=== PATIENT | male | born 1935 | race Caucasian/White ===

== ENCOUNTER 2017-10-13 14:59 | Inpatient (IN) | payer OTHER ==
[~2017-10-13] VITALS: Ht 180.3 cm; Wt 85.0 kg
[2017-10-13] MEDS ORDERED: LISI-461 PO (15:36)
[2017-10-13] MEDS ORDERED: ALLO300T2 PO (15:36)
[2017-10-13] MEDS ORDERED: ATEN50TA8 PO (15:36)
[2017-10-13] MEDS ORDERED: BUME1TAB PO ×2 (15:36)
[2017-10-13] MEDS ORDERED: ATOR-26 PO (15:36)
[2017-10-13] MEDS ORDERED: LISI10TA PO (15:36)
[2017-10-13] MEDS ORDERED: POTA-639 PO (15:36)
[2017-10-13] MEDS ORDERED: ALBUT/IPRATROP 3MG/0.5MG NEB 3 ML VIAL INH STA ×2 (15:43→16:58)
[2017-10-13] MEDS ORDERED: METHYLPREDNISOLONE 125 MG VIAL IV STA (15:46)
--- NOTE | 2017-10-13 16:01 | EMERGENCY ROOM VISIT NOTE ---
ED Visit Note First contact with patient: 15:27 CHIEF COMPLAINT: Shortness of breath HISTORY OF PRESENTING ILLNESS: This is an 82-year-old male with a past medical history of coronary artery disease, hypertension, CHF, who presents to the emergency department with complaint of shortness of breath and cough for the past 10 days. Patient states that he has been coughing up yellow sputum, he denies any hemoptysis. He states the cough has been getting worse, and especially keeping him awake at night. Patient was seen at his PCP today at [facility], was noted to have wheezing and decreased oxygenation of 89% on room air and was sent to the emergency department for further evaluation. He denies any chest pain, dizziness or syncope. He states that he is usually fairly active, but has noticed increased shortness of breath with exertion, as well as with lying flat. He denies any history of COPD, but states that he used to be a heavy smoker, and often gets wheezing with respiratory illness. He has bilateral lower extremity edema at baseline, states this might be a little worse than usual. He takes Bumex for this. He denies any symptoms of headache , vision changes, neck pain, back pain, abdominal pain, nausea or vomiting, diarrhea, bloody or black stools, urinary incontinence, or unusual rash. Patient's brother is at bedside with him, he denies any recent confusion or unusual behavior. REVIEW OF SYSTEMS: A complete 10 point review of systems was reviewed with the patient with pertinent positives and negatives as per history of present illness. All else were negative. PAST MEDICAL HISTORY: Coronary artery disease with a CABG in 2001, CHF, hypertension, hyperlipidemia SOCIAL HISTORY: Lives at home with his brother. He is a former heavy smoker, denies alcohol and recreational drugs. ALLERGIES: Reviewed in chart. PHYSICAL EXAM: CONSTITUTIONAL: Pleasant and cooperative. No acute distress. Pale and mildly dehydrated. HEENT: Normocephalic, atraumatic. Pupils equal, round and reactive to light, EOMI. TMs normal. Pharynx normal. Tacky mucous membranes. NECK: Supple, full active range of motion without discomfort. No cervical adenopathy. RESPIRATORY: Diminished in bases, especially at the right base. Diffuse expiratory wheezes throughout, bibasilar fine crackles, no rhonchi or stridor. Mildly labored breathing noted, but patient is not tachypneic and is able to speak in full sentences. Equal expansion bilaterally. CARDIOVASCULAR: Regular rate and rhythm with no murmurs, rubs or gallops. Normal peripheral perfusion. 2+ pitting edema of the bilateral lower extremities. GASTROINTESTINAL: Soft, nontender, nondistended. No palpable masses or HSM. Bowel sounds present in all quadrants. MUSCULOSKELETAL: Full range of motion of all joints without discomfort. INTEGUMENTARY: No rash or other significant dermatologic conditions noted. NEUROLOGIC: Alert and oriented X 4 with normal affect. Cranial nerves II-XII grossly intact, no facial droop. No pronator drift. No focal neurologic deficits noted. 5/5 strength in all 4 extremities, sensation intact to light touch in all 4 extremities. Normal speech. ED COURSE AND MEDICAL DECISION MAKING: CC: Patient presenting with complaint of shortness of breath and cough DIFFERENTIAL DIAGNOSIS: Includes, but not limited to COPD exacerbation, CHF exacerbation, pneumonia, bronchitis, viral URI, influenza, acute NV, PE, pulmonary edema, pleural effusion, aspiration, among others. INTERPRETATION OF LABS: No leukocytosis, mild anemia, no significant electrolyte abnormalities, mildly reduced renal function, elevated T bili and alk phos, liver enzymes otherwise normal. Coagulation factors within normal limits. Troponin is mildly elevated, pro-BNP is elevated. Negative influenza A /B. IMAGING: TWO VIEW CHEST CLINICAL HISTORY: Dyspnea. FINDINGS: PA and lateral chest radiographs are obtained. No prior studies are available for comparison at the time of dictation. The patient is status post midline sternotomy. The heart is enlarged and there is atherosclerotic calcification of the thoracic aorta. The pulmonary vasculature is noncongested. Emphysematous change is suggested. Nonspecific interstitial thickening is likely chronic. Postoperative change and volume loss is questioned in the right lung. Pleural fluid is seen at the right lung base. The left lung is grossly clear. There is no pneumothorax. The skeletal structures are osteopenic. The bony thorax appears intact. IMPRESSION: 1. Cardiomegaly and suspect emphysema. 2. Question postoperative change and volume loss in the right lung. Correlation with the patient's operative history will be required. 3. There is pleural fluid at the right lung base. The lungs otherwise appear clear. EKG: Shows sinus rhythm with first-degree AV block and a rate of 62 bpm, occasional PVCs, no acute ischemic changes noted, though poor quality study by my interpretation. No previous EKGs available for comparison. MEDICATION RECONCILIATION: I attest that I have personally reviewed the patient 's current medication list. INITIAL VITAL SIGNS REVIEW: I reviewed the patient's initial vital signs and interpret them as follows: T: Afebrile; BP: Hypertensive; HR: Within normal limits; RR: Within normal limits; Pulse Ox: Hypoxic on room air, placed on 2 L nasal cannula and improved to 97%. Blood pressure screening: The patient was found to have an elevated blood pressure and was referred to the inpatient team for further management. SUMMARY: Patient was evaluated at bedside, history and physical exam performed. Patient is alert and oriented, in no acute distress, resting calmly in stretcher. Patient does appear to have mildly labored breathing, but is not tachypneic and is able to speak in full sentences. there are diffuse expiratory wheezes heard on lung exam, as well as audible wheezing. Right bases especially diminished. Patient was noted to have pitting edema of the lower extremities, which he states he has at baseline, though he states this has been slightly worse over the past few weeks. Patient has a congested sounding cough, which he reports has been productive of yellow sputum. He is a former smoker. EKG reviewed at bedside, showing sinus rhythm with first-degree AV block, no acute ischemic changes. Orders were placed at bedside for labs, DuoNeb treatment, IV Solu-Medrol, chest x-ray to evaluate for cardiopulmonary disease. Patient discussed with Dr. Hatrley, who agrees with my assessment and plan. Labs and imaging reviewed as above, notable for mildly elevated troponin and an elevated pro-BNP, which is suggestive for CHF exacerbation. Chest x-ray reviewed, noting some pleural fluid in the right lung base, but no evidence for focal pneumonia or significant pulmonary edema. Patient was given a dose of IV Bumex to treat for possible CHF exacerbation, although I do feel his symptoms seem more consistent with a COPD exacerbation. Patient reassessed multiple times throughout ED stay, he is somewhat improved with nebulizer treatments, but continues to have a lot of wheezing and is continuing to require oxygen. He otherwise appears comfortable and denies any complaints of chest pain. I spoke on the phone with [facility], who agrees to evaluate the patient for admission. Patient was updated on all results and plan for admission, he verbalized understanding and was agreeable to this plan. Patient was stable at time of admission. Current/Historical Medications Scheduled Allopurinol (Zyloprim), 150 MG PO QAM Atenolol (Tenormin), 50 MG PO QAM Atorvastatin (Lipitor), 40 MG PO HS Bumetanide (Bumex), 1 MG PO 4XWK Bumetanide (Bumex), 2 MG PO 3XWK Lisinopril (Zestril), 20 MG PO QPM Lisinopril (Prinivil), 10 MG PO QAM Potassium Ext Rel (Klor-Con), 10 MEQ PO DAILY Allergies Coded Allergies: Ibuprofen (Unverified Adverse Reaction, Severe, RAPID HEART RATE, 10/13/17) Vital Signs Date Time Temp Pulse Resp B/P (MAP) Pulse Ox O2 Delivery O2 Flow Rate FiO2 10/13/17 19:13 62 18 133/66 97 Nasal Cannula 2.0 10/13/17 17:24 69 18 151/75 98 Nasal Cannula 2.0 10/13/17 15:51 97 Room Air 10/13/17 15:51 97 Nasal Cannula 2.0 10/13/17 15:06 87 Room Air 10/13/17 15:06 36.7 63 20 173/71 87 Room Air Laboratory Results 10/13/17 16:11 Red Blood Count 4.52, Mean Corpuscular Volume 79.9, Mean Corpuscular Hemoglobin 24.6, Mean Corpuscular Hemoglobin Concent 30.7, Mean Platelet Volume 10.2, Neutrophils (%) (Auto) 78.7, Lymphocytes (%) (Auto) 5.9, Monocytes (%) (Auto) 14.4, Eosinophils (%) (Auto) 0.3, Basophils (%) (Auto) 0.3, Neutrophils # (Auto ) 6.31, Lymphocytes # (Auto) 0.47, Monocytes # (Auto) 1.15, Eosinophils # (Auto ) 0.02, Basophils # (Auto) 0.02 10/13/17 16:11 Test 10/13/17 16:11 White Blood Count 8.00 K/uL (4.8-10.8) Red Blood Count 4.52 M/uL (4.7-6.1) Hemoglobin 11.1 g/dL (14.0-18.0) Hematocrit 36.1 % (42-52) Mean Corpuscular Volume 79.9 fL (80-100) Mean Corpuscular Hemoglobin 24.6 pg (25-34) Mean Corpuscular Hemoglobin Concent 30.7 g/dl (32-36) Platelet Count 212 K/uL (130-400) Mean Platelet Volume 10.2 fL (7.4-10.4) Neutrophils (%) (Auto) 78.7 % Lymphocytes (%) (Auto) 5.9 % Monocytes (%) (Auto) 14.4 % Eosinophils (%) (Auto) 0.3 % Basophils (%) (Auto) 0.3 % Neutrophils # (Auto) 6.31 K/uL (1.4-6.5) Lymphocytes # (Auto) 0.47 K/uL (1.2-3.4) Monocytes # (Auto) 1.15 K/uL (0.11-0.59) Eosinophils # (Auto) 0.02 K/uL (0-0.5) Basophils # (Auto) 0.02 K/uL (0-0.2) RDW Standard Deviation 47.7 fL (36.4-46.3) RDW Coefficient of Variation 16.5 % (11.5-14.5) Immature Granulocyte % (Auto) 0.4 % Immature Granulocyte # (Auto) 0.03 K/uL (0.00-0.02) Prothrombin Time 11.3 SECONDS (9.0-12.0) Prothromb Time International Ratio 1.1 (0.9-1.1) Activated Partial Thromboplast Time 26.2 SECONDS (21.0-31.0) Partial Thromboplastin Ratio 1.0 Anion Gap 4.0 mmol/L (3-11) Est Creatinine Clear Calc Drug Dose 40.0 ml/min Estimated GFR () 49.6 Estimated GFR (Non- 42.8 BUN/Creatinine Ratio 17.3 (10-20) Calcium Level 8.3 mg/dl (8.5-10.1) Total Bilirubin 1.1 mg/dl (0.2-1) Aspartate Amino Transf (AST/SGOT) 16 U/L (15-37) Alanine Aminotransferase (ALT/SGPT) 16 U/L (12-78) Alkaline Phosphatase 152 U/L (45-117) Pro-B-Type Natriuretic Peptide 9362 pg/ml (0-1800) Total Protein 7.1 gm/dl (6.4-8.2) Albumin 3.1 gm/dl (3.4-5.0) Globulin 4.0 gm/dl (2.5-4.0) Albumin/Globulin Ratio 0.8 (0.9-2) Influenza Type A Antigen Neg for Influ A (NEG) Influenza Type B Antigen Neg for Influ B (NEG) Medications Administered Medications (Trade) Dose Ordered Sig/Didi Route Start Time Stop Time Status Last Admin Dose Admin Albuterol/ Ipratropium (Duoneb) 3 ml NOW STAT INH 10/13/17 15:43 10/13/17 15:47 DC 10/13/17 16:14 3 ML Methylprednisolone Sodium Succinate (Solu-Medrol IV) 125 mg NOW STAT IV 10/13/17 15:46 10/13/17 15:47 DC 10/13/17 16:14 125 MG Albuterol/ Ipratropium (Duoneb) 3 ml NOW STAT INH 10/13/17 16:58 10/13/17 16:59 DC 10/13/17 17:30 3 ML Bumetanide 1 mg/ Syringe 4 ml @ 4 mls/min TODAY@1730 ONCE IV 10/13/17 17:30 10/13/17 17:31 DC 10/13/17 18:01 4 MLS/MIN Aspirin (Aspirin Chew) 324 mg NOW STAT PO 10/13/17 17:23 10/13/17 17:25 DC 10/13/17 17:30 324 MG Departure Information Patient Instructions [facility]
[2017-10-13 16:28] LABS: BASO % 0.3 %; BASO ABS # 0.02 K/uL (0-0.2); EOS % 0.3 %; EOS ABS # 0.02 K/uL (0-0.5); HEMATOCRIT 36.1 % (42-52); HEMOGLOBIN 11.1 g/dL (14.0-18.0); IG# 0.03 K/uL (0.00-0.02); LYMPH % 5.9 %; LYMPH ABS # 0.47 K/uL (1.2-3.4); MEAN CELL VOLUME 79.9 fL (80-100); MEAN CORPUSCULAR HEMOGLOBIN 24.6 pg (25-34); MEAN CORPUSCULAR HGB CONC 30.7 g/dl (32-36); MEAN PLATELET VOLUME 10.2 fL (7.4-10.4); MONO % 14.4 %; MONO ABS # 1.15 K/uL (0.11-0.59); NEUT % 78.7 %; NEUT ABS # 6.31 K/uL (1.4-6.5); PLATELET COUNT 212 K/uL (130-400); RED CELL DISTRIBUTION WIDTH CV 16.5 % (11.5-14.5); RED CELL DISTRIBUTION WIDTH SD 47.7 fL (36.4-46.3)
[2017-10-13 16:39] LABS: INR 1.1 (0.9-1.1); PTT PATIENT 26.2 SECONDS (21.0-31.0)
[2017-10-13 16:52] LABS: ALBUMIN 3.1 gm/dl (3.4-5.0); CALCIUM 8.3 mg/dl (8.5-10.1); CREATININE 1.49 mg/dl (0.60-1.40); POTASSIUM 3.9 mmol/L (3.5-5.1)
--- NOTE | 2017-10-13 16:52 | DIAGNOSTIC IMAGING REPORT ---
TWO VIEW CHEST CLINICAL HISTORY: Dyspnea. FINDINGS: PA and lateral chest radiographs are obtained. No prior studies are available for comparison at the time of dictation. The patient is status post midline sternotomy. The heart is enlarged and there is atherosclerotic calcification of the thoracic aorta. The pulmonary vasculature is noncongested. Emphysematous change is suggested. Nonspecific interstitial thickening is likely chronic. Postoperative change and volume loss is questioned in the right lung. Pleural fluid is seen at the right lung base. The left lung is grossly clear. There is no pneumothorax. The skeletal structures are osteopenic. The bony thorax appears intact. IMPRESSION: 1. Cardiomegaly and suspect emphysema. 2. Question postoperative change and volume loss in the right lung. Correlation with the patient's operative history will be required. 3. There is pleural fluid at the right lung base. The lungs otherwise appear clear. Electronically signed by: Jeffery Freeman M.D. 10/13/2017 4:51 PM Dictated Date/Time: 10/13/2017 4:49 PM
[2017-10-13 17:01] LABS: INFLUENZA B ANTIGEN Neg for Influ B (NEG)
[2017-10-13 17:06] LABS: TOTAL PROTEIN 7.1 gm/dl (6.4-8.2)
[2017-10-13] MEDS ORDERED: BUMETANIDE SOLN 1 MG/4 ML VIAL IV ONE (17:15)
[2017-10-13] MEDS ORDERED: ASPIRIN 81 MG CHEW PO STA (17:23)
[2017-10-13] MEDS ORDERED: BUMETANIDE IV 1 MG in SYRINGE 0 ML IV ONE (17:30)
--- NOTE | 2017-10-13 18:20 | EMERGENCY ROOM VISIT NOTE ---
ED Visit Note First contact with patient: 15:27 Patient seen and examined at bedside after discussion with the nurse practitioner. Patient presented here with shortness of breath after being found to be hypoxic by an outside physician. Patient her hypoxic on room air but improved to 2 L nasal cannula. Patient does not typically wear home oxygen. While patient does have a history of COPD, he has not had any wheezing , change in his sputum, no fevers or chills. Presentation today not strongly suggestive of COPD exacerbation. Patient does take a diuretic daily and has had some increased lower extremity edema, given age and additional comorbidities , possibly patient with evolving congestive heart failure. Lower extremity Dopplers negative. I do not suspect PE. I do not suspect other acute vascular etiology. No dysrhythmias noted on telemetry. EKG not suggestive of ACS. Troponin elevated, however this is likely secondary to congestive heart failure , or component of renal dysfunction. Patient otherwise hemodynamically stable here. Labs and imaging are reassuring. Please refer to nurse practitioner's note for additional details. Patient was referred to the hospitalist team for additional evaluation and treatment.
[2017-10-13] MEDS ORDERED: DOXYCYCLINE HYCLATE 100 MG CAP PO ONE (19:56)
[2017-10-13] MEDS ORDERED: ONDANSETRON INJ 2 MG/ML 2 ML VIAL IV PRN (20:00)
[2017-10-13] MEDS ORDERED: ALBUTEROL HFA 8 GM INHALER INH PRN (20:00)
[2017-10-13] MEDS ORDERED: ACETAMINOPHEN 325 MG TAB PO PRN (20:00)
[2017-10-13 21:00] VITALS: BP 142/70; PULSE 63; TEMP 36.6; O2SAT 95; BMI 25.8
[2017-10-13] MEDS: ENOXAPARIN 40 MG/0.4 ML SYR SC SCH (21:29)
[2017-10-13] MEDS: ATORVASTATIN 40 MG TAB PO SCH (21:30)
[2017-10-13] MEDS: METHYLPREDNISOLONE IV 20 MG in SYRINGE 0 ML IV SCH (21:30)
--- NOTE | 2017-10-13 21:33 | HISTORY & PHYSICAL EXAMINATION ---
DATE OF ADMISSION: 10/13/2017 PRIMARY CARE PHYSICIAN: From [facility]. CHIEF COMPLAINT: Shortness of breath with cough for the last 2 or 3 days. HISTORY OF PRESENT COMPLAINT: He is an 82-year-old male with significant past medical history of status post CABG in 2001, hypertension, hyperlipidemia, gout, and also history of umbilical hernia. Apparently he has been complaining of cough with shortness of breath for the last 2 days. His cough has been distressing. He has not been sleeping well for the last 2 days. He was seen in the clinic by his primary care provider and was advised to come to the Emergency Room because saturation was noted to be low at 89 on room air. He complains to have some shortness of breath and some wheezing associated with it but no chest pain. He does have upper abdominal pain mostly due to cough. He denies to have any fever, any chills, any rigors. No abdominal pain, no nausea, no vomiting, and no problem with urine and/or bowel habit. He admits to have swelling of the legs, but that has not been getting any worse and he admits to take bumetanide for CHF, but he has not gained any weight. In the Emergency Room, he was reasonably stable. He received treatment for nebulized bronchodilator, IV steroid, and also Lasix. His apparent investigation came back negative for any pneumonia, but positive for emphysema and BNP elevated to 8000 and troponin 0.06. From that point, he was admitted to my telemetry unit for continuation of care. PAST MEDICAL HISTORY: Significant for CABG x2 in 2001, hypertension, hyperlipidemia, umbilical hernia, gout. PAST SURGICAL HISTORY: CABG as mentioned earlier, adenoidectomy, and stripping of a thrombosed blood vessel from the occipital area years ago. FAMILY HISTORY: No significant family history of diabetes and heart disease. SOCIAL HISTORY: He is single. He lives with his brother. He quit smoking in 1986 with [id number] history of smoking. He drinks very occasionally. He has been reasonably ambulant. ALLERGIES: ALLERGIC TO IBUPROFEN. MEDICATIONS: As an outpatient, he has been taking aspirin 81 mg daily, bumetanide 1 mg 4 times a week and 2 mg 3 times a week, lisinopril 10 mg in the morning and 20 mg in the afternoon, allopurinol 300 mg tablet 150 daily, atenolol 50 mg in the morning, Lipitor 80 mg daily, and potassium 10 mEq daily. REVIEW OF SYSTEMS: RESPIRATORY: Has cough productive of yellowish phlegm with some wheezing and shortness of breath. CARDIOVASCULAR: No chest pain, palpitation. GASTROINTESTINAL: No abdominal pain except discomfort in the hernia area. No nausea nor vomiting. GENITOURINARY: No problem with urine and/or bowel habit. MUSCULOSKELETAL: No acute arthritis. CENTRAL NERVOUS SYSTEM: No headache, blurred vision, numbness or tingling in the extremities. SKIN AND LYMPHATICS: Generally he does not have any rash and/or enlargement of lymph nodes. PHYSICAL EXAMINATION: GENERAL: On examination in the Emergency Room, he was not having any acute distress. VITAL SIGNS: Temperature 36.7, pulse of 62 regular, blood pressure 133/66, saturation 97% on 2 liters nasal cannula. HEENT: Unremarkable. NECK: Supple, no JVD, no bruit. CHEST: Decreased breath sounds with rare wheezing but no definite crackles. HEART: S1, S2 regular with a 2/6 systolic murmur over precordium. ABDOMEN: Soft, benign, mildly tender in the umbilical area with a small umbilical hernia. Bowel sounds present. EXTREMITIES: 1+ edema bilaterally. CENTRAL NERVOUS SYSTEM: He is alert, awake, oriented x3. No focal sensory and/or motor deficit appreciated. LABORATORY DATA: Noted today, white count was 8.0, H and H 11.1/36.1, platelet was 212. Chemistry: Sodium 139, potassium 3.9, chloride 100, carbon dioxide 35, BUN 26, creatinine 1.49. No prior record in the system. Random glucose 100; calcium 8.3; total bilirubin 1.1; alkaline phosphatase 152, slightly high. Troponin was 0.061. BNP was 9362. PT/INR unremarkable. Influenza A and B negative. Chest x-ray, cardiomegaly and suspect emphysema. Postoperative changes with volume loss in the right lung. Minimal pleural fluid on the right side. EKG was in sinus rhythm with first-degree AV block, rate of [address]-T wave changes. No prior EKG to compare. IMPRESSION AND PLAN: 1. Ongoing cough productive of whitish phlegm and wheezing. May have bronchitis. No definite pneumonia on the x-ray. He was admitted to telemetry unit and started with oral doxycycline. He received a dose of Solu-Medrol, continue with the smaller doses. Will get nebulized bronchodilator and albuterol inhaler prescribed as well. 2. Could be presentation for CHF with leg edema and cough can be due to CHF. He has a history of CHF from the chart, but he denies it. He has been taking bumetanide. We will change it to IV twice a day while in the hospital and monitor PRP. He will have an echocardiogram, also serial cardiac enzymes to rule out possibility of ACS. 3. Hypertension. Blood pressure seems to be controlled at this time. We will hold his lisinopril in the light of elevated BUN and creatinine. We do not have any prior test to compare. His lisinopril may need to be started down the line. 4. TONIA. As mentioned earlier, he will be still getting bumetanide 1 mg daily and we will monitor kidney function while in the hospital. He was advised to drink 1500 mL fluid daily. 5. Gout, seems to be stable at this time. Continue current medication. 6. Hyperlipidemia. Continue the statin. 7. DVT prophylaxis with Lovenox. 8. GI prophylaxis with Maalox and Mylanta. 9. Code status. He will be full code. In my clinical assessment, the beneficiary meets criteria as per CMS for 2 midnights in the hospital. MTDD
[2017-10-13 23:48] VITALS: BP 118/65; PULSE 66; TEMP 37.2; O2SAT 96
[2017-10-14] VITALS (10 sets, daily range): BP systolic 111–149; BP diastolic 56–76; PULSE 57–86; TEMP 36.6–37; O2SAT 92–97
[2017-10-14 05:58] LABS: HEMATOCRIT 34.7 % (42-52); HEMOGLOBIN 10.5 g/dL (14.0-18.0); MEAN CELL VOLUME 80.3 fL (80-100); MEAN CORPUSCULAR HEMOGLOBIN 24.3 pg (25-34); MEAN CORPUSCULAR HGB CONC 30.3 g/dl (32-36); MEAN PLATELET VOLUME 11.3 fL (7.4-10.4); PLATELET COUNT 214 K/uL (130-400); RED CELL DISTRIBUTION WIDTH CV 16.3 % (11.5-14.5); RED CELL DISTRIBUTION WIDTH SD 47.9 fL (36.4-46.3); WHITE BLOOD COUNT 4.21 K/uL (4.8-10.8)
[2017-10-14 06:34] LABS: CALCIUM 8.1 mg/dl (8.5-10.1); CREATININE 1.49 mg/dl (0.60-1.40)
[2017-10-14 06:37] LABS: PHOSPHORUS 4.3 mg/dl (2.5-4.9)
[2017-10-14] MEDS: ALLOPURINOL 300 MG TAB PO SCH (07:53)
[2017-10-14] MEDS: POTASSIUM CHLORIDE 10 MEQ TABCR PO SCH (07:54)
[2017-10-14] MEDS: DOXYCYCLINE HYCLATE 100 MG CAP PO SCH ×2 (07:54→20:19)
[2017-10-14] MEDS: ASPIRIN 81 MG ECTAB PO SCH (07:55)
[2017-10-14] MEDS: METHYLPREDNISOLONE IV 20 MG in SYRINGE 0 ML IV SCH ×2 (08:02→20:19)
[2017-10-14] MEDS: BUMETANIDE IV 1 MG in SYRINGE 0 ML IV SCH ×2 (08:02→16:37)
[2017-10-14 09:13] LABS: INFLUENZA A PCR Neg for Influ A (NEG); INFLUENZA B PCR Neg for Influ B (NEG)
--- NOTE | 2017-10-14 15:32 | Progress Note ---
Medicine Progress Note Date & Time of Visit: Oct 14, 2017 at 15:22 . Subjective Admitted last evening with cough and worsening dyspnea. Feels a little bit better today. Still has congested, nonproductive cough. No fever, chills, sweats. No chest pain. Persistent dependent edema. Voiding without difficulty. No nausea, vomiting, diarrhea. . Objective Last 8 Hrs Date Time Temp Pulse Resp B/P (MAP) Pulse Ox O2 Delivery O2 Flow Rate FiO2 10/14/17 12:10 37.0 72 18 122/64 (83) 97 10/14/17 12:00 95 Nasal Cannula 2.0 10/14/17 08:00 37.0 86 18 149/68 (95) 95 10/14/17 08:00 95 Nasal Cannula 2.0 Physical Exam: General- lying in bed, no distress Lungs- scattered rhonchi, diffuse wheezing; no respiratory distress Cardiovascular- RRR; no murmur or gallop appreciated; + JVD; 1+ pretibial edema Abdomen- + bowel sounds, soft, nontender Extremities- no cyanosis; no calf tenderness Neuro- alert, oriented Skin- warm & dry . Laboratory Results: Last 24 Hours Test 10/13/17 16:11 10/13/17 20:31 10/14/17 01:35 10/14/17 05:19 White Blood Count 8.00 K/uL 4.21 K/uL Red Blood Count 4.52 M/uL 4.32 M/uL Hemoglobin 11.1 g/dL 10.5 g/dL Hematocrit 36.1 % 34.7 % Mean Corpuscular Volume 79.9 fL 80.3 fL Mean Corpuscular Hemoglobin 24.6 pg 24.3 pg Mean Corpuscular Hemoglobin Concent 30.7 g/dl 30.3 g/dl Platelet Count 212 K/uL 214 K/uL Mean Platelet Volume 10.2 fL 11.3 fL Neutrophils (%) (Auto) 78.7 % Lymphocytes (%) (Auto) 5.9 % Monocytes (%) (Auto) 14.4 % Eosinophils (%) (Auto) 0.3 % Basophils (%) (Auto) 0.3 % Neutrophils # (Auto) 6.31 K/uL Lymphocytes # (Auto) 0.47 K/uL Monocytes # (Auto) 1.15 K/uL Eosinophils # (Auto) 0.02 K/uL Basophils # (Auto) 0.02 K/uL RDW Standard Deviation 47.7 fL 47.9 fL RDW Coefficient of Variation 16.5 % 16.3 % Immature Granulocyte % (Auto) 0.4 % Immature Granulocyte # (Auto) 0.03 K/uL Prothrombin Time 11.3 SECONDS Prothromb Time International Ratio 1.1 Activated Partial Thromboplast Time 26.2 SECONDS Partial Thromboplastin Ratio 1.0 Sodium Level 139 mmol/L 138 mmol/L Potassium Level 3.9 mmol/L 4.0 mmol/L Chloride Level 100 mmol/L 101 mmol/L Carbon Dioxide Level 35 mmol/L 31 mmol/L Anion Gap 4.0 mmol/L 6.0 mmol/L Blood Urea Nitrogen 26 mg/dl 32 mg/dl Creatinine 1.49 mg/dl 1.49 mg/dl Est Creatinine Clear Calc Drug Dose 40.0 ml/min 40.0 ml/min Estimated GFR () 49.6 49.6 Estimated GFR (Non- 42.8 42.8 BUN/Creatinine Ratio 17.3 21.2 Random Glucose 100 mg/dl 132 mg/dl Calcium Level 8.3 mg/dl 8.1 mg/dl Total Bilirubin 1.1 mg/dl Aspartate Amino Transf (AST/SGOT) 16 U/L Alanine Aminotransferase (ALT/SGPT) 16 U/L Alkaline Phosphatase 152 U/L Troponin I 0.061 ng/ml 0.061 ng/ml 0.059 ng/ml Pro-B-Type Natriuretic Peptide 9362 pg/ml Total Protein 7.1 gm/dl Albumin 3.1 gm/dl Globulin 4.0 gm/dl Albumin/Globulin Ratio 0.8 Influenza Type A Antigen Neg for Influ A Influenza Type B Antigen Neg for Influ B Phosphorus Level 4.3 mg/dl Magnesium Level 2.1 mg/dl Triglycerides Level 58 mg/dl Cholesterol Level 92 mg/dl HDL Cholesterol 43 mg/dl LDL Cholesterol, Calculated 37 mg/dl VLDL Cholesterol, Calculated 12 mg/dl Cholesterol/HDL Ratio 2.1 Test 10/14/17 07:40 10/14/17 08:20 Influenza Type A (RT-PCR) Neg for Influ A Influenza Type B (RT-PCR) Neg for Influ B Troponin I 0.040 ng/ml Assessment & Plan CHF Underlying ischemic heart disease. Worsening dyspnea on exertion and dependent edema despite diuretic therapy. Chest x-ray showed cardiomegaly. BNP elevated. Echocardiogram pending. Titrate diuretics. Adjustment of other cardiovascular medications will depend on results of echocardiogram. CAD History of ischemic heart disease, status post CABG in 2001. Patient reports abnormal stress test 2-3 years ago, but he opted not to pursue repeat catheterization or consideration of further revascularization. Experiencing worsening dyspnea on exertion, sometimes associated with chest pressure. Presented to ED with worsening cough and dyspnea. Initial EKGs in the ED had baseline artifact. EKG this morning demonstrated sinus rhythm with PVCs, lateral downsloping ST depression. Serum troponins 0.061, 0.061, and 0.059, 0.040. Continue aspirin, atenolol. Add nitrates. Check lipid profile. Consult Cardiology. HYPERTENSION Lisinopril held due to renal insufficiency. Continue atenolol. DEPENDENT EDEMA Worsening dependent edema over past few months despite diuretic therapy. Check echocardiogram. Check venous duplex lower extremities to rule out DVT. COUGH / DYSPNEA Chest x-ray demonstrated elevated right hemidiaphragm and right pleural effusion which may be chronic. (Chest x-ray performed here in 2001 showed elevation of right hemidiaphragm and small right pleural effusion). Cough may be secondary to bronchitis or CHF. Continue doxycycline and methylprednisolone. Management of cardiac concerns as outlined above. RENAL INSUFFICIENCY Serum creatinine 1.49. Baseline unknown. Check old records. Follow. DYSLIPIDEMIA Check lipid profile. Continue atorvastatin. VTE PROPHYLAXIS SQ enoxaparin. Ambulate as able. DISPOSITION Expected discharge to home. Follow-up with [facility]. . Current Inpatient Medications: Current Inpatient Medications Medications (Trade) Dose Ordered Sig/Didi Route Start Time Stop Time Status Last Admin Dose Admin Enoxaparin Sodium (Lovenox Inj) 40 mg QPM SC 10/13/17 21:00 11/12/17 20:59 10/13/17 21:29 40 MG Acetaminophen (Tylenol Tab) 650 mg Q4H PRN PO 10/13/17 20:00 11/12/17 19:59 Ondansetron HCl (Zofran Inj) 4 mg Q6H PRN IV 10/13/17 20:00 11/12/17 19:59 Allopurinol (Zyloprim Tab) 150 mg QAM PO 10/14/17 09:00 11/13/17 08:59 10/14/17 07:53 150 MG Atenolol (Tenormin Tab) 50 mg QAM PO 10/14/17 09:00 11/13/17 08:59 10/14/17 07:53 50 MG Atorvastatin Calcium (Lipitor Tab) 40 mg HS PO 10/13/17 21:00 11/12/17 20:59 10/13/17 21:30 40 MG Potassium Chloride (Klor-Con M10) 10 meq DAILY PO 10/14/17 09:00 11/13/17 08:59 10/14/17 07:54 10 MEQ Bumetanide 1 mg/ Syringe 4 ml @ 4 mls/min BID@0900,1700 IV 10/14/17 09:00 11/13/17 08:59 10/14/17 08:02 4 MLS/MIN Doxycycline Hyclate (Vibramycin Cap) 100 mg BID PO 10/14/17 09:00 10/21/17 08:59 10/14/17 07:54 100 MG Albuterol (Ventolin Hfa Inhaler) 2 puffs Q6H PRN INH 10/13/17 20:00 11/12/17 19:59 Albuterol Sulfate (Ventolin 0.083% 2.5MG/3ML Neb) 2.5 mg Q6H PRN INH 10/13/17 20:00 11/12/17 19:59 Methylprednisolone Sodium Succinate 20 mg/Syringe 0.32 ml @ 1.5 mls/min BID IV 10/13/17 21:15 11/12/17 21:14 10/14/17 08:02 1.5 MLS/MIN Aspirin (Ecotrin Tab) 81 mg QAM PO 10/14/17 09:00 11/13/17 08:59 10/14/17 07:55 81 MG
--- NOTE | 2017-10-14 16:25 | DIAGNOSTIC IMAGING REPORT ---
ULTRASOUND BILATERAL LOWER EXTREMITY VENOUS CLINICAL HISTORY: Lower extremity edema. Dyspnea. COMPARISON STUDY: No priors. TECHNIQUE: Real-time, grayscale, and color Doppler sonography of the deep veins of the right and left lower extremity was performed from the inguinal crease to the calf. Compression and augmentation were utilized. FINDINGS: There is no sonographic evidence of deep venous thrombosis identified in the right or left lower extremity. The common femoral, superficial femoral, and popliteal veins are patent and normally compressible bilaterally. The greater saphenous vein and the profunda femoris vein at the junction with the common femoral vein are clear in both legs. The visualized calf veins are patent bilaterally. IMPRESSION: There is no sonographic evidence of deep venous thrombosis identified in the right or left lower extremity. Electronically signed by: Jeffery Freeman M.D. 10/14/2017 4:23 PM Dictated Date/Time: 10/14/2017 4:23 PM
--- NOTE | 2017-10-14 16:30 | ECHOCARDIOGRAM REPORT ---
*NOTICE TO RECEIVING [employer] This information is strictly Confidential and protected under [place] law. [place] law prohibits you from making any further disclosure of this information unless further disclosure is expressly permitted by the written consent of the person to whom it pertains or is authorized by law. A general authorization for the release of medical or other information is not sufficient for this purpose. Hospital accepts no responsibility if the information is made available to any other person, INCLUDING THE PATIENT. Interpretation Summary * Name: WILLIAN FOSTER Study Date: 10/14/2017 07:13 AM BP: 119/61 mmHg * Patient Location: S242 HR: 68 * : 1935 (M/d/yyyy) Gender: Male Height: 71 in * Age: 82 yrs Ethnicity: [place] Weight: 190 lb * Ordering Physician: Miky Lugo * Referring Physician: No Doctor, Assigned * Performed By: Evelin oHng RCS * * Reason For Study: CHF * BSA: 2.1 m2 * -- Conclusions -- * The left ventricle is normal in size. * There is moderate concentric left ventricular hypertrophy. * Left ventricular systolic function is normal. * Ejection Fraction = 50-55%. * Diastolic dysfunction, Grade II (pseudonormalization pattern). * The right ventricular systolic function is normal. * The left atrium is moderately dilated. * The right atrium is moderately dilated. * There is mild to moderate mitral regurgitation. Procedure Details * A complete two-dimensional transthoracic echocardiogram was performed (2D, M-mode, Doppler and color flow Doppler). Left Ventricle * The left ventricle is normal in size. * There is moderate concentric left ventricular hypertrophy. * Left ventricular systolic function is normal. * Ejection Fraction = 50-55%. Right Ventricle * The right ventricle is grossly normal size. * The right ventricular systolic function is normal. Atria * The left atrium is moderately dilated. * The right atrium is moderately dilated. * The interatrial septum is intact with no evidence for an atrial septal defect. Mitral Valve * The mitral valve anatomy is normal. * There is mild to moderate mitral regurgitation. Tricuspid Valve * The tricuspid valve is not well visualized, but is grossly normal. * Significant tricuspid regurgitation is absent. Aortic Valve * The aortic valve is tricuspid. The leaflet thickness if normal. There is no aortic stenosis, and no significant insufficiency. * Aortic stenosis is absent. * There is no significant aortic regurgitation. Pulmonic Valve * The pulmonic valve is not well visualized. Great Vessels * The aortic root and proximal ascending aorta are normal sized. Pericardium/Pleural * There is no pericardial effusion. Left Ventricular Diastolic Function * Diastolic dysfunction, Grade II (pseudonormalization pattern). MMode 2D Measurements and Calculations IVSd 1.2 cm IVSs 1.6 cm LVIDd 4.9 cm LVIDs 3.6 cm LVPWd 1.7 cm LVPWs 1.9 cm IVS/LVPW 0.71 FS 26.0 % EDV(Teich) 113.9 ml ESV(Teich) 56.0 ml EF(Teich) 50.9 % EDV(cubed) 119.1 ml ESV(cubed) 48.3 ml EF(cubed) 59.5 % % IVS thick 33.6 % % LVPW thick 15.9 % LV mass(C)d 292.6 grams LV mass(C)dI 141.8 grams/m\S\2 LV mass(C)s 265.8 grams LV mass(C)sI 128.8 grams/m\S\2 SV(Teich) 58.0 ml SI(Teich) 28.1 ml/m\S\2 SV(cubed) 70.8 ml SI(cubed) 34.3 ml/m\S\2 Ao root diam 2.8 cm Ao root area 6.2 cm\S\2 ACS 1.8 cm LA dimension 5.4 cm LA/Ao 1.9 LVOT diam 2.0 cm LVOT area 3.1 cm\S\2 LVAd ap4 37.6 cm\S\2 LVLd ap4 8.0 cm EDV(MOD-sp4) 148.7 ml EDV(sp4-el) 149.1 ml LVAs ap4 24.6 cm\S\2 LVLs ap4 6.9 cm ESV(MOD-sp4) 73.0 ml ESV(sp4-el) 74.6 ml EF(MOD-sp4) 50.9 % EF(sp4-el) 49.9 % LVAd ap2 30.7 cm\S\2 LVLd ap2 6.4 cm EDV(MOD-sp2) 123.5 ml EDV(sp2-el) 125.9 ml LVAs ap2 20.3 cm\S\2 LVLs ap2 6.3 cm ESV(MOD-sp2) 55.0 ml ESV(sp2-el) 55.6 ml EF(MOD-sp2) 55.5 % EF(sp2-el) 55.8 % LVLd %diff -26.52 % EDV(MOD-bp) 150.2 ml LVLs %diff -8.93 % ESV(MOD-bp) 62.5 ml EF(MOD-bp) 58.4 % SV(MOD-sp4) 75.8 ml SI(MOD-sp4) 36.7 ml/m\S\2 SV(MOD-sp2) 68.5 ml SI(MOD-sp2) 33.2 ml/m\S\2 SV(MOD-bp) 87.7 ml SI(MOD-bp) 42.5 ml/m\S\2 SV(sp4-el) 74.5 ml SI(sp4-el) 36.1 ml/m\S\2 SV(sp2-el) 70.3 ml SI(sp2-el) 34.1 ml/m\S\2 Doppler Measurements and Calculations MV E max abrahan 99.2 cm/sec MV A max abrahan 83.0 cm/sec MV E/A 1.2 MV P1/2t max abrahan 94.9 cm/sec MV P1/2t 60.2 msec MVA(P1/2t) 3.7 cm\S\2 MV dec slope 461.7 cm/sec\S\2 MV dec time 0.28 sec Ao V2 max 110.0 cm/sec Ao max PG 4.8 mmHg Ao max PG (full) 2.1 mmHg MARGRET(V,A) 2.3 cm\S\2 MARGRET(V,D) 2.3 cm\S\2 LV V1 max PG 2.7 mmHg LV V1 max 82.3 cm/sec MR max abrahan 539.6 cm/sec MR max PG 116.5 mmHg PA V2 max 88.9 cm/sec PA max PG 3.2 mmHg
[2017-10-14] MEDS: NITROGLYCERIN 2% OINTMENT 30GM TUBE EXT SCH (17:56)
[2017-10-14] MEDS: ATORVASTATIN 40 MG TAB PO SCH (20:19)
[2017-10-14] MEDS: ENOXAPARIN 40 MG/0.4 ML SYR SC SCH (20:19)
[2017-10-14] MEDS: ALBUTEROL 0.083% NEBU SOLN 3 ML VIAL INH PRN (23:15)
[2017-10-15] VITALS (11 sets, daily range): BP systolic 97–119; BP diastolic 47–71; PULSE 51–72; TEMP 36.3–36.7; O2SAT 91–98
[2017-10-15] MEDS: NITROGLYCERIN 2% OINTMENT 30GM TUBE EXT SCH ×2 (00:05→05:39)
[2017-10-15] MEDS: METHYLPREDNISOLONE IV 20 MG in SYRINGE 0 ML IV SCH ×2 (07:42→19:41)
[2017-10-15] MEDS: POTASSIUM CHLORIDE 10 MEQ TABCR PO SCH (07:43)
[2017-10-15] MEDS: ASPIRIN 81 MG ECTAB PO SCH (07:43)
[2017-10-15] MEDS: ALLOPURINOL 300 MG TAB PO SCH (07:43)
[2017-10-15] MEDS: DOXYCYCLINE HYCLATE 100 MG CAP PO SCH (07:43)
[2017-10-15 08:27] LABS: CREATININE 1.89 mg/dl (0.60-1.40); POTASSIUM 4.1 mmol/L (3.5-5.1)
--- NOTE | 2017-10-15 14:26 | Cardiology Consultation ---
Cardiology Consultation Date of Consultation: Oct 15, 2017 Requesting Physician: Dr. Conn Attending Gel[employer] Packing Operator: Dr. Dockery (Shaenlle Fuller PA-C) History of Present Illness Patient is a 82 year old male who follows with [place] for all medical care, limited records currently available. History obtained from patient and admission records. He has history of CABG x3 in [place] in 2001. Approx 5 years ago, he underwent stress testing for worsening angina and he was told this was "abnormal ". He admits to declining further work up/intervention at that time. Continued medical management preferred. Other history includes hypertension, dyslipidemia, gout, prior tobacco abuse, and CKD He reports doing well until the last few months where he noted progressive SOB, worsening LE edema. He was started on Bumex for diuretic therapy, without significant improvement per patient. No specific chest pain recently. No need for SL nitro. Over the last few days he has noted progressive SOB associated with cough and wheezing. He reports being up all night coughing for 3 days. He was evaluated by PCP through [place] and directed to ER for further work up. In ER he was started on nebulizers, IV steroids for possible respiratory tract infection/acute COPD exacerbation. He was also started on IV Bumex due to elevated BNP, lower extremity edema. He was found to have a mildly elevated troponin at 0.06 without significant changes on serial enzymes. He denied chest pain. Chest x-ray demonstrated possible right small pleural effusion with chronic emphysematous changes. Serial EKGs have demonstrated inferior and lateral ST-T wave abnormality since admission. However prior EKGs are not available to review. Echocardiogram was obtained which demonstrated normal LV function without wall motion abnormalities. (Shanelle Fuller PA-C) Past Medical/Surgical History Problem List: Medical Problems: (1) Bronchitis (2) CAD (coronary artery disease) of artery bypass graft (3) CHF (congestive heart failure) -diastolic 4. Hypertension 5. Dyslipidemia 6. 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 (Shanelle Fuller PA-C) Social History Smoking Status: Former Smoker Occupation: retired (Shanelle Fuller PA-C) Review Of Systems General: The patient denies weight change, night sweats, fever, chills. Head: The patient denies headache and prior head trauma. Cardiovascular: Positive for edema and shortness of breath. The patient denies chest pain or chest discomfort, palpitations, PND, orthopnea, spontaneous shortness of breath, syncope and near syncope. Pulmonary: Positive for cough, wheeze, shortness of breath Gastrointestinal: The patient denies nausea, vomiting, diarrhea, constipation, bloating, hematemesis, hematochezia, and abdominal pain. Skin: The patient denies diaphoresis and rash. Musculoskeletal: The patient denies joint pain, joint swelling, myalgia, back pain, neck pain and prior injuries. Neurological: The patient denies prior stroke and seizures (Shanelle Fuller PA-C) Allergies Coded Allergies: Ibuprofen (Unverified Adverse Reaction, Severe, RAPID HEART RATE, 10/13/17) Medications Reported Home Medications Medications Dose Route/Sig Max Daily Dose Days Date Category Klor-Con (Potassium Chloride) 20 Meq Tabcr 10 Meq PO DAILY 10/13/17 Reported Prinivil (Lisinopril) 10 Mg Tab 10 Mg PO QAM 10/13/17 Reported Zestril (Lisinopril) 10 Mg Tab 20 Mg PO QPM 10/13/17 Reported Bumex (Bumetanide) 1 Mg Tab 2 Mg PO 3XWK 10/13/17 Reported Bumex (Bumetanide) 1 Mg Tab 1 Mg PO 4XWK 10/13/17 Reported Lipitor (Atorvastatin Calcium) 80 Mg Tab 40 Mg PO HS 10/13/17 Reported Tenormin (Atenolol) 50 Mg Tab 50 Mg PO QAM 10/13/17 Reported Zyloprim (Allopurinol) 300 Mg Tab 150 Mg PO QAM 10/13/17 Reported (Shanelle Fuller PA-C) Physical Exam Vital Signs (Last 8hrs): Last 8 Hrs Date Time Temp Pulse Resp B/P (MAP) Pulse Ox O2 Delivery O2 Flow Rate FiO2 10/15/17 12:00 Nasal Cannula 2.0 10/15/17 11:36 36.6 72 18 115/70 (85) 97 Nasal Cannula 2.0 10/15/17 09:23 113/61 (78) 10/15/17 08:05 100/51 (67) 4/11/18 08:00 Nasal Cannula 2.0 10/15/17 07:59 36.3 51 17 97/47 (23) 96 Nasal Cannula 2.0 General Appearance: Alert and Oriented x3. Thin. Head: Normocephalic Atraumatic. Eyes: PERRLA, EOMI, conjunctiva and sclera clear Neck: Supple. No carotid bruits noted. No JVD. No HJD. Respiratory: +coarse rhonchi. No audible rales. Cardiovascular: Reg rate and rhythm. S1 and S2 noted. No audible murmurs, rubs, gallops. PMI non displace. Abdomen: Normal bowel sounds, soft nontender. no abdominal bruits. Extremities: No edema, no clubbing or cyanosis. distal pulses 2/4 bilaterally. Neuro: No focal deficits. Psychiatric: Normal affect. (Shanelle Fuller, SEN) Data Last 24 Hours Test 10/15/17 07:29 Sodium Level 138 mmol/L Potassium Level 4.1 mmol/L Chloride Level 100 mmol/L Carbon Dioxide Level 31 mmol/L Anion Gap 7.0 mmol/L Blood Urea Nitrogen 53 mg/dl Creatinine 1.89 mg/dl Est Creatinine Clear Calc Drug Dose 31.5 ml/min Estimated GFR () 37.2 Estimated GFR (Non- 32.1 BUN/Creatinine Ratio 28.1 Random Glucose 117 mg/dl Calcium Level 8.0 mg/dl ImaginD echocardiogram report reviewed completed during this admission: -- Conclusions -- The left ventricle is normal in size. There is moderate concentric left ventricular hypertrophy. Left ventricular systolic function is normal. Ejection Fraction = 50-55%. Diastolic dysfunction, Grade II (pseudonormalization pattern). The right ventricular systolic function is normal. The left atrium is moderately dilated. The right atrium is moderately dilated. There is mild to moderate mitral regurgitation Chest x-ray on admission: IMPRESSION: 1. Cardiomegaly and suspect emphysema. 2. Question postoperative change and volume loss in the right lung. Correlation with the patient's operative history will be required. 3. There is pleural fluid at the right lung base. The lungs otherwise appear clear. Venous duplex on admission: IMPRESSION: There is no sonographic evidence of deep venous thrombosis identified in the right or left lower extremity. EKG: On admission dated 10/13/2017: Normal sinus rhythm with first-degree AV block, poor tracing with artifact. Possible ST T-wave inversions in lateral leads. No prior EKG for comparison Repeat EKG on 10/14/2017: Normal sinus rhythm with first-degree AV block, ST-T wave abnormality in inferior and lateral leads. PVCs. Compared with prior EKG inverted T waves has replaced nonspecific T-wave abnormality in inferior leads Repeat EKG 10/15/2017: Normal sinus rhythm with first-degree AV block and PVCs. Inferolateral ST-T wave abnormality noted, not significantly changed from previous. Telemetry reviewed: Normal sinus rhythm with occasional PVC. No significant tachycardia or bradyarrhythmias. (Shanelle Fuller PA-C) Assessment & Plan 1. Admission for cough/SOB, likely multifactorial 2. Acute respiratory tract infection/bronchitis with likely underlying COPD/ emphysema. 3. Acute on chronic diastolic HF 4. Mildly elevated troponin, likely demand ischemia related to acute respiratory tract infection, diastolic HF exacerbation. 5. CAD s/p remote CABG, med management preferred by patient for chronic angina. 6. Hypertension 7. Dyslipidemia PLAN: Long discussion with patient regarding history and treatment plan. He presented with multifactorial SOB likely acute bronchitis with superimposed diastolic HF exacerbation. Symptoms have improved with IV diuretics, antibiotics, nebs and steroids. He has ongoing cough/wheeze. His echo is unremarkable wiht preserved LV function. he has no chest pain. Elevated troponin likely demand ischemia. He does have abnormal EKG, but unsure of what tracings were prior to admission. Awaiting records. He reports having an appt to see Cardiology in [facility] in 2 weeks. I recommend continued treatment for respiratory tract infection and underlying CHF. Diuretics held today due to borderline hypotension and volume status has improved. Continue ASA, beta manuel, statin. Resume diuretic therapy and consider nitrates if BP allows. Case discussed wiht Dr. Dockery. Will follow (Shanelle Fuller PA-C) CARDIOLOGY ATTENDING ADDENDUM: The patient was seen and personally examined. Agree with Shanelle Fuller PA-C's findings and plans as documented above. The patient is not the best historian. After hospital discharge she may want to return to the [place] system for further care. (Catarino Dockery, )
[2017-10-15] MEDS ORDERED: LEVOFLOXACIN CONSULT ACTIVE PRN (19:00)
[2017-10-15] MEDS: ATORVASTATIN 40 MG TAB PO SCH (19:41)
[2017-10-15] MEDS: GUAIFENESIN 600 MG TABCR PO SCH (19:41)
[2017-10-15] MEDS: ENOXAPARIN 40 MG/0.4 ML SYR SC SCH (19:41)
--- NOTE | 2017-10-15 22:12 | Progress Note ---
Medicine Progress Note Date & Time of Visit: Oct 15, 2017 at ~ 18:00 . Subjective No fever. Persistent cough and chest congestion. No chest pain. Lower extremity edema improved. No nausea, vomiting, diarrhea. . Objective Last 8 Hrs Date Time Temp Pulse Resp B/P (MAP) Pulse Ox O2 Delivery O2 Flow Rate FiO2 10/15/17 20:35 36.5 61 16 117/63 (81) 98 Nasal Cannula 2.0 10/15/17 20:15 98 Nasal Cannula 2.0 10/15/17 16:05 91 Nasal Cannula 2.0 10/15/17 15:55 36.6 69 18 119/71 (87) 91 Nasal Cannula 2.0 Physical Exam: General- lying in bed, no distress Lungs- scattered rhonchi, diffuse wheezing; no respiratory distress Cardiovascular- RRR; no murmur or gallop appreciated; + JVD; 1+ pretibial edema Abdomen- + bowel sounds, soft, nontender Extremities- no cyanosis; no calf tenderness; SCDs applied Neuro- alert, oriented Skin- warm & dry . Laboratory Results: Last 24 Hours Test 10/15/17 07:29 Sodium Level 138 mmol/L Potassium Level 4.1 mmol/L Chloride Level 100 mmol/L Carbon Dioxide Level 31 mmol/L Anion Gap 7.0 mmol/L Blood Urea Nitrogen 53 mg/dl Creatinine 1.89 mg/dl Est Creatinine Clear Calc Drug Dose 31.5 ml/min Estimated GFR () 37.2 Estimated GFR (Non- 32.1 BUN/Creatinine Ratio 28.1 Random Glucose 117 mg/dl Calcium Level 8.0 mg/dl Assessment & Plan CHF Acute on chronic left ventricular diastolic heart failure. Worsening dyspnea on exertion and dependent edema despite diuretic therapy. Chest x-ray showed cardiomegaly. BNP elevated. Echocardiogram demonstrated moderate concentric LVH, normal left ventricular systolic function with ejection fraction of 55%, grade 2 diastolic dysfunction, moderate enlargement of left atrium, moderate enlargement of right atrium, normal right ventricular systolic function, mild to moderate mitral regurgitation. Hold diuretics today because of rising creatinine. CAD History of ischemic heart disease, status post CABG in 2001. Patient reports abnormal stress test 2-3 years ago, but he opted not to pursue repeat catheterization or consideration of further revascularization. Experiencing worsening dyspnea on exertion, sometimes associated with chest pressure over past few months. Initial EKGs in the ED had baseline artifact. EKG 10/14 demonstrated sinus rhythm with PVCs, lateral downsloping ST depression. Serum troponins 0.061, 0.061, and 0.059, 0.040. Continue aspirin, atenolol. Added nitroglycerin ointment, but blood pressures relatively low. Cardiology consulted. Patient wishes to continue medical management. HYPERTENSION Lisinopril held due to renal insufficiency. Continue atenolol. DEPENDENT EDEMA Worsening dependent edema over past few months despite diuretic therapy. Echocardiogram demonstrated grade 2 diastolic dysfunction, normal left ventricular systolic function. Venous duplex lower extremities negative for DVT. COUGH / DYSPNEA Chest x-ray demonstrated elevated right hemidiaphragm and right pleural effusion which may be chronic. (Chest x-ray performed here in 2001 showed elevation of right hemidiaphragm and small right pleural effusion; CXR at [facility] 08/10/15 demonstrated a chronic elevation of right hemidiaphragm). Cough may be secondary to bronchitis or CHF. Initially received doxycycline and methylprednisolone. Cough has not improved significantly. Change antibiotic therapy to levofloxacin. CKD III Baseline creatinine 1.4-1.8. Creatinine at time of admission was 1.49. Creatinine today = 1.89. Hold diuretics today. Follow. DYSLIPIDEMIA LDL-c = 37. Continue atorvastatin. VTE PROPHYLAXIS SQ enoxaparin. Ambulate as able. DISPOSITION Expected discharge to home. Follow-up with [facility]. . Current Inpatient Medications: Current Inpatient Medications Medications (Trade) Dose Ordered Sig/Didi Route Start Time Stop Time Status Last Admin Dose Admin Enoxaparin Sodium (Lovenox Inj) 40 mg QPM SC 10/13/17 21:00 11/12/17 20:59 10/15/17 19:41 40 MG Acetaminophen (Tylenol Tab) 650 mg Q4H PRN PO 10/13/17 20:00 11/12/17 19:59 Ondansetron HCl (Zofran Inj) 4 mg Q6H PRN IV 10/13/17 20:00 11/12/17 19:59 Allopurinol (Zyloprim Tab) 150 mg QAM PO 10/14/17 09:00 11/13/17 08:59 10/15/17 07:43 150 MG Atenolol (Tenormin Tab) 50 mg QAM PO 10/14/17 09:00 11/13/17 08:59 10/15/17 10:11 50 MG Atorvastatin Calcium (Lipitor Tab) 40 mg HS PO 10/13/17 21:00 11/12/17 20:59 10/15/17 19:41 40 MG Potassium Chloride (Klor-Con M10) 10 meq DAILY PO 10/14/17 09:00 11/13/17 08:59 10/15/17 07:43 10 MEQ Bumetanide 1 mg/ Syringe 4 ml @ 4 mls/min BID@0900,1700 IV 10/14/17 09:00 11/13/17 08:59 Future Hold 10/14/17 16:37 4 MLS/MIN Albuterol (Ventolin Hfa Inhaler) 2 puffs Q6H PRN INH 10/13/17 20:00 11/12/17 19:59 Albuterol Sulfate (Ventolin 0.083% 2.5MG/3ML Neb) 2.5 mg Q6H PRN INH 10/13/17 20:00 11/12/17 19:59 10/14/17 23:15 2.5 MG Methylprednisolone Sodium Succinate 20 mg/Syringe 0.32 ml @ 1.5 mls/min BID IV 10/13/17 21:15 11/12/17 21:14 10/15/17 19:41 1.5 MLS/MIN Aspirin (Ecotrin Tab) 81 mg QAM PO 10/14/17 09:00 11/13/17 08:59 10/15/17 07:43 81 MG Levofloxacin 750 mg/Prmx 150 ml @ 100 mls/hr Q2D@2200 IV 10/15/17 22:00 10/22/17 21:59 Guaifenesin (Mucinex Contr Rel Tab) 600 mg Q12 PO 10/15/17 21:00 11/14/17 20:59 10/15/17 19:41 600 MG Levofloxacin (Consult) 1 ea UD PRN N/A 10/15/17 19:00 10/22/17 18:59
[2017-10-15] MEDS: LEVOFLOXACIN / D5W 750 MG in PREMIXED IN D5W 150 ML IV SCH (23:22)
[2017-10-16] VITALS (8 sets, daily range): BP systolic 108–159; BP diastolic 56–71; PULSE 59–89; TEMP 36.4–37.2; O2SAT 92–99
[2017-10-16 07:53] LABS: CALCIUM 8.2 mg/dl (8.5-10.1); CREATININE 1.68 mg/dl (0.60-1.40); POTASSIUM 4.3 mmol/L (3.5-5.1)
[2017-10-16] MEDS: ALLOPURINOL 300 MG TAB PO SCH (08:09)
[2017-10-16] MEDS: METHYLPREDNISOLONE IV 20 MG in SYRINGE 0 ML IV SCH ×2 (08:09→20:39)
[2017-10-16] MEDS: GUAIFENESIN 600 MG TABCR PO SCH ×2 (08:09→20:42)
[2017-10-16] MEDS: POTASSIUM CHLORIDE 10 MEQ TABCR PO SCH (08:09)
[2017-10-16] MEDS: ASPIRIN 81 MG ECTAB PO SCH (08:10)
[2017-10-16] MEDS: ALBUTEROL 0.083% NEBU SOLN 3 ML VIAL INH PRN ×2 (09:42→20:10)
--- NOTE | 2017-10-16 09:51 | Cardiology Follow-Up ---
Subjective General Date of Service: Oct 16, 2017. Chief Complaint: SOB/cough Pt evaluation today including: conversation w/ patient, physical exam, chart review, lab review, review of studies, review of inpatient medication list History of Present Illness Patient feeling more SOB this AM with worsening cough. notes he was awake all night coughing. Had trouble speaking on telephone this AM due to cough and SOB. No chest pain. No specific orthopnea, PND or increased edema. No sputum production. No palpitations or tachypalpitations. Allergies Coded Allergies: Ibuprofen (Unverified Adverse Reaction, Severe, RAPID HEART RATE, 10/13/17) Social History Smoking Status: Former Smoker Hx Tobacco Use In Past Year?: No Hx Alcohol Use - Type And Amou: No (quit 1 year ago, drank heavily prior to that) Hx Substance Use - Type And Am: No Review of Systems Respiratory: + cough, + wheezing, + shortness of breath, + dyspnea on exertion , No sputum, No hemoptysis Cardiac: No chest pain, No orthopnea, No PND, No edema, No palpitations Physical Exam Vital Signs Last Vital Signs Documentation Date Time Temp Pulse Resp B/P (MAP) Pulse Ox O2 Delivery O2 Flow Rate FiO2 10/16/17 07:25 36.6 59 16 108/56 (73) 92 Nasal Cannula 2.0 Physical Exam Constitutional: Level of Distress: mild distress, acutely ill, chronically ill Psychiatric: Mental Status: active & alert Orientation: to time, to place, to person Head: normocephalic Eyes: Pupils: PERRLA Neck: supple Lungs: Respiratory effort: use of accessory muscles Auscultation: inspiratory wheezing, expiratory wheezing, rhonchi Cardiovascular: Heart Auscultation: RRR, normal S1, normal S2, no murmurs Extremities: no edema Assessment and Plan Assessment and Plan Assessment 1. Admission for cough/SOB, likely multifactorial 2. Acute respiratory tract infection/bronchitis with likely underlying COPD/ emphysema. 3. Acute on chronic diastolic HF, clinically improving 4. Mildly elevated troponin, likely demand ischemia related to acute respiratory tract infection, diastolic HF exacerbation, preserved LV function on echo. 5. CAD s/p remote CABG, med management preferred by patient for chronic angina. 6. Hypertension 7. Dyslipidemia PLAN: Patient reports worsening cough/SOB this AM and last night. Ordered neb treatment this AM. Repeat xray. No overt signs of CHF on exam. Diuretics on hold due to rising creatinine. May need to resume today. Continue antibiotics, nebs and steroids. His echo is unremarkable wiht preserved LV function. he has no chest pain. Elevated troponin likely demand ischemia. He does have abnormal EKG, but unsure of what tracings were prior to admission. Awaiting records. Continue home meds including ASA, statin, beta manuel. [facility] and wishes to resume care upon discharge. He reports he has cardiology appt in 2 weeks. Case to be discussed with Dr. Dockery. CARDIOLOGY ATTENDING ADDENDUM: The patient was seen and personally examined. Agree with Shanelle Fuller PA-C's findings and plans as documented above. The patient may benefit from physical therapy and I will order a consult. Laboratory Results Last 24 Hours Test 10/16/17 06:51 Sodium Level 137 mmol/L Potassium Level 4.3 mmol/L Chloride Level 100 mmol/L Carbon Dioxide Level 32 mmol/L Anion Gap 5.0 mmol/L Blood Urea Nitrogen 56 mg/dl Creatinine 1.68 mg/dl Est Creatinine Clear Calc Drug Dose 35.5 ml/min Estimated GFR () 42.9 Estimated GFR (Non- 37.0 BUN/Creatinine Ratio 33.3 Random Glucose 119 mg/dl Calcium Level 8.2 mg/dl
--- NOTE | 2017-10-16 10:39 | DIAGNOSTIC IMAGING REPORT ---
TWO VIEW CHEST CLINICAL HISTORY: Cough. FINDINGS: AP and lateral chest radiographs are compared to study dated 10/13/2017. The AP view is degraded by patient rotation. The patient is status post midline sternotomy. The heart is enlarged and there is atherosclerotic calcification of the thoracic aorta. The pulmonary vasculature is noncongested. Emphysematous change is suggested. Nonspecific interstitial thickening is likely chronic. Postoperative change and volume loss is questioned in the right lung. Pleural fluid is seen at the right lung base. No pleural effusion is clearly identified on the left. There is no pneumothorax. The skeletal structures are osteopenic. The bony thorax appears intact. IMPRESSION: 1. Cardiomegaly and suspect emphysema. 2. Question postoperative change and volume loss in the right lung. Correlation with the patient's operative history will be required. 3. There is pleural fluid at the right lung base. The lungs otherwise appear clear and there has been no significant change from 10/13/2017. Electronically signed by: Jeffery Freeman M.D. 10/16/2017 10:38 AM Dictated Date/Time: 10/16/2017 10:36 AM
[2017-10-16] MEDS ORDERED: NURSING VERBAL MED ORDER ONE ×2 (13:15)
--- NOTE | 2017-10-16 20:12 | Progress Note ---
Medicine Progress Note Date & Time of Visit: Oct 16, 2017 . Subjective No fever. Persistent congested cough, but somewhat better. Tires easily. Dyspneic with minimal exertion. No chest pain. Dependent edema improved. No nausea or vomiting. No diarrhea. . Objective Last 8 Hrs Date Time Temp Pulse Resp B/P (MAP) Pulse Ox O2 Delivery O2 Flow Rate FiO2 10/16/17 20:11 71 20 98 Nasal Cannula 2.0 10/16/17 19:33 37.2 66 24 134/68 (90) 99 Nasal Cannula 2.0 10/16/17 16:00 Nasal Cannula 2.0 10/16/17 15:41 36.6 89 24 128/67 (87) 97 Nasal Cannula 2.0 Physical Exam: General- lying in bed, no distress Lungs- scattered rhonchi, diffuse wheezing; no respiratory distress Cardiovascular- RRR; no murmur or gallop appreciated; + JVD; 1+ pretibial edema Abdomen- + bowel sounds, soft, nontender Extremities- no cyanosis; no calf tenderness Neuro- alert, oriented Skin- warm & dry . Laboratory Results: Last 24 Hours Test 10/16/17 06:51 Sodium Level 137 mmol/L Potassium Level 4.3 mmol/L Chloride Level 100 mmol/L Carbon Dioxide Level 32 mmol/L Anion Gap 5.0 mmol/L Blood Urea Nitrogen 56 mg/dl Creatinine 1.68 mg/dl Est Creatinine Clear Calc Drug Dose 35.5 ml/min Estimated GFR () 42.9 Estimated GFR (Non- 37.0 BUN/Creatinine Ratio 33.3 Random Glucose 119 mg/dl Calcium Level 8.2 mg/dl Assessment & Plan CHF Acute on chronic left ventricular diastolic heart failure. Worsening dyspnea on exertion and dependent edema despite diuretic therapy. Chest x-ray showed cardiomegaly. BNP elevated. Echocardiogram demonstrated moderate concentric LVH, normal left ventricular systolic function with ejection fraction of 55%, grade 2 diastolic dysfunction, moderate enlargement of left atrium, moderate enlargement of right atrium, normal right ventricular systolic function, mild to moderate mitral regurgitation. Holding diuretics because of rising creatinine. CAD History of ischemic heart disease, status post CABG in 2001. Patient reports abnormal stress test 2-3 years ago, but he opted not to pursue repeat catheterization or consideration of further revascularization. Experiencing worsening dyspnea on exertion, sometimes associated with chest pressure over past few months. Initial EKGs in the ED had baseline artifact. EKG 4/10 demonstrated sinus rhythm with PVCs, lateral downsloping ST depression. Serum troponins 0.061, 0.061, and 0.059, 0.040. Continue aspirin, atenolol. Added nitroglycerin ointment, but blood pressures relatively low. Cardiology consulted. Patient wishes to continue medical management. HYPERTENSION Lisinopril held due to renal insufficiency. Continue atenolol. DEPENDENT EDEMA Worsening dependent edema over past few months despite diuretic therapy. Echocardiogram demonstrated grade 2 diastolic dysfunction, normal left ventricular systolic function. Venous duplex lower extremities negative for DVT. COUGH / DYSPNEA Chest x-ray demonstrated elevated right hemidiaphragm and right pleural effusion which may be chronic. (Chest x-ray performed here in 2001 showed elevation of right hemidiaphragm and small right pleural effusion; CXR at [facility] 08/10/15 demonstrated a chronic elevation of right hemidiaphragm). Cough may be secondary to bronchitis or CHF. Initially received doxycycline and methylprednisolone. Cough has not improved significantly. Changed antibiotic therapy to levofloxacin. Repeat chest x-ray today unchanged, no apparent infiltrates. COPD EXACERBATION Secondary to tracheobronchitis. Continue intravenous methylprednisolone and nebulizer treatments. CKD III Baseline creatinine 1.4-1.8. Creatinine at time of admission was 1.49. Creatinine minerva to 1.89 with diuretic therapy. BUN creatinine today 56 and 1.68, respectively. Continue to hold diuretics. Follow. DYSLIPIDEMIA LDL-c = 37. Continue atorvastatin. POOR FUNCTIONAL STATUS PT / OT evals. VTE PROPHYLAXIS SQ enoxaparin. Ambulate as able. DISPOSITION To be determined. Follow-up with [facility]. . Current Inpatient Medications: Current Inpatient Medications Medications (Trade) Dose Ordered Sig/Didi Route Start Time Stop Time Status Last Admin Dose Admin Enoxaparin Sodium (Lovenox Inj) 40 mg QPM SC 10/13/17 21:00 11/12/17 20:59 10/15/17 19:41 40 MG Acetaminophen (Tylenol Tab) 650 mg Q4H PRN PO 10/13/17 20:00 11/12/17 19:59 Ondansetron HCl (Zofran Inj) 4 mg Q6H PRN IV 10/13/17 20:00 11/12/17 19:59 Allopurinol (Zyloprim Tab) 150 mg QAM PO 10/14/17 09:00 11/13/17 08:59 10/16/17 08:09 150 MG Atenolol (Tenormin Tab) 50 mg QAM PO 10/14/17 09:00 11/13/17 08:59 10/16/17 08:10 50 MG Atorvastatin Calcium (Lipitor Tab) 40 mg HS PO 10/13/17 21:00 11/12/17 20:59 10/15/17 19:41 40 MG Potassium Chloride (Klor-Con M10) 10 meq DAILY PO 10/14/17 09:00 11/13/17 08:59 10/16/17 08:09 10 MEQ Bumetanide 1 mg/ Syringe 4 ml @ 4 mls/min BID@0900,1700 IV 10/14/17 09:00 11/13/17 08:59 Future Hold 10/14/17 16:37 4 MLS/MIN Albuterol (Ventolin Hfa Inhaler) 2 puffs Q6H PRN INH 10/13/17 20:00 11/12/17 19:59 Albuterol Sulfate (Ventolin 0.083% 2.5MG/3ML Neb) 2.5 mg Q6H PRN INH 10/13/17 20:00 11/12/17 19:59 10/16/17 20:10 2.5 MG Methylprednisolone Sodium Succinate 20 mg/Syringe 0.32 ml @ 1.5 mls/min BID IV 10/13/17 21:15 11/12/17 21:14 10/16/17 08:09 1.5 MLS/MIN Aspirin (Ecotrin Tab) 81 mg QAM PO 10/14/17 09:00 11/13/17 08:59 10/16/17 08:10 81 MG Levofloxacin 750 mg/Prmx 150 ml @ 100 mls/hr Q2D@2200 IV 10/15/17 22:00 10/22/17 21:59 10/15/17 23:22 100 MLS/HR Guaifenesin (Mucinex Contr Rel Tab) 600 mg Q12 PO 10/15/17 21:00 11/14/17 20:59 10/16/17 08:09 600 MG Levofloxacin (Consult) 1 ea UD PRN N/A 10/15/17 19:00 10/22/17 18:59
[2017-10-16] MEDS: ENOXAPARIN 40 MG/0.4 ML SYR SC SCH (20:41)
[2017-10-16] MEDS: ATORVASTATIN 40 MG TAB PO SCH (20:41)
[2017-10-16] MEDS ORDERED: LEVALBUTEROL 0.63MG/3 ML NEB INH PRN (21:00)
[2017-10-17] VITALS (7 sets, daily range): BP systolic 123–135; BP diastolic 63–73; PULSE 57–77; TEMP 36.6–37; O2SAT 91–100
[2017-10-17] MEDS: IPRATROPIUM BROMIDE NEB SOLN 0.02% 2.5 ML VIAL INH SCH ×4 (07:05→18:48)
[2017-10-17] MEDS: LEVALBUTEROL 0.63MG/3 ML NEB INH SCH ×4 (07:05→18:49)
[2017-10-17 07:39] LABS: CALCIUM 8.6 mg/dl (8.5-10.1); CREATININE 1.84 mg/dl (0.60-1.40); POTASSIUM 5.1 mmol/L (3.5-5.1)
[2017-10-17 07:43] LABS: HEMATOCRIT 39.4 % (42-52); HEMOGLOBIN 11.3 g/dL (14.0-18.0); MEAN CELL VOLUME 83.7 fL (80-100); MEAN CORPUSCULAR HGB CONC 28.7 g/dl (32-36); MEAN PLATELET VOLUME 10.8 fL (7.4-10.4); PLATELET COUNT 236 K/uL (130-400); RED CELL DISTRIBUTION WIDTH CV 16.2 % (11.5-14.5); RED CELL DISTRIBUTION WIDTH SD 49.2 fL (36.4-46.3); WHITE BLOOD COUNT 13.92 K/uL (4.8-10.8)
[2017-10-17] MEDS: ASPIRIN 81 MG ECTAB PO SCH (07:58)
[2017-10-17] MEDS: ALLOPURINOL 300 MG TAB PO SCH (07:58)
[2017-10-17] MEDS: METHYLPREDNISOLONE IV 20 MG in SYRINGE 0 ML IV SCH ×2 (07:58→21:00)
[2017-10-17] MEDS: GUAIFENESIN 600 MG TABCR PO SCH ×2 (07:58→21:00)
--- NOTE | 2017-10-17 09:24 | Cardiology Follow-Up ---
Subjective General Date of Service: Oct 17, 2017. Chief Complaint: SOB/cough Pt evaluation today including: conversation w/ patient, physical exam, chart review, lab review, review of studies, review of inpatient medication list History of Present Illness Patient feeling slightly better this AM. He reports cough improving. SOB improving. No chest pain. No dizziness, syncope or near syncope. No edema. Allergies Coded Allergies: Ibuprofen (Unverified Adverse Reaction, Severe, RAPID HEART RATE, 10/13/17) Social History Smoking Status: Former Smoker Hx Tobacco Use In Past Year?: No Hx Alcohol Use - Type And Amou: No (quit 1 year ago, drank heavily prior to that) Hx Substance Use - Type And Am: No Review of Systems Respiratory: + cough, + sputum, + wheezing, + dyspnea on exertion, No dyspnea at rest, No hemoptysis Cardiac: No chest pain, No orthopnea, No PND, No edema, No palpitations Physical Exam Vital Signs Last Vital Signs Documentation Date Time Temp Pulse Resp B/P (MAP) Pulse Ox O2 Delivery O2 Flow Rate FiO2 10/17/17 08:00 Nasal Cannula 2.0 10/17/17 07:27 37.0 77 18 134/72 (92) 100 Physical Exam Constitutional: Level of Distress: NAD, acutely ill, chronically ill Psychiatric: Mental Status: active & alert Orientation: to time, to place, to person Head: normocephalic Eyes: Pupils: PERRLA Neck: supple Lungs: Auscultation: inspiratory wheezing, expiratory wheezing, rhonchi Cardiovascular: Heart Auscultation: RRR, normal S1, normal S2, no murmurs Extremities: no edema Assessment and Plan Assessment and Plan Assessment 1. Admission for cough/SOB, likely multifactorial 2. Acute respiratory tract infection/bronchitis with likely underlying COPD/ emphysema. 3. Acute on chronic diastolic HF, clinically improving 4. Mildly elevated troponin, likely demand ischemia related to acute respiratory tract infection, diastolic HF exacerbation, preserved LV function on echo. 5. CAD s/p remote CABG, med management preferred by patient for chronic angina. 6. Hypertension 7. Dyslipidemia PLAN: Clinically improving. Appears euvolemic. Diuretics on hold due to rising creatinine. Resume on discharge. Continue antibiotics, nebs and steroids per hospitalist. His echo is unremarkable wiht preserved LV function. He has no chest pain. Borderline elevated troponin likely demand ischemia in setting of respiratory illness, CHF exacerbation. He does have abnormal EKG, but unsure of what tracings were prior to admission. Continue home meds including ASA, statin, beta manuel. [facility] and wishes to resume care upon discharge. He reports he has cardiology appt in 2 weeks. I have recommended he keep this appointment and further workup/ischemic evaluation may be warranted vs continued med management. He reports prior abnormal stress for which he preferred med management several years ago. Case discussed with Dr. Dockery. Will sign off. Please notify metal bonding assembler provider with questions or additional concerns. CARDIOLOGY ATTENDING ADDENDUM: The patient was seen and personally examined. Agree with Shanelle Fuller PA-C's findings and plans as documented above. Laboratory Results Last 24 Hours Test 10/17/17 06:49 White Blood Count 13.92 K/uL Red Blood Count 4.71 M/uL Hemoglobin 11.3 g/dL Hematocrit 39.4 % Mean Corpuscular Volume 83.7 fL Mean Corpuscular Hemoglobin 24.0 pg Mean Corpuscular Hemoglobin Concent 28.7 g/dl RDW Standard Deviation 49.2 fL RDW Coefficient of Variation 16.2 % Platelet Count 236 K/uL Mean Platelet Volume 10.8 fL Sodium Level 139 mmol/L Potassium Level 5.1 mmol/L Chloride Level 103 mmol/L Carbon Dioxide Level 35 mmol/L Anion Gap 1.0 mmol/L Blood Urea Nitrogen 57 mg/dl Creatinine 1.84 mg/dl Est Creatinine Clear Calc Drug Dose 32.4 ml/min Estimated GFR () 38.4 Estimated GFR (Non- 33.2 BUN/Creatinine Ratio 31.0 Random Glucose 144 mg/dl Calcium Level 8.6 mg/dl
--- NOTE | 2017-10-17 20:54 | Progress Note ---
Medicine Progress Note Date & Time of Visit: Oct 17, 2017 at 10:30 . Subjective Nursing staff notes confusion. No fever. No chest pain. Dependent edema improved. Persistent chest congestion with nonproductive cough. No nausea, vomiting, diarrhea. Voiding without difficulty. . Objective Last 8 Hrs Date Time Temp Pulse Resp B/P (MAP) Pulse Ox O2 Delivery O2 Flow Rate FiO2 10/17/17 20:00 Nasal Cannula 1.0 10/17/17 16:00 36.6 69 20 123/65 (84) 95 Nasal Cannula 1.0 10/17/17 15:46 57 91 10/17/17 15:40 Nasal Cannula 1.0 Physical Exam: General- lying in bed, no distress Lungs- scattered rhonchi, diffuse wheezing; no respiratory distress Cardiovascular- RRR; no murmur or gallop appreciated; + JVD; 1+ pretibial edema Abdomen- + bowel sounds, soft, nontender Extremities- no cyanosis; no calf tenderness Neuro-somewhat somnolent, oriented to person, place, tax season, but not exact year Skin- warm & dry . Laboratory Results: Last 24 Hours Test 10/17/17 06:49 10/17/17 11:07 White Blood Count 13.92 K/uL Red Blood Count 4.71 M/uL Hemoglobin 11.3 g/dL Hematocrit 39.4 % Mean Corpuscular Volume 83.7 fL Mean Corpuscular Hemoglobin 24.0 pg Mean Corpuscular Hemoglobin Concent 28.7 g/dl RDW Standard Deviation 49.2 fL RDW Coefficient of Variation 16.2 % Platelet Count 236 K/uL Mean Platelet Volume 10.8 fL Sodium Level 139 mmol/L Potassium Level 5.1 mmol/L Chloride Level 103 mmol/L Carbon Dioxide Level 35 mmol/L Anion Gap 1.0 mmol/L Blood Urea Nitrogen 57 mg/dl Creatinine 1.84 mg/dl Est Creatinine Clear Calc Drug Dose 32.4 ml/min Estimated GFR () 38.4 Estimated GFR (Non- 33.2 BUN/Creatinine Ratio 31.0 Random Glucose 144 mg/dl Calcium Level 8.6 mg/dl Arterial Blood pH 7.25 Arterial Blood Partial Pressure CO2 82 mmHg Arterial Blood Partial Pressure O2 95 mm/Hg Arterial Blood HCO3 35 mmol/L Arterial Blood Oxygen Saturation 95.8 % Arterial Blood Base Excess 5.8 mEq/L Arterial Blood Gas Delivery 2 L Howie Test POS Assessment & Plan COUGH / DYSPNEA Chest x-ray demonstrated elevated right hemidiaphragm and right pleural effusion which may be chronic. (Chest x-ray performed here in 2001 showed elevation of right hemidiaphragm and small right pleural effusion; CXR at [facility] 08/10/15 demonstrated a chronic elevation of right hemidiaphragm). Cough may be secondary to bronchitis or CHF. Initially received doxycycline and methylprednisolone. Changed antibiotic therapy to levofloxacin. Repeat chest x-ray 10/16 unchanged, no apparent infiltrates. COPD EXACERBATION Secondary to tracheobronchitis. Continue intravenous methylprednisolone and nebulizer treatments. ABG on 2 L nasal cannula demonstrated PCO2 of 82. Titrate supplemental oxygen to maintain sats around 90%. CHF Acute on chronic left ventricular diastolic heart failure. Worsening dyspnea on exertion and dependent edema despite diuretic therapy. Chest x-ray showed cardiomegaly. BNP elevated. Echocardiogram demonstrated moderate concentric LVH, normal left ventricular systolic function with ejection fraction of 55%, grade 2 diastolic dysfunction, moderate enlargement of left atrium, moderate enlargement of right atrium, normal right ventricular systolic function, mild to moderate mitral regurgitation. Holding diuretics because of rising creatinine. CAD History of ischemic heart disease, status post CABG in 2001. Patient reports abnormal stress test 2-3 years ago, but he opted not to pursue repeat catheterization or consideration of further revascularization. Experiencing worsening dyspnea on exertion, sometimes associated with chest pressure over past few months. Initial EKGs in the ED had baseline artifact. EKG 10/14 demonstrated sinus rhythm with PVCs, lateral downsloping ST depression. Serum troponins 0.061, 0.061, and 0.059, 0.040. Continue aspirin, atenolol. Added nitroglycerin ointment, but blood pressures relatively low. Cardiology consulted. Patient wishes to continue medical management. HYPERTENSION Lisinopril held due to renal insufficiency. Continue atenolol. DEPENDENT EDEMA Worsening dependent edema over past few months despite diuretic therapy. Echocardiogram demonstrated grade 2 diastolic dysfunction, normal left ventricular systolic function. Venous duplex lower extremities negative for DVT. CKD III Baseline creatinine 1.4-1.8. Creatinine at time of admission was 1.49. Creatinine minerva to 1.89 with diuretic therapy. BUN creatinine today 57 and 1.84 , respectively. Continue to hold diuretics. Follow. DYSLIPIDEMIA LDL-c = 37. Continue atorvastatin. POOR FUNCTIONAL STATUS PT / OT evals. DELIRIUM Increasing confusion noted over last 48 hours. ABG demonstrates CO2 retention. BUN/creatinine elevated. No recent alcohol intake. Optimize medical conditions. Avoid anticholinergic medications. Follow. VTE PROPHYLAXIS SQ enoxaparin. Ambulate as able. DISPOSITION To be determined. Follow-up with [facility]. . Current Inpatient Medications: Current Inpatient Medications Medications (Trade) Dose Ordered Sig/Didi Route Start Time Stop Time Status Last Admin Dose Admin Enoxaparin Sodium (Lovenox Inj) 40 mg QPM SC 10/13/17 21:00 11/12/17 20:59 10/16/17 20:41 40 MG Acetaminophen (Tylenol Tab) 650 mg Q4H PRN PO 10/13/17 20:00 11/12/17 19:59 Ondansetron HCl (Zofran Inj) 4 mg Q6H PRN IV 10/13/17 20:00 11/12/17 19:59 Allopurinol (Zyloprim Tab) 150 mg QAM PO 10/14/17 09:00 11/13/17 08:59 10/17/17 07:58 150 MG Atenolol (Tenormin Tab) 50 mg QAM PO 10/14/17 09:00 11/13/17 08:59 10/17/17 07:58 50 MG Atorvastatin Calcium (Lipitor Tab) 40 mg HS PO 10/13/17 21:00 11/12/17 20:59 10/16/17 20:41 40 MG Bumetanide 1 mg/ Syringe 4 ml @ 4 mls/min BID@0900,1700 IV 10/14/17 09:00 11/13/17 08:59 Future Hold 10/14/17 16:37 4 MLS/MIN Methylprednisolone Sodium Succinate 20 mg/Syringe 0.32 ml @ 1.5 mls/min BID IV 10/13/17 21:15 11/12/17 21:14 10/17/17 07:58 1.5 MLS/MIN Aspirin (Ecotrin Tab) 81 mg QAM PO 10/14/17 09:00 11/13/17 08:59 10/17/17 07:58 81 MG Levofloxacin 750 mg/Prmx 150 ml @ 100 mls/hr Q2D@2200 IV 10/15/17 22:00 10/22/17 21:59 10/15/17 23:22 100 MLS/HR Guaifenesin (Mucinex Contr Rel Tab) 600 mg Q12 PO 10/15/17 21:00 11/14/17 20:59 10/17/17 07:58 600 MG Levofloxacin (Consult) 1 ea UD PRN N/A 10/15/17 19:00 10/22/17 18:59 Ipratropium [place] (Atrovent 0.02% 0.5MG/2.5ML Neb) 0.5 mg QIDR INH 10/17/17 08:00 11/16/17 07:59 10/17/17 11:10 0.5 MG Levalbuterol (Xopenex 0.63 Mg/ 3 Ml Neb) 0.63 mg Q2H PRN INH 10/16/17 21:00 11/15/17 20:59 Levalbuterol (Xopenex 0.63 Mg/ 3 Ml Neb) 0.63 mg QIDR INH 10/17/17 08:00 11/16/17 07:59 10/17/17 11:10 0.63 MG
[2017-10-17] MEDS: ENOXAPARIN 40 MG/0.4 ML SYR SC SCH (21:00)
[2017-10-17] MEDS: ATORVASTATIN 40 MG TAB PO SCH (21:00)
[2017-10-17] MEDS: LEVOFLOXACIN / D5W 750 MG in PREMIXED IN D5W 150 ML IV SCH (22:00)
[2017-10-17] MEDS ORDERED: HALOPERIDOL LACTATE 5 MG/ML 1 ML VIAL ONE (23:40)
[2017-10-17] MEDS ORDERED: FUROSEMIDE 40 MG/4 ML VIAL ONE (23:56)
[2017-10-18] VITALS (9 sets, daily range): BP systolic 135–168; BP diastolic 66–75; PULSE 56–86; TEMP 36.5–36.8; O2SAT 88–95
[2017-10-18] MEDS ORDERED: NURSING VERBAL MED ORDER ONE
[2017-10-18] MEDS ORDERED: PIPERACILL/TAZOBAC CONSULT ACTIVE PRN (04:30)
[2017-10-18] MEDS: HALOPERIDOL LACTATE 5 MG/ML 1 ML VIAL IV PRN (04:45)
[2017-10-18] MEDS ORDERED: PIPERACILL/TAZOBAC IV 3.375 GM in NSS 100 ML IV ONE (04:45)
[2017-10-18] MEDS ORDERED: PIPERACILL/TAZOBAC IV 3.375 GM in DEXTROSE 5% 100ML 100 ML IV SCH (06:00)
[2017-10-18] MEDS: LEVALBUTEROL 0.63MG/3 ML NEB INH SCH ×4 (06:49→19:48)
--- NOTE | 2017-10-18 07:12 | DIAGNOSTIC IMAGING REPORT ---
CHEST ONE VIEW PORTABLE CLINICAL HISTORY: CHF, cough COMPARISON STUDY: 10/16/2017 FINDINGS: There are postsurgical changes of a midline sternotomy. The heart is mildly enlarged. There is a right pleural effusion with associated right lower lobe atelectasis/consolidation. There is slight elevation of the interstitium.[ IMPRESSION: No significant change from the prior study. Persistent cardiomegaly, right pleural effusion, and right basilar atelectasis/consolidation. Electronically signed by: Tejas Reid M.D. 10/18/2017 7:10 AM Dictated Date/Time: 10/18/2017 7:09 AM
--- NOTE | 2017-10-18 07:59 | Progress Note ---
Medicine Progress Note Date & Time of Visit: Oct 18, 2017 at 07:40 . Subjective Worsening delirium last night. Agitated. Refused medications and nebulizer treatments. Required administration of haloperidol. Currently resting comfortably, minimally responsive. Unable to obtain review of systems. . Objective Last 8 Hrs Date Time Temp Pulse Resp B/P (MAP) Pulse Ox O2 Delivery O2 Flow Rate FiO2 10/18/17 04:00 Nasal Cannula 2.0 10/18/17 00:00 Nasal Cannula 3.0 10/18/17 00:00 74 28 160/75 (103) 89 Nasal Cannula 3.0 Physical Exam: General- lying in bed, no distress Lungs- scattered rhonchi, diffuse wheezing; no respiratory distress Cardiovascular- RRR; no murmur or gallop appreciated; + JVD; trace pretibial edema Abdomen- + bowel sounds, soft, nontender Extremities- no cyanosis; no calf tenderness Neuro- sedated Skin- warm & dry . Laboratory Results: Last 24 Hours Test 10/17/17 11:07 10/18/17 04:44 Arterial Blood pH 7.25 Arterial Blood Partial Pressure CO2 82 mmHg Arterial Blood Partial Pressure O2 95 mm/Hg Arterial Blood HCO3 35 mmol/L Arterial Blood Oxygen Saturation 95.8 % Arterial Blood Base Excess 5.8 mEq/L Arterial Blood Gas Delivery 2 L Howie Test POS Assessment & Plan COUGH / DYSPNEA Chest x-ray demonstrated elevated right hemidiaphragm and right pleural effusion which may be chronic. (Chest x-ray performed here in 2001 showed elevation of right hemidiaphragm and small right pleural effusion; CXR at [facility] 08/10/15 demonstrated a chronic elevation of right hemidiaphragm). Cough may be secondary to bronchitis or CHF. Initially received doxycycline and methylprednisolone. Changed antibiotic therapy to levofloxacin. Repeat chest x-ray 10/16 unchanged, no apparent infiltrates. Chest x-ray today-chronically elevated right hemidiaphragm, probable atelectasis right base, no definite infiltrates, no overt pulmonary edema. Will discontinue levofloxacin because of anticholinergic effects. Change antibiotic therapy to piperacillin/tazobactam. Obtain sputum culture if able. COPD EXACERBATION Secondary to tracheobronchitis. Continue intravenous methylprednisolone and nebulizer treatments. ABG on 2 L nasal cannula 10/17 demonstrated PCO2 of 82, pH 7.25. Titrate supplemental oxygen to maintain sats around 90%. CHF Acute on chronic left ventricular diastolic heart failure. Worsening dyspnea on exertion and dependent edema despite diuretic therapy. Chest x-ray showed cardiomegaly. BNP elevated. Echocardiogram demonstrated moderate concentric LVH, normal left ventricular systolic function with ejection fraction of 55%, grade 2 diastolic dysfunction, moderate enlargement of left atrium, moderate enlargement of right atrium, normal right ventricular systolic function, mild to moderate mitral regurgitation. Held diuretics because of rising creatinine. Received IV furosemide last night. Follow and titrate therapy. CAD History of ischemic heart disease, status post CABG in 2001. Patient reports abnormal stress test 2-3 years ago, but he opted not to pursue repeat catheterization or consideration of further revascularization. Experiencing worsening dyspnea on exertion, sometimes associated with chest pressure over past few months. Initial EKGs in the ED had baseline artifact. EKG 10/14 demonstrated sinus rhythm with PVCs, lateral downsloping ST depression. Serum troponins 0.061, 0.061, and 0.059, 0.040. Continue aspirin, atenolol. Added nitroglycerin ointment, but blood pressures relatively low. Cardiology consulted. Patient wishes to continue medical management and not pursue further diagnostic testing. HYPERTENSION Lisinopril held due to renal insufficiency. Continue atenolol. DEPENDENT EDEMA Worsening dependent edema over past few months despite diuretic therapy. Echocardiogram demonstrated grade 2 diastolic dysfunction, normal left ventricular systolic function. Venous duplex lower extremities negative for DVT. CKD III Baseline creatinine 1.4-1.8. Creatinine at time of admission was 1.49. Creatinine minerva to 1.89 with diuretic therapy. Today's chemistries pending. Follow. DYSLIPIDEMIA LDL-c = 37. Continue atorvastatin. POOR FUNCTIONAL STATUS PT / OT evals. DELIRIUM Increasing confusion noted over last 48 hours. ABG demonstrates CO2 retention. BUN/creatinine elevated. No recent alcohol intake. Optimize medical conditions. Avoid anticholinergic medications- ipratropium and levofloxacin discontinued. Follow. VTE PROPHYLAXIS SQ enoxaparin. Ambulate as able. DISPOSITION To be determined. Follow-up with [facility]. . Current Inpatient Medications: Current Inpatient Medications Medications (Trade) Dose Ordered Sig/Didi Route Start Time Stop Time Status Last Admin Dose Admin Enoxaparin Sodium (Lovenox Inj) 40 mg QPM SC 10/13/17 21:00 11/12/17 20:59 10/16/17 20:41 40 MG Acetaminophen (Tylenol Tab) 650 mg Q4H PRN PO 10/13/17 20:00 11/12/17 19:59 Ondansetron HCl (Zofran Inj) 4 mg Q6H PRN IV 10/13/17 20:00 11/12/17 19:59 Allopurinol (Zyloprim Tab) 150 mg QAM PO 10/14/17 09:00 11/13/17 08:59 10/17/17 07:58 150 MG Atenolol (Tenormin Tab) 50 mg QAM PO 10/14/17 09:00 11/13/17 08:59 10/17/17 07:58 50 MG Atorvastatin Calcium (Lipitor Tab) 40 mg HS PO 10/13/17 21:00 11/12/17 20:59 10/16/17 20:41 40 MG Bumetanide 1 mg/ Syringe 4 ml @ 4 mls/min BID@0900,1700 IV 10/14/17 09:00 11/13/17 08:59 Future Hold 10/14/17 16:37 4 MLS/MIN Methylprednisolone Sodium Succinate 20 mg/Syringe 0.32 ml @ 1.5 mls/min BID IV 10/13/17 21:15 11/12/17 21:14 10/17/17 07:58 1.5 MLS/MIN Aspirin (Ecotrin Tab) 81 mg QAM PO 10/14/17 09:00 11/13/17 08:59 10/17/17 07:58 81 MG Guaifenesin (Mucinex Contr Rel Tab) 600 mg Q12 PO 10/15/17 21:00 11/14/17 20:59 10/17/17 07:58 600 MG Levalbuterol (Xopenex 0.63 Mg/ 3 Ml Neb) 0.63 mg Q2H PRN INH 10/16/17 21:00 11/15/17 20:59 Levalbuterol (Xopenex 0.63 Mg/ 3 Ml Neb) 0.63 mg QIDR INH 10/17/17 08:00 11/16/17 07:59 10/18/17 06:49 0.63 MG Haloperidol Lactate (Haldol Inj) 0.5 mg Q30M PRN IV 10/18/17 04:30 11/17/17 04:29 10/18/17 04:45 0.5 MG Thiamine HCl 100 mg/Syringe 10 ml @ 2 mls/min QAM IV 10/18/17 09:00 11/17/17 08:59 Miscellaneous Information (Consult) 1 ea UD PRN N/A 10/18/17 04:30 11/17/17 04:29 Piperacillin Sod/ Tazobactam Sod 3.375 gm/Sodium Chloride 115 ml @ 28.75 mls/ hr Q8H IV 10/18/17 10:00 10/25/17 09:59
[2017-10-18] MEDS: THIAMINE HCL INJ 100 MG in SYRINGE 9 ML IV SCH (08:39)
[2017-10-18] MEDS: GUAIFENESIN 600 MG TABCR PO SCH ×2 (08:41→20:37)
[2017-10-18] MEDS: ASPIRIN 81 MG ECTAB PO SCH (08:41)
[2017-10-18] MEDS: METHYLPREDNISOLONE IV 20 MG in SYRINGE 0 ML IV SCH ×2 (08:41→20:10)
[2017-10-18 09:11] LABS: CALCIUM 8.8 mg/dl (8.5-10.1); CREATININE 1.62 mg/dl (0.60-1.40)
[2017-10-18 09:19] LABS: POTASSIUM 4.4 mmol/L (3.5-5.1)
[2017-10-18] MEDS: ALLOPURINOL 300 MG TAB PO SCH (09:42)
[2017-10-18] MEDS: PIPERACILL/TAZOBAC IV 3.375 GM in NSS 100ML IV SCH ×2 (09:43→17:26)
[2017-10-18] MEDS ORDERED: FUROSEMIDE INJ 20 MG in SYRINGE 0 ML IV SCH (17:00)
[2017-10-18] MEDS: ATORVASTATIN 40 MG TAB PO SCH (20:37)
[2017-10-18] MEDS: ENOXAPARIN 40 MG/0.4 ML SYR SC SCH (20:40)
[2017-10-19] VITALS (8 sets, daily range): BP systolic 145–181; BP diastolic 70–92; PULSE 62–71; TEMP 36.1–36.9; O2SAT 89–99
[2017-10-19] MEDS: PIPERACILL/TAZOBAC IV 3.375 GM in NSS 100ML IV SCH ×3 (02:01→17:54)
[2017-10-19] MEDS: HALOPERIDOL LACTATE 5 MG/ML 1 ML VIAL IV PRN ×9 (02:01→13:59)
[2017-10-19] MEDS: LEVALBUTEROL 0.63MG/3 ML NEB INH SCH ×4 (07:16→20:00)
[2017-10-19] MEDS: GUAIFENESIN 600 MG TABCR PO SCH ×3 (07:33→21:42)
[2017-10-19] MEDS: ASPIRIN 81 MG ECTAB PO SCH (07:33)
[2017-10-19] MEDS: ALLOPURINOL 300 MG TAB PO SCH (07:34)
[2017-10-19] MEDS: THIAMINE HCL INJ 100 MG in SYRINGE 9 ML IV SCH (07:36)
[2017-10-19 08:08] LABS: CALCIUM 8.7 mg/dl (8.5-10.1); CREATININE 1.76 mg/dl (0.60-1.40)
--- NOTE | 2017-10-19 19:14 | Progress Note ---
Medicine Progress Note Date & Time of Visit: Oct 19, 2017 . Subjective Ongoing delirium. Afebrile. Seems to be coughing less. Unable to respond to review of systems. . Objective Last 8 Hrs Date Time Temp Pulse Resp B/P (MAP) Pulse Ox O2 Delivery O2 Flow Rate FiO2 10/19/17 16:37 153/77 (102) 10/19/17 16:05 36.1 65 20 181/77 (111) 98 2.0 10/19/17 16:00 Room Air 10/19/17 12:00 Room Air 10/19/17 11:20 71 16 89 Room Air Physical Exam: General- lying in bed, no distress Lungs- scattered rhonchi, diffuse wheezing; no respiratory distress Cardiovascular- RRR; no murmur or gallop appreciated; + JVD; trace pretibial edema Abdomen- + bowel sounds, soft, nontender Extremities- no cyanosis; no calf tenderness Neuro- confused Skin- warm & dry . Laboratory Results: Last 24 Hours Test 10/19/17 06:37 Sodium Level 143 mmol/L Potassium Level 4.0 mmol/L Chloride Level 103 mmol/L Carbon Dioxide Level 39 mmol/L Anion Gap 2.0 mmol/L Blood Urea Nitrogen 57 mg/dl Creatinine 1.76 mg/dl Est Creatinine Clear Calc Drug Dose 33.9 ml/min Estimated GFR () 40.5 Estimated GFR (Non- 35.0 BUN/Creatinine Ratio 32.2 Random Glucose 150 mg/dl Calcium Level 8.7 mg/dl Vitamin B12 Level 955 pg/mL 25-Hydroxy Vitamin D Total 28.9 ng/ml Folate 4.92 ng/mL Thyroid Stimulating Hormone (TSH) 0.974 uIu/ml Assessment & Plan COUGH / DYSPNEA Chest x-ray demonstrated elevated right hemidiaphragm and right pleural effusion which may be chronic. (Chest x-ray performed here in 2001 showed elevation of right hemidiaphragm and small right pleural effusion; CXR at [facility] 08/10/15 demonstrated a chronic elevation of right hemidiaphragm). Cough may be secondary to bronchitis or CHF. Initially received doxycycline and methylprednisolone. Changed antibiotic therapy to levofloxacin. Repeat chest x-ray 10/16 unchanged, no apparent infiltrates. Chest x-rays 10/16 and 10/18- chronically elevated right hemidiaphragm, probable atelectasis right base, no definite infiltrates, no overt pulmonary edema. Discontinued levofloxacin because of anticholinergic effects. Changed antibiotic therapy to piperacillin/tazobactam. Obtain sputum culture if able. COPD EXACERBATION Secondary to tracheobronchitis. Continue intravenous methylprednisolone and nebulizer treatments. ABG on 2 L nasal cannula 10/17 demonstrated PCO2 of 82, pH 7.25. Titrate supplemental oxygen to maintain sats around 90%. CHF Acute on chronic left ventricular diastolic heart failure. Worsening dyspnea on exertion and dependent edema despite diuretic therapy. Chest x-ray showed cardiomegaly. BNP elevated. Echocardiogram demonstrated moderate concentric LVH, normal left ventricular systolic function with ejection fraction of 55%, grade 2 diastolic dysfunction, moderate enlargement of left atrium, moderate enlargement of right atrium, normal right ventricular systolic function, mild to moderate mitral regurgitation. Held diuretics because of rising creatinine. Follow and titrate therapy. CAD History of ischemic heart disease, status post CABG in 2001. Patient reports abnormal stress test 2-3 years ago, but he opted not to pursue repeat catheterization or consideration of further revascularization. Experiencing worsening dyspnea on exertion, sometimes associated with chest pressure over past few months. Initial EKGs in the ED had baseline artifact. EKG 10/14 demonstrated sinus rhythm with PVCs, lateral downsloping ST depression. Serum troponins 0.061, 0.061, and 0.059, 0.040. Continue aspirin, atenolol. Added nitroglycerin ointment, but blood pressures relatively low. Cardiology consulted. Patient wishes to continue medical management and not pursue further diagnostic testing. HYPERTENSION Lisinopril held due to renal insufficiency. Continue atenolol. DEPENDENT EDEMA Worsening dependent edema over past few months despite diuretic therapy. Echocardiogram demonstrated grade 2 diastolic dysfunction, normal left ventricular systolic function. Venous duplex lower extremities negative for DVT. CKD III Baseline creatinine 1.4-1.8. Creatinine at time of admission was 1.49. Creatinine minerva to 1.89 with diuretic therapy. Serum creatinine today = 1.76. Follow. DYSLIPIDEMIA LDL-c = 37. Continue atorvastatin. POOR FUNCTIONAL STATUS PT / OT evals. DELIRIUM Developed worsening confusion. ABG demonstrated CO2 retention. BUN/creatinine elevated. No recent alcohol intake. Optimize medical conditions. Avoid anticholinergic medications- ipratropium and levofloxacin discontinued. Follow. VTE PROPHYLAXIS SQ enoxaparin. Ambulate as able. DISPOSITION To be determined. Follow-up with [facility]. Brother visiting earlier today and given update. ADDENDUM: Nursing staff noticed episode of rectal bleeding this evening around 1900. Had moderate amount of maroon blood with clots. Hemodynamically stable. May have upper or lower GI source of bleeding. Best to avoid endoscopic evaluation because of poor cardiopulmonary status and delirium. Hold aspirin. Stop enoxaparin. IV pantoprazole. Monitor H&H. Type and hold packed RBCs. Brother given update by phone. Verbal consent obtained for blood transfusions if necessary. . Current Inpatient Medications: Current Inpatient Medications Medications (Trade) Dose Ordered Sig/Didi Route Start Time Stop Time Status Last Admin Dose Admin Enoxaparin Sodium (Lovenox Inj) 40 mg QPM SC 10/13/17 21:00 11/12/17 20:59 10/18/17 20:40 40 MG Acetaminophen (Tylenol Tab) 650 mg Q4H PRN PO 10/13/17 20:00 11/12/17 19:59 Ondansetron HCl (Zofran Inj) 4 mg Q6H PRN IV 10/13/17 20:00 11/12/17 19:59 Allopurinol (Zyloprim Tab) 150 mg QAM PO 10/14/17 09:00 11/13/17 08:59 10/19/17 07:34 150 MG Atenolol (Tenormin Tab) 50 mg QAM PO 10/14/17 09:00 11/13/17 08:59 10/19/17 07:33 50 MG Atorvastatin Calcium (Lipitor Tab) 40 mg HS PO 10/13/17 21:00 11/12/17 20:59 10/18/17 20:37 40 MG Aspirin (Ecotrin Tab) 81 mg QAM PO 10/14/17 09:00 11/13/17 08:59 10/19/17 07:33 81 MG Guaifenesin (Mucinex Contr Rel Tab) 600 mg Q12 PO 10/15/17 21:00 11/14/17 20:59 10/19/17 07:33 600 MG Levalbuterol (Xopenex 0.63 Mg/ 3 Ml Neb) 0.63 mg Q2H PRN INH 10/16/17 21:00 11/15/17 20:59 Levalbuterol (Xopenex 0.63 Mg/ 3 Ml Neb) 0.63 mg QIDR INH 10/17/17 08:00 11/16/17 07:59 10/19/17 11:20 0.63 MG Haloperidol Lactate (Haldol Inj) 0.5 mg Q30M PRN IV 10/18/17 04:30 11/17/17 04:29 10/19/17 13:59 0.5 MG Thiamine HCl 100 mg/Syringe 10 ml @ 2 mls/min QAM IV 10/18/17 09:00 11/17/17 08:59 10/19/17 07:36 2 MLS/MIN Miscellaneous Information (Consult) 1 ea UD PRN N/A 10/18/17 04:30 11/17/17 04:29 Piperacillin Sod/ Tazobactam Sod 3.375 gm/Sodium Chloride 115 ml @ 28.75 mls/ hr Q8H IV 10/18/17 10:00 10/25/17 09:59 10/19/17 17:54 28.75 MLS/HR Prednisone (PredniSONE TAB) 40 mg DAILY PO 10/19/17 09:00 11/18/17 08:59 10/19/17 07:35 40 MG
[2017-10-19] MEDS ORDERED: PANTOprazole INJ 80 MG in DEXTROSE 5% 100ML IV ONE (20:15)
[2017-10-19 20:46] LABS: HEMATOCRIT 32.3 % (42-52); HEMOGLOBIN 9.6 g/dL (14.0-18.0); MEAN CELL VOLUME 79.6 fL (80-100); MEAN CORPUSCULAR HEMOGLOBIN 23.6 pg (25-34); MEAN CORPUSCULAR HGB CONC 29.7 g/dl (32-36); MEAN PLATELET VOLUME 10.1 fL (7.4-10.4); PLATELET COUNT 153 K/uL (130-400); RED CELL DISTRIBUTION WIDTH CV 16.5 % (11.5-14.5); RED CELL DISTRIBUTION WIDTH SD 47.8 fL (36.4-46.3); WHITE BLOOD COUNT 7.18 K/uL (4.8-10.8)
[2017-10-19 20:54] LABS: INR 1.2 (0.9-1.1); PTT PATIENT 23.4 SECONDS (21.0-31.0)
[2017-10-19] MEDS: ATORVASTATIN 40 MG TAB PO SCH ×2 (21:00→21:42)
[2017-10-19] MEDS: METHYLPREDNISOLONE IV 20 MG in SYRINGE 0 ML IV SCH (21:42)
[2017-10-19] MEDS: PANTOprazole INJ 40 MG in DEXTROSE 5% 100ML IV SCH (21:42)
[2017-10-20] VITALS (9 sets, daily range): BP systolic 101–157; BP diastolic 59–70; PULSE 53–113; TEMP 36.5–37.6; O2SAT 16–99; Ht 180.3 cm; Wt 85.0 kg
[2017-10-20] MEDS: PIPERACILL/TAZOBAC IV 3.375 GM in NSS 100ML IV SCH ×3 (02:37→18:09)
[2017-10-20] MEDS: PANTOprazole INJ 40 MG in DEXTROSE 5% 100ML IV SCH ×4 (04:16→18:08)
[2017-10-20 06:18] LABS: HEMATOCRIT 31.3 % (42-52); HEMOGLOBIN 9.5 g/dL (14.0-18.0)
[2017-10-20 06:51] LABS: CALCIUM 8.7 mg/dl (8.5-10.1); CREATININE 1.52 mg/dl (0.60-1.40); POTASSIUM 4.4 mmol/L (3.5-5.1)
[2017-10-20] MEDS: LEVALBUTEROL 0.63MG/3 ML NEB INH SCH ×4 (06:59→18:56)
[2017-10-20] MEDS: THIAMINE HCL INJ 100 MG in SYRINGE 9 ML IV SCH (08:54)
[2017-10-20] MEDS: METHYLPREDNISOLONE IV 20 MG in SYRINGE 0 ML IV SCH ×2 (08:55→19:47)
[2017-10-20] MEDS: GUAIFENESIN 600 MG TABCR PO SCH ×2 (08:57→19:48)
[2017-10-20] MEDS: ALLOPURINOL 300 MG TAB PO SCH (08:57)
[2017-10-20] MEDS: BOOST VANILLA PUDDING CUP PO SCH ×2 (14:00→19:48)
[2017-10-20] MEDS: BOOST VANILLA PO SCH ×2 (14:21→19:58)
[2017-10-20] MEDS: ATORVASTATIN 40 MG TAB PO SCH (19:48)
--- NOTE | 2017-10-20 19:52 | Progress Note ---
Medicine Progress Note Date & Time of Visit: Oct 20, 2017 at 09:50 . Subjective CC: Follow-up visit for bronchitis, COPD exacerbation, CHF, and other problems. HPI: 2 episodes of maroon stools since last night. Hemodynamically stable. Ongoing delirium. Ongoing chest congestion, but seems to be less congested. ROS: Patient unable to respond to queries. . Objective Last 8 Hrs Date Time Temp Pulse Resp B/P (MAP) Pulse Ox O2 Delivery O2 Flow Rate FiO2 10/20/17 18:57 62 18 91 Nasal Cannula 2.0 10/20/17 16:00 Nasal Cannula 2.0 10/20/17 12:54 37.6 113 20 101/59 (73) 16 Room Air 10/20/17 12:00 Nasal Cannula 2.0 Physical Exam: General- lying in bed, no distress Lungs- scattered rhonchi, diffuse mild-moderate wheezing; no respiratory distress Cardiovascular- RRR; no murmur or gallop appreciated; + JVD; trace pretibial edema Abdomen- + bowel sounds, soft, nontender Extremities- no cyanosis; no calf tenderness Neuro- confused Skin- warm & dry . Laboratory Results: Last 24 Hours Test 10/19/17 20:26 10/20/17 05:54 White Blood Count 7.18 K/uL Red Blood Count 4.06 M/uL Hemoglobin 9.6 g/dL 9.5 g/dL Hematocrit 32.3 % 31.3 % Mean Corpuscular Volume 79.6 fL Mean Corpuscular Hemoglobin 23.6 pg Mean Corpuscular Hemoglobin Concent 29.7 g/dl RDW Standard Deviation 47.8 fL RDW Coefficient of Variation 16.5 % Platelet Count 153 K/uL Mean Platelet Volume 10.1 fL Prothrombin Time 12.3 SECONDS Prothromb Time International Ratio 1.2 Activated Partial Thromboplast Time 23.4 SECONDS Partial Thromboplastin Ratio 0.9 Sodium Level 145 mmol/L Potassium Level 4.4 mmol/L Chloride Level 105 mmol/L Carbon Dioxide Level 40 mmol/L Anion Gap 0.0 mmol/L Blood Urea Nitrogen 53 mg/dl Creatinine 1.52 mg/dl Est Creatinine Clear Calc Drug Dose 39.2 ml/min Estimated GFR () 48.4 Estimated GFR (Non- 41.8 BUN/Creatinine Ratio 34.8 Random Glucose 151 mg/dl Calcium Level 8.7 mg/dl Assessment & Plan COUGH / DYSPNEA Chest x-ray demonstrated elevated right hemidiaphragm and right pleural effusion which may be chronic. (Chest x-ray performed here in 2001 showed elevation of right hemidiaphragm and small right pleural effusion; CXR at [facility] 08/10/15 demonstrated a chronic elevation of right hemidiaphragm). Cough may be secondary to bronchitis or CHF. Initially received doxycycline and methylprednisolone. Changed antibiotic therapy to levofloxacin. Repeat chest x-ray 10/16 unchanged, no apparent infiltrates. Chest x-rays 10/16 and 10/18- chronically elevated right hemidiaphragm, probable atelectasis right base, no definite infiltrates, no overt pulmonary edema. Discontinued levofloxacin because of anticholinergic effects. Changed antibiotic therapy to piperacillin/tazobactam. Obtain sputum culture if able. COPD EXACERBATION Secondary to tracheobronchitis. Continue intravenous methylprednisolone and nebulizer treatments. ABG on 2 L nasal cannula 10/17 demonstrated PCO2 of 82, pH 7.25. Titrate supplemental oxygen to maintain sats around 90%. Wean steroids as able. CHF Acute on chronic left ventricular diastolic heart failure. Worsening dyspnea on exertion and dependent edema despite diuretic therapy. Chest x-ray showed cardiomegaly. BNP elevated. Echocardiogram demonstrated moderate concentric LVH, normal left ventricular systolic function with ejection fraction of 55%, grade 2 diastolic dysfunction, moderate enlargement of left atrium, moderate enlargement of right atrium, normal right ventricular systolic function, mild to moderate mitral regurgitation. Held diuretics because of rising creatinine. Follow and titrate therapy. CAD History of ischemic heart disease, status post CABG in 2001. Patient reports abnormal stress test 2-3 years ago, but he opted not to pursue repeat catheterization or consideration of further revascularization. Experiencing worsening dyspnea on exertion, sometimes associated with chest pressure over past few months. Initial EKGs in the ED had baseline artifact. EKG 10/14 demonstrated sinus rhythm with PVCs, lateral downsloping ST depression. Serum troponins 0.061, 0.061, and 0.059, 0.040. Continue aspirin, atenolol. Added nitroglycerin ointment, but blood pressures relatively low. Cardiology consulted. Patient wishes to continue medical management and not pursue further diagnostic testing. HYPERTENSION Lisinopril held due to renal insufficiency. Continue atenolol. DEPENDENT EDEMA Worsening dependent edema over past few months despite diuretic therapy. Echocardiogram demonstrated grade 2 diastolic dysfunction, normal left ventricular systolic function. Venous duplex lower extremities negative for DVT. CKD III Baseline creatinine 1.4-1.8. Creatinine at time of admission was 1.49. Creatinine minerva to 1.89 with diuretic therapy. Serum creatinine today = 1.52. Follow. DYSLIPIDEMIA LDL-c = 37. Continue atorvastatin. POOR FUNCTIONAL STATUS PT / OT as tolerated. DELIRIUM Developed worsening confusion. ABG demonstrated CO2 retention. BUN/creatinine elevated. No recent alcohol intake. Optimize medical conditions. Avoid anticholinergic medications- ipratropium and levofloxacin discontinued. Follow. GI BLEEDING Developed GI bleeding with maroon stools evening of 10/19. Was receiving aspirin and enoxaparin which were discontinued. Hemodynamically stable. INR, PTT, platelets normal. Hemoglobin has fallen from baseline of 10.5 - 11 ----> 9.5. Not candidate for endoscopic evaluation due to poor cardiopulmonary status. Continue IV pantoprazole. Follow H/H. Transfuse if Hgb < 8-9 (verbal consent for transfusion obtained from brother and placed on chart). VTE PROPHYLAXIS Initially received SQ enoxaparin- held due to GI bleeding. SCD's. Ambulate as able. DISPOSITION To be determined. Has been staying with his brother, but functional status declining over past several months. Anticipate need for skilled care, perhaps transition to long-term care. Follow-up with [facility]. Brother visiting and given update. . Current Inpatient Medications: Current Inpatient Medications Medications (Trade) Dose Ordered Sig/Didi Route Start Time Stop Time Status Last Admin Dose Admin Acetaminophen (Tylenol Tab) 650 mg Q4H PRN PO 10/13/17 20:00 11/12/17 19:59 Ondansetron HCl (Zofran Inj) 4 mg Q6H PRN IV 10/13/17 20:00 11/12/17 19:59 Allopurinol (Zyloprim Tab) 150 mg QAM PO 10/14/17 09:00 11/13/17 08:59 10/19/17 07:34 150 MG Atenolol (Tenormin Tab) 50 mg QAM PO 10/14/17 09:00 11/13/17 08:59 10/19/17 07:33 50 MG Atorvastatin Calcium (Lipitor Tab) 40 mg HS PO 10/13/17 21:00 11/12/17 20:59 10/18/17 20:37 40 MG Guaifenesin (Mucinex Contr Rel Tab) 600 mg Q12 PO 10/15/17 21:00 11/14/17 20:59 10/19/17 07:33 600 MG Levalbuterol (Xopenex 0.63 Mg/ 3 Ml Neb) 0.63 mg Q2H PRN INH 10/16/17 21:00 11/15/17 20:59 Levalbuterol (Xopenex 0.63 Mg/ 3 Ml Neb) 0.63 mg QIDR INH 10/17/17 08:00 11/16/17 07:59 10/20/17 18:56 0.63 MG Haloperidol Lactate (Haldol Inj) 0.5 mg Q30M PRN IV 10/18/17 04:30 11/17/17 04:29 10/19/17 13:59 0.5 MG Thiamine HCl 100 mg/Syringe 10 ml @ 2 mls/min QAM IV 10/18/17 09:00 11/17/17 08:59 10/20/17 08:54 2 MLS/MIN Miscellaneous Information (Consult) 1 ea UD PRN N/A 10/18/17 04:30 11/17/17 04:29 Piperacillin Sod/ Tazobactam Sod 3.375 gm/Sodium Chloride 115 ml @ 28.75 mls/ hr Q8H IV 10/18/17 10:00 10/25/17 09:59 10/20/17 18:09 28.75 MLS/HR Methylprednisolone Sodium Succinate 20 mg/Syringe 0.32 ml @ 1.5 mls/min Q12 IV 10/19/17 21:00 11/18/17 20:59 10/20/17 08:55 1.5 MLS/MIN Pantoprazole Sodium 40 mg/ Dextrose 100 ml @ 20 mls/hr Q5H IV 10/19/17 20:30 11/18/17 20:29 10/20/17 18:08 20 MLS/HR Enteral Nutritional Formula (Boost Pudding) 1 cup TID PO 10/20/17 14:00 11/19/17 13:59 Enteral Nutritional Formula (Boost) 1 can TID PO 10/20/17 14:00 11/19/17 13:59 10/20/17 14:21 1 CAN
[2017-10-20] MEDS: OLANZAPINE ZYDIS 5 MG ORALLY DIS. TAB PO SCH (21:18)
[2017-10-21] VITALS (12 sets, daily range): BP systolic 113–165; BP diastolic 63–79; PULSE 64–77; TEMP 35.6–36.8; O2SAT 84–97
[2017-10-21] MEDS: PIPERACILL/TAZOBAC IV 3.375 GM in NSS 100ML IV SCH ×3 (02:47→17:40)
[2017-10-21] MEDS: LEVALBUTEROL 0.63MG/3 ML NEB INH SCH ×4 (07:01→19:10)
--- NOTE | 2017-10-21 07:08 | DIAGNOSTIC IMAGING REPORT ---
CHEST ONE VIEW PORTABLE CLINICAL HISTORY: f/u CHF, bronchitis dyspnea COMPARISON STUDY: 10/18/2017 FINDINGS: No major change in the prior study. Pulmonary vasculature is slightly improved. Chronic elevation right hemidiaphragm. Small unchanged right pleural effusion. Atelectasis left base similar. IMPRESSION: No major change in the prior study. Persistent components of mild congestive failure with a small right effusion. The above report was generated using voice recognition software. It may contain grammatical, syntax or spelling errors. Electronically signed by: Christian Dalal M.D. 10/21/2017 7:07 AM Dictated Date/Time: 10/21/2017 7:05 AM
[2017-10-21 07:20] LABS: HEMATOCRIT 31.1 % (42-52); HEMOGLOBIN 9.3 g/dL (14.0-18.0)
[2017-10-21 07:28] LABS: CALCIUM 8.1 mg/dl (8.5-10.1); CREATININE 1.41 mg/dl (0.60-1.40)
[2017-10-21] MEDS: BOOST VANILLA PUDDING CUP PO SCH ×3 (08:50→19:56)
[2017-10-21] MEDS: METHYLPREDNISOLONE IV 20 MG in SYRINGE 0 ML IV SCH ×2 (08:51→19:56)
[2017-10-21] MEDS: GUAIFENESIN 600 MG TABCR PO SCH ×2 (08:51→19:57)
[2017-10-21] MEDS: PANTOprazole INJ 40 MG in SYRINGE 0 ML IV SCH ×2 (08:51→19:56)
[2017-10-21] MEDS: ALLOPURINOL 300 MG TAB PO SCH (08:51)
[2017-10-21] MEDS: THIAMINE HCL INJ 100 MG in SYRINGE 9 ML IV SCH (08:51)
[2017-10-21] MEDS: BOOST VANILLA PO SCH ×3 (08:52→19:42)
--- NOTE | 2017-10-21 10:52 | Progress Note ---
Internal Med Progress Note Date of Service: Oct 21, 2017. Provider Documentation: SUBJECTIVE: The patient was seen and examined in telemetry unit. He was admitted with an shortness of breath and cough suggestive of complicated bronchitis and/or CHF He has been evaluated by cardiology while in the hospital Generally feeling better but complains to have weakness and cough. Noted to have GI bleed but does not have any erlinda bleeding and/or hematemesis OBJECTIVE: Vital Signs-as noted below Exam: General-minimal distress at rest Eyes-normal ENT-normal Neck-supple Lungs-decreased breath sounds with barium wheezing and transmitted sound due to secretions. Heart-S1-S2 regular Abdomen-benign Extremities-trace edema bilaterally Neuro-alert, awake, oriented 3 Generally weak but no focal neuro deficit appreciated Lab data as noted below. ASSESSMENT & PLAN: Complicated Bronchitis Chest x-ray demonstrated elevated right hemidiaphragm and right pleural effusion which may be chronic. (Chest x-ray performed here in 2001 showed elevation of right hemidiaphragm and small right pleural effusion; CXR at [facility] 08/10/15 demonstrated a chronic elevation of right hemidiaphragm). Initially received doxycycline and methylprednisolone. Changed antibiotic therapy to levofloxacin. Repeat chest x-ray 10/16 unchanged, no apparent infiltrates. Chest x-rays 10/16 and 10/18- chronically elevated right hemidiaphragm, probable atelectasis right base, no definite infiltrates, no overt pulmonary edema. Discontinued levofloxacin and changed to piperacillin/tazobactam. Obtain sputum culture if able-pending. COPD EXACERBATION Secondary to tracheobronchitis. Continue intravenous methylprednisolone and nebulizer treatments. ABG on 2 L nasal cannula 10/17 demonstrated PCO2 of 82, pH 7.25. Taper steroid on discharge CHF Acute on chronic left ventricular diastolic heart failure. Worsening dyspnea on exertion and dependent edema despite diuretic therapy. Chest x-ray showed cardiomegaly. with BNP elevated. Echocardiogram demonstrated moderate concentric LVH, normal left ventricular systolic function with ejection fraction of 55%, grade 2 diastolic dysfunction, moderate enlargement of left atrium, moderate enlargement of right atrium, normal right ventricular systolic function, mild to moderate mitral regurgitation. Appreciate cardiology input CAD History of ischemic heart disease, status post CABG in 2001. Patient reports abnormal stress test 2-3 years ago, but he opted not to pursue repeat catheterization or consideration of further revascularization. Experiencing worsening dyspnea on exertion, sometimes associated with chest pressure over past few months. Initial EKGs in the ED had baseline artifact. EKG 10/14 demonstrated sinus rhythm with PVCs, lateral downsloping ST depression. Serum troponins 0.061, 0.061, and 0.059, 0.040. Continue aspirin, atenolol. Cardiology consulted. Patient wishes to continue medical management and not pursue further diagnostic testing. HYPERTENSION Lisinopril held due to renal insufficiency. Continue atenolol. CKD Baseline creatinine 1.4-1.8. Creatinine at time of admission was 1.49. Creatinine minerva to 1.89 with diuretic therapy. Serum creatinine today = 1.52. Follow. DYSLIPIDEMIA LDL-c = 37. Continue atorvastatin. POOR FUNCTIONAL STATUS PT / OT as tolerated. DELIRIUM Developed worsening confusion. ABG demonstrated CO2 retention. Optimize medical conditions. Started don small dose of Zyprexa and tolerating well GI BLEEDING Developed GI bleeding with maroon stools evening of 10/19. Was receiving aspirin and enoxaparin which were discontinued. INR, PTT, platelets normal. Hemoglobin has fallen from baseline of 10.5 - 11 ----> 9.5. Not candidate for endoscopic evaluation due to poor cardiopulmonary status. Continue IV pantoprazole. Transfuse if Hgb < 8-9 (verbal consent for transfusion obtained from brother and placed on chart). Hb remains stable for the last 2 days VTE PROPHYLAXIS Initially received SQ enoxaparin- held due to GI bleeding. SCD's. Ambulate as able. DISPOSITION To be determined. Has been staying with his brother, but functional status declining over past several months. Anticipate need for skilled care, perhaps transition to long-term care. Follow-up with [facility]. Vital Signs: Date Time Temp Pulse Resp B/P (MAP) Pulse Ox O2 Delivery O2 Flow Rate FiO2 10/21/17 08:00 Nasal Cannula 2.0 10/21/17 07:02 67 18 93 Nasal Cannula 2.0 10/21/17 06:57 36.5 73 20 165/79 (107) 95 Nasal Cannula 2.0 10/21/17 04:00 36.4 69 22 150/76 (100) 90 Nasal Cannula 2.0 10/21/17 04:00 90 Nasal Cannula 2.0 10/21/17 00:15 91 Nasal Cannula 2.0 10/21/17 00:05 35.6 67 24 147/67 (93) 91 Nasal Cannula 2.0 10/20/17 20:00 97 Nasal Cannula 2.0 10/20/17 19:35 36.6 64 22 126/63 (84) 97 Nasal Cannula 2.0 10/20/17 18:57 62 18 91 Nasal Cannula 2.0 10/20/17 16:00 Nasal Cannula 2.0 10/20/17 12:54 37.6 113 20 101/59 (73) 16 Room Air 10/20/17 12:00 Nasal Cannula 2.0 10/20/17 11:14 67 20 90 Nasal Cannula 2.0 Lab Results: Results Past 24 Hours Test 10/21/17 06:31 Range/Units Hemoglobin 9.3 14.0-18.0 g/dL Hematocrit 31.1 42-52 % Sodium Level 143 136-145 mmol/L Potassium Level 4.0 3.5-5.1 mmol/L Chloride Level 104 98-107 mmol/L Carbon Dioxide Level 36 21-32 mmol/L Anion Gap 4.0 3-11 mmol/L Blood Urea Nitrogen 39 7-18 mg/dl Creatinine 1.41 0.60-1.40 mg/dl Est Creatinine Clear Calc Drug Dose 42.3 ml/min Estimated GFR () 53.0 Estimated GFR (Non- 45.7 BUN/Creatinine Ratio 27.9 10-20 Random Glucose 154 70-99 mg/dl Calcium Level 8.1 8.5-10.1 mg/dl
[2017-10-21] MEDS: ATORVASTATIN 40 MG TAB PO SCH (19:56)
[2017-10-21] MEDS: OLANZAPINE ZYDIS 5 MG ORALLY DIS. TAB PO SCH (19:57)
[2017-10-22] VITALS (10 sets, daily range): BP systolic 106–153; BP diastolic 57–77; PULSE 49–66; TEMP 36.3–36.6; O2SAT 90–100
[2017-10-22] MEDS: PIPERACILL/TAZOBAC IV 3.375 GM in NSS 100ML IV SCH ×3 (02:06→18:25)
[2017-10-22 05:44] LABS: HEMATOCRIT 30.8 % (42-52); HEMOGLOBIN 9.2 g/dL (14.0-18.0); MEAN CELL VOLUME 80.6 fL (80-100); MEAN CORPUSCULAR HEMOGLOBIN 24.1 pg (25-34); MEAN CORPUSCULAR HGB CONC 29.9 g/dl (32-36); MEAN PLATELET VOLUME 11.2 fL (7.4-10.4); PLATELET COUNT 150 K/uL (130-400); RED CELL DISTRIBUTION WIDTH CV 17.1 % (11.5-14.5); RED CELL DISTRIBUTION WIDTH SD 49.1 fL (36.4-46.3); WHITE BLOOD COUNT 10.93 K/uL (4.8-10.8)
[2017-10-22 06:05] LABS: CREATININE 1.55 mg/dl (0.60-1.40); POTASSIUM 4.4 mmol/L (3.5-5.1)
[2017-10-22] MEDS: LEVALBUTEROL 0.63MG/3 ML NEB INH SCH ×4 (07:00→19:26)
[2017-10-22] MEDS: PANTOprazole INJ 40 MG in SYRINGE 0 ML IV SCH ×2 (08:44→20:43)
[2017-10-22] MEDS: THIAMINE HCL INJ 100 MG in SYRINGE 9 ML IV SCH (08:44)
[2017-10-22] MEDS: METHYLPREDNISOLONE IV 20 MG in SYRINGE 0 ML IV SCH ×2 (08:44→20:43)
[2017-10-22] MEDS: BOOST VANILLA PUDDING CUP PO SCH ×3 (08:44→20:43)
[2017-10-22] MEDS: ALLOPURINOL 300 MG TAB PO SCH (08:44)
[2017-10-22] MEDS: GUAIFENESIN 600 MG TABCR PO SCH ×2 (08:44→20:44)
[2017-10-22] MEDS: BOOST VANILLA PO SCH ×3 (08:44→20:43)
--- NOTE | 2017-10-22 15:25 | Progress Note ---
Internal Med Progress Note Date of Service: Oct 22, 2017. Provider Documentation: SUBJECTIVE: The patient was seen and examined in telemetry unit. He was admitted with an shortness of breath and cough suggestive of complicated bronchitis and/or CHF He has been evaluated by cardiology while in the hospital Generally feeling better but complains to have weakness and cough. Noted to have GI bleed but does not have any erlinda bleeding and/or hematemesis Worse today -hardly could participate in PT OBJECTIVE: Vital Signs-as noted below Exam: General-minimal distress at rest Eyes-normal ENT-normal Neck-supple Lungs-decreased breath sounds with barium wheezing and transmitted sound due to secretions. Heart-S1-S2 regular Abdomen-benign Extremities-trace edema bilaterally Neuro-alert, awake, oriented 3 Generally weak but no focal neuro deficit appreciated Lab data as noted below. ASSESSMENT & PLAN: Complicated Bronchitis Chest x-ray demonstrated elevated right hemidiaphragm and right pleural effusion which may be chronic. (Chest x-ray performed here in 2001 showed elevation of right hemidiaphragm and small right pleural effusion; CXR at [facility] 08/10/15 demonstrated a chronic elevation of right hemidiaphragm). Initially received doxycycline and methylprednisolone. Changed antibiotic therapy to levofloxacin. Repeat chest x-ray 10/16 unchanged, no apparent infiltrates. Chest x-rays 10/16 and 10/18- chronically elevated right hemidiaphragm, probable atelectasis right base, no definite infiltrates, no overt pulmonary edema. Discontinued levofloxacin and changed to piperacillin/tazobactam. Obtain sputum culture if able-pending. COPD EXACERBATION Secondary to tracheobronchitis. Continue intravenous methylprednisolone and nebulizer treatments. ABG on 2 L nasal cannula 10/17 demonstrated PCO2 of 82, pH 7.25. Taper steroid on discharge Remains stable CHF Acute on chronic left ventricular diastolic heart failure. Worsening dyspnea on exertion and dependent edema despite diuretic therapy. Chest x-ray showed cardiomegaly. with BNP elevated. Echocardiogram demonstrated moderate concentric LVH, normal left ventricular systolic function with ejection fraction of 55%, grade 2 diastolic dysfunction, moderate enlargement of left atrium, moderate enlargement of right atrium, normal right ventricular systolic function, mild to moderate mitral regurgitation. Appreciate cardiology input -continue current medications CAD History of ischemic heart disease, status post CABG in 2001. Patient reports abnormal stress test 2-3 years ago, but he opted not to pursue repeat catheterization or consideration of further revascularization. Experiencing worsening dyspnea on exertion, sometimes associated with chest pressure over past few months. Initial EKGs in the ED had baseline artifact. EKG 10/14 demonstrated sinus rhythm with PVCs, lateral downsloping ST depression. Serum troponins 0.061, 0.061, and 0.059, 0.040. Continue aspirin, atenolol. Cardiology consulted. Patient wishes to continue medical management and not pursue further diagnostic testing. HYPERTENSION Lisinopril held due to renal insufficiency. Continue atenolol. CKD Baseline creatinine 1.4-1.8. Creatinine at time of admission was 1.49. Creatinine minerva to 1.89 with diuretic therapy. Serum creatinine today = 1.52. Follow. DYSLIPIDEMIA LDL-c = 37. Continue atorvastatin. POOR FUNCTIONAL STATUS PT / OT as tolerated. DELIRIUM Developed worsening confusion. ABG demonstrated CO2 retention. Optimize medical conditions. Started don small dose of Zyprexa and tolerating well No more Delirium GI BLEEDING Developed GI bleeding with maroon stools evening of 10/19. Was receiving aspirin and enoxaparin which were discontinued. INR, PTT, platelets normal. Hemoglobin has fallen from baseline of 10.5 - 11 ----> 9.5. Not candidate for endoscopic evaluation due to poor cardiopulmonary status. Continue IV pantoprazole. Transfuse if Hgb < 8-9 (verbal consent for transfusion obtained from brother and placed on chart). Hb remains stable for the last 2 days VTE PROPHYLAXIS Initially received SQ enoxaparin- held due to GI bleeding. SCD's. Ambulate as able. DISPOSITION To be determined. Has been staying with his brother, but functional status declining over past several months. Anticipate need for skilled care, perhaps transition to long-term care. Follow-up with [facility]. Likely to need Rehab Vital Signs: Date Time Temp Pulse Resp B/P (MAP) Pulse Ox O2 Delivery O2 Flow Rate FiO2 10/22/17 15:18 36.6 60 20 124/76 (92) 96 Nasal Cannula 2.0 10/22/17 15:08 57 18 98 Nasal Cannula 2.0 10/22/17 12:00 Nasal Cannula 2.0 10/22/17 11:37 60 98 10/22/17 10:25 36.5 64 20 120/67 (84) 98 Nasal Cannula 2.0 4/18/18 08:00 Nasal Cannula 2.0 10/22/17 07:02 61 18 98 Nasal Cannula 2.0 10/22/17 06:56 36.6 49 20 106/65 (79) 98 Nasal Cannula 2.0 10/22/17 04:00 Nasal Cannula 2.0 10/22/17 03:43 36.3 66 19 117/67 (84) 90 Nasal Cannula 2.0 10/22/17 00:01 Nasal Cannula 2.0 10/21/17 23:37 36.7 66 18 155/70 (98) 97 Nasal Cannula 2.0 10/21/17 20:00 Nasal Cannula 2.0 10/21/17 19:19 36.8 64 20 120/70 (87) 97 Nasal Cannula 2.0 10/21/17 19:10 72 18 84 Room Air 10/21/17 16:00 Nasal Cannula 2.0 10/21/17 15:47 70 18 93 Nasal Cannula 2.0 Lab Results: Results Past 24 Hours Test 10/22/17 05:19 Range/Units White Blood Count 10.93 4.8-10.8 K/uL Red Blood Count 3.82 4.7-6.1 M/uL Hemoglobin 9.2 14.0-18.0 g/dL Hematocrit 30.8 42-52 % Mean Corpuscular Volume 80.6 80-100 fL Mean Corpuscular Hemoglobin 24.1 25-34 pg Mean Corpuscular Hemoglobin Concent 29.9 32-36 g/dl RDW Standard Deviation 49.1 36.4-46.3 fL RDW Coefficient of Variation 17.1 11.5-14.5 % Platelet Count 150 130-400 K/uL Mean Platelet Volume 11.2 7.4-10.4 fL Sodium Level 144 136-145 mmol/L Potassium Level 4.4 3.5-5.1 mmol/L Chloride Level 107 98-107 mmol/L Carbon Dioxide Level 35 21-32 mmol/L Anion Gap 2.0 3-11 mmol/L Blood Urea Nitrogen 42 7-18 mg/dl Creatinine 1.55 0.60-1.40 mg/dl Est Creatinine Clear Calc Drug Dose 38.4 ml/min Estimated GFR () 47.3 Estimated GFR (Non- 40.8 BUN/Creatinine Ratio 27.2 10-20 Random Glucose 140 70-99 mg/dl Calcium Level 8.0 8.5-10.1 mg/dl Magnesium Level 2.6 1.8-2.4 mg/dl Microbiology Results 10/22/17 Gram Stain - Final, Resulted 10/22/17 Sputum Culture, Resulted Pending
[2017-10-22] MEDS: OLANZAPINE ZYDIS 5 MG ORALLY DIS. TAB PO SCH (20:43)
[2017-10-22] MEDS: ATORVASTATIN 40 MG TAB PO SCH (20:44)
[2017-10-23] VITALS (10 sets, daily range): BP systolic 110–130; BP diastolic 57–74; PULSE 53–72; TEMP 36.4–36.6; O2SAT 92–100
[2017-10-23] MEDS: PIPERACILL/TAZOBAC IV 3.375 GM in NSS 100ML IV SCH ×3 (01:31→18:09)
[2017-10-23] MEDS: LEVALBUTEROL 0.63MG/3 ML NEB INH SCH ×4 (06:55→19:02)
[2017-10-23] MEDS: PANTOprazole INJ 40 MG in SYRINGE 0 ML IV SCH ×2 (08:20→21:00)
[2017-10-23] MEDS: GUAIFENESIN 600 MG TABCR PO SCH ×2 (08:20→21:00)
[2017-10-23] MEDS: METHYLPREDNISOLONE IV 20 MG in SYRINGE 0 ML IV SCH ×2 (08:20→21:00)
[2017-10-23] MEDS: ALLOPURINOL 300 MG TAB PO SCH (08:21)
[2017-10-23] MEDS: THIAMINE HCL INJ 100 MG in SYRINGE 9 ML IV SCH (08:21)
[2017-10-23] MEDS: BOOST VANILLA PO SCH ×3 (08:59→22:31)
[2017-10-23] MEDS: BOOST VANILLA PUDDING CUP PO SCH ×3 (08:59→21:00)
--- NOTE | 2017-10-23 11:10 | Progress Note ---
Internal Med Progress Note Date of Service: Oct 23, 2017. Provider Documentation: SUBJECTIVE: The patient was seen and examined in telemetry unit. He was admitted with an shortness of breath and cough suggestive of complicated bronchitis and/or CHF He has been evaluated by cardiology while in the hospital Noted to have GI bleed but does not have any erlinda bleeding and/or hematemesis Worse today -hardly could participate in PT 10/22/17 Better this AM but will need Rehab OBJECTIVE: Vital Signs-as noted below Exam: General-minimal distress at rest OOB in a chair Eyes-normal ENT-normal Neck-supple Lungs-decreased breath sounds with barium wheezing and transmitted sound due to secretions. Heart-S1-S2 regular Abdomen-benign Extremities-trace edema bilaterally Neuro-alert, awake, oriented 3 Generally weak but no focal neuro deficit appreciated Lab data as noted below. ASSESSMENT & PLAN: Complicated Bronchitis Chest x-ray demonstrated elevated right hemidiaphragm and right pleural effusion which may be chronic. (Chest x-ray performed here in 2001 showed elevation of right hemidiaphragm and small right pleural effusion; CXR at [facility] 08/10/15 demonstrated a chronic elevation of right hemidiaphragm). Initially received doxycycline and methylprednisolone. Changed antibiotic therapy to levofloxacin. Repeat chest x-ray 10/16 unchanged, no apparent infiltrates. Chest x-rays 10/16 and 10/18- chronically elevated right hemidiaphragm, probable atelectasis right base, no definite infiltrates, no overt pulmonary edema. Discontinued levofloxacin and changed to piperacillin/tazobactam. Obtain sputum culture if able-moderate normal chiquita Will finish the course of antibiotic Clinically much better today COPD EXACERBATION Secondary to tracheobronchitis. Continue intravenous methylprednisolone and nebulizer treatments. ABG on 2 L nasal cannula 10/17 demonstrated PCO2 of 82, pH 7.25. Taper steroid on discharge Remains stable CHF Acute on chronic left ventricular diastolic heart failure. Worsening dyspnea on exertion and dependent edema despite diuretic therapy. Chest x-ray showed cardiomegaly. with BNP elevated. Echocardiogram demonstrated moderate concentric LVH, normal left ventricular systolic function with ejection fraction of 55%, grade 2 diastolic dysfunction, moderate enlargement of left atrium, moderate enlargement of right atrium, normal right ventricular systolic function, mild to moderate mitral regurgitation. Appreciate cardiology input -continue current medications CAD History of ischemic heart disease, status post CABG in 2001. Patient reports abnormal stress test 2-3 years ago, but he opted not to pursue repeat catheterization or consideration of further revascularization. Experiencing worsening dyspnea on exertion, sometimes associated with chest pressure over past few months. Initial EKGs in the ED had baseline artifact. EKG 10/14 demonstrated sinus rhythm with PVCs, lateral downsloping ST depression. Serum troponins 0.061, 0.061, and 0.059, 0.040. Continue aspirin, atenolol. Cardiology consulted. Patient wishes to continue medical management and not pursue further diagnostic testing. HYPERTENSION Lisinopril held due to renal insufficiency. Continue atenolol. CKD Baseline creatinine 1.4-1.8. Creatinine at time of admission was 1.49. Creatinine minerva to 1.89 with diuretic therapy. Serum creatinine today = 1.52. Follow. DYSLIPIDEMIA LDL-c = 37. Continue atorvastatin. POOR FUNCTIONAL STATUS PT / OT as tolerated. DELIRIUM Developed worsening confusion. ABG demonstrated CO2 retention. Optimize medical conditions. Started don small dose of Zyprexa and tolerating well No more Delirium GI BLEEDING Developed GI bleeding with maroon stools evening of 10/19. Was receiving aspirin and enoxaparin which were discontinued. INR, PTT, platelets normal. Hemoglobin has fallen from baseline of 10.5 - 11 ----> 9.5. Not candidate for endoscopic evaluation due to poor cardiopulmonary status. Continue IV pantoprazole. Transfuse if Hgb < 8-9 (verbal consent for transfusion obtained from brother and placed on chart). Hb remains stable for the last 2 days VTE PROPHYLAXIS Initially received SQ enoxaparin- held due to GI bleeding. SCD's. Ambulate as able. DISPOSITION To be determined. Has been staying with his brother, but functional status declining over past several months. Anticipate need for skilled care, perhaps transition to long-term care. Follow-up with [facility]. Likely to need Rehab Vital Signs: Date Time Temp Pulse Resp B/P (MAP) Pulse Ox O2 Delivery O2 Flow Rate FiO2 10/23/17 08:00 Nasal Cannula 2.0 10/23/17 07:29 36.6 65 20 118/66 (83) 95 Nasal Cannula 2.0 10/23/17 06:56 58 18 99 Nasal Cannula 2.0 10/23/17 04:00 Nasal Cannula 2.0 10/23/17 03:07 36.5 59 16 121/65 (83) 97 Nasal Cannula 2.0 10/23/17 00:01 Nasal Cannula 2.0 10/22/17 23:00 36.5 62 20 153/70 (97) 97 Nasal Cannula 2.0 10/22/17 20:00 Nasal Cannula 2.0 10/22/17 19:36 36.3 59 18 132/77 (95) 100 Nasal Cannula 2.0 10/22/17 19:26 66 18 95 Nasal Cannula 2.0 10/22/17 16:00 Nasal Cannula 2.0 10/22/17 15:18 36.6 60 20 124/76 (92) 96 Nasal Cannula 2.0 10/22/17 15:08 57 18 98 Nasal Cannula 2.0 10/22/17 12:00 Nasal Cannula 2.0 10/22/17 11:37 60 98
[2017-10-23] MEDS: ATORVASTATIN 40 MG TAB PO SCH (21:00)
[2017-10-23] MEDS: OLANZAPINE ZYDIS 5 MG ORALLY DIS. TAB PO SCH (21:00)
[2017-10-24] MEDS: PIPERACILL/TAZOBAC IV 3.375 GM in NSS 100ML IV SCH ×3 (02:05→18:58)
[2017-10-24 04:20] VITALS: BP 117/57; PULSE 58; TEMP 36.6; O2SAT 99
[2017-10-24] MEDS: LEVALBUTEROL 0.63MG/3 ML NEB INH SCH (07:22)
[2017-10-24 07:27] VITALS: BP 137/76; PULSE 79; TEMP 36.5; O2SAT 93
[2017-10-24 07:50] VITALS: PULSE 74; O2SAT 96
[2017-10-24] MEDS: METHYLPREDNISOLONE IV 20 MG in SYRINGE 0 ML IV SCH (07:58)
[2017-10-24] MEDS: THIAMINE HCL INJ 100 MG in SYRINGE 9 ML IV SCH (07:58)
[2017-10-24] MEDS: PANTOprazole INJ 40 MG in SYRINGE 0 ML IV SCH (07:58)
[2017-10-24] MEDS: GUAIFENESIN 600 MG TABCR PO SCH ×2 (07:58→20:30)
[2017-10-24] MEDS: ALLOPURINOL 300 MG TAB PO SCH (07:59)
[2017-10-24 08:00] VITALS: O2SAT 96
[2017-10-24] MEDS: BOOST VANILLA PUDDING CUP PO SCH (08:09)
[2017-10-24] MEDS: BOOST VANILLA PO SCH (08:09)
[2017-10-24] MEDS ORDERED: LEVALBUTEROL 0.63MG/3 ML NEB INH PRN (10:00)
[2017-10-24 11:07] VITALS: BP 119/67; PULSE 61; TEMP 36.6; O2SAT 99
--- NOTE | 2017-10-24 11:42 | Progress Note ---
Internal Med Progress Note Date of Service: Oct 24, 2017. Provider Documentation: SUBJECTIVE: The patient was seen and examined in telemetry unit. He was admitted with an shortness of breath and cough suggestive of complicated bronchitis and/or CHF He has been evaluated by cardiology while in the hospital Noted to have GI bleed but does not have any erlinda bleeding and/or hematemesis Remains stable and denies any symptoms Awaiting to go to [facility] OBJECTIVE: Vital Signs-as noted below Exam: General-minimal distress at rest OOB in a chair Eyes-normal ENT-normal Neck-supple Lungs-decreased breath sounds with barium wheezing and transmitted sound due to secretions. Heart-S1-S2 regular Abdomen-benign Extremities-trace edema bilaterally Neuro-alert, awake, oriented 3 Generally weak but no focal neuro deficit appreciated Lab data as noted below. ASSESSMENT & PLAN: Complicated Bronchitis Chest x-ray demonstrated elevated right hemidiaphragm and right pleural effusion which may be chronic. (Chest x-ray performed here in 2001 showed elevation of right hemidiaphragm and small right pleural effusion; CXR at [facility] 08/10/15 demonstrated a chronic elevation of right hemidiaphragm). Initially received doxycycline and methylprednisolone. Changed antibiotic therapy to levofloxacin. Repeat chest x-ray 10/16 unchanged, no apparent infiltrates. Chest x-rays 10/16 and 10/18- chronically elevated right hemidiaphragm, probable atelectasis right base, no definite infiltrates, no overt pulmonary edema. Discontinued levofloxacin and changed to piperacillin/tazobactam. Obtain sputum culture if able-moderate normal chiquita Will finish the course of antibiotic Clinically much better today and remains stable Ready to be discharged COPD EXACERBATION Secondary to tracheobronchitis. Continue intravenous methylprednisolone and nebulizer treatments. ABG on 2 L nasal cannula 10/17 demonstrated PCO2 of 82, pH 7.25. Taper steroid on discharge Denies any complaints CHF Acute on chronic left ventricular diastolic heart failure. Worsening dyspnea on exertion and dependent edema despite diuretic therapy. Chest x-ray showed cardiomegaly. with BNP elevated. Echocardiogram demonstrated moderate concentric LVH, normal left ventricular systolic function with ejection fraction of 55%, grade 2 diastolic dysfunction, moderate enlargement of left atrium, moderate enlargement of right atrium, normal right ventricular systolic function, mild to moderate mitral regurgitation. Appreciate cardiology input -continue current medications and diuretics CAD History of ischemic heart disease, status post CABG in 2001. Patient reports abnormal stress test 2-3 years ago, but he opted not to pursue repeat catheterization or consideration of further revascularization. Experiencing worsening dyspnea on exertion, sometimes associated with chest pressure over past few months. Initial EKGs in the ED had baseline artifact. EKG 10/14 demonstrated sinus rhythm with PVCs, lateral downsloping ST depression. Serum troponins 0.061, 0.061, and 0.059, 0.040. Continue aspirin, atenolol. Cardiology consulted. Patient wishes to continue medical management and not pursue further diagnostic testing. HYPERTENSION Lisinopril held due to renal insufficiency. Continue atenolol. CKD Baseline creatinine 1.4-1.8. Creatinine at time of admission was 1.49. Creatinine minerva to 1.89 with diuretic therapy. Serum creatinine today = 1.52. Follow. DYSLIPIDEMIA LDL-c = 37. Continue atorvastatin. POOR FUNCTIONAL STATUS PT / OT as tolerated. DELIRIUM Developed worsening confusion. ABG demonstrated CO2 retention. Optimize medical conditions. Started don small dose of Zyprexa and tolerating well No more Delirium GI BLEEDING Developed GI bleeding with maroon stools evening of 10/19. Was receiving aspirin and enoxaparin which were discontinued. INR, PTT, platelets normal. Hemoglobin has fallen from baseline of 10.5 - 11 ----> 9.5. Not candidate for endoscopic evaluation due to poor cardiopulmonary status. Continue IV pantoprazole. Transfuse if Hgb < 8-9 (verbal consent for transfusion obtained from brother and placed on chart). Hb remains stable for the last 2 days No more GI bleed VTE PROPHYLAXIS Initially received SQ enoxaparin- held due to GI bleeding. SCD's. Ambulate as able. DISPOSITION To be determined. Has been staying with his brother, but functional status declining over past several months. Anticipate need for skilled care, perhaps transition to long-term care. Follow-up with [facility]. Likely to need Rehab -likely to go to [facility] today Vital Signs: Date Time Temp Pulse Resp B/P (MAP) Pulse Ox O2 Delivery O2 Flow Rate FiO2 10/24/17 11:07 36.6 61 18 119/67 (84) 99 10/24/17 08:00 96 Nasal Cannula 2.0 10/24/17 07:50 74 18 96 Nasal Cannula 2.0 10/24/17 07:27 36.5 79 18 137/76 (96) 93 10/24/17 04:20 36.6 58 17 117/57 (77) 99 Nasal Cannula 2.0 10/24/17 04:00 Nasal Cannula 2.0 10/24/17 00:00 Nasal Cannula 2.0 10/23/17 23:10 36.6 62 17 110/57 (74) 97 Nasal Cannula 2.0 10/23/17 20:00 Nasal Cannula 2.0 10/23/17 19:41 36.6 58 18 117/59 (78) 98 Nasal Cannula 10/23/17 19:02 72 18 92 Nasal Cannula 2.0 10/23/17 16:00 Nasal Cannula 2.0 10/23/17 15:49 36.5 56 17 128/74 (92) 98 Nasal Cannula 2.0 10/23/17 14:47 64 18 98 Nasal Cannula 2.0 10/23/17 12:23 36.4 64 20 130/65 (86) 100 Nasal Cannula 2.0 10/23/17 12:00 Nasal Cannula 2.0
[2017-10-24] MEDS ORDERED: BOOST VANILLA PUDDING CUP PO SCH (13:15)
[2017-10-24] MEDS ORDERED: BOOST VANILLA PO SCH (13:15)
[2017-10-24 16:00] VITALS: BP 122/60; PULSE 55; TEMP 36.8; O2SAT 99
[2017-10-24] MEDS: PANTOprazole SOD 40 MG TAB PO SCH (20:29)
[2017-10-24] MEDS: OLANZAPINE ZYDIS 5 MG ORALLY DIS. TAB PO SCH (20:30)
[2017-10-24] MEDS: ATORVASTATIN 40 MG TAB PO SCH (20:31)
[2017-10-25 00:10] VITALS: BP 119/64; PULSE 65; TEMP 36.5; O2SAT 96
[2017-10-25 00:39] LABS: BASO % 0.1 %; BASO ABS # 0.01 K/uL (0-0.2); EOS % 0.7 %; EOS ABS # 0.08 K/uL (0-0.5); HEMATOCRIT 23.7 % (42-52); HEMOGLOBIN 7.1 g/dL (14.0-18.0); IG# 0.23 K/uL (0.00-0.02); LYMPH % 10.3 %; MEAN CELL VOLUME 80.9 fL (80-100); MEAN CORPUSCULAR HEMOGLOBIN 24.2 pg (25-34); MONO % 10.6 %; MONO ABS # 1.23 K/uL (0.11-0.59); NEUT % 76.3 %; NEUT ABS # 8.87 K/uL (1.4-6.5); PLATELET COUNT 151 K/uL (130-400); RED CELL DISTRIBUTION WIDTH CV 17.4 % (11.5-14.5); RED CELL DISTRIBUTION WIDTH SD 50.1 fL (36.4-46.3); WHITE BLOOD COUNT 11.62 K/uL (4.8-10.8)
[2017-10-25 00:57] LABS: CREATININE 1.41 mg/dl (0.60-1.40); PHOSPHORUS 2.7 mg/dl (2.5-4.9); POTASSIUM 4.7 mmol/L (3.5-5.1)
[2017-10-25] MEDS: PIPERACILL/TAZOBAC IV 3.375 GM in NSS 100ML IV SCH ×3 (01:57→18:24)
[2017-10-25 07:19] VITALS: BP 124/62; PULSE 61; TEMP 36.4; O2SAT 98
[2017-10-25] MEDS: ALLOPURINOL 300 MG TAB PO SCH (07:57)
[2017-10-25] MEDS: THIAMINE HCL 50 MG TAB PO SCH (07:58)
[2017-10-25] MEDS: PANTOprazole SOD 40 MG TAB PO SCH ×2 (07:59→21:15)
[2017-10-25] MEDS: GUAIFENESIN 600 MG TABCR PO SCH ×2 (07:59→21:15)
--- NOTE | 2017-10-25 13:54 | Progress Note ---
Internal Med Progress Note Date of Service: Oct 25, 2017. Provider Documentation: SUBJECTIVE: The patient was seen and examined in telemetry unit. He was admitted with an shortness of breath and cough suggestive of complicated bronchitis and/or CHF He has been evaluated by cardiology while in the hospital Noted to have GI bleed but does not have any erlinda bleeding and/or hematemesis Remains stable and denies any symptoms [facility] Has had bloody stool last night with the dropping of hemoglobin to 7.1 Does not have any symptoms this morning and does not want any blood transfusion or any workup for bleeding Remains stable otherwise OBJECTIVE: Vital Signs-as noted below Exam: General-minimal distress at rest OOB in a chair Eyes-normal ENT-normal Neck-supple Lungs-decreased breath sounds with barium wheezing and transmitted sound due to secretions. Heart-S1-S2 regular Abdomen-benign Extremities-trace edema bilaterally Neuro-alert, awake, oriented 3 Generally weak but no focal neuro deficit appreciated Lab data as noted below. ASSESSMENT & PLAN: Bright red blood per rectum History of GI bleed in the past and does not want to go for any workup for that 1 educating with his current condition, these was his opinion- He has a history of GI bleed for the last 2-4 years. He had 2 brothers of rectal cancer and he may have rectal cancer as well. He enjoyed his life so far and now is 82 years old. He is enjoying his life right now the way and he does not want to go for any procedure to improve it. He did not want to have any blood transfusion right now but wanted to have repeat check in the morning and it goes below 7 he will get 1 or 2 transfusion for comfort. Check CBC in the morning and transfuse if needed Complicated Bronchitis Chest x-ray demonstrated elevated right hemidiaphragm and right pleural effusion which may be chronic. (Chest x-ray performed here in 2001 showed elevation of right hemidiaphragm and small right pleural effusion; CXR at [facility] 08/10/15 demonstrated a chronic elevation of right hemidiaphragm). Initially received doxycycline and methylprednisolone. Changed antibiotic therapy to levofloxacin. Repeat chest x-ray 10/16 unchanged, no apparent infiltrates. Chest x-rays 10/16 and 10/18- chronically elevated right hemidiaphragm, probable atelectasis right base, no definite infiltrates, no overt pulmonary edema. Discontinued levofloxacin and changed to piperacillin/tazobactam. Obtain sputum culture if able-moderate normal chiquita Will finish the course of antibiotic Clinically much better today and remains stable Ready to be discharged COPD EXACERBATION Secondary to tracheobronchitis. Continue intravenous methylprednisolone and nebulizer treatments. ABG on 2 L nasal cannula 10/17 demonstrated PCO2 of 82, pH 7.25. Taper steroid on discharge Denies any complaints CHF Acute on chronic left ventricular diastolic heart failure. Worsening dyspnea on exertion and dependent edema despite diuretic therapy. Chest x-ray showed cardiomegaly. with BNP elevated. Echocardiogram demonstrated moderate concentric LVH, normal left ventricular systolic function with ejection fraction of 55%, grade 2 diastolic dysfunction, moderate enlargement of left atrium, moderate enlargement of right atrium, normal right ventricular systolic function, mild to moderate mitral regurgitation. Appreciate cardiology input -continue current medications and diuretics CAD History of ischemic heart disease, status post CABG in 2001. Patient reports abnormal stress test 2-3 years ago, but he opted not to pursue repeat catheterization or consideration of further revascularization. Experiencing worsening dyspnea on exertion, sometimes associated with chest pressure over past few months. Initial EKGs in the ED had baseline artifact. EKG 10/14 demonstrated sinus rhythm with PVCs, lateral downsloping ST depression. Serum troponins 0.061, 0.061, and 0.059, 0.040. Continue aspirin, atenolol. Cardiology consulted. Patient wishes to continue medical management and not pursue further diagnostic testing. HYPERTENSION Lisinopril held due to renal insufficiency. Continue atenolol. CKD Baseline creatinine 1.4-1.8. Creatinine at time of admission was 1.49. Creatinine minerva to 1.89 with diuretic therapy. Serum creatinine today = 1.52. Follow. DYSLIPIDEMIA LDL-c = 37. Continue atorvastatin. POOR FUNCTIONAL STATUS PT / OT as tolerated. DELIRIUM Developed worsening confusion. ABG demonstrated CO2 retention. Optimize medical conditions. Started don small dose of Zyprexa and tolerating well No more Delirium GI BLEEDING Developed GI bleeding with maroon stools evening of 10/19. Was receiving aspirin and enoxaparin which were discontinued. INR, PTT, platelets normal. Hemoglobin has fallen from baseline of 10.5 - 11 ----> 9.5. Not candidate for endoscopic evaluation due to poor cardiopulmonary status. Continue IV pantoprazole. Transfuse if Hgb < 8-9 (verbal consent for transfusion obtained from brother and placed on chart). Hb remains stable for the last 2 days No more GI bleed VTE PROPHYLAXIS Initially received SQ enoxaparin- held due to GI bleeding. SCD's. Ambulate as able. DISPOSITION To be determined. Has been staying with his brother, but functional status declining over past several months. Anticipate need for skilled care, perhaps transition to long-term care. Follow-up with [facility]. Likely to need Rehab -likely to go to [facility] today Vital Signs: Date Time Temp Pulse Resp B/P (MAP) Pulse Ox O2 Delivery O2 Flow Rate FiO2 10/25/17 08:00 Nasal Cannula 10/25/17 07:19 36.4 61 18 124/62 (82) 98 Nasal Cannula 2.0 10/25/17 00:10 36.5 65 20 119/64 (82) 96 Nasal Cannula 2.0 10/25/17 00:00 Nasal Cannula 2.0 10/24/17 16:00 Nasal Cannula 2.0 10/24/17 16:00 36.8 55 18 122/60 (80) 99 Lab Results: Results Past 24 Hours Test 10/25/17 00:30 Range/Units White Blood Count 11.62 4.8-10.8 K/uL Red Blood Count 2.93 4.7-6.1 M/uL Hemoglobin 7.1 14.0-18.0 g/dL Hematocrit 23.7 42-52 % Mean Corpuscular Volume 80.9 80-100 fL Mean Corpuscular Hemoglobin 24.2 25-34 pg Mean Corpuscular Hemoglobin Concent 30.0 32-36 g/dl Platelet Count 151 130-400 K/uL Mean Platelet Volume 11.0 7.4-10.4 fL Neutrophils (%) (Auto) 76.3 % Lymphocytes (%) (Auto) 10.3 % Monocytes (%) (Auto) 10.6 % Eosinophils (%) (Auto) 0.7 % Basophils (%) (Auto) 0.1 % Neutrophils # (Auto) 8.87 1.4-6.5 K/uL Lymphocytes # (Auto) 1.20 1.2-3.4 K/uL Monocytes # (Auto) 1.23 0.11-0.59 K/uL Eosinophils # (Auto) 0.08 0-0.5 K/uL Basophils # (Auto) 0.01 0-0.2 K/uL RDW Standard Deviation 50.1 36.4-46.3 fL RDW Coefficient of Variation 17.4 11.5-14.5 % Immature Granulocyte % (Auto) 2.0 % Immature Granulocyte # (Auto) 0.23 0.00-0.02 K/uL Basophilic Stippling 1+ Ovalocytes 1+ Acanthocytes 1+ Sodium Level 142 136-145 mmol/L Potassium Level 4.7 3.5-5.1 mmol/L Chloride Level 107 98-107 mmol/L Carbon Dioxide Level 35 21-32 mmol/L Anion Gap 0.0 3-11 mmol/L Blood Urea Nitrogen 38 7-18 mg/dl Creatinine 1.41 0.60-1.40 mg/dl Est Creatinine Clear Calc Drug Dose 42.3 ml/min Estimated GFR () 53.0 Estimated GFR (Non- 45.7 BUN/Creatinine Ratio 26.9 10-20 Random Glucose 118 70-99 mg/dl Calcium Level 8.0 8.5-10.1 mg/dl Phosphorus Level 2.7 2.5-4.9 mg/dl Magnesium Level 2.3 1.8-2.4 mg/dl
[2017-10-25 14:28] VITALS: BP 101/59; PULSE 59; TEMP 36.5; O2SAT 99
[2017-10-25] MEDS: ATORVASTATIN 40 MG TAB PO SCH (21:15)
[2017-10-25] MEDS: OLANZAPINE ZYDIS 5 MG ORALLY DIS. TAB PO SCH (21:16)
[2017-10-25] MEDS ORDERED: NITROGLYCERIN 0.4 MG SL PER TAB CHARGE SL STA (21:32)
[2017-10-25] MEDS ORDERED: TRAMADOL HCL 50 MG TAB PO PRN (21:45)
[2017-10-25] MEDS ORDERED: HYDROmorphone INJ 0.5 MG/0.5 ML SYR IV PRN (21:45)
[2017-10-25 22:18] LABS: ALBUMIN 2.2 gm/dl (3.4-5.0); CALCIUM 7.4 mg/dl (8.5-10.1); CREATININE 1.66 mg/dl (0.60-1.40); POTASSIUM 4.9 mmol/L (3.5-5.1)
[2017-10-25 22:23] LABS: HEMATOCRIT 23.4 % (42-52); HEMOGLOBIN 6.8 g/dL (14.0-18.0)
[2017-10-25 22:42] VITALS: BP 115/57; PULSE 74; TEMP 36.7; O2SAT 99
[2017-10-25] MEDS ORDERED: INSULIN ASPART 100 UNITS/ML 3 ML PEN SC ONE (23:47)
[2017-10-25] MEDS ORDERED: INSULIN GLARGINE SOLOSTAR 100 UNITS/ML 3 ML PEN SC ONE (23:47)
[2017-10-26] VITALS (15 sets, daily range): BP systolic 105–129; BP diastolic 56–66; PULSE 53–69; TEMP 36.2–36.7; O2SAT 96–100
[2017-10-26] MEDS ORDERED: GLUCAGON FOR INJ 1 MG VIAL SQ PRN
[2017-10-26] MEDS ORDERED: GLUCOSE 10 TABS/TUBE PO PRN
[2017-10-26] MEDS ORDERED: GLUCOSE 40% GEL 15 GM TUBE PO PRN
[2017-10-26] MEDS ORDERED: DEXTROSE 50% 50 ML SYR IV PRN
[2017-10-26] MEDS: PANTOprazole SOD 40 MG TAB PO SCH ×2 (08:16→21:18)
[2017-10-26] MEDS: THIAMINE HCL 50 MG TAB PO SCH (08:16)
[2017-10-26] MEDS: GUAIFENESIN 600 MG TABCR PO SCH ×2 (08:17→21:18)
[2017-10-26] MEDS: ALLOPURINOL 300 MG TAB PO SCH (08:17)
[2017-10-26] MEDS: INSULIN ASPART 100 UNITS/ML 3 ML PEN SC SCH ×4 (08:19→21:17)
[2017-10-26 09:32] LABS: EOS % 0.5 %; EOS ABS # 0.07 K/uL (0-0.5); HEMATOCRIT 28.8 % (42-52); IG# 0.19 K/uL (0.00-0.02); LYMPH % 7.1 %; LYMPH ABS # 1.08 K/uL (1.2-3.4); MEAN CELL VOLUME 82.8 fL (80-100); MEAN CORPUSCULAR HEMOGLOBIN 25.9 pg (25-34); MEAN CORPUSCULAR HGB CONC 31.3 g/dl (32-36); MEAN PLATELET VOLUME 11.6 fL (7.4-10.4); MONO % 10.7 %; MONO ABS # 1.64 K/uL (0.11-0.59); NEUT % 80.5 %; NEUT ABS # 12.32 K/uL (1.4-6.5); PLATELET COUNT 140 K/uL (130-400); RED CELL DISTRIBUTION WIDTH CV 16.7 % (11.5-14.5); RED CELL DISTRIBUTION WIDTH SD 49.8 fL (36.4-46.3)
[2017-10-26 10:05] LABS: CALCIUM 7.8 mg/dl (8.5-10.1); CREATININE 1.36 mg/dl (0.60-1.40); POTASSIUM 4.1 mmol/L (3.5-5.1)
[2017-10-26] MEDS ORDERED: NITROGLYCERIN 0.1 MG/HR PATCH TD ONE (11:53)
--- NOTE | 2017-10-26 13:49 | Progress Note ---
Internal Med Progress Note Date of Service: Oct 26, 2017. Provider Documentation: SUBJECTIVE: The patient was seen and examined in telemetry unit. He was admitted with an shortness of breath and cough suggestive of complicated bronchitis and/or CHF He has been evaluated by cardiology while in the hospital Noted to have GI bleed but does not have any erlinda bleeding and/or hematemesis Remains stable and denies any symptoms [facility] Has had bloody stool last night with the dropping of hemoglobin to 7.1 Does not have any symptoms this morning and does not want any blood transfusion or any workup for bleeding 10/26-agreed to have blood if hb goes down and symptomatic Hb dropped and received 2 units of PRBC Has ahd CP with ekg changes Reasonably better this morning OBJECTIVE: Vital Signs-as noted below Exam: General-minimal distress at rest OOB in a chair Eyes-normal ENT-normal Neck-supple Lungs-decreased breath sounds with barium wheezing and transmitted sound due to secretions. Heart-S1-S2 regular Abdomen-benign Extremities-trace edema bilaterally Neuro-alert, awake, oriented 3 Generally weak but no focal neuro deficit appreciated Lab data as noted below. ASSESSMENT & PLAN: Bright red blood per rectum History of GI bleed in the past and does not want to go for any workup for that 1 educating with his current condition, these was his opinion- He has a history of GI bleed for the last 2-4 years. He had 2 brothers of rectal cancer and he may have rectal cancer as well. He enjoyed his life so far and now is 82 years old. He is enjoying his life right now the way and he does not want to go for any procedure to improve it. He did not want to have any blood transfusion right now but wanted to have repeat check in the morning and it goes below 7 he will get 1 or 2 transfusion for comfort. Check CBC in the morning and transfuse if needed Received 2 units of PRBC, Hb >9.0 now Chest pain last night EKG changes with increased Troponin .13>>.19 Nitrodure for chest pain Discussed with the patient No aggressive management Complicated Bronchitis Chest x-ray demonstrated elevated right hemidiaphragm and right pleural effusion which may be chronic. (Chest x-ray performed here in 2001 showed elevation of right hemidiaphragm and small right pleural effusion; CXR at [facility] 08/10/15 demonstrated a chronic elevation of right hemidiaphragm). Initially received doxycycline and methylprednisolone. Changed antibiotic therapy to levofloxacin. Repeat chest x-ray 10/16 unchanged, no apparent infiltrates. Chest x-rays 10/16 and 10/18- chronically elevated right hemidiaphragm, probable atelectasis right base, no definite infiltrates, no overt pulmonary edema. Discontinued levofloxacin and changed to piperacillin/tazobactam. Obtain sputum culture if able-moderate normal chiquita Will finish the course of antibiotic Clinically much better today and remains stable Ready to be discharged COPD EXACERBATION Secondary to tracheobronchitis. Continue intravenous methylprednisolone and nebulizer treatments. ABG on 2 L nasal cannula 10/17 demonstrated PCO2 of 82, pH 7.25. Taper steroid on discharge Denies any complaints CHF Acute on chronic left ventricular diastolic heart failure. Worsening dyspnea on exertion and dependent edema despite diuretic therapy. Chest x-ray showed cardiomegaly. with BNP elevated. Echocardiogram demonstrated moderate concentric LVH, normal left ventricular systolic function with ejection fraction of 55%, grade 2 diastolic dysfunction, moderate enlargement of left atrium, moderate enlargement of right atrium, normal right ventricular systolic function, mild to moderate mitral regurgitation. Appreciate cardiology input -continue current medications and diuretics CAD History of ischemic heart disease, status post CABG in 2001. Patient reports abnormal stress test 2-3 years ago, but he opted not to pursue repeat catheterization or consideration of further revascularization. Experiencing worsening dyspnea on exertion, sometimes associated with chest pressure over past few months. Initial EKGs in the ED had baseline artifact. EKG 10/14 demonstrated sinus rhythm with PVCs, lateral downsloping ST depression. Serum troponins 0.061, 0.061, and 0.059, 0.040. Continue aspirin, atenolol. Cardiology consulted. Patient wishes to continue medical management and not pursue further diagnostic testing. HYPERTENSION Lisinopril held due to renal insufficiency. Continue atenolol. CKD Baseline creatinine 1.4-1.8. Creatinine at time of admission was 1.49. Creatinine minerva to 1.89 with diuretic therapy. Serum creatinine today = 1.52. Follow. DYSLIPIDEMIA LDL-c = 37. Continue atorvastatin. POOR FUNCTIONAL STATUS PT / OT as tolerated. DELIRIUM Developed worsening confusion. ABG demonstrated CO2 retention. Optimize medical conditions. Started don small dose of Zyprexa and tolerating well No more Delirium GI BLEEDING Developed GI bleeding with maroon stools evening of 10/19. Was receiving aspirin and enoxaparin which were discontinued. INR, PTT, platelets normal. Hemoglobin has fallen from baseline of 10.5 - 11 ----> 9.5. Not candidate for endoscopic evaluation due to poor cardiopulmonary status. Continue IV pantoprazole. Transfuse if Hgb < 8-9 (verbal consent for transfusion obtained from brother and placed on chart). Hb remains stable for the last 2 days No more GI bleed VTE PROPHYLAXIS Initially received SQ enoxaparin- held due to GI bleeding. SCD's. Ambulate as able. DISPOSITION To be determined. Has been staying with his brother, but functional status declining over past several months. Anticipate need for skilled care, perhaps transition to long-term care. Follow-up with [facility]. Likely to need Rehab -likely to go to [facility] on Friday Vital Signs: Date Time Temp Pulse Resp B/P (MAP) Pulse Ox O2 Delivery O2 Flow Rate FiO2 10/26/17 08:00 Nasal Cannula 2.0 10/26/17 07:00 36.4 57 19 113/57 100 10/26/17 06:00 36.7 61 18 114/61 100 2.0 10/26/17 05:31 36.4 59 20 108/61 100 2.0 10/26/17 05:00 36.3 69 20 120/56 97 2.0 10/26/17 04:45 36.5 62 18 115/59 96 1.0 10/26/17 04:30 36.4 61 16 108/58 96 10/26/17 04:21 1.0 10/26/17 04:21 36.4 58 18 108/58 97 10/26/17 03:45 36.4 57 18 105/59 100 2.0 10/26/17 02:45 36.4 61 18 105/57 100 2.0 10/26/17 02:15 36.7 58 18 106/56 100 2.0 10/26/17 01:43 36.7 61 20 111/57 100 2.0 10/26/17 01:30 36.7 59 18 109/57 100 2.0 10/26/17 01:10 36.7 60 18 110/56 100 10/26/17 00:00 Nasal Cannula 2.0 4/21/18 22:42 36.7 74 18 115/57 (76) 99 Nasal Cannula 2.0 10/25/17 20:00 Nasal Cannula 2.0 10/25/17 16:00 Nasal Cannula 10/25/17 14:28 36.5 59 18 101/59 (73) 99 Room Air Lab Results: Results Past 24 Hours Test 10/25/17 21:45 10/26/17 00:22 10/26/17 07:38 10/26/17 09:16 Range/Units Hemoglobin 6.8 9.0 14.0-18.0 g/dL Hematocrit 23.4 28.8 42-52 % Activated Partial Thromboplast Time 22.0 21.0-31.0 SECONDS Partial Thromboplastin Ratio 0.8 Sodium Level 137 142 136-145 mmol/L Potassium Level 4.9 4.1 3.5-5.1 mmol/L Chloride Level 103 105 98-107 mmol/L Carbon Dioxide Level 31 34 21-32 mmol/L Anion Gap 3.0 3.0 3-11 mmol/L Blood Urea Nitrogen 35 32 7-18 mg/dl Creatinine 1.66 1.36 0.60-1.40 mg/dl Est Creatinine Clear Calc Drug Dose 35.9 43.8 ml/min Estimated GFR () 43.5 55.4 Estimated GFR (Non- 37.5 47.8 BUN/Creatinine Ratio 21.3 23.4 10-20 Random Glucose 320 123 70-99 mg/dl Calcium Level 7.4 7.8 8.5-10.1 mg/dl Total Bilirubin 0.4 0.2-1 mg/dl Aspartate Amino Transf (AST/SGOT) 17 15-37 U/L Alanine Aminotransferase (ALT/SGPT) 22 12-78 U/L Alkaline Phosphatase 93 45-117 U/L Troponin I 0.134 0.196 0-0.045 ng/ml Total Protein 5.0 6.4-8.2 gm/dl Albumin 2.2 3.4-5.0 gm/dl Globulin 2.8 2.5-4.0 gm/dl Albumin/Globulin Ratio 0.8 0.9-2 Lipase 280 73-393 U/L Beta-Hydroxybutyric Acid 1.06 0.2-2.81 mg/dL Bedside Glucose 211 114 70-99 mg/dl White Blood Count 15.30 4.8-10.8 K/uL Red Blood Count 3.48 4.7-6.1 M/uL Mean Corpuscular Volume 82.8 80-100 fL Mean Corpuscular Hemoglobin 25.9 25-34 pg Mean Corpuscular Hemoglobin Concent 31.3 32-36 g/dl Platelet Count 140 130-400 K/uL Mean Platelet Volume 11.6 7.4-10.4 fL Neutrophils (%) (Auto) 80.5 % Lymphocytes (%) (Auto) 7.1 % Monocytes (%) (Auto) 10.7 % Eosinophils (%) (Auto) 0.5 % Basophils (%) (Auto) 0.0 % Neutrophils # (Auto) 12.32 1.4-6.5 K/uL Lymphocytes # (Auto) 1.08 1.2-3.4 K/uL Monocytes # (Auto) 1.64 0.11-0.59 K/uL Eosinophils # (Auto) 0.07 0-0.5 K/uL Basophils # (Auto) 0.00 0-0.2 K/uL RDW Standard Deviation 49.8 36.4-46.3 fL RDW Coefficient of Variation 16.7 11.5-14.5 % Immature Granulocyte % (Auto) 1.2 % Immature Granulocyte # (Auto) 0.19 0.00-0.02 K/uL Test 10/26/17 11:38 Range/Units Bedside Glucose 134 70-99 mg/dl
[2017-10-26] MEDS: INSULIN GLARGINE SOLOSTAR 100 UNITS/ML 3 ML PEN SC SCH (21:17)
[2017-10-26] MEDS: ATORVASTATIN 40 MG TAB PO SCH (21:18)
[2017-10-26] MEDS: OLANZAPINE ZYDIS 5 MG ORALLY DIS. TAB PO SCH (21:19)
[2017-10-27] MEDS: INSULIN ASPART 100 UNITS/ML 3 ML PEN SC SCH ×5 (06:30→21:59)
[2017-10-27 07:08] VITALS: BP 132/60; PULSE 67; TEMP 36.3; O2SAT 98
[2017-10-27] MEDS: GUAIFENESIN 600 MG TABCR PO SCH ×2 (08:13→20:41)
[2017-10-27] MEDS: THIAMINE HCL 50 MG TAB PO SCH (08:13)
[2017-10-27] MEDS: PANTOprazole SOD 40 MG TAB PO SCH ×2 (08:13→20:41)
[2017-10-27] MEDS: ALLOPURINOL 300 MG TAB PO SCH (08:14)
[2017-10-27] MEDS: NITROGLYCERIN 0.1 MG/HR PATCH TD SCH (08:14)
[2017-10-27 08:21] LABS: HEMATOCRIT 29.5 % (42-52); MEAN CELL VOLUME 82.6 fL (80-100); MEAN CORPUSCULAR HEMOGLOBIN 25.2 pg (25-34); MEAN CORPUSCULAR HGB CONC 30.5 g/dl (32-36); MEAN PLATELET VOLUME 10.6 fL (7.4-10.4); PLATELET COUNT 148 K/uL (130-400); RED CELL DISTRIBUTION WIDTH SD 50.8 fL (36.4-46.3); WHITE BLOOD COUNT 13.91 K/uL (4.8-10.8)
[2017-10-27 08:42] LABS: HEMOGLOBIN A1C 6.3 % (4.5-5.6)
[2017-10-27 08:46] LABS: CALCIUM 8.2 mg/dl (8.5-10.1); CREATININE 1.16 mg/dl (0.60-1.40); POTASSIUM 4.2 mmol/L (3.5-5.1)
[2017-10-27 08:47] LABS: PHOSPHORUS 2.6 mg/dl (2.5-4.9)
--- NOTE | 2017-10-27 11:09 | Progress Note ---
Internal Med Progress Note Date of Service: Oct 27, 2017. Provider Documentation: SUBJECTIVE: The patient was seen and examined in telemetry unit. He was admitted with an shortness of breath and cough suggestive of complicated bronchitis and/or CHF He has been evaluated by cardiology while in the hospital Noted to have GI bleed but does not have any erlinda bleeding and/or hematemesis Remains stable and denies any symptoms [facility] Has had bloody stool last night with the dropping of hemoglobin to 7.1 Does not have any symptoms this morning and does not want any blood transfusion or any workup for bleeding 10/26-agreed to have blood if hb goes down and symptomatic Hb dropped and received 2 units of PRBC Has ahd CP with ekg changes Reasonably better this morning 10/27 Pleasantly confused this AM-Hospital delirium,he has had a dream of [facility] during my exam Ambulating well -denies any symptoms OBJECTIVE: Vital Signs-as noted below Exam: General-minimal distress at rest OOB in a chair Eyes-normal ENT-normal Neck-supple Lungs-decreased breath sounds with barium wheezing and transmitted sound due to secretions. Heart-S1-S2 regular Abdomen-benign Extremities-trace edema bilaterally Neuro-alert, awake, oriented 3 Generally weak but no focal neuro deficit appreciated Lab data as noted below. ASSESSMENT & PLAN: Bright red blood per rectum History of GI bleed in the past and does not want to go for any workup for that 1 educating with his current condition, these was his opinion- He has a history of GI bleed for the last 2-4 years. He had 2 brothers of rectal cancer and he may have rectal cancer as well. He enjoyed his life so far and now is 82 years old. He is enjoying his life right now the way and he does not want to go for any procedure to improve it. He did not want to have any blood transfusion right now but wanted to have repeat check in the morning and it goes below 7 he will get 1 or 2 transfusion for comfort. Check CBC in the morning and transfuse if needed Received 2 units of PRBC, Hb >9.0 now and remains like that for the last 2 dzys Chest pain last night EKG changes with increased Troponin .13>>.19 Nitrodure for chest pain Discussed with the patient No aggressive management No nore CP Ambulating well Complicated Bronchitis -resolved Chest x-ray demonstrated elevated right hemidiaphragm and right pleural effusion which may be chronic. (Chest x-ray performed here in 2001 showed elevation of right hemidiaphragm and small right pleural effusion; CXR at [facility] 08/10/15 demonstrated a chronic elevation of right hemidiaphragm). Initially received doxycycline and methylprednisolone. Changed antibiotic therapy to levofloxacin. Repeat chest x-ray 10/16 unchanged, no apparent infiltrates. Chest x-rays 10/16 and 10/18- chronically elevated right hemidiaphragm, probable atelectasis right base, no definite infiltrates, no overt pulmonary edema. Discontinued levofloxacin and changed to piperacillin/tazobactam. Obtain sputum culture if able-moderate normal chiquita Will finish the course of antibiotic Clinically much better today and remains stable Ready to be discharged COPD EXACERBATION Secondary to tracheobronchitis. Continue intravenous methylprednisolone and nebulizer treatments. ABG on 2 L nasal cannula 10/17 demonstrated PCO2 of 82, pH 7.25. Taper steroid on discharge Denies any complaints CHF Acute on chronic left ventricular diastolic heart failure. Worsening dyspnea on exertion and dependent edema despite diuretic therapy. Chest x-ray showed cardiomegaly. with BNP elevated. Echocardiogram demonstrated moderate concentric LVH, normal left ventricular systolic function with ejection fraction of 55%, grade 2 diastolic dysfunction, moderate enlargement of left atrium, moderate enlargement of right atrium, normal right ventricular systolic function, mild to moderate mitral regurgitation. Appreciate cardiology input -continue current medications and diuretics CAD History of ischemic heart disease, status post CABG in 2001. Patient reports abnormal stress test 2-3 years ago, but he opted not to pursue repeat catheterization or consideration of further revascularization. Experiencing worsening dyspnea on exertion, sometimes associated with chest pressure over past few months. Initial EKGs in the ED had baseline artifact. EKG 10/14 demonstrated sinus rhythm with PVCs, lateral downsloping ST depression. Serum troponins 0.061, 0.061, and 0.059, 0.040. Continue aspirin, atenolol. Cardiology consulted. Patient wishes to continue medical management and not pursue further diagnostic testing. Started on NitroSDur patch -no more pain HYPERTENSION Lisinopril held due to renal insufficiency. Continue atenolol. CKD Baseline creatinine 1.4-1.8. Creatinine at time of admission was 1.49. Creatinine minerva to 1.89 with diuretic therapy. Serum creatinine today = 1.52. Follow. DYSLIPIDEMIA LDL-c = 37. Continue atorvastatin. POOR FUNCTIONAL STATUS PT / OT as tolerated. DELIRIUM Developed worsening confusion. ABG demonstrated CO2 retention. Optimize medical conditions. Started don small dose of Zyprexa and tolerating well No more Delirium GI BLEEDING Developed GI bleeding with maroon stools evening of 10/19. Was receiving aspirin and enoxaparin which were discontinued. INR, PTT, platelets normal. Hemoglobin has fallen from baseline of 10.5 - 11 ----> 9.5. Not candidate for endoscopic evaluation due to poor cardiopulmonary status. Continue IV pantoprazole. Transfuse if Hgb < 8-9 (verbal consent for transfusion obtained from brother and placed on chart). Hb remains stable for the last 2 days No more GI bleed and Hb remains >9.0 VTE PROPHYLAXIS Initially received SQ enoxaparin- held due to GI bleeding. SCD's. Ambulate as able. DISPOSITION To be determined. Has been staying with his brother, but functional status declining over past several months. Anticipate need for skilled care, perhaps transition to long-term care. Follow-up with [facility]. Likely to need Rehab -likely to go to [facility] today/tomorrow Vital Signs: Date Time Temp Pulse Resp B/P (MAP) Pulse Ox O2 Delivery O2 Flow Rate FiO2 10/27/17 07:08 36.3 67 19 132/60 (84) 98 Nasal Cannula 2.0 10/27/17 07:00 Nasal Cannula 2.0 10/27/17 00:00 Nasal Cannula 2.0 10/26/17 23:15 36.7 53 18 129/66 (87) 100 Nasal Cannula 2.0 10/26/17 16:00 Nasal Cannula 2.0 10/26/17 15:40 36.2 60 18 113/61 (78) 98 Nasal Cannula 2.0 Lab Results: Results Past 24 Hours Test 10/26/17 11:38 10/26/17 16:41 10/26/17 20:38 10/27/17 07:36 Range/Units Bedside Glucose 134 217 192 89 70-99 mg/dl Test 10/27/17 08:11 Range/Units White Blood Count 13.91 4.8-10.8 K/uL Red Blood Count 3.57 4.7-6.1 M/uL Hemoglobin 9.0 14.0-18.0 g/dL Hematocrit 29.5 42-52 % Mean Corpuscular Volume 82.6 80-100 fL Mean Corpuscular Hemoglobin 25.2 25-34 pg Mean Corpuscular Hemoglobin Concent 30.5 32-36 g/dl RDW Standard Deviation 50.8 36.4-46.3 fL RDW Coefficient of Variation 17.0 11.5-14.5 % Platelet Count 148 130-400 K/uL Mean Platelet Volume 10.6 7.4-10.4 fL Sodium Level 142 136-145 mmol/L Potassium Level 4.2 3.5-5.1 mmol/L Chloride Level 105 98-107 mmol/L Carbon Dioxide Level 33 21-32 mmol/L Anion Gap 3.0 3-11 mmol/L Blood Urea Nitrogen 26 7-18 mg/dl Creatinine 1.16 0.60-1.40 mg/dl Est Creatinine Clear Calc Drug Dose 51.4 ml/min Estimated GFR () 67.1 Estimated GFR (Non- 57.9 BUN/Creatinine Ratio 22.7 10-20 Random Glucose 85 70-99 mg/dl Calcium Level 8.2 8.5-10.1 mg/dl Phosphorus Level 2.6 2.5-4.9 mg/dl Magnesium Level 2.1 1.8-2.4 mg/dl
[2017-10-27 15:11] VITALS: BP 165/74
[2017-10-27 16:00] VITALS: O2SAT 98
[2017-10-27 16:05] VITALS: BP 109/61; PULSE 55; TEMP 36.6; O2SAT 98
[2017-10-27] MEDS: INSULIN GLARGINE SOLOSTAR 100 UNITS/ML 3 ML PEN SC SCH ×2 (20:35→21:59)
[2017-10-27] MEDS: ATORVASTATIN 40 MG TAB PO SCH ×2 (20:41→21:58)
[2017-10-27] MEDS: OLANZAPINE ZYDIS 5 MG ORALLY DIS. TAB PO SCH ×2 (20:41→21:59)
[2017-10-27 23:51] VITALS: BP 142/84; PULSE 70; TEMP 36.2; O2SAT 97
[2017-10-28 06:52] VITALS: O2SAT 93
[2017-10-28 07:24] VITALS: BP 147/68; PULSE 66; TEMP 36.4; O2SAT 92
[2017-10-28] MEDS: GUAIFENESIN 600 MG TABCR PO SCH ×2 (07:53→20:58)
[2017-10-28] MEDS: ALLOPURINOL 300 MG TAB PO SCH (07:54)
[2017-10-28] MEDS: THIAMINE HCL 50 MG TAB PO SCH (07:54)
[2017-10-28] MEDS: NITROGLYCERIN 0.1 MG/HR PATCH TD SCH (07:54)
[2017-10-28] MEDS: PANTOprazole SOD 40 MG TAB PO SCH ×2 (07:54→20:59)
[2017-10-28] MEDS: INSULIN ASPART 100 UNITS/ML 3 ML PEN SC SCH ×4 (08:18→20:59)
[2017-10-28 15:07] VITALS: BP 123/70; PULSE 50; TEMP 36.5; O2SAT 96
--- NOTE | 2017-10-28 18:34 | Progress Note ---
Subjective Date of Service: Oct 28, 2017. Subjective Pt evaluation today including: conversation w/ patient, physical exam, lab review, review of studies, review of inpatient medication list Saw/examined the patient in room 456 He's doing well, cough persistent no shortness of breath, no chest pain Eager to be discharged Review of Systems Constitutional: + weakness, No fever, No chills Respiratory: + cough, + sputum, No wheezing, No shortness of breath, No dyspnea on exertion, No dyspnea at rest, No hemoptysis Cardiac: No chest pain, No edema, No palpitations Medications Current Inpatient Medications Medications (Trade) Dose Ordered Sig/Didi Route Start Time Stop Time Status Last Admin Dose Admin Acetaminophen (Tylenol Tab) 650 mg Q4H PRN PO 10/13/17 20:00 11/12/17 19:59 Ondansetron HCl (Zofran Inj) 4 mg Q6H PRN IV 10/13/17 20:00 11/12/17 19:59 Allopurinol (Zyloprim Tab) 150 mg QAM PO 10/14/17 09:00 11/13/17 08:59 10/28/17 07:54 150 MG Atenolol (Tenormin Tab) 50 mg QAM PO 10/14/17 09:00 11/13/17 08:59 10/28/17 07:54 50 MG Atorvastatin Calcium (Lipitor Tab) 40 mg HS PO 10/13/17 21:00 11/12/17 20:59 10/27/17 20:41 40 MG Guaifenesin (Mucinex Contr Rel Tab) 600 mg Q12 PO 10/15/17 21:00 11/14/17 20:59 10/28/17 07:53 600 MG Haloperidol Lactate (Haldol Inj) 0.5 mg Q30M PRN IV 10/18/17 04:30 11/17/17 04:29 10/19/17 13:59 0.5 MG Olanzapine (Zyprexa Zydis Od Tab) 5 mg HS PO 10/20/17 21:00 11/19/17 20:59 10/27/17 20:41 5 MG Levalbuterol (Xopenex 0.63 Mg/ 3 Ml Neb) 0.63 mg QID PRN INH 10/24/17 10:00 5/20/18 09:59 Pantoprazole Sodium (Protonix Tab) 40 mg BID PO 10/24/17 21:00 11/23/17 20:59 10/28/17 07:54 40 MG Prednisone (PredniSONE TAB) 40 mg DAILY PO 10/25/17 09:00 11/24/17 08:59 10/28/17 07:54 40 MG Thiamine HCl (Vitamin B-1 Tab) 50 mg QAM PO 10/25/17 09:00 11/24/17 08:59 10/28/17 07:54 50 MG Tramadol HCl (Ultram Tab) 25 mg Q6H PRN PO 10/25/17 21:45 11/24/17 21:44 Hydromorphone HCl (Dilaudid Inj) 0.5 mg Q3H PRN IV 10/25/17 21:45 11/08/17 21:44 Insulin Aspart (novoLOG ASPART) SLIDING SCALE If C... ACHS SC 10/26/17 06:30 11/25/17 06:29 10/28/17 13:27 4 UNITS Glucose (Glucose 40% Gel) 15-30 GRAMS 15 GRAMS... UD PRN PO 10/26/17 00:00 11/25/17 00:00 Glucose (Glucose Chew Tab) 4-8 Tablets 4 Tabl... UD PRN PO 10/26/17 00:00 11/25/17 00:00 Dextrose (Dextrose 50% 50ML Syringe) 25-50ML OF 50% DW IV FOR... UD PRN IV 10/26/17 00:00 11/25/17 00:00 Glucagon (Glucagon Inj) 1 mg UD PRN SQ 10/26/17 00:00 11/25/17 00:00 Insulin Glargine (Lantus Solostar Pen) 5 units HS SC 10/26/17 21:00 11/25/17 20:59 10/26/17 21:17 5 UNITS Nitroglycerin (Nitro-Dur 0.1 Mg/Hr Patch) 1 patch QAM TD 10/27/17 09:00 11/26/17 08:59 10/28/17 07:54 1 PATCH Miscellaneous (Remove Nitro-Dur Patch) 1 ea DAILY@21 N/A 10/26/17 21:00 11/25/17 20:59 10/27/17 20:38 1 EA Objective Vital Signs Date Time Temp Pulse Resp B/P (MAP) Pulse Ox O2 Delivery O2 Flow Rate FiO2 10/28/17 15:07 36.5 50 18 123/70 (87) 96 Nasal Cannula 2.0 10/28/17 08:00 Nasal Cannula 2.0 10/28/17 07:24 36.4 66 18 147/68 (94) 92 Nasal Cannula 2.0 10/28/17 06:52 93 Room Air 10/28/17 00:00 Nasal Cannula 2.0 10/27/17 23:51 36.2 70 18 142/84 (103) 97 2.0 Physical Exam General Appearance: no apparent distress ENT: + pertinent finding (edentulous) Respiratory/Chest: no respiratory distress, no accessory muscle use, + rhonchi Cardiovascular: regular rate, rhythm, no edema, no murmur Extremities: normal inspection, no pedal edema Neurologic/Psychiatric: no motor/sensory deficits, alert, normal mood/affect Laboratory Results Last 24 Hours Test 10/27/17 20:34 10/28/17 07:28 10/28/17 11:43 10/28/17 17:49 Bedside Glucose 248 mg/dl 97 mg/dl 161 mg/dl 267 mg/dl Assessment and Plan Bright Red Blood Per Rectum - patient has had this in the past - spoke in detail about not wanting further w/up, and we will abide by his request - will intermittently monitor his Hgb, but no further procedures or invasive w/ up - s/p two units pRBCs during this admission; Hgb stable, we will monitor Demand Ischemia - elevated troponin - peaked at 0.19 - likely secondary to above, anemia/blood loss - no longer has chest pain; agrees with no further w/up for this as well Complicated Bronchitis - improving - initially on abx.; now off of them - will continue prednisone 40mg x5 days - productive cough continues, will try Mucinex if cough does not improve Chest x-ray demonstrated elevated right hemidiaphragm and right pleural effusion which may be chronic. (Chest x-ray performed here in 2001 showed elevation of right hemidiaphragm and small right pleural effusion; CXR at [facility] 08/10/15 demonstrated a chronic elevation of right hemidiaphragm). Initially received doxycycline and methylprednisolone. Changed antibiotic therapy to levofloxacin. Repeat chest x-ray 10/16 unchanged, no apparent infiltrates. Chest x-rays 10/16 and 10/18- chronically elevated right hemidiaphragm, probable atelectasis right base, no definite infiltrates, no overt pulmonary edema. Discontinued levofloxacin and changed to piperacillin/tazobactam. Obtain sputum culture if able-moderate normal chiquita Will finish the course of antibiotic Clinically much better today and remains stable Ready to be discharged COPD EXACERBATION - prednisone 40mg x5 days CHF Acute on chronic left ventricular diastolic heart failure. Worsening dyspnea on exertion and dependent edema despite diuretic therapy. Chest x-ray showed cardiomegaly. with BNP elevated. Echocardiogram demonstrated moderate concentric LVH, normal left ventricular systolic function with ejection fraction of 55%, grade 2 diastolic dysfunction, moderate enlargement of left atrium, moderate enlargement of right atrium, normal right ventricular systolic function, mild to moderate mitral regurgitation. Appreciate cardiology input -continue current medications and diuretics CAD History of ischemic heart disease, status post CABG in 2001. Patient reports abnormal stress test 2-3 years ago, but he opted not to pursue repeat catheterization or consideration of further revascularization. Experiencing worsening dyspnea on exertion, sometimes associated with chest pressure over past few months. Initial EKGs in the ED had baseline artifact. EKG 10/14 demonstrated sinus rhythm with PVCs, lateral downsloping ST depression. Serum troponins 0.061, 0.061, and 0.059, 0.040. Continue aspirin, atenolol. Cardiology consulted. Patient wishes to continue medical management and not pursue further diagnostic testing. Started on NitroSDur patch -no more pain HYPERTENSION Lisinopril held due to renal insufficiency. Continue atenolol. CKD Baseline creatinine 1.4-1.8. Creatinine at time of admission was 1.49. Creatinine minerva to 1.89 with diuretic therapy. Serum creatinine today = 1.52. Follow. Delirium/Sundowning - resolved Developed worsening confusion. ABG demonstrated CO2 retention. Optimize medical conditions. Started don small dose of Zyprexa and tolerating well No more Delirium DVT ppx - SCDs DISPOSITION To be determined. Has been staying with his brother, but functional status declining over past several months. Anticipate need for skilled care, perhaps transition to long-term care. Follow-up with [facility]. Likely to need Rehab -likely to go to [facility] today/tomorrow
[2017-10-28] MEDS: OLANZAPINE ZYDIS 5 MG ORALLY DIS. TAB PO SCH (20:59)
[2017-10-28] MEDS: ATORVASTATIN 40 MG TAB PO SCH (20:59)
[2017-10-28] MEDS: INSULIN GLARGINE SOLOSTAR 100 UNITS/ML 3 ML PEN SC SCH (21:00)
[2017-10-28 23:50] VITALS: BP 138/64; PULSE 63; TEMP 36.6; O2SAT 99
[2017-10-29 07:14] VITALS: BP 130/64; PULSE 65; TEMP 36.4; O2SAT 91
[2017-10-29] MEDS: ALLOPURINOL 300 MG TAB PO SCH (07:31)
[2017-10-29] MEDS: THIAMINE HCL 50 MG TAB PO SCH (07:31)
[2017-10-29] MEDS: PANTOprazole SOD 40 MG TAB PO SCH ×2 (07:31→20:49)
[2017-10-29] MEDS: GUAIFENESIN 600 MG TABCR PO SCH ×2 (07:32→20:49)
[2017-10-29] MEDS: NITROGLYCERIN 0.1 MG/HR PATCH TD SCH (07:32)
[2017-10-29 08:09] LABS: HEMATOCRIT 29.4 % (42-52); MEAN CELL VOLUME 84.2 fL (80-100); MEAN CORPUSCULAR HEMOGLOBIN 25.8 pg (25-34); MEAN CORPUSCULAR HGB CONC 30.6 g/dl (32-36); MEAN PLATELET VOLUME 11.5 fL (7.4-10.4); PLATELET COUNT 158 K/uL (130-400); RED CELL DISTRIBUTION WIDTH CV 18.3 % (11.5-14.5); WHITE BLOOD COUNT 11.53 K/uL (4.8-10.8)
[2017-10-29] MEDS: INSULIN ASPART 100 UNITS/ML 3 ML PEN SC SCH ×4 (08:32→20:48)
[2017-10-29 08:44] LABS: CALCIUM 8.4 mg/dl (8.5-10.1); CREATININE 1.14 mg/dl (0.60-1.40); POTASSIUM 4.4 mmol/L (3.5-5.1)
--- NOTE | 2017-10-29 13:01 | Progress Note ---
Subjective Date of Service: Oct 29, 2017. Subjective Pt evaluation today including: conversation w/ patient, physical exam, lab review, review of studies, review of inpatient medication list Saw/examined the patient in room 456 He's doing well, cough improving States he had a regular bowel movement today feels better than he has since admission Review of Systems Constitutional: + weakness, No fever, No chills Respiratory: + cough (improving), + sputum, No shortness of breath Cardiac: No chest pain, No edema, No palpitations Abdomen: No pain, No nausea, No vomiting, No diarrhea Medications Current Inpatient Medications Medications (Trade) Dose Ordered Sig/Didi Route Start Time Stop Time Status Last Admin Dose Admin Acetaminophen (Tylenol Tab) 650 mg Q4H PRN PO 10/13/17 20:00 11/12/17 19:59 Ondansetron HCl (Zofran Inj) 4 mg Q6H PRN IV 10/13/17 20:00 11/12/17 19:59 Allopurinol (Zyloprim Tab) 150 mg QAM PO 10/14/17 09:00 11/13/17 08:59 10/29/17 07:31 150 MG Atenolol (Tenormin Tab) 50 mg QAM PO 10/14/17 09:00 11/13/17 08:59 10/29/17 07:31 50 MG Atorvastatin Calcium (Lipitor Tab) 40 mg HS PO 10/13/17 21:00 11/12/17 20:59 10/28/17 20:59 40 MG Guaifenesin (Mucinex Contr Rel Tab) 600 mg Q12 PO 10/15/17 21:00 11/14/17 20:59 10/29/17 07:32 600 MG Haloperidol Lactate (Haldol Inj) 0.5 mg Q30M PRN IV 10/18/17 04:30 11/17/17 04:29 10/19/17 13:59 0.5 MG Olanzapine (Zyprexa Zydis Od Tab) 5 mg HS PO 10/20/17 21:00 11/19/17 20:59 10/28/17 20:59 5 MG Levalbuterol (Xopenex 0.63 Mg/ 3 Ml Neb) 0.63 mg QID PRN INH 10/24/17 10:00 5/20/18 09:59 Pantoprazole Sodium (Protonix Tab) 40 mg BID PO 10/24/17 21:00 11/23/17 20:59 10/29/17 07:31 40 MG Prednisone (PredniSONE TAB) 40 mg DAILY PO 10/25/17 09:00 11/24/17 08:59 10/29/17 07:32 40 MG Thiamine HCl (Vitamin B-1 Tab) 50 mg QAM PO 10/25/17 09:00 11/24/17 08:59 10/29/17 07:31 50 MG Tramadol HCl (Ultram Tab) 25 mg Q6H PRN PO 10/25/17 21:45 11/24/17 21:44 Hydromorphone HCl (Dilaudid Inj) 0.5 mg Q3H PRN IV 10/25/17 21:45 11/08/17 21:44 Insulin Aspart (novoLOG ASPART) SLIDING SCALE If C... ACHS SC 10/26/17 06:30 11/25/17 06:29 10/29/17 12:14 4 UNITS Glucose (Glucose 40% Gel) 15-30 GRAMS 15 GRAMS... UD PRN PO 10/26/17 00:00 11/25/17 00:00 Glucose (Glucose Chew Tab) 4-8 Tablets 4 Tabl... UD PRN PO 10/26/17 00:00 11/25/17 00:00 Dextrose (Dextrose 50% 50ML Syringe) 25-50ML OF 50% DW IV FOR... UD PRN IV 10/26/17 00:00 11/25/17 00:00 Glucagon (Glucagon Inj) 1 mg UD PRN SQ 10/26/17 00:00 11/25/17 00:00 Insulin Glargine (Lantus Solostar Pen) 5 units HS SC 10/26/17 21:00 11/25/17 20:59 10/28/17 21:00 5 UNITS Nitroglycerin (Nitro-Dur 0.1 Mg/Hr Patch) 1 patch QAM TD 10/27/17 09:00 11/26/17 08:59 10/29/17 07:32 1 PATCH Miscellaneous (Remove Nitro-Dur Patch) 1 ea DAILY@21 N/A 10/26/17 21:00 11/25/17 20:59 10/28/17 21:01 1 EA Objective Vital Signs Date Time Temp Pulse Resp B/P (MAP) Pulse Ox O2 Delivery O2 Flow Rate FiO2 10/29/17 08:49 Nasal Cannula 2.0 10/29/17 07:14 36.4 65 20 130/64 (86) 91 Nasal Cannula 2.0 10/28/17 23:50 36.6 63 18 138/64 (88) 99 Nasal Cannula 2.0 10/28/17 23:15 Nasal Cannula 2.0 10/28/17 16:00 Nasal Cannula 2.0 10/28/17 15:07 36.5 50 18 123/70 (87) 96 Nasal Cannula 2.0 Physical Exam General Appearance: no apparent distress ENT: + pertinent finding (edentulous) Respiratory/Chest: no respiratory distress, no accessory muscle use Cardiovascular: regular rate, rhythm, no edema, no murmur Abdomen: normal bowel sounds, non tender, soft, + hernia Neurologic/Psychiatric: cleaner laboratory equipment II-XII nml as tested, no motor/sensory deficits, alert, normal mood/affect, oriented x 3 Laboratory Results Last 24 Hours Test 10/28/17 17:49 10/28/17 20:29 10/29/17 07:18 10/29/17 07:40 Bedside Glucose 267 mg/dl 266 mg/dl 91 mg/dl White Blood Count 11.53 K/uL Red Blood Count 3.49 M/uL Hemoglobin 9.0 g/dL Hematocrit 29.4 % Mean Corpuscular Volume 84.2 fL Mean Corpuscular Hemoglobin 25.8 pg Mean Corpuscular Hemoglobin Concent 30.6 g/dl RDW Standard Deviation 56.0 fL RDW Coefficient of Variation 18.3 % Platelet Count 158 K/uL Mean Platelet Volume 11.5 fL Sodium Level 142 mmol/L Potassium Level 4.4 mmol/L Chloride Level 105 mmol/L Carbon Dioxide Level 36 mmol/L Anion Gap 1.0 mmol/L Blood Urea Nitrogen 26 mg/dl Creatinine 1.14 mg/dl Est Creatinine Clear Calc Drug Dose 52.3 ml/min Estimated GFR () 68.5 Estimated GFR (Non- 59.1 BUN/Creatinine Ratio 22.9 Random Glucose 98 mg/dl Calcium Level 8.4 mg/dl Test 10/29/17 12:01 Bedside Glucose 143 mg/dl Assessment and Plan Bright Red Blood Per Rectum 10/29 - improved/resolved - Hgb stable (s/p two units since admission) - [facility], CM aware 10/28 - patient has had this in the past - spoke in detail about not wanting further w/up, and we will abide by his request - will intermittently monitor his Hgb, but no further procedures or invasive w/ up - s/p two units pRBCs during this admission; Hgb stable, we will monitor Demand Ischemia - elevated troponin - peaked at 0.19 - likely secondary to above, anemia/blood loss - no longer has chest pain; agrees with no further w/up for this as well Complicated Bronchitis - improving 10/29 - d/c'd prednisone 10/28 - initially on abx.; now off of them - will continue prednisone 40mg x5 days - productive cough continues, will try Mucinex if cough does not improve Chest x-ray demonstrated elevated right hemidiaphragm and right pleural effusion which may be chronic. (Chest x-ray performed here in 2001 showed elevation of right hemidiaphragm and small right pleural effusion; CXR at [facility] 08/10/15 demonstrated a chronic elevation of right hemidiaphragm). Initially received doxycycline and methylprednisolone. Changed antibiotic therapy to levofloxacin. Repeat chest x-ray 10/16 unchanged, no apparent infiltrates. Chest x-rays 10/16 and 10/18- chronically elevated right hemidiaphragm, probable atelectasis right base, no definite infiltrates, no overt pulmonary edema. Discontinued levofloxacin and changed to piperacillin/tazobactam. Obtain sputum culture if able-moderate normal chiquita Will finish the course of antibiotic Clinically much better today and remains stable Ready to be discharged COPD EXACERBATION - prednisone 40mg x5 days CHF Acute on chronic left ventricular diastolic heart failure. Worsening dyspnea on exertion and dependent edema despite diuretic therapy. Chest x-ray showed cardiomegaly. with BNP elevated. Echocardiogram demonstrated moderate concentric LVH, normal left ventricular systolic function with ejection fraction of 55%, grade 2 diastolic dysfunction, moderate enlargement of left atrium, moderate enlargement of right atrium, normal right ventricular systolic function, mild to moderate mitral regurgitation. Appreciate cardiology input -continue current medications and diuretics CAD History of ischemic heart disease, status post CABG in 2001. Patient reports abnormal stress test 2-3 years ago, but he opted not to pursue repeat catheterization or consideration of further revascularization. Experiencing worsening dyspnea on exertion, sometimes associated with chest pressure over past few months. Initial EKGs in the ED had baseline artifact. EKG 10/14 demonstrated sinus rhythm with PVCs, lateral downsloping ST depression. Serum troponins 0.061, 0.061, and 0.059, 0.040. Continue aspirin, atenolol. Cardiology consulted. Patient wishes to continue medical management and not pursue further diagnostic testing. Started on NitroSDur patch -no more pain HYPERTENSION Lisinopril held due to renal insufficiency. Continue atenolol. CKD Baseline creatinine 1.4-1.8. Creatinine at time of admission was 1.49. Creatinine minerva to 1.89 with diuretic therapy. Serum creatinine today = 1.52. Follow. Delirium/Sundowning - resolved Developed worsening confusion. ABG demonstrated CO2 retention. Optimize medical conditions. Started don small dose of Zyprexa and tolerating well No more Delirium DVT ppx - SCDs DISPOSITION To be determined. Has been staying with his brother, but functional status declining over past several months. Anticipate need for skilled care, perhaps transition to long-term care. Follow-up with [facility]. Likely to need Rehab -likely to go to [facility] today/tomorrow
[2017-10-29 16:00] VITALS: BP 175/71; PULSE 60; TEMP 36.4; O2SAT 92
[2017-10-29] MEDS: INSULIN GLARGINE SOLOSTAR 100 UNITS/ML 3 ML PEN SC SCH (20:48)
[2017-10-29] MEDS: OLANZAPINE ZYDIS 5 MG ORALLY DIS. TAB PO SCH (20:48)
[2017-10-29] MEDS: ATORVASTATIN 40 MG TAB PO SCH (20:49)
[2017-10-29 23:09] VITALS: BP 167/70; PULSE 63; TEMP 36.9; O2SAT 99
[2017-10-30] MEDS: INSULIN ASPART 100 UNITS/ML 3 ML PEN SC SCH ×4 (06:30→20:57)
[2017-10-30 07:11] VITALS: BP 171/72; PULSE 63; TEMP 36.6; O2SAT 92
[2017-10-30] MEDS: PANTOprazole SOD 40 MG TAB PO SCH ×2 (07:37→20:53)
[2017-10-30] MEDS: GUAIFENESIN 600 MG TABCR PO SCH ×2 (07:38→20:53)
[2017-10-30] MEDS: ALLOPURINOL 300 MG TAB PO SCH (07:39)
[2017-10-30] MEDS: NITROGLYCERIN 0.1 MG/HR PATCH TD SCH (07:39)
[2017-10-30] MEDS: THIAMINE HCL 50 MG TAB PO SCH (07:41)
--- NOTE | 2017-10-30 11:19 | Progress Note ---
Subjective Date of Service: Oct 30, 2017. Subjective Pt evaluation today including: conversation w/ patient, physical exam, lab review, review of studies, review of inpatient medication list Saw/examined the patient in room 456 No problems/issues at this time Does not want to go to the [place] any longer; prefers to go home with home health His brother is aware, and he lives with his brother Review of Systems Constitutional: + weakness Respiratory: + cough, + sputum, No wheezing, No shortness of breath, No dyspnea on exertion, No dyspnea at rest, No hemoptysis Abdomen: No pain, No nausea, No vomiting, No diarrhea, No constipation Medications Current Inpatient Medications Medications (Trade) Dose Ordered Sig/Didi Route Start Time Stop Time Status Last Admin Dose Admin Acetaminophen (Tylenol Tab) 650 mg Q4H PRN PO 10/13/17 20:00 11/12/17 19:59 Ondansetron HCl (Zofran Inj) 4 mg Q6H PRN IV 10/13/17 20:00 11/12/17 19:59 Allopurinol (Zyloprim Tab) 150 mg QAM PO 10/14/17 09:00 11/13/17 08:59 10/30/17 07:39 150 MG Atenolol (Tenormin Tab) 50 mg QAM PO 10/14/17 09:00 11/13/17 08:59 10/30/17 07:41 50 MG Atorvastatin Calcium (Lipitor Tab) 40 mg HS PO 10/13/17 21:00 11/12/17 20:59 10/29/17 20:49 40 MG Guaifenesin (Mucinex Contr Rel Tab) 600 mg Q12 PO 10/15/17 21:00 11/14/17 20:59 10/30/17 07:38 600 MG Haloperidol Lactate (Haldol Inj) 0.5 mg Q30M PRN IV 10/18/17 04:30 11/17/17 04:29 10/19/17 13:59 0.5 MG Olanzapine (Zyprexa Zydis Od Tab) 5 mg HS PO 10/20/17 21:00 11/19/17 20:59 10/29/17 20:48 5 MG Levalbuterol (Xopenex 0.63 Mg/ 3 Ml Neb) 0.63 mg QID PRN INH 10/24/17 10:00 5/20/18 09:59 Pantoprazole Sodium (Protonix Tab) 40 mg BID PO 10/24/17 21:00 11/23/17 20:59 10/30/17 07:37 40 MG Thiamine HCl (Vitamin B-1 Tab) 50 mg QAM PO 10/25/17 09:00 11/24/17 08:59 10/30/17 07:41 50 MG Tramadol HCl (Ultram Tab) 25 mg Q6H PRN PO 10/25/17 21:45 11/24/17 21:44 Hydromorphone HCl (Dilaudid Inj) 0.5 mg Q3H PRN IV 10/25/17 21:45 11/08/17 21:44 Insulin Aspart (novoLOG ASPART) SLIDING SCALE If C... ACHS SC 10/26/17 06:30 11/25/17 06:29 10/29/17 20:48 2 UNITS Glucose (Glucose 40% Gel) 15-30 GRAMS 15 GRAMS... UD PRN PO 10/26/17 00:00 11/25/17 00:00 Glucose (Glucose Chew Tab) 4-8 Tablets 4 Tabl... UD PRN PO 10/26/17 00:00 11/25/17 00:00 Dextrose (Dextrose 50% 50ML Syringe) 25-50ML OF 50% DW IV FOR... UD PRN IV 10/26/17 00:00 11/25/17 00:00 Glucagon (Glucagon Inj) 1 mg UD PRN SQ 10/26/17 00:00 11/25/17 00:00 Insulin Glargine (Lantus Solostar Pen) 5 units HS SC 10/26/17 21:00 11/25/17 20:59 10/29/17 20:48 5 UNITS Nitroglycerin (Nitro-Dur 0.1 Mg/Hr Patch) 1 patch QAM TD 10/27/17 09:00 11/26/17 08:59 10/30/17 07:39 1 PATCH Miscellaneous (Remove Nitro-Dur Patch) 1 ea DAILY@21 N/A 10/26/17 21:00 11/25/17 20:59 10/29/17 20:50 1 EA Objective Vital Signs Date Time Temp Pulse Resp B/P (MAP) Pulse Ox O2 Delivery O2 Flow Rate FiO2 10/30/17 08:00 Room Air 10/30/17 07:11 36.6 63 16 171/72 (105) 92 Room Air 10/30/17 00:00 Nasal Cannula 2.0 10/29/17 23:09 36.9 63 20 167/70 (102) 99 Nasal Cannula 2.0 10/29/17 16:00 Room Air 10/29/17 16:00 36.4 60 20 175/71 (105) 92 Room Air Physical Exam General Appearance: no apparent distress Respiratory/Chest: lungs clear, normal breath sounds, no respiratory distress, no accessory muscle use Cardiovascular: regular rate, rhythm, no edema, no murmur Extremities: normal inspection, no pedal edema Neurologic/Psychiatric: no motor/sensory deficits, alert, normal mood/affect Laboratory Results Last 24 Hours Test 10/29/17 12:01 10/29/17 16:56 10/29/17 20:43 10/30/17 07:37 Bedside Glucose 143 mg/dl 202 mg/dl 221 mg/dl 86 mg/dl Assessment and Plan Bright Red Blood Per Rectum 10/30 - states [facility] not [facility] - [facility] with home health - denies any further bleeding from rectum - prefers comfort and symptomatic care only 10/29 - improved/resolved - Hgb stable (s/p two units since admission) - plan to [facility], CM aware 10/28 - patient has had this in the past - spoke in detail about not wanting further w/up, and we will abide by his request - will intermittently monitor his Hgb, but no further procedures or invasive w/ up - s/p two units pRBCs during this admission; Hgb stable, we will monitor Demand Ischemia - elevated troponin - peaked at 0.19 - likely secondary to above, anemia/blood loss - no longer has chest pain; agrees with no further w/up for this as well Complicated Bronchitis - improving 10/29 - d/c'd prednisone 10/28 - initially on abx.; now off of them - will continue prednisone 40mg x5 days - productive cough continues, will try Mucinex if cough does not improve Chest x-ray demonstrated elevated right hemidiaphragm and right pleural effusion which may be chronic. (Chest x-ray performed here in 2001 showed elevation of right hemidiaphragm and small right pleural effusion; CXR at [facility] 08/10/15 demonstrated a chronic elevation of right hemidiaphragm). Initially received doxycycline and methylprednisolone. Changed antibiotic therapy to levofloxacin. Repeat chest x-ray 10/16 unchanged, no apparent infiltrates. Chest x-rays 10/16 and 10/18- chronically elevated right hemidiaphragm, probable atelectasis right base, no definite infiltrates, no overt pulmonary edema. Discontinued levofloxacin and changed to piperacillin/tazobactam. Obtain sputum culture if able-moderate normal chiquita Will finish the course of antibiotic Clinically much better today and remains stable Ready to be discharged COPD EXACERBATION - prednisone 40mg x5 days CHF Acute on chronic left ventricular diastolic heart failure. Worsening dyspnea on exertion and dependent edema despite diuretic therapy. Chest x-ray showed cardiomegaly. with BNP elevated. Echocardiogram demonstrated moderate concentric LVH, normal left ventricular systolic function with ejection fraction of 55%, grade 2 diastolic dysfunction, moderate enlargement of left atrium, moderate enlargement of right atrium, normal right ventricular systolic function, mild to moderate mitral regurgitation. Appreciate cardiology input -continue current medications and diuretics CAD History of ischemic heart disease, status post CABG in 2001. Patient reports abnormal stress test 2-3 years ago, but he opted not to pursue repeat catheterization or consideration of further revascularization. Experiencing worsening dyspnea on exertion, sometimes associated with chest pressure over past few months. Initial EKGs in the ED had baseline artifact. EKG 10/14 demonstrated sinus rhythm with PVCs, lateral downsloping ST depression. Serum troponins 0.061, 0.061, and 0.059, 0.040. Continue aspirin, atenolol. Cardiology consulted. Patient wishes to continue medical management and not pursue further diagnostic testing. Started on NitroSDur patch -no more pain HYPERTENSION Lisinopril held due to renal insufficiency. Continue atenolol. CKD Baseline creatinine 1.4-1.8. Creatinine at time of admission was 1.49. Creatinine minerva to 1.89 with diuretic therapy. Serum creatinine today = 1.52. Follow. Delirium/Sundowning - resolved Developed worsening confusion. ABG demonstrated CO2 retention. Optimize medical conditions. Started don small dose of Zyprexa and tolerating well No more Delirium DVT ppx - SCDs DISPOSITION To be determined. Has been staying with his brother, but functional status declining over past several months. Anticipate need for skilled care, perhaps transition to long-term care. Follow-up with [facility]. Likely to need Rehab -likely to go to [facility] today/tomorrow
[2017-10-30] MEDS ORDERED: THM50 PO (11:21)
[2017-10-30] MEDS ORDERED: GFNSR600 PO (11:21)
--- NOTE | 2017-10-30 11:45 | Discharge Instructions ---
Discharge Instructions Date of Service Oct 30, 2017. Admission Reason for Admission: Bronchitis,Cad,Chf Discharge Discharge Diagnosis / Problem: Bronchitis, Congestive Heart Failure, Rectal Bleeding Discharge Goals Goal(s): Decrease discomfort, Improve function, Diagnostic testing, Therapeutic intervention Activity Recommendations Activity Limitations: resume your previous activity . Instructions / Follow-Up Instructions / Follow-Up Please follow-up with your primary care physician Current Hospital Diet Patient's current hospital diet: Regular Diet, Diabetes Type 2 Diet Discharge Diet Recommended Diet: Regular Diet, Diabetes Type 2 Diet Pending Studies Studies pending at discharge: no Laboratory Results Hemoglobin A1c Test 10/26/17 09:16 Range/Units Estimated Average Glucose 134 mg/dl Hemoglobin A1c 6.3 H 4.5-5.6 % Lipid Panel Test 10/14/17 05:19 Range/Units Triglycerides Level 58 0-150 mg/dl Cholesterol Level 92 0-200 mg/dl HDL Cholesterol 43 mg/dl Cholesterol/HDL Ratio 2.1 LDL Cholesterol, Calculated 37 mg/dl Medical Emergencies . Who to Call and When: Medical Emergencies: If at any time you feel your situation is an emergency, please call 911 immediately. . Non-Emergent Contact Non-Emergency issues call your: Primary Care Provider . . "Provider Documentation" section prepared by Jenae Morales. .
[2017-10-30 11:49] VITALS: BP 171/72; PULSE 63; TEMP 36.6; O2SAT 92
--- NOTE | 2017-10-30 11:51 | Discharge Summary ---
Discharge Summary Date of Service Oct 30, 2017. Discharge Summary Admission Date: Oct 13, 2017 at 19:55 Discharge Date: Oct 30, 2017 Discharge Disposition: Home with services Principal Diagnosis: Acute Complicated Bronchitis Bright Red Blood Per Rectum Chronic CHF HTN Demand Ischemia Medication Reconciliation New Medications: Guaifenesin Ext Rel (Mucinex Ext Rel) 600 Mg Tabcr 600 MG PO Q12 for 5 Days, #10 TABS Thiamine HCl (Vitamin B-1) 50 Mg Tab 50 MG PO QAM for 30 Days, #30 TAB Continued Medications: Allopurinol (Zyloprim) 300 Mg Tab 150 MG PO QAM Atenolol (Tenormin) 50 Mg Tab 50 MG PO QAM Atorvastatin (Lipitor) 80 Mg Tab 40 MG PO HS Bumetanide (Bumex) 1 Mg Tab 1 MG PO 4XWK Bumetanide (Bumex) 1 Mg Tab 2 MG PO 3XWK Lisinopril (Zestril) 10 Mg Tab 20 MG PO QPM Lisinopril (Prinivil) 10 Mg Tab 10 MG PO QAM Potassium Ext Rel (Klor-Con) 20 Meq Tabcr 10 MEQ PO DAILY Admission Information HPI (per Admitting provider): DATE OF ADMISSION: 10/13/2017 PRIMARY CARE PHYSICIAN: From [facility]. CHIEF COMPLAINT: Shortness of breath with cough for the last 2 or 3 days. HISTORY OF PRESENT COMPLAINT: He is an 82-year-old male with significant past medical history of status post CABG in 2001, hypertension, hyperlipidemia, gout, and also history of umbilical hernia. Apparently he has been complaining of cough with shortness of breath for the last 2 days. His cough has been distressing. He has not been sleeping well for the last 2 days. He was seen in the clinic by his primary care provider and was advised to come to the Emergency Room because saturation was noted to be low at 89 on room air. He complains to have some shortness of breath and some wheezing associated with it but no chest pain. He does have upper abdominal pain mostly due to cough. He denies to have any fever, any chills, any rigors. No abdominal pain, no nausea, no vomiting, and no problem with urine and/or bowel habit. He admits to have swelling of the legs, but that has not been getting any worse and he admits to take bumetanide for CHF, but he has not gained any weight. In the Emergency Room, he was reasonably stable. He received treatment for nebulized bronchodilator, IV steroid, and also Lasix. His apparent investigation came back negative for any pneumonia, but positive for emphysema and BNP elevated to 8000 and troponin 0.06. From that point, he was admitted to my telemetry unit for continuation of care. PAST MEDICAL HISTORY: Significant for CABG x2 in 2001, hypertension, hyperlipidemia, umbilical hernia, gout. PAST SURGICAL HISTORY: CABG as mentioned earlier, adenoidectomy, and stripping of a thrombosed blood vessel from the occipital area years ago. FAMILY HISTORY: No significant family history of diabetes and heart disease. SOCIAL HISTORY: He is single. He lives with his brother. He quit smoking in 1986 with [id number] history of smoking. He drinks very occasionally. He has been reasonably ambulant. ALLERGIES: ALLERGIC TO IBUPROFEN. MEDICATIONS: As an outpatient, he has been taking aspirin 81 mg daily, bumetanide 1 mg 4 times a week and 2 mg 3 times a week, lisinopril 10 mg in the morning and 20 mg in the afternoon, allopurinol 300 mg tablet 150 daily, atenolol 50 mg in the morning, Lipitor 80 mg daily, and potassium 10 mEq daily. REVIEW OF SYSTEMS: RESPIRATORY: Has cough productive of yellowish phlegm with some wheezing and shortness of breath. CARDIOVASCULAR: No chest pain, palpitation. GASTROINTESTINAL: No abdominal pain except discomfort in the hernia area. No nausea nor vomiting. GENITOURINARY: No problem with urine and/or bowel habit. MUSCULOSKELETAL: No acute arthritis. CENTRAL NERVOUS SYSTEM: No headache, blurred vision, numbness or tingling in the extremities. SKIN AND LYMPHATICS: Generally he does not have any rash and/or enlargement of lymph nodes. PHYSICAL EXAMINATION: GENERAL: On examination in the Emergency Room, he was not having any acute distress. VITAL SIGNS: Temperature 36.7, pulse of 62 regular, blood pressure 133/66, saturation 97% on 2 liters nasal cannula. HEENT: Unremarkable. NECK: Supple, no JVD, no bruit. CHEST: Decreased breath sounds with rare wheezing but no definite crackles. HEART: S1, S2 regular with a 2/6 systolic murmur over precordium. ABDOMEN: Soft, benign, mildly tender in the umbilical area with a small umbilical hernia. Bowel sounds present. EXTREMITIES: 1+ edema bilaterally. CENTRAL NERVOUS SYSTEM: He is alert, awake, oriented x3. No focal sensory and/or motor deficit appreciated. LABORATORY DATA: Noted today, white count was 8.0, H and H 11.1/36.1, platelet was 212. Chemistry: Sodium 139, potassium 3.9, chloride 100, carbon dioxide 35, BUN 26, creatinine 1.49. No prior record in the system. Random glucose 100; calcium 8.3; total bilirubin 1.1; alkaline phosphatase 152, slightly high. Troponin was 0.061. BNP was 9362. PT/INR unremarkable. Influenza A and B negative. Chest x-ray, cardiomegaly and suspect emphysema. Postoperative changes with volume loss in the right lung. Minimal pleural fluid on the right side. EKG was in sinus rhythm with first-degree AV block, rate of [address]-T wave changes. No prior EKG to compare. IMPRESSION AND PLAN: 1. Ongoing cough productive of whitish phlegm and wheezing. May have bronchitis. No definite pneumonia on the x-ray. He was admitted to telemetry unit and started with oral doxycycline. He received a dose of Solu-Medrol, continue with the smaller doses. Will get nebulized bronchodilator and albuterol inhaler prescribed as well. 2. Could be presentation for CHF with leg edema and cough can be due to CHF. He has a history of CHF from the chart, but he denies it. He has been taking bumetanide. We will change it to IV twice a day while in the hospital and monitor PRP. He will have an echocardiogram, also serial cardiac enzymes to rule out possibility of ACS. 3. Hypertension. Blood pressure seems to be controlled at this time. We will hold his lisinopril in the light of elevated BUN and creatinine. We do not have any prior test to compare. His lisinopril may need to be started down the line. 4. TONIA. As mentioned earlier, he will be still getting bumetanide 1 mg daily and we will monitor kidney function while in the hospital. He was advised to drink 1500 mL fluid daily. 5. Gout, seems to be stable at this time. Continue current medication. 6. Hyperlipidemia. Continue the statin. 7. DVT prophylaxis with Lovenox. 8. GI prophylaxis with Maalox and Mylanta. 9. Code status. He will be full code. In my clinical assessment, the beneficiary meets criteria as per CMS for 2 midnights in the hospital. Hospital Course Bright Red Blood Per Rectum 10/30 - [facility] - [facility] home with home health - denies any further bleeding from rectum - prefers comfort and symptomatic care only 10/29 - improved/resolved - Hgb stable (s/p two units since admission) - [facility], CM aware 10/28 - patient has had this in the past - spoke in detail about not wanting further w/up, and we will abide by his request - will intermittently monitor his Hgb, but no further procedures or invasive w/ up - s/p two units pRBCs during this admission; Hgb stable, we will monitor Demand Ischemia - elevated troponin - peaked at 0.19 - likely secondary to above, anemia/blood loss - no longer has chest pain; agrees with no further w/up for this as well Complicated Bronchitis - improving 10/29 - d/c'd prednisone 10/28 - initially on abx.; now off of them - will continue prednisone 40mg x5 days - productive cough continues, will try Mucinex if cough does not improve Chest x-ray demonstrated elevated right hemidiaphragm and right pleural effusion which may be chronic. (Chest x-ray performed here in 2001 showed elevation of right hemidiaphragm and small right pleural effusion; CXR at [facility] 08/10/15 demonstrated a chronic elevation of right hemidiaphragm). Initially received doxycycline and methylprednisolone. Changed antibiotic therapy to levofloxacin. Repeat chest x-ray 10/16 unchanged, no apparent infiltrates. Chest x-rays 10/16 and 10/18- chronically elevated right hemidiaphragm, probable atelectasis right base, no definite infiltrates, no overt pulmonary edema. Discontinued levofloxacin and changed to piperacillin/tazobactam. Obtain sputum culture if able-moderate normal chiquita Will finish the course of antibiotic Clinically much better today and remains stable Ready to be discharged COPD EXACERBATION - prednisone 40mg x5 days CHF Acute on chronic left ventricular diastolic heart failure. Worsening dyspnea on exertion and dependent edema despite diuretic therapy. Chest x-ray showed cardiomegaly. with BNP elevated. Echocardiogram demonstrated moderate concentric LVH, normal left ventricular systolic function with ejection fraction of 55%, grade 2 diastolic dysfunction, moderate enlargement of left atrium, moderate enlargement of right atrium, normal right ventricular systolic function, mild to moderate mitral regurgitation. Appreciate cardiology input -continue current medications and diuretics CAD History of ischemic heart disease, status post CABG in 2001. Patient reports abnormal stress test 2-3 years ago, but he opted not to pursue repeat catheterization or consideration of further revascularization. Experiencing worsening dyspnea on exertion, sometimes associated with chest pressure over past few months. Initial EKGs in the ED had baseline artifact. EKG 10/14 demonstrated sinus rhythm with PVCs, lateral downsloping ST depression. Serum troponins 0.061, 0.061, and 0.059, 0.040. Continue aspirin, atenolol. Cardiology consulted. Patient wishes to continue medical management and not pursue further diagnostic testing. Started on NitroSDur patch -no more pain HYPERTENSION Lisinopril held due to renal insufficiency. Continue atenolol. CKD Baseline creatinine 1.4-1.8. Creatinine at time of admission was 1.49. Creatinine minerva to 1.89 with diuretic therapy. Serum creatinine today = 1.52. Follow. Delirium/Sundowning - resolved Developed worsening confusion. ABG demonstrated CO2 retention. Optimize medical conditions. Started don small dose of Zyprexa and tolerating well No more Delirium DVT ppx - SCDs DISPOSITION To be determined. Has been staying with his brother, but functional status declining over past several months. Anticipate need for skilled care, perhaps transition to long-term care. Follow-up with [facility]. Likely to need Rehab -likely to go to [facility] today/tomorrow Total time spent on discharge = 40 minutes This includes examination of the patient, discharge planning, medication reconciliation, and communication with other providers. Discharge Instructions Please follow-up with your primary care physician
--- NOTE | 2017-10-30 13:01 | Palliative Care Consultation ---
Consultation Date of Consultation: Oct 30, 2017. Requesting Physician: Dr. Morales Attending Physician: Dr Coronel Reason for Consultation: Goals of care History of Present Illness This patient is an 82 year-old male who has a PMH of CAD s/p CABG x2 in 2001, HTN, HLD, GIB, who was admitted on October 13 with increased SOB which has been improving - it is thought that this was bronchitis or a new onset of CHF. . He lives at home with his brother in a 2-story home. He states that he is able to walk independently at home and lives down town in [place], so is able to walk downtown for meals. He does not use a cane or walker. He has been experiencing a GIB over the past 2-4 years; however, has declined a formal workup for the source. Palliative Care was consulted to discuss GOALS OF CARE with this gentleman. He expressed fully that he would like to return home and not have aggressive treatment for the bleeding that he has been experiencing. His most recent Hgb was 9.0 and he has stated that he would consider a blood transfusion should his Hgb drop below 7.0. Currently he was to go to the [facility] for skilled services; however, he has now decided that he would like to return home with Home Health support. His brother plans to pick him up today, this afternoon. Case management aware and working on home health acceptance. Social History Smoking Status: Former Smoker History of Alcohol Use: No (quit 1 year ago, drank heavily prior to that) Occupation Status: retired Review of Systems Pt denies CP, SOB, palpitations, N/V/D, dizziness, pain. Allergies Coded Allergies: Ibuprofen (Unverified Adverse Reaction, Severe, RAPID HEART RATE, 10/13/17) Medications Current Inpatient Medications Medications (Trade) Dose Ordered Sig/Didi Route Start Time Stop Time Status Last Admin Dose Admin Acetaminophen (Tylenol Tab) 650 mg Q4H PRN PO 10/13/17 20:00 11/12/17 19:59 Ondansetron HCl (Zofran Inj) 4 mg Q6H PRN IV 10/13/17 20:00 11/12/17 19:59 Allopurinol (Zyloprim Tab) 150 mg QAM PO 10/14/17 09:00 11/13/17 08:59 10/30/17 07:39 150 MG Atenolol (Tenormin Tab) 50 mg QAM PO 10/14/17 09:00 11/13/17 08:59 10/30/17 07:41 50 MG Atorvastatin Calcium (Lipitor Tab) 40 mg HS PO 10/13/17 21:00 11/12/17 20:59 10/29/17 20:49 40 MG Guaifenesin (Mucinex Contr Rel Tab) 600 mg Q12 PO 10/15/17 21:00 11/14/17 20:59 10/30/17 07:38 600 MG Haloperidol Lactate (Haldol Inj) 0.5 mg Q30M PRN IV 10/18/17 04:30 11/17/17 04:29 10/19/17 13:59 0.5 MG Olanzapine (Zyprexa Zydis Od Tab) 5 mg HS PO 10/20/17 21:00 11/19/17 20:59 10/29/17 20:48 5 MG Levalbuterol (Xopenex 0.63 Mg/ 3 Ml Neb) 0.63 mg QID PRN INH 10/24/17 10:00 11/23/17 09:59 Pantoprazole Sodium (Protonix Tab) 40 mg BID PO 10/24/17 21:00 11/23/17 20:59 10/30/17 07:37 40 MG Thiamine HCl (Vitamin B-1 Tab) 50 mg QAM PO 10/25/17 09:00 11/24/17 08:59 10/30/17 07:41 50 MG Tramadol HCl (Ultram Tab) 25 mg Q6H PRN PO 10/25/17 21:45 11/24/17 21:44 Hydromorphone HCl (Dilaudid Inj) 0.5 mg Q3H PRN IV 10/25/17 21:45 11/08/17 21:44 Insulin Aspart (novoLOG ASPART) SLIDING SCALE If C... ACHS SC 10/26/17 06:30 11/25/17 06:29 10/29/17 20:48 2 UNITS Glucose (Glucose 40% Gel) 15-30 GRAMS 15 GRAMS... UD PRN PO 10/26/17 00:00 11/25/17 00:00 Glucose (Glucose Chew Tab) 4-8 Tablets 4 Tabl... UD PRN PO 10/26/17 00:00 11/25/17 00:00 Dextrose (Dextrose 50% 50ML Syringe) 25-50ML OF 50% DW IV FOR... UD PRN IV 10/26/17 00:00 11/25/17 00:00 Glucagon (Glucagon Inj) 1 mg UD PRN SQ 10/26/17 00:00 11/25/17 00:00 Insulin Glargine (Lantus Solostar Pen) 5 units HS SC 10/26/17 21:00 11/25/17 20:59 10/29/17 20:48 5 UNITS Nitroglycerin (Nitro-Dur 0.1 Mg/Hr Patch) 1 patch QAM TD 10/27/17 09:00 11/26/17 08:59 10/30/17 07:39 1 PATCH Miscellaneous (Remove Nitro-Dur Patch) 1 ea DAILY@21 N/A 10/26/17 21:00 11/25/17 20:59 10/29/17 20:50 1 EA Physical Exam Date Time Temp Pulse Resp B/P (MAP) Pulse Ox O2 Delivery O2 Flow Rate FiO2 10/30/17 11:49 36.6 63 16 92 Room Air Nasal Cannula 10/30/17 08:00 Room Air 10/30/17 07:11 36.6 63 16 171/72 (105) 92 Room Air 10/30/17 00:00 Nasal Cannula 2.0 10/29/17 23:09 36.9 63 20 167/70 (102) 99 Nasal Cannula 2.0 10/29/17 16:00 Room Air 10/29/17 16:00 36.4 60 20 175/71 (105) 92 Room Air General Appearance: no apparent distress Neck: no JVD Respiratory: chest non-tender, lungs clear, normal breath sounds, no respiratory distress, no accessory muscle use Cardiovascular: regular rate, rhythm, no gallop, no JVD, no murmur Abdomen: normal bowel sounds, non tender, soft Neurologic/Psychiatric: oriented x 3 Skin: warm/dry Laboratory Results Last 24 Hours Test 10/29/17 16:56 10/29/17 20:43 10/30/17 07:37 10/30/17 11:32 Bedside Glucose 202 mg/dl 221 mg/dl 86 mg/dl 141 mg/dl Assessment & Plan Palliative Performance Scale: 70 % Palliative Care Encounter Goals of Care Bronchitis CHF Palliative Care Recommendations: -Continue supportive measures -Ensure patient has home charlie arranged prior to departure to continue medication regimen at home -Ensure brother is capable of assisting patient with transition home Thank you kindly for this consultation request. Counseling and Coordination Total time spent 50 minutes with > 50% of that time spent assessing patient and discussing GOALS OF CARE
[2017-10-30 15:00] VITALS: BP 126/66; PULSE 61; TEMP 36.3; O2SAT 92
[2017-10-30 19:40] VITALS: O2SAT 92
[2017-10-30] MEDS: ATORVASTATIN 40 MG TAB PO SCH (20:53)
[2017-10-30] MEDS: OLANZAPINE ZYDIS 5 MG ORALLY DIS. TAB PO SCH (20:55)
[2017-10-30] MEDS: INSULIN GLARGINE SOLOSTAR 100 UNITS/ML 3 ML PEN SC SCH (20:56)
[2017-10-30 22:52] VITALS: BP 148/73; PULSE 65; TEMP 36.7; O2SAT 91
[2017-10-31] MEDS: INSULIN ASPART 100 UNITS/ML 3 ML PEN SC SCH ×2 (06:30→12:37)
[2017-10-31 06:56] VITALS: BP 170/77; PULSE 71; TEMP 36.6; O2SAT 90
[2017-10-31] MEDS: ALLOPURINOL 300 MG TAB PO SCH (08:32)
[2017-10-31] MEDS: NITROGLYCERIN 0.1 MG/HR PATCH TD SCH (08:32)
[2017-10-31] MEDS: GUAIFENESIN 600 MG TABCR PO SCH (08:32)
[2017-10-31] MEDS: PANTOprazole SOD 40 MG TAB PO SCH (08:33)
[2017-10-31] MEDS: THIAMINE HCL 50 MG TAB PO SCH (08:33)
--- NOTE | 2017-10-31 12:49 | Progress Note ---
Subjective Date of Service: Oct 31, 2017. Subjective Pt evaluation today including: conversation w/ patient, physical exam, lab review, review of studies, review of inpatient medication list Saw/examined the patient in room 456 He's doing good, feels well, slightly weak Denies cough/shortness of breath Eager to go home Review of Systems Constitutional: + weakness, No fever, No chills Respiratory: + cough, No sputum, No wheezing, No shortness of breath, No dyspnea on exertion, No dyspnea at rest, No hemoptysis Cardiac: No chest pain Abdomen: No pain, No nausea, No vomiting, No diarrhea Medications Current Inpatient Medications Medications (Trade) Dose Ordered Sig/Didi Route Start Time Stop Time Status Last Admin Dose Admin Acetaminophen (Tylenol Tab) 650 mg Q4H PRN PO 10/13/17 20:00 11/12/17 19:59 Ondansetron HCl (Zofran Inj) 4 mg Q6H PRN IV 10/13/17 20:00 11/12/17 19:59 Allopurinol (Zyloprim Tab) 150 mg QAM PO 10/14/17 09:00 11/13/17 08:59 10/31/17 08:32 150 MG Atenolol (Tenormin Tab) 50 mg QAM PO 10/14/17 09:00 11/13/17 08:59 10/31/17 08:33 50 MG Atorvastatin Calcium (Lipitor Tab) 40 mg HS PO 10/13/17 21:00 11/12/17 20:59 10/30/17 20:53 40 MG Guaifenesin (Mucinex Contr Rel Tab) 600 mg Q12 PO 10/15/17 21:00 11/14/17 20:59 10/31/17 08:32 600 MG Haloperidol Lactate (Haldol Inj) 0.5 mg Q30M PRN IV 10/18/17 04:30 11/17/17 04:29 10/19/17 13:59 0.5 MG Olanzapine (Zyprexa Zydis Od Tab) 5 mg HS PO 10/20/17 21:00 11/19/17 20:59 10/30/17 20:55 5 MG Levalbuterol (Xopenex 0.63 Mg/ 3 Ml Neb) 0.63 mg QID PRN INH 10/24/17 10:00 11/23/17 09:59 Pantoprazole Sodium (Protonix Tab) 40 mg BID PO 10/24/17 21:00 11/23/17 20:59 10/31/17 08:33 40 MG Thiamine HCl (Vitamin B-1 Tab) 50 mg QAM PO 10/25/17 09:00 11/24/17 08:59 10/31/17 08:33 50 MG Tramadol HCl (Ultram Tab) 25 mg Q6H PRN PO 10/25/17 21:45 11/24/17 21:44 Hydromorphone HCl (Dilaudid Inj) 0.5 mg Q3H PRN IV 10/25/17 21:45 11/08/17 21:44 Insulin Aspart (novoLOG ASPART) SLIDING SCALE If C... ACHS SC 10/26/17 06:30 11/25/17 06:29 10/31/17 12:37 2 UNITS Glucose (Glucose 40% Gel) 15-30 GRAMS 15 GRAMS... UD PRN PO 10/26/17 00:00 11/25/17 00:00 Glucose (Glucose Chew Tab) 4-8 Tablets 4 Tabl... UD PRN PO 10/26/17 00:00 11/25/17 00:00 Dextrose (Dextrose 50% 50ML Syringe) 25-50ML OF 50% DW IV FOR... UD PRN IV 10/26/17 00:00 11/25/17 00:00 Glucagon (Glucagon Inj) 1 mg UD PRN SQ 10/26/17 00:00 11/25/17 00:00 Insulin Glargine (Lantus Solostar Pen) 5 units HS SC 10/26/17 21:00 11/25/17 20:59 10/30/17 20:56 5 UNITS Nitroglycerin (Nitro-Dur 0.1 Mg/Hr Patch) 1 patch QAM TD 10/27/17 09:00 11/26/17 08:59 10/31/17 08:32 1 PATCH Miscellaneous (Remove Nitro-Dur Patch) 1 ea DAILY@21 N/A 10/26/17 21:00 11/25/17 20:59 10/30/17 21:00 1 EA Objective Vital Signs Date Time Temp Pulse Resp B/P (MAP) Pulse Ox O2 Delivery O2 Flow Rate FiO2 10/31/17 08:00 Room Air 10/31/17 06:56 36.6 71 20 170/77 (108) 90 Room Air 10/31/17 00:01 Room Air 10/30/17 22:52 36.7 65 20 148/73 (98) 91 Room Air 10/30/17 19:40 92 Room Air 10/30/17 19:20 Room Air 10/30/17 15:00 36.3 61 20 126/66 (86) 92 Room Air Physical Exam General Appearance: no apparent distress Respiratory/Chest: no respiratory distress, no accessory muscle use, + decreased breath sounds Cardiovascular: regular rate, rhythm, no murmur Extremities: + swelling (+1-2 pitting edema), + pertinent finding Laboratory Results Last 24 Hours Test 10/30/17 16:26 10/30/17 20:49 10/31/17 07:43 10/31/17 11:26 Bedside Glucose 157 mg/dl 118 mg/dl 88 mg/dl 129 mg/dl Assessment and Plan 10/31 - clinically doing well - awaiting placement - will need rehab; prednisone has been stopped - will restart MARCIN-I on discharge, continue atenolol, allupurinol and most of his home medications Bright Red Blood Per Rectum 10/30 - states [facility] - [facility] with home health - denies any further bleeding from rectum - prefers comfort and symptomatic care only 10/29 - improved/resolved - Hgb stable (s/p two units since admission) - [facility], CM aware 10/28 - patient has had this in the past - spoke in detail about not wanting further w/up, and we will abide by his request - will intermittently monitor his Hgb, but no further procedures or invasive w/ up - s/p two units pRBCs during this admission; Hgb stable, we will monitor Demand Ischemia - elevated troponin - peaked at 0.19 - likely secondary to above, anemia/blood loss - no longer has chest pain; agrees with no further w/up for this as well Complicated Bronchitis - improving 10/29 - d/c'd prednisone 10/28 - initially on abx.; now off of them - will continue prednisone 40mg x5 days - productive cough continues, will try Mucinex if cough does not improve Chest x-ray demonstrated elevated right hemidiaphragm and right pleural effusion which may be chronic. (Chest x-ray performed here in 2001 showed elevation of right hemidiaphragm and small right pleural effusion; CXR at [facility] 08/10/15 demonstrated a chronic elevation of right hemidiaphragm). Initially received doxycycline and methylprednisolone. Changed antibiotic therapy to levofloxacin. Repeat chest x-ray 10/16 unchanged, no apparent infiltrates. Chest x-rays 10/16 and 10/18- chronically elevated right hemidiaphragm, probable atelectasis right base, no definite infiltrates, no overt pulmonary edema. Discontinued levofloxacin and changed to piperacillin/tazobactam. Obtain sputum culture if able-moderate normal chiquita Will finish the course of antibiotic Clinically much better today and remains stable Ready to be discharged COPD EXACERBATION - prednisone 40mg x5 days CHF Acute on chronic left ventricular diastolic heart failure. Worsening dyspnea on exertion and dependent edema despite diuretic therapy. Chest x-ray showed cardiomegaly. with BNP elevated. Echocardiogram demonstrated moderate concentric LVH, normal left ventricular systolic function with ejection fraction of 55%, grade 2 diastolic dysfunction, moderate enlargement of left atrium, moderate enlargement of right atrium, normal right ventricular systolic function, mild to moderate mitral regurgitation. Appreciate cardiology input -continue current medications and diuretics CAD History of ischemic heart disease, status post CABG in 2001. Patient reports abnormal stress test 2-3 years ago, but he opted not to pursue repeat catheterization or consideration of further revascularization. Experiencing worsening dyspnea on exertion, sometimes associated with chest pressure over past few months. Initial EKGs in the ED had baseline artifact. EKG 10/14 demonstrated sinus rhythm with PVCs, lateral downsloping ST depression. Serum troponins 0.061, 0.061, and 0.059, 0.040. Continue aspirin, atenolol. Cardiology consulted. Patient wishes to continue medical management and not pursue further diagnostic testing. Started on NitroSDur patch -no more pain HYPERTENSION Lisinopril held due to renal insufficiency. Continue atenolol. CKD Baseline creatinine 1.4-1.8. Creatinine at time of admission was 1.49. Creatinine minerva to 1.89 with diuretic therapy. Serum creatinine today = 1.52. Follow. Delirium/Sundowning - resolved Developed worsening confusion. ABG demonstrated CO2 retention. Optimize medical conditions. Started don small dose of Zyprexa and tolerating well No more Delirium DVT ppx - SCDs DISPOSITION To be determined. Has been staying with his brother, but functional status declining over past several months. Anticipate need for skilled care, perhaps transition to long-term care. Follow-up with [facility]. Likely to need Rehab -likely to go to [facility] today/tomorrow
[2017-10-31 15:13] VITALS: BP 170/77; PULSE 71; TEMP 36.6; O2SAT 90
[2017-10-31 15:46] VITALS: BP 154/60; PULSE 60; TEMP 36.4
== END 2017-10-31 16:47 | DRG 291 ==
LOC: EDBD 14:59 → C.EDC 15:00 → C.2T 19:55 → EDBEDREQ 20:06 → ENRESERV 20:12 → C.2T 10-18 18:47 → CANRESERV 10-24 17:15 → ENRESERV 10-24 17:15 → C.MED 10-24 18:32 → C.MS4W 10-27 21:18 → UNDODISIN 10-31 16:20
PROVIDERS: ADMIT Internal Medicine; ATTEND Family Medicine
DX: I13.0 Hypertensive heart and chronic kidney disease with heart failure and stage 1 through stage 4 chronic kidney disease, or unspecified chronic kidney disease (principal); I50.33 Acute on chronic diastolic (congestive) heart failure; J44.0 Chronic obstructive pulmonary disease with (acute) lower respiratory infection; K92.1 Melena; I24.8 Other forms of acute ischemic heart disease; N17.9 Acute kidney failure, unspecified; J44.1 Chronic obstructive pulmonary disease with (acute) exacerbation; J20.9 Acute bronchitis, unspecified; I25.10 Atherosclerotic heart disease of native coronary artery without angina pectoris; E78.5 Hyperlipidemia, unspecified; Z95.1 Presence of aortocoronary bypass graft; Z87.891 Personal history of nicotine dependence; Z88.6 Allergy status to analgesic agent; M1A.9XX0 Chronic gout, unspecified, without tophus (tophi); D50.0 Iron deficiency anemia secondary to blood loss (chronic); R41.0 Disorientation, unspecified; N18.3 Chronic kidney disease, stage 3 (moderate)

== ENCOUNTER 2019-08-07 22:17 | Inpatient (IN) ==
[2019-08-07 22:44] LABS: Basophils # (auto) 0.05 K/uL (0-0.2); Basophils % (auto) 0.4 %; Eosinophils # (auto) 0.07 K/uL (0-0.5); Eosinophils % (auto) 0.5 %; Hematocrit (blood only) 34.8 % (42-52); Hemoglobin 10.8 g/dL (14.0-18.0); Immature Granulocytes # (auto) 0.04 K/uL (0.00-0.02); Immature Granulocytes % (auto) 0.3 %; Lymphocytes # (auto) 1.39 K/uL (1.2-3.4); Lymphocytes % (auto) 10.7 %; Mean Corpuscular Hemoglobin 27.1 pg (25-34); Mean Corpuscular Volume 87.2 fL (80-100); Mean Platelet Volume 10.3 fL (7.4-10.4); Neutrophils # (auto) 10.49 K/uL (1.4-6.5); Neutrophils % (auto) 81.1 %; Platelet Count 304 K/uL (130-400); RDW Coefficient of Variation 16.7 % (11.5-14.5); RDW Standard Deviation 53.7 fL (36.4-46.3); Red Blood Count 3.99 M/uL (4.7-6.1); White Blood Count 12.94 K/uL (4.8-10.8)
[2019-08-07 23:01] LABS: Albumin Level 2.9 gm/dl (3.4-5.0); BUN Creatinine Ratio 14.3 (10-20); Calcium 8.7 mg/dl (8.5-10.1); Creatinine Clr Calc Pharmacy 39.8 ml/min; Est GFR (African American) 52.7; Est GFR (Non-African American) 45.5; Potassium 3.3 mmol/L (3.5-5.1)
[2019-08-07 23:04] LABS: Albumin Globulin Ratio 0.7 (0.9-2); Bilirubin,Total 0.6 mg/dl (0.2-1); Globulin 4.4 gm/dl (2.5-4.0); Total Protein 7.4 gm/dl (6.4-8.2)
[2019-08-07] MEDS ORDERED: ACETAMINOPHEN 1,000 MG/100 ML VIAL IV STA (23:16)
[2019-08-07] MEDS ORDERED: SODIUM CHLORIDE 0.9% 1000ML 1,000 ML IV SCH (23:30)
[2019-08-08] MEDS ORDERED: IOVERSOL 100ml IV PRN (01:28)
--- NOTE | 2019-08-08 02:11 | CT Scan Report ---
CT SCAN OF THE ABDOMEN AND PELVIS WITH IV CONTRAST CLINICAL HISTORY: Generalized abdominal pain. COMPARISON STUDY: No priors. TECHNIQUE: Following the IV administration of 93 cc of Optiray 320, CT scan of the abdomen and pelvi s is performed from the lung bases to the proximal femora. Images are reviewed in the axial, sagittal , and coronal planes. IV contrast was administered without complication. Oral contrast was utilized. A dose lowering technique was utilized adhering to the principles of ALARA. CT DOSE: 444.39 mGy.cm FINDINGS: Lung bases: The patient is status post midline sternotomy. The heart is enlarged and without pericard ial effusion. The coronary arteries are densely calcified. There is a small hiatal hernia. There are small right and trace left pleural effusions with associated atelectasis. There is chronic elevation of the right hemidiaphragm. No airspace consolidation is seen typical for pneumonia. Liver: The contrast-enhanced liver is normal in size, contour, and attenuation. There is no intrahepa tic biliary ductal dilatation. The hepatic veins and portal veins are patent. Gallbladder: There are numerous gallstones. The gallbladder is markedly distended, and there is peric holecystic inflammatory stranding as well as trace pericholecystic fluid. Spleen: Normal in size and attenuation. Pancreas: The pancreas is markedly atrophic. The pancreatic duct is diffusely dilated measuring up to 11 mm in diameter. Adrenal glands: Unremarkable. Kidneys: The contrast enhanced kidneys are atrophic and without hydronephrosis. The kidneys enhance s ymmetrically. Renal cysts measure up to 2.2 cm. Additional subcentimeter cortical hypodensities also likely represent cysts but are too small for definitive characterization. Abdominal vasculature: There is advanced atherosclerotic calcification and ectasia of the abdominal a olivier. Ectasia of the left common iliac artery measures up to 1.7 cm. Bowel: The stomach is markedly distended with enteric contrast. There is no bowel obstruction. There is advanced colonic diverticulosis without CT evidence of acute diverticulitis. Moderate to severe co nstipation is observed. Enteric contrast reaches the distal small bowel. There is a long segment of i rregular circumferential wall an irregular thickening involving the sigmoid colon with no significant surrounding inflammatory change. This extends at least 11 cm in length. There are numerous enlarged pericolonic lymph nodes versus thrombosed pericolonic veins, and the appearance is highly concerning for mass lesion. The appendix is well-visualized and normal. Peritoneum: There is trace perihepatic ascites. No intraperitoneal free air is seen. There is a large fat-containing umbilical hernia. 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 The splenic ve in and superior mesenteric vein are patent. Lymphadenopathy: Question enlarged pericolonic lymph nodes around the sigmoid colon versus thrombosed pericolonic veins. Suspect interval aggregate in the mesentery on image #284 measures approximately 5.5 x 2.5 cm. Pelvic viscera: The prostate gland is markedly enlarged and heterogeneous, measuring 5.4 cm transvers e diameter. There is median lobe hypertrophy. The bladder wall is thickened and trabeculated indicati ng chronic outlet obstruction. There is a fat and fluid containing left inguinal hernia. Skeletal structures: The skeletal structures are osteopenic. There is moderate lumbosacral spondylosi s. No lytic or blastic lesions are seen. IMPRESSION: 1. There are calcified gallstones. The gallbladder is distended and there is pericholecystic strandin g and fluid. Findings are highly concerning for acute cholecystitis. 2. There is evidence of a large mass lesion involving the sigmoid colon. This should be considered co denise cancer until proven otherwise. There is no evidence of upstream obstruction. 3. Question numerous enlarged pericolonic lymph nodes versus numerous thrombosed pericolonic veins. A dditionally, mesenteric adenopathy is suspected. These findings are highly concerning for metastatic disease. 4. 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 5. The pancreas is atrophic and there is marked dilatation of the pancreatic duct. This could related to proximal stricture or obstructing lesion, or possibly a main duct IPMN. 6. Cardiomegaly and small bilateral pleural effusions. 7. There is trace perihepatic ascites. 8. Prostatomegaly with evidence of chronic bladder outlet obstruction. 9. There is a fat and fluid containing left inguinal hernia. 10. Advanced colonic diverticulosis without CT evidence of acute diverticulitis. ACT 112: Negative or not required by law. Electronically signed by: Jeffery Freeman M.D. 08/08/2019 2:10 AM
[2019-08-08] MEDS ORDERED: METOPROLOL TARTRATE 1 MG/ML VIAL IV STA ×2 (03:38→04:15)
[2019-08-08] MEDS ORDERED: METOPROLOL TARTRATE 1 MG/ML VIAL IV ONE (03:39)
[2019-08-08 03:44] LABS: Appearance Urine Clear (Clear); Bacteria Urine Automated Negative (Negative); Bilirubin Urine Negative (Negative); Blood Urine Negative (Negative); Color Urine Yellow; Glucose Urine UA 2+ (Negative); Ketones Urine Negative (Negative); Leukocyte Esterase Urine Trace (Negative); Nitrite Urine Negative (Negative); Protein Urine Negative (Negative); RBC Urine Automated 0-4 /hpf (0-4); Specific Gravity Urine > 1.045 (1.000-1.030); Urobilinogen Urine Negative (Negative)
[2019-08-08] MEDS ORDERED: PIPERACILLIN/TAZOBACTAM 4.5 GM/120 ML BAG IV ONE (03:58)
[2019-08-08] MEDS ORDERED: XOPENEX/ATROVENT 1.25mg/0.5MG NEB COMBO NEB STA (03:58)
[2019-08-08] MEDS ORDERED: PIPERACILL/TAZOBAC CONSULT ACTIVE PRN (03:58)
[2019-08-08] MEDS ORDERED: LEVALBUTEROL 1.25MG/0.5ML NEB INH STA (04:00)
[2019-08-08] MEDS ORDERED: IPRATROPIUM BROMIDE NEB SOLN 0.02% 2.5 ML VIAL INH STA (04:00)
[2019-08-08] MEDS ORDERED: FUROSEMIDE 40 MG/4 ML VIAL IV STA (04:05)
[2019-08-08] MEDS: POTASSIUM CHLORIDE / WTR 10 MEQ/100 ML PLCT IV SCH ×2 (04:28→05:34)
[2019-08-08 04:29] LABS: Thyroid Stimulating Hormone 3.36 uIu/ml (0.300-4.500); Troponin I 0.041 ng/ml (0-0.045)
--- NOTE | 2019-08-08 04:52 | History & Physical Report ---
Date of Service August 08, 2019 Assessment & Plan (1) Acute hypoxemic respiratory failure: Hypoxemic respiratory failure secondary to fluid overload hx chronic diastolic heart failure (EF 55%, TTE 2018) Severe sepsis SIRS plus lactic acid elevation secondary to acute calculous cholecystitis Hypertension, elevated secondary to illness New onset A. fib secondary to above History CAD status post CABG Hyperglycemia prediabetes, hemoglobin A1c of 6.3 2018 Incidental finding of sigmoid mass on CT likely malignancy Chronic anemia, hemoglobin better than baseline Past tobacco abuse Goals of care discussed with patient. As per patient, he was contemplating on talking to his PCP about hospice prior to ER visit. Medical management (antibiotics, insulin as needed, IV fluids, pain medicine, supplemental O2) in the next 24 to 48 hours as per patient request. Patient not interested in therapeutic anticoagulation for A. fib, surgical evaluation for cholecystitis, respective specialist consultations for new onset A. fib and sigmoid mass work-up. He will transition to comfort care if no improvement in his medical condition after 48 hours. PCU Supplemental O2 (BiPAP if tolerated by patient) Baseline ABG Lasix, Solu-Medrol, nebs Cultures, follow lactic acid Albumin given pulmonary congestion Zosyn Titrate home beta-manuel for A. fib rate control Clear liquids for now (patient declining surgery anyway) Basal insulin, ISS BG goal [id number], update hemoglobin A1C DVT prophylaxis per Lovenox subcu Total critical care time was 45 minutes. History of Present Illness Chief Complaint: Abdominal pain Primary Care Provider: Val Akhtar PA-C History obtained from patient and records. Medical history significant for chronic diastolic heart failure (EF 55%, TTE 2018), CAD status post CABG, COPD as per records, hypertension, chronic anemia (baseline hemoglobin of 9), recurrent L GIB as per patient, past tobacco abuse. Recent confinement October 2017 for complicated bronchitis. Last night patient noted sudden onset mid abdominal pain with nausea, no emesis. Feeling bloated. No chest pain, no S OB. Some constipation yesterday. IVF given upon arrival at the ER. Subsequent respiratory distress, tachycardia noted. Rapid A. fib noted on the monitor. BiPAP initiated in the ER. 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 Allergies Allergy/AdvReac Type Severity Reaction Status Date / Time ibuprofen AdvReac Severe RAPID Unverified 10/13/17 15:29 HEART RATE Home Medications Home Medications Medication Instructions Recorded Confirmed Type atenolol 50 mg PO DAILY 08/07/19 08/07/19 History atorvastatin 40 mg PO HS 08/07/19 08/07/19 History bumetanide 1 mg PO DAILY 08/07/19 08/07/19 History multivitamin 1 tab PO DAILY 08/07/19 08/07/19 History potassium chloride [Klor-Con 10] 10 meq PO DIRECTED 08/07/19 08/07/19 History thiamine HCl (vitamin B1) 50 mg PO DAILY 08/07/19 08/07/19 History Past Med/Surg History Medical History (Updated 08/08/19 @ 11:[address] MD) Bronchitis CAD (coronary artery disease) of artery bypass graft CHF (congestive heart failure) Umbilical hernia Family History (Updated 08/07/19 @ 23:14 by Mynor Mancia) Other No significant family history Social History Preferred Language: Croatian Communication Ability: Effective Medical Billing Assistant Required: No Beliefs That Will Affect Care: None Current Living Situation: Family Other Information That Helps Us Care for You: No Feels Safe at Home: Yes Safety Concerns: Feels Safe At This Time Smoking Status: Never smoker Do You Dip or Chew Tobacco: No ; Second Hand Exposure: No ; Tobacco Cessation Education Requested by Patient: No Hx Alcohol Use: No Hx Substance Use: No Review of Systems Review of Systems: As per HPI, all 10 systems reviewed, all other ROS negative Physical Exam Physical Exam: GENERAL: Pleasant, slightly uncomfortable, mild hearing impairment, minimal respiratory distress SKIN: Pallor , warm HEENT: Alopecia, pale palpebral conjunctivae, no ptosis, dry buccal mucosa, BiPAP in place NECK : Supple, no tenderness CHEST : Decreased breath sounds, expiratory wheezes, no tenderness HEART : Tachycardic, irregular, systolic murmur ABDOMEN: distention, right upper quadrant tenderness EXTREMITIES : Minimal LE swelling, no LE tenderness, no other conspicuous deformities noted NEUROLOGIC : Coherent, mild hearing impairment, no facial asymmetry, no other gross focality Results & Data Vital Signs (Past 12 Hours) Vital Signs Temp Pulse Pulse Resp BP BP Pulse Ox 08/08/19 04:45 110 H 24 115/65 97 08/08/19 04:10 122 H 30 H 98 08/08/19 03:58 126 H 37 H 96 08/08/19 03:47 126 H 34 H 167/94 H 97 08/08/19 03:41 142 H 184/115 H 08/08/19 03:37 142 H 34 H 184/115 H 98 08/08/19 03:29 83 L 08/08/19 02:30 101 H 20 170/91 H 97 08/08/19 02:00 96 H 21 161/87 H 97 08/08/19 01:55 96 H 21 152/84 H 97 08/08/19 01:30 92 H 16 158/90 H 96 08/08/19 01:00 92 H 15 162/98 H 96 08/08/19 00:30 85 17 156/83 H 95 08/08/19 00:00 89 17 155/76 H 95 08/07/19 23:30 86 22 151/94 H 96 08/07/19 23:00 88 13 152/82 H 94 08/07/19 22:34 84 14 165/85 H 96 08/07/19 22:18 36.3 C L 98 H 16 165/70 H 96 Laboratory Results Laboratory Results WBC 12.94 K/uL (4.8-10.8) H 08/07/19 22:35 RBC 3.99 M/uL (4.7-6.1) L 08/07/19 22:35 Hgb 10.8 g/dL (14.0-18.0) L 08/07/19 22:35 Hct 34.8 % (42-52) L 08/07/19 22:35 MCV 87.2 fL (80-100) 08/07/19 22:35 MCH 27.1 pg (25-34) 08/07/19 22:35 MCHC 31.0 g/dL (32-36) L 08/07/19 22:35 RDW Std Deviation 53.7 fL (36.4-46.3) H 08/07/19 22:35 RDW Coeff of Alice 16.7 % (11.5-14.5) H 08/07/19 22:35 Plt Count 304 K/uL (130-400) 08/07/19 22:35 MPV 10.3 fL (7.4-10.4) 08/07/19 22:35 Immature Gran % (Auto) 0.3 % 08/07/19 22:35 Neut % (Auto) 81.1 % 08/07/19 22:35 Lymph % (Auto) 10.7 % 08/07/19 22:35 Cotton % (Auto) 7.0 % 08/07/19 22:35 Eos % (Auto) 0.5 % 08/07/19 22:35 Baso % (Auto) 0.4 % 08/07/19 22:35 Immature Gran # (Auto) 0.04 K/uL (0.00-0.02) H 08/07/19 22:35 Neut # (Auto) 10.49 K/uL (1.4-6.5) H 08/07/19 22:35 Lymph # (Auto) 1.39 K/uL (1.2-3.4) 08/07/19 22:35 Cotton # (Auto) 0.90 K/uL (0.11-0.59) H 08/07/19 22:35 Eos # (Auto) 0.07 K/uL (0-0.5) 08/07/19 22:35 Baso # (Auto) 0.05 K/uL (0-0.2) 08/07/19 22:35 Sodium 137 mmol/L (136-145) 08/07/19 22:35 Potassium 3.3 mmol/L (3.5-5.1) L 08/07/19 22:35 Chloride 99 mmol/L (98-107) 08/07/19 22:35 Carbon Dioxide 30 mmol/L (21-32) 08/07/19 22:35 Anion Gap 9.0 (3-11) 08/07/19 22:35 BUN 20 mg/dl (7-18) H 08/07/19 22:35 Creatinine 1.40 mg/dl (0.6-1.4) 08/07/19 22:35 Est Cr Clr Drug Dosing 39.8 ml/min 08/07/19 22:35 Est GFR ( Amer) 52.7 08/07/19 22:35 Est GFR (Non-Af Amer) 45.5 08/07/19 22:35 BUN/Creatinine Ratio 14.3 (10-20) 08/07/19 22:35 Glucose 289 mg/dl (70-99) H 08/07/19 22:35 Lactate 8.6 mmol/L (0.4-2.0) H* 08/08/19 03:52 Calcium 8.7 mg/dl (8.5-10.1) 08/07/19 22:35 Magnesium 2.0 mg/dl (1.8-2.4) 08/08/19 03:52 Total Bilirubin 0.6 mg/dl (0.2-1) 08/07/19 22:35 AST 19 U/L (15-37) 08/07/19 22:35 ALT 14 U/L (12-78) 08/07/19 22:35 Alkaline Phosphatase 162 U/L (45-117) H 08/07/19 22:35 Troponin I 0.041 ng/ml (0-0.045) 08/08/19 03:52 NT-Pro-B Natriuret Pep 44828 pg/ml (0-1800) H 08/08/19 03:52 Total Protein 7.4 gm/dl (6.4-8.2) 08/07/19 22:35 Albumin 2.9 gm/dl (3.4-5.0) L 08/07/19 22:35 Globulin 4.4 gm/dl (2.5-4.0) H 08/07/19 22:35 Albumin/Globulin Ratio 0.7 (0.9-2) L 08/07/19 22:35 Lipase 151 U/L (73-393) 08/07/19 22:35 TSH 3.360 uIu/ml (0.300-4.500) 08/08/19 03:52 Urine Color Yellow 08/08/19 03:23 Urine Appearance Clear (Clear) 08/08/19 03:23 Urine pH 7.0 (4.5-7.5) 08/08/19 03:23 Ur Specific [place] > 1.045 (1.000-1.030) H 08/08/19 03:23 Urine Protein Negative (Negative) 08/08/19 03:23 Urine Glucose (UA) 2+ (Negative) H 08/08/19 03:23 Urine Ketones Negative (Negative) 08/08/19 03:23 Urine Blood Negative (Negative) 08/08/19 03:23 Urine Nitrite Negative (Negative) 08/08/19 03:23 Urine Bilirubin Negative (Negative) 08/08/19 03:23 Urine Urobilinogen Negative (Negative) 08/08/19 03:23 Ur Leukocyte Esterase Trace (Negative) H 08/08/19 03:23 Urine WBC (Auto) 10-30 /hpf (0-5) H 08/08/19 03:23 Urine RBC (Auto) 0-4 /hpf (0-4) 08/08/19 03:23 U Hyaline Cast (Auto) 1-5 /lpf (0-5) 08/08/19 03:23 U Epithel Cells (Auto) 5-10 /lpf (0-5) H 08/08/19 03:23 Urine Bacteria (Auto) Negative (Negative) 08/08/19 03:[address] abdomen pelvis : 1. There are calcified gallstones. The gallbladder is distended and there is pericholecystic stranding and fluid. Findings are highly concerning for acute cholecystitis. 2. There is evidence of a large mass lesion involving the sigmoid colon. This should be considered colon cancer until proven otherwise. There is no evidence of upstream obstruction. 3. Question numerous enlarged pericolonic lymph nodes versus numerous thrombosed pericolonic veins. Additionally, mesenteric adenopathy is suspected. These findings are highly concerning for metastatic disease. 4. 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 5. The pancreas is atrophic and there is marked dilatation of the pancreatic duct. This could related to proximal stricture or obstructing lesion, or possibly a main duct IPMN. 6. Cardiomegaly and small bilateral pleural effusions. 7. There is trace perihepatic ascites. 8. Prostatomegaly with evidence of chronic bladder outlet obstruction. 9. There is a fat and fluid containing left inguinal hernia. 10. Advanced colonic diverticulosis without CT evidence of acute diverticulitis. Chest x-ray as per my interpretation: Cardiomegaly, pulmonary congestion, right pleural effusion EKG as per my interpretation : Rate 140, A. fib, normal axis ST depression inferior leads, LVH
[2019-08-08] MEDS ORDERED: POTASSIUM CHLORIDE 10 MEQ TABCR PO STA (05:23)
[2019-08-08 05:24] LABS: Base Excess ABG -1.1 mEq/L (-9-1.8); HCO3 ABG 23 mmol/L (19-24); Oxygen Saturation ABG 97.1 % (90-95); PCO2 ABG 35 mmHg (35-46); PO2 ABG 88 mmHg (80-95); pH ABG 7.44 (7.35-7.45)
[2019-08-08 05:26] LABS: Allen Test Pos (Pos)
[2019-08-08] MEDS: METOPROLOL TARTRATE 25 MG TAB PO SCH ×2 (05:27→20:17)
[2019-08-08] MEDS ORDERED: DIGOXIN 250 MCG in SYRINGE 9 ML IV STA (05:38)
[2019-08-08] MEDS ORDERED: DIGOXIN 500 MCG/2 ML AMP IV ONE (05:43)
[2019-08-08 05:49] LABS: INR 1.2 (0.9-1.1); Partial Thromboplastin Time 26.8 Seconds (21.0-31.0)
[2019-08-08] MEDS ORDERED: MoRPHine SULFATE 2 MG/ML CARP IV PRN (06:47)
[2019-08-08] MEDS ORDERED: IPRATROPIUM BROMIDE NEB SOLN 0.02% 2.5 ML VIAL INH PRN (06:47)
[2019-08-08] MEDS ORDERED: XOPENEX/ATROVENT 1.25mg/0.5MG NEB COMBO NEB PRN (06:47)
[2019-08-08] MEDS ORDERED: PROMETHAZINE HCL 12.5 MG in SODIUM CHLORIDE 0.9% 50 ML IV PRN (06:47)
[2019-08-08] MEDS ORDERED: ALBUMIN 25% 50 ML IV ONE (06:47)
[2019-08-08] MEDS ORDERED: INSULIN GLARGINE SOLOSTAR 100 UNITS/ML 3 ML PEN SC STA (06:47)
[2019-08-08] MEDS ORDERED: NITROGLYCERIN SL 0.4 MG/TAB TAB SL PRN (06:47)
[2019-08-08] MEDS ORDERED: CARBOHYDRATES FOR HYPOGLYCEMIA PO PRN (06:47)
[2019-08-08] MEDS ORDERED: DEXTROSE 50% 50 ML SYRINGE IV PRN (06:47)
[2019-08-08] MEDS ORDERED: GLUCOSE 10 TABS/TUBE PO PRN (06:47)
[2019-08-08] MEDS ORDERED: LEVALBUTEROL 1.25MG/0.5ML NEB INH PRN (06:47)
[2019-08-08] MEDS ORDERED: ACETAMINOPHEN 325 MG TAB PO PRN (06:47)
[2019-08-08] MEDS ORDERED: GLUCAGON FOR INJ 1 MG VIAL SQ PRN (06:47)
--- NOTE | 2019-08-08 06:59 | Ultrasound Report ---
ULTRASOUND RIGHT UPPER QUADRANT ABDOMEN CLINICAL HISTORY: Periumbilical abdominal pain. Abnormal gallbladder seen by CT. COMPARISON STUDY: Abdominal CT dated 08/08/2019. TECHNIQUE: Real-time, grayscale, and color flow sonography of the right upper quadrant of the abdomen was performed. Images are reviewed in the transverse and longitudinal planes. FINDINGS: Liver: The liver is normal in size and echotexture. There is no intrahepatic biliary ductal dilatatio n. The main portal vein is patent. Gallbladder: The gallbladder is distended and there are shadowing calcified gallstones. The gallbladd er wall is thickened measure up to 5 mm and there is pericholecystic fluid. A sonographic Polo's si gn is equivocal. The common bile duct measures up to 0.7 cm in diameter. Pancreas: Not visualized due to overlying bowel gas. Right kidney: Survey images of the right kidney demonstrate cortical atrophy. There is no hydronephro sis. Small cysts measure up to 1.7 cm. Ascites: There is trace perihepatic ascites. IMPRESSION: 1. Cholelithiasis with sonographic findings highly concerning for acute cholecystitis. Surgical consu ltation is advised. 2. Trace perihepatic ascites. ACT 112: Negative or not required by law. Electronically signed by: Jeffery Freeman M.D. 08/08/2019 6:58 AM
[2019-08-08] MEDS: INSULIN ASPART 100 UNITS/ML 3 ML PEN SC SCH ×4 (07:44→20:18)
[2019-08-08] MEDS: DOCUSATE SODIUM/SENNA 50/8.6MG TAB PO SCH (07:48)
[2019-08-08] MEDS: MULTIVITAMIN TAB PO SCH (07:48)
[2019-08-08] MEDS: ENOXAPARIN INJ 30 MG/0.3 ML SYR SQ SCH (07:48)
[2019-08-08] MEDS: THIAMINE HCL 50 MG TABLET PO SCH (07:49)
--- NOTE | 2019-08-08 08:20 | XRay Report ---
SINGLE VIEW CHEST CLINICAL HISTORY: Dyspnea. FINDINGS: An AP, portable, upright chest radiograph is compared to study dated 10/21/2017. The examina tion is degraded by portable technique and patient rotation. The patient's head partially obscures th e apices. The patient is status post midline sternotomy. The heart is enlarged noting atherosclerotic calcification of the thoracic aorta. There is mild pulmonary vascular congestion. Chronic interstiti al thickening is similar to previous. There is chronic elevation of the right hemidiaphragm with asso ciated atelectasis. A small right pleural effusion is identified. No pneumothorax is seen. The skelet al structures are osteopenic. The bony thorax is grossly intact. IMPRESSION: 1. Cardiomegaly with mild pulmonary vascular congestion. 2. Small right pleural effusion. ACT 112: Negative or not required by law. Electronically signed by: Jeffery Freeman M.D. 08/08/2019 8:18 AM
[2019-08-08] MEDS: PIPERACILLIN/TAZOBACTAM 3.375 GM in DEXTROSE 5% 100 ML IV SCH ×2 (09:32→17:28)
--- NOTE | 2019-08-08 10:39 | Hospitalist Progress Note ---
Date of Service August 08, 2019 Assessment & Plan (1) Abdominal pain: Present on admission with non radiating mid abdominal pain CT abd pelvis showed the gallbladder is distended and there is pericholecystic stranding and fluid. Findings are highly concerning for acute cholecystitis. Gallbladder U/S showed cholelithiasis with sonographic findings highly concerning for acute cholecystitis. Continue pain controlled Pt does not want and surgical intervention and no surgical consult Continue conservative management with Abx and pain med Will do bowel rest by placing him on NPO with sips and ice chips only Continue IV Zosyn Continue monitor closely Sepsis Possible related to acute cholecystitis Elevated WBC, lactic acid and tachycardia on admission Blood cx and urine cx pending Continue IV zosyn Continue monitor closely Afib Received IV digoxin and lopressor IV on admission rate control with metoprolol Continue metoprolol 25mg BID refused any IV heparin drip due to previous history of GI bleeding ECHO pending Consider cardiology consult, but pt refuses for now continue monitor in tele Colon Mass Pt does not want any work up/evaluation He said that he witnessed his brother went through alot for his cancer Does not want any diagnostic work up and treatment such as chemo/radiation he said that if he is abdominal pain is related to the mass, all he wants is to manage the pain Agreed with palliative care consult 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 Does not want to start on any anticoagulant due to previous history of bleeding CHF CXR showed cardiomegaly with mild pulmonary vascular congestion. Small right pleural effusion. ProBNP 78747 on admission Lasix 40mg IV given in the ER Will hold bumetanide for now Will assess for additional lasix DVT px on Lovenox Code Status DNR/DNI Will consult Palliative (Pt agreed) Subjective Pt was seen and examined Lying in bed complaint of pain around the umbilical hernia area Pt said that this morning after eating, the pain worsening He said that the morphine helps a little Pt made it very clear that he does not want any surgical intervention He said that he would like to proceed with conservative management with abx and pain control I informed him that acute cholecystitis can get worst sometimes and lead to septic He does not want any surgical consult He said that he also talked to his brother about his wishes denies any chest pain, palpitation, dizziness and SOB Physical Exam Physical Exam: General- No acute distress Head- atraumatic Eyes- PERRL, EOMI, ENT- oropharynx clear Neck- supple, no JVD Lungs- clear to auscultation Heart- +tachycardia Abdomen- normal bowel sounds, +tenderness around his umbilical hernia area Extremities- no calf tenderness Neuro- alert, oriented x 3; PERRL, EOMI; no facial palsy; no dysarthria Skin- warm & dry Results & Data ([facility]) Vital Signs (Past 12 Hours) Vital Signs Temp Pulse Pulse Resp BP BP Pulse Ox 08/08/19 07:05 103 H 08/08/19 06:56 36.8 C 103 H 18 144/81 H 96 08/08/19 06:00 97 H 20 130/71 97 08/08/19 05:48 108 H 08/08/19 05:45 108 H 126/70 96 08/08/19 05:30 111 H 126/66 95 08/08/19 05:15 110 H 20 106/59 L 96 08/08/19 04:45 110 H 24 115/65 97 08/08/19 04:10 122 H 30 H 98 08/08/19 03:58 126 H 37 H 96 08/08/19 03:47 126 H 34 H 167/94 H 97 08/08/19 03:41 142 H 184/115 H 08/08/19 03:37 142 H 34 H 184/115 H 98 08/08/19 03:29 83 L 08/08/19 02:30 101 H 20 170/91 H 97 08/08/19 02:00 96 H 21 161/87 H 97 08/08/19 01:55 96 H 21 152/84 H 97 08/08/19 01:30 92 H 16 158/90 H 96 08/08/19 01:00 92 H 15 162/98 H 96 08/08/19 00:30 85 17 156/83 H 95 08/08/19 00:00 89 17 155/76 H 95 08/07/19 23:30 86 22 151/94 H 96 08/07/19 23:00 88 13 152/82 H 94 08/07/19 22:34 84 14 165/85 H 96 (1) Abdominal pain Abdominal location: periumbilical Qualified Code(s): R10.33 - Periumbilical pain
[2019-08-08] MEDS: TRAMADOL HCL 50 MG TABLET PO PRN (11:47)
[2019-08-08] MEDS: ALBUMIN 25% 50 ML IV SCH ×3 (11:48→23:30)
[2019-08-08] MEDS: MoRPHine SULFATE 2 MG/ML CARP IV PRN ×2 (16:09→19:39)
[2019-08-08] MEDS: ATORVASTATIN 40 MG TAB PO SCH (20:17)
[2019-08-09] MEDS: PIPERACILLIN/TAZOBACTAM 3.375 GM in DEXTROSE 5% 100 ML IV SCH ×4 (01:30→21:20)
[2019-08-09] MEDS: ALBUMIN 25% 50 ML IV SCH ×4 (04:48→23:02)
[2019-08-09] MEDS: MoRPHine SULFATE 2 MG/ML CARP IV PRN (04:51)
[2019-08-09 05:50] LABS: Basophils # (auto) 0.03 K/uL (0-0.2); Basophils % (auto) 0.1 %; Eosinophils # (auto) 0.01 K/uL (0-0.5); Hematocrit (blood only) 27.3 % (42-52); Hemoglobin 8.6 g/dL (14.0-18.0); Immature Granulocytes # (auto) 0.07 K/uL (0.00-0.02); Immature Granulocytes % (auto) 0.3 %; Lymphocytes # (auto) 0.69 K/uL (1.2-3.4); Lymphocytes % (auto) 3.3 %; Mean Corpuscular Hemoglobin 26.5 pg (25-34); Mean Corpuscular Hgb Conc 31.5 g/dL (32-36); Mean Corpuscular Volume 84.3 fL (80-100); Mean Platelet Volume 9.9 fL (7.4-10.4); Monocytes # (auto) 1.82 K/uL (0.11-0.59); Monocytes % (auto) 8.7 %; Neutrophils # (auto) 18.42 K/uL (1.4-6.5); Neutrophils % (auto) 87.6 %; Platelet Count 223 K/uL (130-400); RDW Coefficient of Variation 16.7 % (11.5-14.5); RDW Standard Deviation 51.3 fL (36.4-46.3); Red Blood Count 3.24 M/uL (4.7-6.1); White Blood Count 21.04 K/uL (4.8-10.8)
--- NOTE | 2019-08-09 06:16 | Emergency Department Note ---
Entered by Mynor Mancia acting as a scribe for History of Present Illness General Chief complaint: Abdominal Pain Stated complaint: ABD PAIN Time Seen by Provider: 08/07/19 22:59 Source: patient History of Present Illness Onset (ago): hour(s) (1800 tonight) Location: abdomen Radiation: back Pain Consistency: + constant Maximum Pain Intensity: 6 Associated symptoms: + other (Positive for back pain. Negative for rectal bleeding, fever, chills, nausea, and vomiting.) The patient is an 84 year old male who presents to the emergency department with complaints of constant abdominal pain beginning at 1800 tonight. The patient states that he has had constant mid abdominal pain since 1800 that has slightly worsened since he came to the emergency department. He notes that his pain mildly radiates through to his back. He reports that he tried lying in different positions with no relief of his symptoms. The patient states that he also tried taking Tums with no relief of his symptoms. He notes that he has had some changes in his bowel movements over the last one and a half years, and he reports that he pretty frequently takes a laxative. The patient states that he had a normal bowel movement yesterday, but he denies any bowel movements today. He notes that he has also had occasional rectal bleeding over the last year and a half, but he denies any rectal bleeding over the last two weeks. He also denies any fever, chills, nausea, and vomiting. He reports that he had heart surgery in 2001, and he states that he had an umbilical hernia at that time. He notes that he also has a history of bronchitis. Home Medications Home Medications Medication Instructions Recorded Confirmed Type atenolol 50 mg PO DAILY 08/07/19 08/07/19 History atorvastatin 40 mg PO HS 08/07/19 08/07/19 History bumetanide 1 mg PO DAILY 08/07/19 08/07/19 History multivitamin 1 tab PO DAILY 08/07/19 08/07/19 History potassium chloride [Klor-Con 10] 10 meq PO DIRECTED 08/07/19 08/07/19 History thiamine HCl (vitamin B1) 50 mg PO DAILY 08/07/19 08/07/19 History Allergies Allergy/AdvReac Type Severity Reaction Status Date / Time ibuprofen AdvReac Severe RAPID Unverified 10/13/17 15:29 HEART RATE Past Med/Surg History Medical History (Updated 08/08/19 @ 11:[address] MD) Bronchitis CAD (coronary artery disease) of artery bypass graft CHF (congestive heart failure) Umbilical hernia Family History (Updated 08/07/19 @ 23:14 by Mynor Mancia) Other No significant family history Social History Preferred Language: Divehi Communication Ability: Effective 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 and A total of 10 systems reviewed and were otherwise negative Physical Exam Vital Signs Vital Signs - 24 hr 08/07/19 22:18 08/07/19 22:34 08/07/19 23:00 Temperature 97.3 F L Temperature Source Oral Pulse Rate 98 H 84 88 Pulse Rate [Right Finger] Pulse Rate from SpO2 Sensor 83 87 Pulse Rhythm [Right Finger] Pulse Strength [Right Finger] Respiratory Rate 16 14 13 Respiratory Effort / Characteristics Non-Labored Spontaneous Respiratory Depth Normal Respiratory Pattern Regular Blood Pressure 165/70 H 165/85 H 152/82 H Blood Pressure [Right Arm] Blood Pressure Mean 101 109 93 Blood Pressure Mean [Right Arm] Blood Pressure Position Sitting Pulse Oximetry 96 96 94 Oxygen Delivery Method Room Air Room Air Room Air Oxygen Flow Rate Fraction of Inspired Oxygen Sepsis Recent Fever Within 48 Hours No Sepsis Action Taken by Nursing No Action Required Oxygen Flow Rate - Titration Pulse Oximetry Post Tiitration 08/07/19 23:30 08/08/19 00:00 08/08/19 00:30 Temperature Temperature Source Pulse Rate 86 89 85 Pulse Rate [Right Finger] Pulse Rate from SpO2 Sensor 89 90 89 Pulse Rhythm [Right Finger] Pulse Strength [Right Finger] Respiratory Rate 22 17 17 Respiratory Effort / Characteristics Respiratory Depth Respiratory Pattern Blood Pressure 151/94 H 155/76 H 156/83 H Blood Pressure [Right Arm] Blood Pressure Mean 110 114 102 Blood Pressure Mean [Right Arm] Blood Pressure Position Pulse Oximetry 96 95 95 Oxygen Delivery Method Room Air Room Air Room Air Oxygen Flow Rate Fraction of Inspired Oxygen Sepsis Recent Fever Within 48 Hours Sepsis Action Taken by Nursing Oxygen Flow Rate - Titration Pulse Oximetry Post Tiitration 08/08/19 01:00 08/08/19 01:30 08/08/19 01:55 Temperature Temperature Source Pulse Rate 92 H 92 H 96 H Pulse Rate [Right Finger] Pulse Rate from SpO2 Sensor 95 H 92 H 96 H Pulse Rhythm [Right Finger] Pulse Strength [Right Finger] Respiratory Rate 15 16 21 Respiratory Effort / Characteristics Respiratory Depth Respiratory Pattern Blood Pressure 162/98 H 158/90 H 152/84 H Blood Pressure [Right Arm] Blood Pressure Mean 120 107 106 Blood Pressure Mean [Right Arm] Blood Pressure Position Pulse Oximetry 96 96 97 Oxygen Delivery Method Room Air Room Air Room Air Oxygen Flow Rate Fraction of Inspired Oxygen Sepsis Recent Fever Within 48 Hours Sepsis Action Taken by Nursing Oxygen Flow Rate - Titration Pulse Oximetry Post Tiitration 08/08/19 02:00 08/08/19 02:30 08/08/19 03:29 Temperature Temperature Source Pulse Rate 96 H 101 H Pulse Rate [Right Finger] Pulse Rate from SpO2 Sensor 96 H 102 H Pulse Rhythm [Right Finger] Pulse Strength [Right Finger] Respiratory Rate 21 20 Respiratory Effort / Characteristics Respiratory Depth Respiratory Pattern Blood Pressure 161/87 H 170/91 H Blood Pressure [Right Arm] Blood Pressure Mean 127 107 Blood Pressure Mean [Right Arm] Blood Pressure Position Pulse Oximetry 97 97 83 L Oxygen Delivery Method Room Air Room Air Room Air Nasal Cannula Oxygen Flow Rate Fraction of Inspired Oxygen Sepsis Recent Fever Within 48 Hours Sepsis Action Taken by Nursing Oxygen Flow Rate - Titration 3 Pulse Oximetry Post Tiitration 96 08/08/19 03:37 08/08/19 03:41 08/08/19 03:47 Temperature Temperature Source Pulse Rate 142 H Pulse Rate [Right Finger] 142 H 126 H Pulse Rate from SpO2 Sensor Pulse Rhythm [Right Finger] Regular Pulse Strength [Right Finger] Normal Respiratory Rate 34 H 34 H Respiratory Effort / Characteristics Labored Labored Respiratory Depth Respiratory Pattern Regular Blood Pressure 184/115 H Blood Pressure [Right Arm] 184/115 H 167/94 H Blood Pressure Mean Blood Pressure Mean [Right Arm] 138 118 Blood Pressure Position Pulse Oximetry 98 97 Oxygen Delivery Method Oxymask Oxymask Oxygen Flow Rate 4 5 Fraction of Inspired Oxygen Sepsis Recent Fever Within 48 Hours Sepsis Action Taken by Nursing Oxygen Flow Rate - Titration Pulse Oximetry Post Tiitration 08/08/19 03:58 08/08/19 04:10 08/08/19 04:45 Temperature Temperature Source Pulse Rate 126 H 110 H Pulse Rate [Right Finger] 122 H Pulse Rate from SpO2 Sensor 111 H Pulse Rhythm [Right Finger] Pulse Strength [Right Finger] Respiratory Rate 37 H 30 H 24 Respiratory Effort / Characteristics Spontaneous Labored Short of Breath Spontaneous Labored Short of Breath Respiratory Depth Normal Respiratory Pattern Tachypnea Blood Pressure 115/65 Blood Pressure [Right Arm] Blood Pressure Mean 73 Blood Pressure Mean [Right Arm] Blood Pressure Position Pulse Oximetry 96 98 97 Oxygen Delivery Method BiPAP Oxygen Flow Rate Fraction of Inspired Oxygen 30 30 Sepsis Recent Fever Within 48 Hours Sepsis Action Taken by Nursing Oxygen Flow Rate - Titration Pulse Oximetry Post Tiitration GENERAL: alert, well appearing, well nourished, no distress, non-toxic EYE EXAM: normal conjunctiva, PERRL and EOM's grossly intact OROPHARYNX: no exudate, no erythema, lips, buccal mucosa, and tongue normal and mucous membranes are dry, edentulous. NECK: supple, no nuchal rigidity, no adenopathy, non-tender LUNGS: Clear to auscultation. Normal chest wall mechanics, no w/r/r HEART: no murmurs, S1 normal and S2 normal ABDOMEN: abdomen soft, normo-active bowel sounds, no rebound or guarding. Small umbilical hernia, easily reduced, no overlying erythema, periumbilical tenderness to palpation, tympanic to percussion in the bilateral upper quadrants. BACK: Back is symmetrical on inspection and there is no deformity, no midline tenderness, no CVA tenderness. SKIN: no rashes and no bruising UPPER EXTREMITIES: upper extremities are grossly normal. FROM, nml pulses b/l. LOWER EXTREMITIES: 3+ lower extremity edema. FROM, nml pulses b/l. NEURO EXAM: Normal sensorium, cranial nerves II-XII grossly intact, normal speech, no gross weakness of arms, no gross weakness of legs. Course Course 2301: The patient was evaluated in room B8. A complete history and physical exam was performed. 0133: I reevaluated and updated the patient. 0320: I rechecked the patient. I updated him and his family on results. The patient became very tachycardic and dyspneic. He was also hypoxic and his oxygen saturation dropped to 79% with a good wave form. The patient was placed on a nasal cannula and now onto a face mask. His rapid heart rate appears to be atrial fibrillation. The patient's son states that the patient has been having intermittent bleeding with bowel movements. 0345: I reevaluated and updated the patient. His heart rate improved to the 120s after metoprolol. He is still very dyspneic and tachycardic. His oxygen satu ration was in the 90s. Respiratory will be called to place the patient on BiPAP. 0352: Upon reevaluation, the patient is stable. I discussed the findings and the treatment plan with the patient. He expresses agreement and understanding. I spoke with Dr. Lane of the [facility]. The patient will be evaluated for further management. 0418: I rechecked the patient. He is markedly improved on BiPAP. He has improved color. His heart rate is 115 and his pulse ox is 100%. Consultations Consultation #1: I reviewed the patient's case with Dr. Lane - Hospitalist, [facility]. He will evaluate the patient for further management. Time: 03:52 Administered Medications Atorvastatin Calcium (Lipitor) 40 mg PO HS PAWEL Stop: 09/07/19 20:59 Last Admin: 08/08/19 20:17 Dose: 40 mg Documented by: [id number] Enoxaparin Sodium (Lovenox) 30 mg SQ QAM PAWEL Stop: 09/07/19 08:59 Last Admin: 08/08/19 07:48 Dose: 30 mg Documented by: [id number] Albumin Human (Albumin 25%) 50 mls @ 50 mls/hr IV Q6H PAWEL Stop: 08/11/19 11:59 Last Infusion: 08/09/19 05:31 Dose: 0 mls/hr Documented by: [id number] Infusion: 08/09/19 04:52 Dose: 50 mls/hr Documented by: [id number] Admin: 08/09/19 04:48 Dose: 50 mls/hr Documented by: [id number] Infusion: 08/09/19 00:32 Dose: 0 mls/hr Documented by: [id number] Admin: 08/08/19 23:30 Dose: 50 mls/hr Documented by: [id number] Infusion: 08/08/19 18:26 Dose: 0 mls/hr Documented by: [id number] Admin: 08/08/19 17:28 Dose: 50 mls/hr Documented by: [id number] Infusion: 08/08/19 12:49 Dose: 0 mls/hr Documented by: [id number] Admin: 08/08/19 11:48 Dose: 50 mls/hr Documented by: [id number] Piperacillin Sod/Tazobactam (Sod 3.375 gm/ Dextrose) 115 mls @ 28.75 mls/hr IV Q8H [facility]; Protocol Stop: 08/18/19 09:59 Last Infusion: 08/09/19 04:53 Dose: 0 mls/hr Documented by: [id number] Admin: 08/09/19 01:30 Dose: 30 mls/hr Documented by: [id number] Infusion: 08/08/19 21:30 Dose: 0 mls/hr Documented by: [id number] Admin: 08/08/19 17:28 Dose: 30 mls/hr Documented by: [id number] Infusion: 08/08/19 13:33 Dose: 0 mls/hr Documented by: [id number] Admin: 08/08/19 09:32 Dose: 28.8 mls/hr Documented by: [id number] Insulin Aspart (Novolog Flexpen) 0 units SC ACHS [facility] Stop: 09/07/19 06:59 Last Admin: 08/08/19 20:18 Dose: Not Given Documented by: [id number] Cosigned by: [id number] Admin: 08/08/19 16:10 Dose: Not Given Documented by: [id number] Cosigned by: [id number] Admin: 08/08/19 11:45 Dose: 1 units Documented by: [id number] Cosigned by: [id number] Admin: 08/08/19 07:44 Dose: 6 units Documented by: [id number] Cosigned by: [id number] Metoprolol Tartrate (Lopressor) 25 mg PO BID [facility] Stop: 09/07/19 05:05 Last Admin: 08/08/19 20:17 Dose: 25 mg Documented by: [id number] Admin: 08/08/19 05:27 Dose: Not Given Documented by: [id number] Morphine Sulfate (Morphine Sulfate) 2 mg IV Q3H PRN PRN Reason: Pain Stop: 08/22/19 06:46 Last Admin: 08/09/19 04:51 Dose: 2 mg Documented by: [id number] Admin: 08/08/19 19:39 Dose: 2 mg Documented by: [id number] Admin: 08/08/19 16:09 Dose: 2 mg Documented by: [id number] Multivitamins (Multivitamin Tab) 1 tab PO DAILY PAWEL Stop: 09/07/19 08:59 Last Admin: 08/08/19 07:48 Dose: 1 tab Documented by: [id number] Senna/Docusate Sodium (Senokot S) 1 tab PO QAM PAWEL Stop: 09/07/19 08:59 Last Admin: 08/08/19 07:48 Dose: 1 tab Documented by: [id number] Thiamine HCl (Vitamin B-1) 50 mg PO DAILY PAWEL Stop: 09/07/19 08:59 Last Admin: 08/08/19 07:49 Dose: 50 mg Documented by: [id number] Tramadol HCl (Ultram) 25 - 50 mg PO Q4H PRN PRN Reason: Pain Stop: 09/07/19 06:46 Last Admin: 08/08/19 11:47 Dose: 50 mg Documented by: [id number] Discontinued Medications Digoxin (Lanoxin) Confirm Administered Dose 250 mcg IV .STK-MED ONE Stop: 08/08/19 05:44 Last Admin: 08/08/19 05:49 Dose: Not Given Documented by: [id number] Furosemide (Lasix) 40 mg IV NOW STA Stop: 08/08/19 04:06 Last Admin: 08/08/19 04:21 Dose: 40 mg Documented by: [id number] Sodium Chloride (Nss 1000ml) 1,000 mls @ 125 mls/hr IV .Q8H PAWEL Stop: 09/06/19 23:29 Last Infusion: 08/08/19 07:04 Dose: 0 mls/hr Documented by: [id number] Infusion: 08/08/19 04:31 Dose: 0 mls/hr Documented by: [id number] Admin: 08/07/19 23:32 Dose: 125 mls/hr Documented by: [id number] Acetaminophen (Ofirmev) 1,000 mg in 100 mls @ 400 mls/hr IV NOW STA Stop: 08/07/19 23:30 Last Infusion: 08/08/19 00:07 Dose: 0 mls/hr Documented by: [id number] Admin: 08/07/19 23:32 Dose: 400 mls/hr Documented by: [id number] Piperacillin Sod/Tazobactam Sod (Zosyn) 4.5 gm in 120 mls @ 240 mls/hr IV NOW ONE Stop: 08/08/19 04:27 Last Infusion: 08/08/19 05:18 Dose: 0 mls/hr Documented by: [id number] Admin: 08/08/19 04:28 Dose: 240 mls/hr Documented by: [id number] Potassium Chloride (K Vikas / Wtr) 10 meq in 100 mls @ 100 mls/hr IV Q1H PAWEL Stop: 08/08/19 06:00 Last Infusion: 08/08/19 07:04 Dose: 0 mls/hr Documented by: [id number] Admin: 08/08/19 05:34 Dose: 100 mls/hr Documented by: [id number] Infusion: 08/08/19 05:33 Dose: 0 mls/hr Documented by: [id number] Admin: 08/08/19 04:28 Dose: 100 mls/hr Documented by: [id number] Digoxin 250 mcg/ Syringe 10 mls @ 2 mls/min IV NOW STA Stop: 08/08/19 05:42 Last Admin: 08/08/19 05:48 Dose: 2 mls/min Documented by: [id number] Albumin Human (Albumin 25%) 50 mls @ 50 mls/hr IV ONE ONE Stop: 08/08/19 07:46 Last Infusion: 08/08/19 08:52 Dose: 0 mls/hr Documented by: [id number] Admin: 08/08/19 07:47 Dose: 50 mls/hr Documented by: [id number] Insulin Glargine (Lantus Solostar Pen) 20 units SC NOW STA Stop: 08/08/19 06:48 Last Admin: 08/08/19 07:45 Dose: 20 units Documented by: [id number] Cosigned by: [id number] Ioversol (Optiray 320 100ml) 93 ml IV ONCE PRN PRN Reason: Interaction Checking Stop: 08/12/19 01:27 Last Admin: 08/08/19 01:28 Dose: 93 ml Documented by: [id number] Ipratropium [place] (Atrovent 0.02% 0.5mg/2.5ml) 0.5 mg INH NOW STA Stop: 08/08/19 04:01 Last Admin: 08/08/19 04:09 Dose: 0.5 mg Documented by: [id number] Levalbuterol HCl (Xopenex 1.25mg/0.5ml Neb) 1.25 mg INH NOW STA Stop: 08/08/19 04:01 Last Admin: 08/08/19 04:09 Dose: 1.25 mg Documented by: [id number] Methylprednisolone (Solumedrol) 20 mg IV NOW STA Stop: 08/08/19 04:03 Last Admin: 08/08/19 04:21 Dose: 20 mg Documented by: [id number] Metoprolol Tartrate (Lopressor) 5 mg IV NOW STA Stop: 08/08/19 03:39 Last Admin: 08/08/19 03:41 Dose: 5 mg Documented by: [id number] Metoprolol Tartrate (Lopressor) Confirm Administered Dose 5 mg IV .STK-MED ONE Stop: 08/08/19 03:40 Last Admin: 08/08/19 03:43 Dose: Not Given Documented by: [id number] Metoprolol Tartrate (Lopressor) 2.5 mg IV NOW Stop: 08/08/19 04:16 Last Admin: 08/08/19 04:32 Dose: 2.5 mg Documented by: [id number] Morphine Sulfate (Morphine Sulfate) 2 mg IV Q4H PRN PRN Reason: Pain Stop: 08/22/19 06:46 Last Admin: 08/08/19 08:39 Dose: 2 mg Documented by: [id number] Potassium Chloride (Klor-Con M10) 50 meq PO NOW STA Stop: 08/08/19 05:24 Last Admin: 08/08/19 05:47 Dose: 50 meq Documented by: [id number] Critical Care Time Critical Care Time: Yes Total Critical Care Time: 50 I have personally spent 50 minutes of critical care time in the direct management of this patient. This includes bedside care, interpretation of diagnostic studies, and testing, discussion with consultants, patient, and family members, and other required patient management activities. This 50 minutes is in excess of all separately billable procedures. Medical Decision Making Differential Diagnosis Differential diagnoses includes but is not limited to gastritis, peptic ulcer disease, GERD, gallbladder disease, pancreatitis, small bowel obstruction, acute coronary syndrome, pericarditis, ischemic bowel, irritable bowel disease, i rritable bowel syndrome, appendicitis, diverticulitis, malignancy, hernia, urinary tract infection, torsion, perforation, trauma, infectious. Medical Records Attestation: I reviewed the patient's medical records. Home Medications Current Medication List: was personally reviewed by me Laboratory Data Attestation: I reviewed the patient's lab results. Result diagrams: 08/09/19 05:29 08/07/19 22:35 Lab Results 08/07/19 08/07/19 08/07/19 Range/Units 22:35 22:35 23:37 WBC 12.94 H (4.8-10.8) K/uL RBC 3.99 L (4.7-6.1) M/uL Hgb 10.8 L (14.0-18.0) g/dL Hct 34.8 L (42-52) % MCV 87.2 (80-100) fL MCH 27.1 (25-34) pg MCHC 31.0 L (32-36) g/dL RDW Std Deviation 53.7 H (36.4-46.3) fL RDW Coeff of [place] 16.7 H (11.5-14.5) % Plt Count 304 (130-400) K/uL MPV 10.3 (7.4-10.4) fL Immature Gran % (Auto) 0.3 % Neut % (Auto) 81.1 % Lymph % (Auto) 10.7 % [place] % (Auto) 7.0 % Eos % (Auto) 0.5 % Baso % (Auto) 0.4 % Immature Gran # (Auto) 0.04 H (0.00-0.02) K/uL Neut # (Auto) 10.49 H (1.4-6.5) K/uL Lymph # (Auto) 1.39 (1.2-3.4) K/uL [place] # (Auto) 0.90 H (0.11-0.59) K/uL Eos # (Auto) 0.07 (0-0.5) K/uL Baso # (Auto) 0.05 (0-0.2) K/uL Sodium 137 (136-145) mmol/L Potassium 3.3 L (3.5-5.1) mmol/L Chloride 99 (98-107) mmol/L Carbon Dioxide 30 (21-32) mmol/L Anion Gap 9.0 (3-11) BUN 20 H (7-18) mg/dl Creatinine 1.40 (0.6-1.4) mg/dl Est Cr Clr Drug Dosing 39.8 ml/min Est GFR ( Amer) 52.7 Est GFR (Non-Af Amer) 45.5 BUN/Creatinine Ratio 14.3 (10-20) Glucose 289 H (70-99) mg/dl Lactate 3.3 H* (0.4-2.0) mmol/L Calcium 8.7 (8.5-10.1) mg/dl Magnesium (1.8-2.4) mg/dl Total Bilirubin 0.6 (0.2-1) mg/dl AST 19 (15-37) U/L ALT 14 (12-78) U/L Alkaline Phosphatase 162 H (45-117) U/L Troponin I (0-0.045) ng/ml NT-Pro-B Natriuret Pep (0-1800) pg/ml Total Protein 7.4 (6.4-8.2) gm/dl Albumin 2.9 L (3.4-5.0) gm/dl Globulin 4.4 H (2.5-4.0) gm/dl Albumin/Globulin Ratio 0.7 L (0.9-2) Lipase 151 (73-393) U/L TSH (0.300-4.500) uIu/ml Urine Color Urine Appearance (Clear) Urine pH (4.5-7.5) Ur Specific [place] (1.000-1.030) Urine Protein (Negative) Urine Glucose (UA) (Negative) Urine Ketones (Negative) Urine Blood (Negative) Urine Nitrite (Negative) Urine Bilirubin (Negative) Urine Urobilinogen (Negative) Ur Leukocyte Esterase (Negative) Urine WBC (Auto) (0-5) /hpf Urine RBC (Auto) (0-4) /hpf U Hyaline Cast (Auto) (0-5) /lpf U Epithel Cells (Auto) (0-5) /lpf Urine Bacteria (Auto) (Negative) 08/08/19 08/08/19 08/08/19 Range/Units 03:23 03:52 03:52 WBC (4.8-10.8) K/uL RBC (4.7-6.1) M/uL Hgb (14.0-18.0) g/dL Hct (42-52) % MCV (80-100) fL MCH (25-34) pg MCHC (32-36) g/dL RDW Std Deviation (36.4-46.3) fL RDW Coeff of [place] (11.5-14.5) % Plt Count (130-400) K/uL MPV (7.4-10.4) fL Immature Gran % (Auto) % Neut % (Auto) % Lymph % (Auto) % [place] % (Auto) % Eos % (Auto) % Baso % (Auto) % Immature Gran # (Auto) (0.00-0.02) K/uL Neut # (Auto) (1.4-6.5) K/uL Lymph # (Auto) (1.2-3.4) K/uL [place] # (Auto) (0.11-0.59) K/uL Eos # (Auto) (0-0.5) K/uL Baso # (Auto) (0-0.2) K/uL Sodium (136-145) mmol/L Potassium (3.5-5.1) mmol/L Chloride (98-107) mmol/L Carbon Dioxide (21-32) mmol/L Anion Gap (3-11) BUN (7-18) mg/dl Creatinine (0.6-1.4) mg/dl Est Cr Clr Drug Dosing ml/min Est GFR ( Amer) Est GFR (Non-Af Amer) BUN/Creatinine Ratio (10-20) Glucose (70-99) mg/dl Lactate 8.6 H* (0.4-2.0) mmol/L Calcium (8.5-10.1) mg/dl Magnesium 2.0 (1.8-2.4) mg/dl Total Bilirubin (0.2-1) mg/dl AST (15-37) U/L ALT (12-78) U/L Alkaline Phosphatase (45-117) U/L Troponin I 0.041 (0-0.045) ng/ml NT-Pro-B Natriuret Pep 81205 H (0-1800) pg/ml Total Protein (6.4-8.2) gm/dl Albumin (3.4-5.0) gm/dl Globulin (2.5-4.0) gm/dl Albumin/Globulin Ratio (0.9-2) Lipase (73-393) U/L TSH 3.360 (0.300-4.500) uIu/ml Urine Color Yellow Urine Appearance Clear (Clear) Urine pH 7.0 (4.5-7.5) Ur Specific [place] > 1.045 H (1.000-1.030) Urine Protein Negative (Negative) Urine Glucose (UA) 2+ H (Negative) Urine Ketones Negative (Negative) Urine Blood Negative (Negative) Urine Nitrite Negative (Negative) Urine Bilirubin Negative (Negative) Urine Urobilinogen Negative (Negative) Ur Leukocyte Esterase Trace H (Negative) Urine WBC (Auto) 10-30 H (0-5) /hpf Urine RBC (Auto) 0-4 (0-4) /hpf U Hyaline Cast (Auto) 1-5 (0-5) /lpf U Epithel Cells (Auto) 5-10 H (0-5) /lpf Urine Bacteria (Auto) Negative (Negative) Imaging Data Attestation: I personally reviewed and interpreted this imaging study as follows: My Impression: SINGLE VIEW CHEST X-RAY: Sternotomy wires noted. No cardiomegaly. Elevated right hemidiaphragm. No focal consolidation. No wide mediastinum. Questionable early bilateral pulmonary edema. Radiologist's Impression: Radiology results as stated below per my review and the radiologist's interpretation: US RUQ: The liver parenchyma appears unremarkable. There is a trace amount of free third adjacent to the liver. The right kidney measures 9 x 5.7 cm with no hydronephrosis. There is a 1.3 cm simple cyst. The gallbladder is mildly dilated with mild wall thickening measuring 5 mm. There is a small amount of adjacent free fluid. There are calcified gallstones in the dependent portion of the gallbladder which are better seen on the recent CT scan and ultrasound. Consider acute cholecystitis. Radiologist: Steve Bynum MD. CT SCAN OF THE ABDOMEN AND PELVIS WITH IV CONTRAST FINDINGS: Lung bases: The patient is status post midline sternotomy. The heart is enlarged and without pericardial effusion. The coronary arteries are densely calcified. There is a small hiatal hernia. There are small right and trace left pleural effusions with associated atelectasis. There is chronic elevation of the right hemidiaphragm. No airspace consolidation is seen typical for pneumonia. Liver: The contrast-enhanced liver is normal in size, contour, and attenuation. There is no intrahepatic biliary ductal dilatation. The hepatic veins and portal veins are patent. Gallbladder: There are numerous gallstones. The gallbladder is markedly distended, and there is pericholecystic inflammatory stranding as well as trace pericholecystic fluid. Spleen: Normal in size and attenuation. Pancreas: The pancreas is markedly atrophic. The pancreatic duct is diffusely dilated measuring up to 11 mm in diameter. Adrenal glands: Unremarkable. Kidneys: The contrast enhanced kidneys are atrophic and without hydronephrosis. The kidneys enhance symmetrically. Renal cysts measure up to 2.2 cm. Additional subcentimeter cortical hypodensities also likely represent cysts but are too small for definitive characterization. Abdominal vasculature: There is advanced atherosclerotic calcification and ectasia of the abdominal aorta. Ectasia of the left common iliac artery measures up to 1.7 cm. Bowel: The stomach is markedly distended with enteric contrast. There is no bowel obstruction. There is advanced colonic diverticulosis without CT evidence of acute diverticulitis. Moderate to severe constipation is observed. Enteric contrast reaches the distal small bowel. There is a long segment of irregular circumferential wall an irregular thickening involving the sigmoid colon with no significant surrounding inflammatory change. This extends at least 11 cm in length. There are numerous enlarged pericolonic lymph nodes versus thrombosed pericolonic veins, and the appearance is highly concerning for mass lesion. The appendix is well-visualized and normal. Peritoneum: There is trace perihepatic ascites. No intraperitoneal free air is seen. There is a large fat-containing umbilical hernia. 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 The splenic vein and superior mesenteric vein are patent. Lymphadenopathy: Question enlarged pericolonic lymph nodes around the sigmoid colon versus thrombosed pericolonic veins. Suspect interval aggregate in the mesentery on image #284 measures approximately 5.5 x 2.5 cm. Pelvic viscera: The prostate gland is markedly enlarged and heterogeneous, measuring 5.4 cm transverse diameter. There is median lobe hypertrophy. The bladder wall is thickened and trabeculated indicating chronic outlet obstructio n. There is a fat and fluid containing left inguinal hernia. Skeletal structures: The skeletal structures are osteopenic. There is moderate lumbosacral spondylosis. No lytic or blastic lesions are seen. IMPRESSION: 1. There are calcified gallstones. The gallbladder is distended and there is pericholecystic stranding and fluid. Findings are highly concerning for acute cholecystitis. 2. There is evidence of a large mass lesion involving the sigmoid colon. This should be considered colon cancer until proven otherwise. There is no evidence of upstream obstruction. 3. Question numerous enlarged pericolonic lymph nodes versus numerous thrombosed pericolonic veins. Additionally, mesenteric adenopathy is suspected. These findings are highly concerning for metastatic disease. 4. 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 5. The pancreas is atrophic and there is marked dilatation of the pancreatic duct. This could related to proximal stricture or obstructing lesion, or possibly a main duct IPMN. 6. Cardiomegaly and small bilateral pleural effusions. 7. There is trace perihepatic ascites. 8. Prostatomegaly with evidence of chronic bladder outlet obstruction. 9. There is a fat and fluid containing left inguinal hernia. 10. Advanced colonic diverticulosis without CT evidence of acute diverticulitis. ACT 112: Negative or not required by law. Electronically signed by: Jeffery Freeman M.D. 08/08/2019 2:10 AM ECG Data Attestation: I personally reviewed and interpreted this ECG as follows: Indication: + abdominal pain Rate (beats per minute): 136 Rhythm: + atrial fibrillation ECG [place]: + Normal ECG ST segments: + ST depression (in lead 2, AVF, V4, V5, and V6); no ST e levation Additional Comments: Normal intervals. Blood Pressure Blood Pressure Findings: Normal blood pressure Blood Pressure Disposition: did not require urgent referral MDM Narrative Patient here initially well-appearing with concern for abdominal pain. Patient sent for CT imaging which was suggestive of acute cholecystitis, however patient also found to have a colonic mass. On additional discussion with the patient and son at bedside, he has had intermittent blood with his bowel movements for quite some time and there is a significant family history of colon cancer. Patient is never had a colonoscopy. Upon return from CT, patient was noted to have tachycardia, dyspnea, tachypnea, became hypoxic. I evaluated the patient in the room, and patient was transitioned to additional supplemental oxygen, and then due to his condition I asked respiratory to start BiPAP therapy. Metoprolol IV was ordered for his heart rate. Additional labs were placed. Given that I would already page the hospitalist, I discussed his acute clinical changes with them and asked that they come see him more urgently. I defer decision for heparin drip to them given concern for rectal bleeding and need for potential surgery. Discussed with them possible need for antibiotic coverage as he would need additional evaluation prior to any surgical intervention. They will evaluate and place this order. Patient was markedly improved here on BiPAP. Stat chest x-ray performed in addition which revealed mild pulmonary edema. Troponin negative. Impression & Plan Abdominal pain, Cholecystitis, Atrial fibrillation, Hypoxia, Dyspnea, Mass of colon Discharge Plan Visit Data *Final* Discharge Date/Time: 08/08/19 06:18 Chief Complaint: Abdominal Pain Stated Complaint: ABD PAIN ED Provider: Marcia Hartley Discharge Problem: Abdominal pain, Cholecystitis, Atrial fibrillation, Hypoxia, Dyspnea, Mass of colon Patient Disposition: Admitted As Inpatient Discharge Instructions Interventions: ED Discharge Assessment Last Done: 08/08/19 06:18 Discharge Problem: Abdominal pain Qualifiers: Abdominal location: periumbilical Qualified Code(s): R10.33 - Periumbilical pain Atrial fibrillation Qualifiers: Atrial fibrillation type: unspecified Qualified Code(s): I48.91 - Unspecified atrial fibrillation Dyspnea Qualifiers: Dyspnea type: unspecified Qualified Code(s): R06.00 - Dyspnea, unspecified The scribe's documentation has been prepared under my direction and personally reviewed by me in its entirety. I confirm that the note above accurately reflects all work, treatment, procedures, and medical decision making performed by me.
[2019-08-09 06:23] LABS: BUN Creatinine Ratio 16.4 (10-20); Calcium 8.2 mg/dl (8.5-10.1); Creatinine Clr Calc Pharmacy 46.9 ml/min; Est GFR (African American) 64.2; Est GFR (Non-African American) 55.4; Magnesium 1.9 mg/dl (1.8-2.4); Potassium 3.5 mmol/L (3.5-5.1)
[2019-08-09 06:41] LABS: Estimated Average Glucose 143 mg/dl; Hemoglobin A1C 6.6 % (4.5-5.6)
[2019-08-09] MEDS: GLUCOSE 40% GEL 15 GM TUBE PO PRN ×2 (07:56→08:32)
[2019-08-09] MEDS: INSULIN ASPART 100 UNITS/ML 3 ML PEN SC SCH ×4 (08:34→20:28)
[2019-08-09] MEDS: INSULIN GLARGINE SOLOSTAR 100 UNITS/ML 3 ML PEN SC SCH (08:35)
[2019-08-09] MEDS: METOPROLOL TARTRATE 25 MG TAB PO SCH ×2 (08:35→20:29)
[2019-08-09] MEDS: ENOXAPARIN INJ 30 MG/0.3 ML SYR SQ SCH (08:35)
[2019-08-09] MEDS: DOCUSATE SODIUM/SENNA 50/8.6MG TAB PO SCH (08:36)
[2019-08-09] MEDS: MULTIVITAMIN TAB PO SCH (08:36)
[2019-08-09] MEDS: THIAMINE HCL 50 MG TABLET PO SCH (08:36)
--- NOTE | 2019-08-09 11:10 | Palliative Care Consultation ---
Date of Consultation August 09, 2019 Assessment & Plan (1) Goals of care, counseling/discussion: This is an 84 year old male who presented to the [facility]'s ED with abdominal pain and nausea that has been effecting him over the past 48 hours. A CXR was performed and results indicated that he had a right pleural effusion. A CT was performed and revealed a thrombosis in the inferior mesenteric vein. [place]NP [place] 57611. The patient was placed on Bipap to provide respiratory support and he was started on IV abx and diuretics. Additionally, an incidental sigmoid mass was found on CT and is suspicious for malignancy. Additional PMH includes CHF (EF 55% NEIDA 2018), HTN, AF, GIB, and cardiomegaly. The patient indicated that he lives with his brother Reg and [id number], Wendy. He was clear to the hospitalist that he would not want any anticoagulation for his DVT nor would he want any surgery or treatment if the sigmoid mass indeed was cancer. From a pain standpoint, his abdominal pain has been well controlled with Morphine 2mg Q3 hours PRN. Palliative Care was consulted to discuss goals of care. -I met with the patient in room 210 with nursing home assistant Barry. He was sleeping when I entered. -Patient woke and then two family members entered as well, Blake and his . Patient lives with Mayito his brother and his sister in law, Wendy. -Patient is awake, alert, and oriented. We discussed his current hospitalization and what he was able to do prior to admission. He is pretty independent, ambulating without assistive devices, spends a lot of time at the [employer] and likes dating women! -He served in the [employer] for 4 years and has never driven a car. -He agrees that he does not want aggressive measures taken with his care. -We discussed Hospice services and its capabilities. In theory, he likes this idea, but also feels that they will not allow him to continue doing what brings him omid. I discussed more in depth their goal and capabilities. He was in agreement to discuss or meet with a Hospice Liason, but wants to discuss with his brother, Mayito first. He has concerns about individuals entering their home. -He declined in my contacting Mayito at this time. -We started to complete a POLST form but he wants to talk to his brother before completing. Confirmed DNR/DNI, and no artificial nutrition/hydration. -I discussed the above with the hospitalist and the rehabilitation case coordinator who will discuss further regarding hospice or any additional discharge planning. Ultimately, I do think he would qualify for Hospice services with severe protein malnourishment diagnosis and.or CAD as primary diagnosis. While the patient may be able to perform his own ADL's relatively independently, I anticipate that he will require support and help in the near future. PPS: 30% Palliative Care will continue to follow and provide support regarding goals of care. No symptom management needs at this time. Pt is DNR. (2) Acute hypoxemic respiratory failure: (3) Mass of colon: (4) Atrial fibrillation: Atrial fibrillation type: unspecified Qualified Code(s): I48.91 - Unspecified atrial fibrillation (5) CHF (congestive heart failure): (6) Dyspnea: Dyspnea type: unspecified Qualified Code(s): R06.00 - Dyspnea, unspecified History of Present Illness Reason for Consultation: Goals of care Requesting Physician: Dr. Em Attending Physician: Hannah Em MD History of Present Illness This is an 84 year old male who presented to the [facility]'s ED with abdominal pain and nausea that has been effecting him over the past 48 hours. A CXR was performed and results indicated that he had a right pleural effusion. A CT was performed and revealed a thrombosis in the inferior mesenteric vein. [place]NP [place] 46425. The patient was placed on Bipap to provide respiratory support and he was started on IV abx and diuretics. Additionally, an incidental sigmoid mass was found on CT and is suspicious for malignancy. Additional PMH includes CHF (EF 55% NEIDA 2018), HTN, AF, GIB, and cardiomegaly. The patient indicated that he lives with his brother Reg and [id number], Wendy. He was clear to the hospitalist that he would not want any anticoagulation for his DVT nor would he want any surgery or treatment if the sigmoid mass indeed was cancer. From a pain standpoint, his abdominal pain has been well controlled with Morphine 2mg Q3 hours PRN. Palliative Care was consulted to discuss goals of care. Please see A/P for further details. Thank you kindly for involving the palliative care team with this patient. Allergies Allergy/AdvReac Type Severity Reaction Status Date / Time ibuprofen AdvReac Severe RAPID Unverified 10/13/17 15:29 HEART RATE Home Medications Home Medications Medication Instructions Recorded Confirmed Type atenolol 50 mg PO DAILY 08/07/19 08/07/19 History atorvastatin 40 mg PO HS 08/07/19 08/07/19 History bumetanide 1 mg PO DAILY 08/07/19 08/07/19 History multivitamin 1 tab PO DAILY 08/07/19 08/07/19 History potassium chloride [Klor-Con 10] 10 meq PO DIRECTED 08/07/19 08/07/19 History thiamine HCl (vitamin B1) 50 mg PO DAILY 08/07/19 08/07/19 History Patient History Medical History (Updated 08/09/19 @ 11:03 by ROOPA Saunders) Bronchitis CAD (coronary artery disease) of artery bypass graft CHF (congestive heart failure) Goals of care, counseling/discussion Umbilical hernia Family History Other No significant family history Social History Preferred Language: Persian Communication Ability: Effective 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 HEENT: Pt denies headache, visual changes, dysphagia CV: Pt denies chest pain, palpitations Resp: Pt denies SOB GI: Pt reports + abdominal pain. (-) N/V/D : Pt denies dysuria Skin: Pt denies new skin changes Psych: Pt reports feeling good mentally Physical Exam Constitutional: + cachectic and + frail appearing Respiratory: normal respiratory effort, lungs clear to auscultation Auscultation: + diminished lung sounds On 2LNC Cardiovascular: RRR, no murmur, no edema Gastrointestinal (Abdomen): Inspection/Auscultation: normal bowel sounds Percussion/Palpation: + abdomen tender (RLQ) and abdomen soft + umbilical protrusion Skin: no rashes, warm and dry + pallor Psychiatric: A+Ox3, euthymic affect Lymphatic: no cervical or axillary lymphadenopathy Results & Data Vital Signs (Past 12 Hours) Vital Signs Temp Pulse Pulse Resp BP Pulse Ox 08/09/19 07:46 36.8 C 91 H 20 119/66 98 08/09/19 07:13 86 08/09/19 03:58 36.8 C 89 19 121/64 98 08/08/19 23:26 36.9 C 93 H 19 120/69 100 PG Care Time/CCT Total # of Minutes Spent Total Time Spent with Patient: Total time spent is greater than 50% in coordination of care (as documented) at patient's floor/unit and/or counseling patient: 100 Coding Level of Care Code 20055 Inpt Consult Level 4 Diagnoses Goals of care, counseling/discussion Z71.89 Acute hypoxemic respiratory failure J96.01 Mass of colon K63.89 Atrial fibrillation I48.91 Atrial fibrillation type: unspecified CHF (congestive heart failure) I50.9 Dyspnea R06.00 Dyspnea type: unspecified Time Spent (min) 100 Time Spent Midlevel Total time spent 100 minutes with > 50% of that time spent assessing the patient, discussing goals of care and POLST form with the patient
--- NOTE | 2019-08-09 12:23 | Electrocardiogram Report ---
Test Reason : Blood Pressure : / mmHG Vent. Rate : 136 BPM Atrial Rate : 133 BPM P-R Int : 128 ms QRS Dur : 100 ms QT Int : 302 ms P-R-T Axes : 175 005 100 degrees QTc Int : 454 ms Poor data quality, interpretation may be adversely affected Possible Atrial fibrillation with rapid ventricular response Septal infarct (cited on or before 25-OCT-2017) Marked ST abnormality, possible inferolateral subendocardial injury Abnormal ECG When compared with ECG of 25-OCT-2017 21:43, T wave inversion no longer evident in Inferior leads T wave inversion less evident in Anterolateral leads Confirmed by Petey Jurado ([id number]) on 08/09/2019 12:22:37 PM Referred By: REFERRED SELF Confirmed By:Petey Jurado
--- NOTE | 2019-08-09 18:19 | Hospitalist Progress Note ---
Date of Service August 09, 2019 Assessment & Plan (1) Abdominal pain: Acute Cholecystitis Present on admission with non radiating mid abdominal pain CT abd pelvis showed the gallbladder is distended and there is pericholecystic stranding and fluid. Findings are highly concerning for acute cholecystitis. Gallbladder U/S showed cholelithiasis with sonographic findings highly concerning for acute cholecystitis. Continue pain controlled Pt does not want and surgical intervention and no surgical consult Continue conservative management with Abx and pain med Starting on clear liquid diet and tolerated Continue refusing surgical consult Continue IV Zosyn Continue monitor closely Sepsis Possible related to acute cholecystitis Elevated WBC, lactic acid and tachycardia on admission Blood cx and urine cx pending Continue IV zosyn Continue monitor closely Afib Received IV digoxin and lopressor IV on admission rate control with metoprolol Continue metoprolol 25mg BID refused any IV heparin drip due to previous history of GI bleeding ECHO pending Consider cardiology consult, but pt refuses for now continue monitor in tele Acute hypoxemic respiratory failure Possible related to diastolic CHF CXR showed cardiomegaly with mild pulmonary vascular congestion. 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 Does not want to start on any anticoagulant due to previous history of bleeding CHF CXR showed cardiomegaly with mild pulmonary vascular congestion. Small right pleural effusion. ProBNP 93353 on admission Lasix 40mg IV given in the ER Will hold bumetanide for now Will assess for additional lasix DVT px on Lovenox Code Status DNR/DNI Subjective Pt was seen and examined Lying in bed with no distress He said that his abdominal pain improves He wants to try clear liquid diet and tolerated Denies any chest pain, palpitation, dizziness and SOB Physical Exam Physical Exam: General- No acute distress Head- atraumatic Eyes- PERRL, EOMI, ENT- oropharynx clear Neck- supple, no JVD Lungs- clear to auscultation Heart- +tachycardia Abdomen- normal bowel sounds, +tenderness around his umbilical hernia area Extremities- no calf tenderness Neuro- alert, oriented x 3; PERRL, EOMI; no facial palsy; no dysarthria Skin- warm & dry Results & Data ([facility]) Vital Signs (Past 12 Hours) Vital Signs Temp Pulse Pulse Resp BP Pulse Ox 08/09/19 15:45 36.8 C 69 18 118/69 96 08/09/19 15:08 87 08/09/19 11:05 37.2 C 90 20 124/69 98 08/09/19 07:46 36.8 C 91 H 20 119/66 98 08/09/19 07:13 86 (1) Abdominal pain Abdominal location: periumbilical Qualified Code(s): R10.33 - Periumbilical pain
[2019-08-09] MEDS ORDERED: FUROSEMIDE 20 MG in SYRINGE 0 ML IV ONE (20:00)
[2019-08-09] MEDS: ATORVASTATIN 40 MG TAB PO SCH (20:29)
[2019-08-09] MEDS: TRAMADOL HCL 50 MG TABLET PO PRN (21:25)
[2019-08-10] MEDS: PIPERACILLIN/TAZOBACTAM 3.375 GM in DEXTROSE 5% 100 ML IV SCH ×4 (03:57→20:54)
[2019-08-10] MEDS: ALBUMIN 25% 50 ML IV SCH ×2 (04:35→11:59)
[2019-08-10 07:42] LABS: Hematocrit (blood only) 26.2 % (42-52); Hemoglobin 8.2 g/dL (14.0-18.0); Mean Corpuscular Hemoglobin 26.7 pg (25-34); Mean Corpuscular Hgb Conc 31.3 g/dL (32-36); Mean Corpuscular Volume 85.3 fL (80-100); Mean Platelet Volume 10.4 fL (7.4-10.4); Platelet Count 201 K/uL (130-400); RDW Coefficient of Variation 16.9 % (11.5-14.5); RDW Standard Deviation 52.8 fL (36.4-46.3); Red Blood Count 3.07 M/uL (4.7-6.1); White Blood Count 16.37 K/uL (4.8-10.8)
[2019-08-10 08:13] LABS: BUN Creatinine Ratio 14.7 (10-20); Calcium 8.4 mg/dl (8.5-10.1); Creatinine Clr Calc Pharmacy 43.9 ml/min; Est GFR (African American) 59.3; Est GFR (Non-African American) 51.2
[2019-08-10] MEDS ORDERED: POTASSIUM CHLORIDE 20 MEQ TABCR PO STA (08:14)
[2019-08-10] MEDS: INSULIN GLARGINE SOLOSTAR 100 UNITS/ML 3 ML PEN SC SCH (08:29)
[2019-08-10] MEDS: MULTIVITAMIN TAB PO SCH (08:30)
[2019-08-10] MEDS: ENOXAPARIN INJ 30 MG/0.3 ML SYR SQ SCH (08:30)
[2019-08-10] MEDS: METOPROLOL TARTRATE 25 MG TAB PO SCH ×2 (08:30→20:54)
[2019-08-10] MEDS: THIAMINE HCL 50 MG TABLET PO SCH (08:30)
[2019-08-10] MEDS: INSULIN ASPART 100 UNITS/ML 3 ML PEN SC SCH ×4 (08:32→20:55)
[2019-08-10] MEDS: DOCUSATE SODIUM/SENNA 50/8.6MG TAB PO SCH (08:34)
[2019-08-10] MEDS: POTASSIUM CHLORIDE / WTR 10 MEQ/100 ML PLCT IV SCH ×2 (09:03→10:13)
--- NOTE | 2019-08-10 11:15 | Palliative Care Progress Note ---
Date of Service August 10, 2019 Assessment & Plan (1) Goals of care, counseling/discussion: -Mr. Edge is feeling okay today. He does still have intermittent abdominal pain due to the mesenteric vein thrombosis. Morphine does relieve this pain. -We talked about home hospice. Patient's goal is certainly in line with hospice, however he is unsure if he wants to pursue this now or later. He plans to talk with his brother, Mayito, this afternoon. He has the list of hospice agencies. -Patient's functional status is still pretty good. He could go home with home health OR hospice OR decide to wait on both. If he does want hospice, could use diagnosis of sigmoid colon mass with complicating factor of mesenteric vein thrombosis. Supportive data would be his other comorbidities. Case management is following. -Completed POLST form that was started yesterday-- DNR, comfort measures only, abx with comfort as the goal, and no artificial hydration/nutrition. Patient would want his brother Mayito to be his surrogate decision maker if needed. -Discontinued IV morphine and started Roxanol 5mg PO/SL Q3h PRN pain or SOB. This is my concern if he does not have home hospice-- if he continues to need morphine for the mesenteric pain (which I anticipate he will continue to need), I don't know who could order this for him. -We will continue to follow along. (2) Acute hypoxemic respiratory failure: (3) Mass of colon: (4) Atrial fibrillation: (5) CHF (congestive heart failure): (6) Dyspnea: Subjective Patient is feeling okay today. Still having some abdominal pain. No other complaints. Pleasantly talkative. Review of Systems Review of Systems: C/o some abdominal pain that is relieved with 2mg IV morphine. Denies N/V. Denies SOB. Does have some mild weakness. Physical Exam Constitutional: + frail appearing Respiratory: normal respiratory effort, lungs clear to auscultation Auscultation: + diminished lung sounds Cardiovascular: RRR, no murmur, no edema Gastrointestinal (Abdomen): Inspection/Auscultation: normal bowel sounds Percussion/Palpation: abdomen soft Skin: no rashes, warm and dry + pallor Psychiatric: A+Ox3, euthymic affect Results & Data Vital Signs (Past 12 Hours) Vital Signs Temp Pulse Resp BP Pulse Ox Pulse Ox 02/04/20 07:42 36.9 C 80 18 121/60 96 08/10/19 06:00 95 08/10/19 03:59 36.7 C 88 19 125/68 95 08/09/19 23:59 36.8 C 95 H 22 115/63 94 Coding Level of Care Code 07287 Subseq Hosp Care Lvl 3 Diagnoses Goals of care, counseling/discussion Z71.89 Acute hypoxemic respiratory failure J96.01 Mass of colon K63.89 Atrial fibrillation I48.91 Atrial fibrillation type: unspecified CHF (congestive heart failure) I50.9 Dyspnea R06.00 Dyspnea type: unspecified Time Spent (min) 45 Time Spent Midlevel 45 minutes with >50% of the time spent at bedside with patient discussing goals and POLST form. (1) Atrial fibrillation Atrial fibrillation type: unspecified Qualified Code(s): I48.91 - Unspecified atrial fibrillation (2) Dyspnea Dyspnea type: unspecified Qualified Code(s): R06.00 - Dyspnea, unspecified
[2019-08-10] MEDS ORDERED: MoRPHine SULFATE 5 MG/0.25 ML UDP PO PRN (11:18)
[2019-08-10] MEDS: TRAMADOL HCL 50 MG TABLET PO PRN (16:19)
--- NOTE | 2019-08-10 19:33 | Hospitalist Progress Note ---
Date of Service August 10, 2019 Assessment & Plan (1) Abdominal pain: Acute Cholecystitis Present on admission with non radiating mid abdominal pain CT abd pelvis showed the gallbladder is distended and there is pericholecystic stranding and fluid. Findings are highly concerning for acute cholecystitis. Gallbladder U/S showed cholelithiasis with sonographic findings highly concerning for acute cholecystitis. Continue pain controlled Pt does not want and surgical intervention and no surgical consult Continue conservative management with Abx and pain med Tolerated clear liquid diet, will advance to full liquid diet Continue refusing surgical consult Continue IV Zosyn Continue monitor closely Sepsis Possible related to acute cholecystitis Elevated WBC, lactic acid and tachycardia on admission Blood cx and urine cx no growth Continue IV zosyn Continue monitor closely Afib Received IV digoxin and lopressor IV on admission rate control with metoprolol Continue metoprolol 25mg BID refused any IV heparin drip due to previous history of GI bleeding ECHO showed moderate concentric LVH with EF 45-50% Consider cardiology consult, but pt refuses for now continue monitor in tele Acute hypoxemic respiratory failure Possible related to diastolic CHF CXR showed cardiomegaly with mild pulmonary vascular congestion. 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 Does not want to start on any anticoagulant due to previous history of bleeding CHF CXR showed cardiomegaly with mild pulmonary vascular congestion. Small right pleural effusion. ProBNP 65013 on admission Lasix 40mg IV given in the ER Will hold bumetanide for now Will assess for additional lasix DVT px on Lovenox Code Status DNR/DNI Subjective Pt was seen and examined. Lying in bed with no distress Pt said that his abdominal pain improves, but the pain moves more in the right side now Tolerated clear liquid diet Denies any chest pain, palpitation and SOB Physical Exam Physical Exam: General- No acute distress Head- atraumatic Eyes- PERRL, EOMI, ENT- oropharynx clear Neck- supple, no JVD Lungs- clear to auscultation Heart- +tachycardia Abdomen- normal bowel sounds, +tenderness around his umbilical hernia area Extremities- no calf tenderness Neuro- alert, oriented x 3; PERRL, EOMI; no facial palsy; no dysarthria Skin- warm & dry Results & Data ([facility]) Vital Signs (Past 12 Hours) Vital Signs Temp Pulse Pulse Resp BP Pulse Ox 08/10/19 14:41 36.7 C 84 16 116/57 L 94 08/10/19 12:10 36.8 C 87 18 118/62 96 08/10/19 08:00 86 08/10/19 07:42 36.9 C 80 18 121/60 96 (1) Abdominal pain Abdominal location: periumbilical Qualified Code(s): R10.33 - Periumbilical pain
[2019-08-10] MEDS: ATORVASTATIN 40 MG TAB PO SCH (20:55)
[2019-08-11] MEDS: TRAMADOL HCL 50 MG TABLET PO PRN (00:01)
[2019-08-11] MEDS: PIPERACILLIN/TAZOBACTAM 3.375 GM in DEXTROSE 5% 100 ML IV SCH ×4 (04:05→23:47)
[2019-08-11 06:59] LABS: Est GFR (African American) 38.9; Est GFR (Non-African American) 33.6
[2019-08-11] MEDS: INSULIN ASPART 100 UNITS/ML 3 ML PEN SC SCH ×4 (08:25→20:51)
[2019-08-11] MEDS: METOPROLOL TARTRATE 25 MG TAB PO SCH ×2 (08:26→20:50)
[2019-08-11] MEDS: ENOXAPARIN INJ 30 MG/0.3 ML SYR SQ SCH (08:26)
[2019-08-11] MEDS: THIAMINE HCL 50 MG TABLET PO SCH (08:27)
[2019-08-11] MEDS: MULTIVITAMIN TAB PO SCH (08:27)
[2019-08-11] MEDS: DOCUSATE SODIUM/SENNA 50/8.6MG TAB PO SCH (08:29)
--- NOTE | 2019-08-11 13:05 | Palliative Care Progress Note ---
Date of Service August 11, 2019 Assessment & Plan (1) Goals of care, counseling/discussion: -Mr. Edge is feeling overall well today. He denies having any pain and states that he had a BM that he described as 'heavenly'. -He does know that the pain is likely to return. He has not utilized any doses of Roxanol. -I revisited the conversation we had over the past few days and he stated that he did talk to his brothers Blake and Mayito. Mayito, whom he lives with, also has a that is ill and feels that there may more care needed than they feel comfortable with at this time. Mr. Ramirez mentioned a nursing facility, which we talked about before. I believe that his pain would be well controlled on a 24/7 basis, he could continue wearing his O2 and have around the clock care for management of his symptoms. -He stated he would like to hear more information regarding a SNF upon discharge with an eventual transition to Hospice. Information relayed to [facility]. 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 Supportive data would be his other comorbidities. Case management is following. -Completed POLST form that was started Friday-- DNR, comfort measures only, abx with comfort as the goal, and no artificial hydration/nutrition. Patient would want his brother Mayito to be his surrogate decision maker if needed. -We will continue to follow along. (2) Acute hypoxemic respiratory failure: (3) Mass of colon: (4) Atrial fibrillation: (5) CHF (congestive heart failure): (6) Dyspnea: Subjective Pt was seen and examined. Sitting upright in bed in no apparent distress Pt said that he does not have any abdominal pain today. Pt tolerating advancing diet. Pt reports that he had a large BM that he described as 'heavenly' Please see A/P for additional information. Review of Systems Review of Systems: Pt denies chest pain, SOB and denies N/V/D Physical Exam Constitutional: + cachectic and + frail appearing Respiratory: normal respiratory effort, lungs clear to auscultation Auscultation: + diminished lung sounds Cardiovascular: RRR, no murmur, no edema Gastrointestinal (Abdomen): Inspection/Auscultation: normal bowel sounds Percussion/Palpation: + abdomen tender (RLQ) and abdomen soft Skin: no rashes, warm and dry + pallor Psychiatric: A+Ox3, euthymic affect Lymphatic: no cervical or axillary lymphadenopathy Results & Data Vital Signs (Past 12 Hours) Vital Signs Temp Pulse Resp BP Pulse Ox 08/11/19 11:39 36.8 C 72 22 95/56 L 92 08/11/19 08:21 37.0 C 92 H 16 92/53 L 91 08/11/19 07:00 36.9 C 98 H 20 92/55 L 92 08/11/19 01:08 36.7 C PG Care Time/CCT Total # of Minutes Spent Total Time Spent with Patient: Total time spent is greater than 50% in coordination of care (as documented) at patient's floor/unit and/or counseling patient: 35 Coding Level of Care Code 27121 Subseq Hosp Care Lvl 3 Diagnoses Goals of care, counseling/discussion Z71.89 Acute hypoxemic respiratory failure J96.01 Mass of colon K63.89 Atrial fibrillation I48.91 Atrial fibrillation type: unspecified CHF (congestive heart failure) I50.9 Dyspnea R06.00 Dyspnea type: unspecified Time Spent (min) 35 Time Spent Midlevel Total time spent 35 minutes with > 50% of that time spent assessing the patient, discussing goals of care with the patient and IDT. (1) Atrial fibrillation Atrial fibrillation type: unspecified Qualified Code(s): I48.91 - Unspecified atrial fibrillation (2) Dyspnea Dyspnea type: unspecified Qualified Code(s): R06.00 - Dyspnea, unspecified
--- NOTE | 2019-08-11 18:05 | Hospitalist Progress Note ---
Date of Service August 11, 2019 Assessment & Plan (1) Abdominal pain: Acute Cholecystitis Present on admission with non radiating mid abdominal pain CT abd pelvis showed the gallbladder is distended and there is pericholecystic stranding and fluid. Findings are highly concerning for acute cholecystitis. Gallbladder U/S showed cholelithiasis with sonographic findings highly concerning for acute cholecystitis. Continue pain controlled Pt does not want and surgical intervention and no surgical consult Continue conservative management with Abx and pain med Tolerated clear liquid diet, will advance to full liquid diet Continue refusing surgical consult Continue IV Zosyn Clinically better without any evidence of acute cholecystitis at this time Discussed in detail with the patient for possible recurrence and complication Sepsis Possible related to acute cholecystitis Elevated WBC, lactic acid and tachycardia on admission Blood cx and urine cx no growth Continue IV zosyn Clinically better Afib Received IV digoxin and lopressor IV on admission rate control with metoprolol Continue metoprolol 25mg BID refused any IV heparin drip due to previous history of GI bleeding ECHO showed moderate concentric LVH with EF 45-50% Rate remains at around 100s Acute hypoxemic respiratory failure Possible related to diastolic CHF CXR showed cardiomegaly with mild pulmonary vascular congestion. 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 Does not want to start on any anticoagulant due to previous history of bleeding CHF CXR showed cardiomegaly with mild pulmonary vascular congestion. Small right pleural effusion. ProBNP 24873 on admission Lasix 40mg IV given in the ER Can restart his bumetanide DVT px on Lovenox Code Status DNR/DNI Discussed with the patient in detail He does not want any intervention for his overall medical condition especially cecal mass and cholecystitis We will ask for PT and OT evaluation Appreciate palliative care input and recommendation Subjective 08/11/2019 The patient was seen and examined in medical floor He has been feeling a little bit better today His abdominal distention and pain has been better Does not have any significant shortness of breath at rest Remains generally weak and lethargic Review of Systems Review of Systems: All systems reviewed and are unremarkable except as noted below Constitutional: + fatigue, + weakness and + weight loss Respiratory: no cough and no dyspnea Gastrointestinal: + abdominal pain (Much decreased), + bloating and + nausea Musculoskeletal: No acute arthritis in any joints Neurologic: + generalized weakness Physical Exam Physical Exam: Lying in bed comfortably Constitutional: + acute distress (Minimal abdominal discomfort), + ill appearing and + thin Eyes: PERRL, conjunctivae normal, anicteric sclerae ENMT: external ear and nose normal, oropharynx normal Neck: trachea midline, no thyromegaly Respiratory: normal respiratory effort Auscultation: + diminished lung sounds and + crackles (Minimal crackles at the bases) Cardiovascular: Rate/Rhythm: regular rate and regular rhythm Heart Sounds: no murmur Gastrointestinal (Abdomen): Inspection/Auscultation: + abdomen distended and normal bowel sounds Percussion/Palpation: + abdomen tender (Mildly tender right lower quadrant) and abdomen soft; no guarding and abdomen not rigid Negative Polo sign Musculoskeletal: No acute arthritis in any joints Neurologic: moves all extremities; no focal motor deficits Genitourinary: no testicular masses, no penis abnormality Results & Data ([facility]) Vital Signs (Past 12 Hours) Vital Signs Temp Pulse Resp BP Pulse Ox 08/11/19 15:36 37.3 C 106 H 20 101/59 L 93 08/11/19 11:39 36.8 C 72 22 95/56 L 92 08/11/19 08:21 37.0 C 92 H 16 92/53 L 91 08/11/19 07:00 36.9 C 98 H 20 92/55 L 92 Laboratory Results BMP 08/11/19 06:03 Creatinine 1.80 H D Medications Administered Current Inpatient Medications Acetaminophen (Tylenol) 650 mg PO Q4H PRN PRN Reason: Pain or Fever Stop: 09/07/19 06:46 Atorvastatin Calcium (Lipitor) 40 mg PO HS [facility] Stop: 09/07/19 20:59 Last Admin: 08/10/19 20:55 Dose: 40 mg Documented by: Dextrose (Dextrose 50%) 25 - 50 ml IV UD PRN; Protocol PRN Reason: Hypoglycemia Protocol Stop: 09/07/19 06:46 Enoxaparin Sodium (Lovenox) 30 mg SQ QAM [facility] Stop: 09/07/19 08:59 Last Admin: 08/11/19 08:26 Dose: 30 mg Documented by: Glucagon (Glucagen) 1 mg SQ UD PRN; Protocol PRN Reason: Hypoglycemia Protocol Stop: 09/07/19 06:46 Glucose (Dex4 Glucose) 4 - 8 tabs PO UD PRN; Protocol PRN Reason: Hypoglycemia Protocol Stop: 09/07/19 06:46 Glucose (Glucose 40%) 15 - 30 gm PO UD PRN; Protocol PRN Reason: Hypoglycemia Protocol Stop: 09/07/19 06:46 Last Admin: 08/09/19 08:32 Dose: 15 gm Documented by: Promethazine HCl 12.5 mg/ (Sodium Chloride) 50.5 mls @ 202 mls/hr IV Q6H PRN PRN Reason: Nausea And Vomiting Stop: 09/07/19 06:46 Piperacillin Sod/Tazobactam (Sod 3.375 gm/ Dextrose) 115 mls @ 28.75 mls/hr IV Q8H [facility] Stop: 08/18/19 09:59 Last Admin: 08/11/19 16:45 Dose: 28.8 mls/hr Documented by: Insulin Aspart (Novolog Flexpen) 0 units SC ACHS [facility] Stop: 09/07/19 06:59 Last Admin: 08/11/19 13:16 Dose: 4 units Documented by: Ipratropium [place] (Atrovent 0.02% 0.5mg/2.5ml) 0.5 mg INH Q4H PRN PRN Reason: Shortness Of Breath Or Wheezing Stop: 09/07/19 06:46 Levalbuterol HCl (Xopenex 1.25mg/0.5ml Neb) 1.25 mg INH Q4H PRN PRN Reason: Shortness Of Breath Or Wheezing Stop: 09/07/19 06:46 Metoprolol Tartrate (Lopressor) 25 mg PO BID [facility] Stop: 09/07/19 05:05 Last Admin: 08/11/19 08:26 Dose: Not Given Documented by: Miscellaneous (Carbohydrates For Hypoglycemia) 15 - 30 gm PO UD PRN PRN Reason: Hypoglycemia Protocol Stop: 09/07/19 06:46 Miscellaneous Information (Consult) 1 ea N/A UD PRN PRN Reason: Consult Stop: 09/07/19 03:57 Morphine Sulfate (Roxanol) 5 mg PO Q3H PRN PRN Reason: Pain or SOB Stop: 08/24/19 11:17 Multivitamins (Multivitamin Tab) 1 tab PO DAILY [facility] Stop: 09/07/19 08:59 Last Admin: 08/11/19 08:27 Dose: 1 tab Documented by: Nitroglycerin (Nitrostat) 0.4 mg SL UD PRN PRN Reason: Chest Pain Stop: 09/07/19 06:46 Senna/Docusate Sodium (Senokot S) 1 tab PO QAM [facility] Stop: 09/07/19 08:59 Last Admin: 08/11/19 08:29 Dose: 1 tab Documented by: Thiamine HCl (Vitamin B-1) 50 mg PO DAILY [facility] Stop: 09/07/19 08:59 Last Admin: 08/11/19 08:27 Dose: 50 mg Documented by: Tramadol HCl (Ultram) 25 - 50 mg PO Q4H PRN PRN Reason: Pain Stop: 09/07/19 06:46 Last Admin: 08/11/19 00:01 Dose: 25 mg Documented by: (1) Abdominal pain Abdominal location: periumbilical Qualified Code(s): R10.33 - Periumbilical pain
[2019-08-11] MEDS: ATORVASTATIN 40 MG TAB PO SCH (20:50)
[2019-08-11] MEDS ORDERED: INSULIN HUMAN REGULAR PER UNIT 4 UNITS in SYRINGE 3.96 ML IV ONE (21:00)
[2019-08-12 08:23] LABS: Basophils # (auto) 0.02 K/uL (0-0.2); Basophils % (auto) 0.2 %; Eosinophils # (auto) 0.16 K/uL (0-0.5); Eosinophils % (auto) 1.3 %; Hematocrit (blood only) 27.4 % (42-52); Hemoglobin 8.6 g/dL (14.0-18.0); Immature Granulocytes # (auto) 0.02 K/uL (0.00-0.02); Immature Granulocytes % (auto) 0.2 %; Lymphocytes # (auto) 0.55 K/uL (1.2-3.4); Lymphocytes % (auto) 4.5 %; Mean Corpuscular Hemoglobin 26.5 pg (25-34); Mean Corpuscular Hgb Conc 31.4 g/dL (32-36); Mean Corpuscular Volume 84.6 fL (80-100); Mean Platelet Volume 10.2 fL (7.4-10.4); Neutrophils # (auto) 10.36 K/uL (1.4-6.5); Neutrophils % (auto) 84.8 %; Platelet Count 168 K/uL (130-400); RDW Coefficient of Variation 16.9 % (11.5-14.5); RDW Standard Deviation 52.6 fL (36.4-46.3); Red Blood Count 3.24 M/uL (4.7-6.1); White Blood Count 12.21 K/uL (4.8-10.8)
[2019-08-12] MEDS: METOPROLOL TARTRATE 25 MG TAB PO SCH ×2 (08:23→21:34)
[2019-08-12] MEDS: PIPERACILLIN/TAZOBACTAM 3.375 GM in DEXTROSE 5% 100 ML IV SCH (08:23)
[2019-08-12] MEDS: MULTIVITAMIN TAB PO SCH (08:24)
[2019-08-12] MEDS: ENOXAPARIN INJ 30 MG/0.3 ML SYR SQ SCH (08:24)
[2019-08-12] MEDS: THIAMINE HCL 50 MG TABLET PO SCH (08:24)
[2019-08-12] MEDS: INSULIN ASPART 100 UNITS/ML 3 ML PEN SC SCH ×4 (08:58→21:48)
[2019-08-12 09:03] LABS: BUN Creatinine Ratio 12.8 (10-20); Calcium 8.5 mg/dl (8.5-10.1); Creatinine Clr Calc Pharmacy 18.9 ml/min; Est GFR (African American) 21.4; Est GFR (Non-African American) 18.5; Magnesium 2.2 mg/dl (1.8-2.4); Phosphorus 2.8 mg/dl (2.5-4.9); Potassium 3.3 mmol/L (3.5-5.1)
[2019-08-12] MEDS: DOCUSATE SODIUM/SENNA 50/8.6MG TAB PO SCH ×2 (09:13→10:24)
[2019-08-12] MEDS ORDERED: POTASSIUM CHLORIDE 20 MEQ TABCR PO STA (09:39)
--- NOTE | 2019-08-12 17:43 | Hospitalist Progress Note ---
Date of Service August 12, 2019 Assessment & Plan (1) Abdominal pain: Acute Cholecystitis Present on admission with non radiating mid abdominal pain CT abd pelvis showed the gallbladder is distended and there is pericholecystic stranding and fluid. Findings are highly concerning for acute cholecystitis. Gallbladder U/S showed cholelithiasis with sonographic findings highly concerning for acute cholecystitis. Continue pain controlled Pt does not want and surgical intervention and no surgical consult Continue conservative management with Abx and pain med Tolerated clear liquid diet, will advance to full liquid diet Continue refusing surgical consult Continue IV Zosyn Clinically better without any evidence of acute cholecystitis at this time Discussed in detail with the patient for possible recurrence and complication Remains stable-we will change antibiotic to oral Augmentin Sepsis Possible related to acute cholecystitis Elevated WBC, lactic acid and tachycardia on admission Blood cx and urine cx no growth Continue IV zosyn Clinically better-we will change to oral Augmentin Afib Received IV digoxin and lopressor IV on admission rate control with metoprolol Continue metoprolol 25mg BID refused any IV heparin drip due to previous history of GI bleeding ECHO showed moderate concentric LVH with EF 45-50% Rate remains at around 100s Heart rate remains stable Acute hypoxemic respiratory failure Possible related to diastolic CHF CXR showed cardiomegaly with mild pulmonary vascular congestion. 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 Does not want to start on any anticoagulant due to previous history of bleeding CHF CXR showed cardiomegaly with mild pulmonary vascular congestion. Small right pleural effusion. ProBNP 80353 on admission Lasix 40mg IV given in the ER Can restart his bumetanide DVT px on Lovenox Code Status DNR/DNI Discussed with the patient in detail He does not want any intervention for his overall medical condition especially cecal mass and cholecystitis We will ask for PT and OT evaluation Appreciate palliative care input and recommendation He knows that his condition may recur and it can be worse Likely to be discharged tomorrow if remains otherwise stable Subjective 08/11/2019 The patient was seen and examined in medical floor He has been feeling a little bit better today His abdominal distention and pain has been better Does not have any significant shortness of breath at rest Remains generally weak and lethargic 08/12/2019 Patient was seen and examined in medical floor He has been feeling better today following big bowel movement Sitting on a chair without any acute symptoms Wants to go home Refusing current medications Review of Systems Review of Systems: All systems reviewed and are unremarkable except as noted below Constitutional: + fatigue, + weakness and + weight loss Gastrointestinal: + abdominal pain (Much decreased), + bloating and + nausea Musculoskeletal: No acute arthritis in any joints Neurologic: + generalized weakness Physical Exam Physical Exam: Lying in bed comfortably Constitutional: + ill appearing and + thin; no acute distress Eyes: PERRL, conjunctivae normal, anicteric sclerae ENMT: external ear and nose normal, oropharynx normal Neck: trachea midline, no thyromegaly Respiratory: normal respiratory effort Auscultation: + diminished lung sounds and + crackles (Minimal crackles at the bases) Cardiovascular: Rate/Rhythm: regular rate and regular rhythm Heart Sounds: no murmur Gastrointestinal (Abdomen): Inspection/Auscultation: + abdomen distended and normal bowel sounds Percussion/Palpation: + abdomen tender (Mildly tender right lower quadrant) and abdomen soft; no guarding and abdomen not rigid Neurologic: moves all extremities; no focal motor deficits Genitourinary: no testicular masses, no penis abnormality Lymphatic: no cervical or axillary lymphadenopathy Results & Data ([facility]) Vital Signs (Past 12 Hours) Vital Signs Temp Pulse Resp BP Pulse Ox 08/12/19 15:49 36.5 C 81 18 103/66 95 08/12/19 08:00 36.5 C 90 18 96/60 L 93 Laboratory Results Short CBC 08/12/19 Range/Units 08:11 WBC 12.21 H (4.8-10.8) K/uL Hgb 8.6 L (14.0-18.0) g/dL Hct 27.4 L (42-52) % Plt Count 168 (130-400) K/uL BMP 08/12/19 08:11 Sodium 136 Potassium 3.3 L Chloride 101 Carbon Dioxide 28 BUN 38 H Creatinine 2.95 H D Glucose 80 Calcium 8.5 Medications Administered Current Inpatient Medications Acetaminophen (Tylenol) 650 mg PO Q4H PRN PRN Reason: Pain or Fever Stop: 09/07/19 06:46 Atorvastatin Calcium (Lipitor) 40 mg PO HS [facility] Stop: 09/07/19 20:59 Last Admin: 08/11/19 20:50 Dose: 40 mg Documented by: Dextrose (Dextrose 50%) 25 - 50 ml IV UD PRN; Protocol PRN Reason: Hypoglycemia Protocol Stop: 09/07/19 06:46 Enoxaparin Sodium (Lovenox) 30 mg SQ QAM [facility] Stop: 09/07/19 08:59 Last Admin: 08/12/19 08:24 Dose: 30 mg Documented by: Glucagon (Glucagen) 1 mg SQ UD PRN; Protocol PRN Reason: Hypoglycemia Protocol Stop: 09/07/19 06:46 Glucose (Dex4 Glucose) 4 - 8 tabs PO UD PRN; Protocol PRN Reason: Hypoglycemia Protocol Stop: 09/07/19 06:46 Glucose (Glucose 40%) 15 - 30 gm PO UD PRN; Protocol PRN Reason: Hypoglycemia Protocol Stop: 09/07/19 06:46 Last Admin: 08/09/19 08:32 Dose: 15 gm Documented by: Promethazine HCl 12.5 mg/ (Sodium Chloride) 50.5 mls @ 202 mls/hr IV Q6H PRN PRN Reason: Nausea And Vomiting Stop: 09/07/19 06:46 Piperacillin Sod/Tazobactam (Sod 3.375 gm/ Dextrose) 115 mls @ 28.75 mls/hr IV Q12H [facility] Stop: 08/18/19 09:59 Insulin Aspart (Novolog Flexpen) 0 units SC ACHS [facility] Stop: 09/07/19 06:59 Last Admin: 08/12/19 17:08 Dose: Not Given Documented by: Ipratropium [place] (Atrovent 0.02% 0.5mg/2.5ml) 0.5 mg INH Q4H PRN PRN Reason: Shortness Of Breath Or Wheezing Stop: 09/07/19 06:46 Levalbuterol HCl (Xopenex 1.25mg/0.5ml Neb) 1.25 mg INH Q4H PRN PRN Reason: Shortness Of Breath Or Wheezing Stop: 09/07/19 06:46 Metoprolol Tartrate (Lopressor) 25 mg PO BID [facility] Stop: 09/07/19 05:05 Last Admin: 08/12/19 08:23 Dose: Not Given Documented by: Miscellaneous (Carbohydrates For Hypoglycemia) 15 - 30 gm PO UD PRN PRN Reason: Hypoglycemia Protocol Stop: 09/07/19 06:46 Miscellaneous Information (Consult) 1 ea N/A UD PRN PRN Reason: Consult Stop: 09/07/19 03:57 Morphine Sulfate (Roxanol) 5 mg PO Q3H PRN PRN Reason: Pain or SOB Stop: 08/24/19 11:17 Multivitamins (Multivitamin Tab) 1 tab PO DAILY [facility] Stop: 09/07/19 08:59 Last Admin: 08/12/19 08:24 Dose: 1 tab Documented by: Nitroglycerin (Nitrostat) 0.4 mg SL UD PRN PRN Reason: Chest Pain Stop: 09/07/19 06:46 Senna/Docusate Sodium (Senokot S) 1 tab PO QAM [facility] Stop: 09/07/19 08:59 Last Admin: 08/12/19 10:24 Dose: Not Given Documented by: Thiamine HCl (Vitamin B-1) 50 mg PO DAILY [facility] Stop: 09/07/19 08:59 Last Admin: 08/12/19 08:24 Dose: 50 mg Documented by: Tramadol HCl (Ultram) 25 - 50 mg PO Q4H PRN PRN Reason: Pain Stop: 09/07/19 06:46 Last Admin: 08/11/19 00:01 Dose: 25 mg Documented by: (1) Abdominal pain Abdominal location: periumbilical Qualified Code(s): R10.33 - Periumbilical pain
[2019-08-12] MEDS ORDERED: PIPERACILLIN/TAZOBACTAM 3.375 GM in DEXTROSE 5% 100 ML IV SCH (20:00)
[2019-08-12] MEDS: ATORVASTATIN 40 MG TAB PO SCH (21:34)
[2019-08-13] MEDS ORDERED: AMOXICILLIN/CLAVULANATE 875 MG TAB PO SCH (08:00)
[2019-08-13] MEDS: METOPROLOL TARTRATE 25 MG TAB PO SCH ×2 (08:22→20:05)
[2019-08-13] MEDS: MULTIVITAMIN TAB PO SCH (08:23)
[2019-08-13] MEDS: THIAMINE HCL 50 MG TABLET PO SCH (08:24)
[2019-08-13] MEDS: DOCUSATE SODIUM/SENNA 50/8.6MG TAB PO SCH (08:25)
[2019-08-13] MEDS: ENOXAPARIN INJ 30 MG/0.3 ML SYR SQ SCH (08:25)
[2019-08-13] MEDS: INSULIN ASPART 100 UNITS/ML 3 ML PEN SC SCH ×4 (08:43→20:51)
[2019-08-13] MEDS: AMOXICILLIN/CLAVULANATE 500 MG TAB PO SCH (16:08)
[2019-08-13] MEDS: glyBURIDE 2.5 MG TAB PO SCH (16:12)
--- NOTE | 2019-08-13 17:16 | Hospitalist Progress Note ---
Date of Service August 13, 2019 Assessment & Plan (1) Abdominal pain: Acute Cholecystitis Present on admission with non radiating mid abdominal pain CT abd pelvis showed the gallbladder is distended and there is pericholecystic stranding and fluid. Findings are highly concerning for acute cholecystitis. Gallbladder U/S showed cholelithiasis with sonographic findings highly concerning for acute cholecystitis. Continue pain controlled Pt does not want and surgical intervention and no surgical consult Continue conservative management with Abx and pain med Tolerated clear liquid diet, will advance to full liquid diet Continue refusing surgical consult Continue IV Zosyn Clinically better without any evidence of acute cholecystitis at this time Discussed in detail with the patient for possible recurrence and complication Remains stable-we will change antibiotic to oral Augmentin Denies any more abdominal pain, nausea and/or vomiting Tolerating diet Sepsis Possible related to acute cholecystitis Elevated WBC, lactic acid and tachycardia on admission Blood cx and urine cx no growth Continue IV zosyn Clinically better-we will change to oral Augmentin Afib Received IV digoxin and lopressor IV on admission rate control with metoprolol Continue metoprolol 25mg BID refused any IV heparin drip due to previous history of GI bleeding ECHO showed moderate concentric LVH with EF 45-50% Rate remains at around 100s Heart rate remains stable Acute hypoxemic respiratory failure Possible related to diastolic CHF CXR showed cardiomegaly with mild pulmonary vascular congestion. Continue oxygen supplement We will try small dose of oral Lasix if blood pressure remains more than 100 Colon Mass Pt does not want any work up/evaluation He said that he witnessed his brother went through alot for his cancer Does not want any diagnostic work up and treatment such as chemo/radiation he said that if he is abdominal pain is related to the mass, all he wants is to manage the pain Pt continues refusing any work up for the mass Palliative care on board, plan to transition to hospice after pt talks to his brother Wants to go home and does not like to have home hospice Change his mind and wants to go to a facility Awaiting placement 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 Does not want to start on any anticoagulant due to previous history of bleeding CHF CXR showed cardiomegaly with mild pulmonary vascular congestion. Small right pleural effusion. ProBNP 66909 on admission Lasix 40mg IV given in the ER Can restart his bumetanide Diabetes on insulin Blood sugar has been running high at 300s Does not want to take any insulin Will restart glyburide DVT px on Lovenox Code Status DNR/DNI Discussed with the patient in detail He does not want any intervention for his overall medical condition especially cecal mass and cholecystitis We will ask for PT and OT evaluation Appreciate palliative care input and recommendation He knows that his condition may recur and it can be worse Discharge when a bed is available in a facility Subjective 08/11/2019 The patient was seen and examined in medical floor He has been feeling a little bit better today His abdominal distention and pain has been better Does not have any significant shortness of breath at rest Remains generally weak and lethargic 08/12/2019 Patient was seen and examined in medical floor He has been feeling better today following big bowel movement Sitting on a chair without any acute symptoms Wants to go home Refusing current medications 06/12/2020 The patient was seen and examined in medical floor He remains stable today and denies any significant abdominal pain nausea and/or vomiting He does not want to take any insulin and will not take any intravenous potassium if needed Review of Systems Review of Systems: All systems reviewed and are unremarkable except as noted below Constitutional: + fatigue, + weakness and + weight loss Gastrointestinal: + abdominal pain (Much decreased), + bloating and + nausea Musculoskeletal: No acute arthritis in any joints Neurologic: + generalized weakness Physical Exam Physical Exam: Lying in bed comfortably Constitutional: + thin; no acute distress Eyes: PERRL, conjunctivae normal, anicteric sclerae ENMT: external ear and nose normal, oropharynx normal Neck: trachea midline, no thyromegaly Respiratory: normal respiratory effort Auscultation: + diminished lung sounds and + crackles (Minimal crackles at the bases) Cardiovascular: Rate/Rhythm: regular rate and regular rhythm Heart Sounds: no murmur Gastrointestinal (Abdomen): Inspection/Auscultation: + abdomen distended and normal bowel sounds Percussion/Palpation: + abdomen tender (Mildly tender right lower quadrant) and abdomen soft; no guarding and abdomen not rigid Neurologic: moves all extremities; no focal motor deficits Genitourinary: no testicular masses, no penis abnormality Lymphatic: no cervical or axillary lymphadenopathy Results & Data ([facility]) Vital Signs (Past 12 Hours) Vital Signs Temp Pulse Resp BP Pulse Ox 08/13/19 15:46 36.8 C 85 16 128/74 95 08/13/19 07:18 36.5 C 67 16 134/81 92 Medications Administered Current Inpatient Medications Acetaminophen (Tylenol) 650 mg PO Q4H PRN PRN Reason: Pain or Fever Stop: 09/07/19 06:46 Amoxicillin/Clavulanate Potassium (Augmentin 500mg) 1 tab PO BIDM [facility]; Protocol Stop: 08/23/19 16:59 Last Admin: 08/13/19 16:08 Dose: 1 tab Documented by: Atorvastatin Calcium (Lipitor) 40 mg PO HS [facility] Stop: 09/07/19 20:59 Last Admin: 08/12/19 21:34 Dose: 40 mg Documented by: Dextrose (Dextrose 50%) 25 - 50 ml IV UD PRN; Protocol PRN Reason: Hypoglycemia Protocol Stop: 09/07/19 06:46 Enoxaparin Sodium (Lovenox) 30 mg SQ QAM [facility] Stop: 09/07/19 08:59 Last Admin: 08/13/19 08:25 Dose: 30 mg Documented by: Glucagon (Glucagen) 1 mg SQ UD PRN; Protocol PRN Reason: Hypoglycemia Protocol Stop: 09/07/19 06:46 Glucose (Dex4 Glucose) 4 - 8 tabs PO UD PRN; Protocol PRN Reason: Hypoglycemia Protocol Stop: 09/07/19 06:46 Glucose (Glucose 40%) 15 - 30 gm PO UD PRN; Protocol PRN Reason: Hypoglycemia Protocol Stop: 09/07/19 06:46 Last Admin: 08/09/19 08:32 Dose: 15 gm Documented by: Glyburide (Micronase) 2.5 mg PO BIDM [facility] Stop: 09/12/19 16:59 Last Admin: 08/13/19 16:12 Dose: Not Given Documented by: Promethazine HCl 12.5 mg/ (Sodium Chloride) 50.5 mls @ 202 mls/hr IV Q6H PRN PRN Reason: Nausea And Vomiting Stop: 09/07/19 06:46 Insulin Aspart (Novolog Flexpen) [facility] Stop: 09/07/19 06:59 Last Admin: 08/13/19 16:55 Dose: Not Given Documented by: Ipratropium [place] (Atrovent 0.02% 0.5mg/2.5ml) 0.5 mg INH Q4H PRN PRN Reason: Shortness Of Breath Or Wheezing Stop: 09/07/19 06:46 Levalbuterol HCl (Xopenex 1.25mg/0.5ml Neb) 1.25 mg INH Q4H PRN PRN Reason: Shortness Of Breath Or Wheezing Stop: 09/07/19 06:46 Metoprolol Tartrate (Lopressor) 25 mg PO BID [facility] Stop: 09/07/19 05:05 Last Admin: 08/13/19 08:22 Dose: 25 mg Documented by: Miscellaneous (Carbohydrates For Hypoglycemia) 15 - 30 gm PO UD PRN PRN Reason: Hypoglycemia Protocol Stop: 09/07/19 06:46 Morphine Sulfate (Roxanol) 5 mg PO Q3H PRN PRN Reason: Pain or SOB Stop: 08/24/19 11:17 Multivitamins (Multivitamin Tab) 1 tab PO DAILY [facility] Stop: 09/07/19 08:59 Last Admin: 08/13/19 08:23 Dose: 1 tab Documented by: Nitroglycerin (Nitrostat) 0.4 mg SL UD PRN PRN Reason: Chest Pain Stop: 09/07/19 06:46 Senna/Docusate Sodium (Senokot S) 1 tab PO QAM [facility] Stop: 09/07/19 08:59 Last Admin: 08/13/19 08:25 Dose: Not Given Documented by: Thiamine HCl (Vitamin B-1) 50 mg PO DAILY [facility] Stop: 09/07/19 08:59 Last Admin: 08/13/19 08:24 Dose: 50 mg Documented by: Tramadol HCl (Ultram) 25 - 50 mg PO Q4H PRN PRN Reason: Pain Stop: 09/07/19 06:46 Last Admin: 08/11/19 00:01 Dose: 25 mg Documented by: (1) Abdominal pain Abdominal location: periumbilical Qualified Code(s): R10.33 - Periumbilical pain
[2019-08-13] MEDS: ATORVASTATIN 40 MG TAB PO SCH (20:05)
[2019-08-14] MEDS: MULTIVITAMIN TAB PO SCH (08:19)
[2019-08-14] MEDS: AMOXICILLIN/CLAVULANATE 500 MG TAB PO SCH ×2 (08:19→17:41)
[2019-08-14] MEDS: METOPROLOL TARTRATE 25 MG TAB PO SCH ×2 (08:19→21:14)
[2019-08-14] MEDS: DOCUSATE SODIUM/SENNA 50/8.6MG TAB PO SCH (08:19)
[2019-08-14] MEDS: THIAMINE HCL 50 MG TABLET PO SCH (08:20)
[2019-08-14] MEDS: glyBURIDE 2.5 MG TAB PO SCH ×2 (08:20→17:41)
[2019-08-14] MEDS: ENOXAPARIN INJ 30 MG/0.3 ML SYR SQ SCH (08:20)
[2019-08-14] MEDS: INSULIN ASPART 100 UNITS/ML 3 ML PEN SC SCH ×4 (09:15→22:02)
[2019-08-14 09:31] LABS: Creatinine Clr Calc Pharmacy 16.1 ml/min; Est GFR (African American) 17.9; Est GFR (Non-African American) 15.5
--- NOTE | 2019-08-14 13:09 | Hospitalist Progress Note ---
Date of Service August 14, 2019 Assessment & Plan (1) Abdominal pain: Acute Cholecystitis Present on admission with non radiating mid abdominal pain CT abd pelvis showed the gallbladder is distended and there is pericholecystic stranding and fluid. Findings are highly concerning for acute cholecystitis. Gallbladder U/S showed cholelithiasis with sonographic findings highly concerning for acute cholecystitis. Continue pain controlled Pt does not want and surgical intervention and no surgical consult Continue conservative management with Abx and pain med Tolerated clear liquid diet, will advance to full liquid diet Continue refusing surgical consult Continue IV Zosyn Clinically better without any evidence of acute cholecystitis at this time Discussed in detail with the patient for possible recurrence and complication Remains stable-we will change antibiotic to oral Augmentin Denies any more abdominal pain, nausea and/or vomiting Tolerating diet No more fever no chills and no more signs of infection Sepsis Possible related to acute cholecystitis Elevated WBC, lactic acid and tachycardia on admission Blood cx and urine cx no growth Continue IV zosyn Clinically better-we will change to oral Augmentin Has been tolerating Augmentin without any significant problem Afib Received IV digoxin and lopressor IV on admission rate control with metoprolol Continue metoprolol 25mg BID refused any IV heparin drip due to previous history of GI bleeding ECHO showed moderate concentric LVH with EF 45-50% Rate remains at around 100s Heart rate remains stable Acute hypoxemic respiratory failure Possible related to diastolic CHF CXR showed cardiomegaly with mild pulmonary vascular congestion. Continue oxygen supplement We will try small dose of oral Lasix if blood pressure remains more than 100 Colon Mass Pt does not want any work up/evaluation He said that he witnessed his brother went through alot for his cancer Does not want any diagnostic work up and treatment such as chemo/radiation he said that if he is abdominal pain is related to the mass, all he wants is to manage the pain Pt continues refusing any work up for the mass Palliative care on board, plan to transition to hospice after pt talks to his brother Wants to go home and does not like to have home hospice Change his mind and wants to go to a facility Awaiting placement 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 Does not want to start on any anticoagulant due to previous history of bleeding CHF CXR showed cardiomegaly with mild pulmonary vascular congestion. Small right pleural effusion. ProBNP 89091 on admission Lasix 40mg IV given in the ER Can restart his bumetanide Diabetes on insulin Blood sugar has been running high at 300s Does not want to take any insulin Will restart glyburide DVT px on Lovenox Code Status DNR/DNI Discussed with the patient in detail He does not want any intervention for his overall medical condition especially cecal mass and cholecystitis We will ask for PT and OT evaluation Appreciate palliative care input and recommendation He knows that his condition may recur and it can be worse Discharge when a bed is available in a facility Prognosis remains poor Stable but critical Awaiting placement Subjective 08/11/2019 The patient was seen and examined in medical floor He has been feeling a little bit better today His abdominal distention and pain has been better Does not have any significant shortness of breath at rest Remains generally weak and lethargic 08/12/2019 Patient was seen and examined in medical floor He has been feeling better today following big bowel movement Sitting on a chair without any acute symptoms Wants to go home Refusing current medications 06/12/2020 The patient was seen and examined in medical floor He remains stable today and denies any significant abdominal pain nausea and/or vomiting He does not want to take any insulin and will not take any intravenous potassium if needed 08/14/2019 Patient is seen and examined in medical floor He is lying in bed without any acute distress Denies any abdominal distention more than usual, any pain or any shortness of breath Has been eating reasonably but refusing insulin injection Review of Systems Review of Systems: All systems reviewed and are unremarkable except as noted below Constitutional: + fatigue, + weakness and + weight loss Gastrointestinal: + abdominal pain (Much decreased), + bloating and + nausea Musculoskeletal: No acute arthritis in any joints Neurologic: + generalized weakness Physical Exam Physical Exam: Lying in bed comfortably Constitutional: + ill appearing and + thin; no acute distress Eyes: PERRL, conjunctivae normal, anicteric sclerae ENMT: external ear and nose normal, oropharynx normal Neck: trachea midline, no thyromegaly Respiratory: normal respiratory effort Auscultation: + diminished lung sounds and + crackles (Minimal crackles at the bases) Cardiovascular: Rate/Rhythm: regular rate and regular rhythm Heart Sounds: no murmur Gastrointestinal (Abdomen): Inspection/Auscultation: + abdomen distended and normal bowel sounds Percussion/Palpation: + abdomen tender (Mildly tender right lower quadrant), abdomen soft and + abdominal mass (Right lower quadrant near to the umbilicus, mobile); no guarding and abdomen not rigid Musculoskeletal: No acute arthritis involving any of the joints Neurologic: moves all extremities; no focal motor deficits Alert, awake and oriented x3. Generally weak and lethargic Genitourinary: no testicular masses, no penis abnormality Lymphatic: no cervical or axillary lymphadenopathy Results & Data ([facility]) Vital Signs (Past 12 Hours) Vital Signs Temp Pulse Resp BP Pulse Ox 08/14/19 07:25 36.4 C L 74 16 144/73 H 94 (1) Abdominal pain Abdominal location: periumbilical Qualified Code(s): R10.33 - Periumbilical pain
[2019-08-14] MEDS: ATORVASTATIN 40 MG TAB PO SCH (21:14)
[2019-08-14] MEDS ORDERED: LORazepam 0.25 MG/0.5 ML VIAL IV STA (22:48)
[2019-08-15] MEDS: INSULIN ASPART 100 UNITS/ML 3 ML PEN SC SCH ×4 (07:30→20:36)
[2019-08-15] MEDS: THIAMINE HCL 50 MG TABLET PO SCH (08:37)
[2019-08-15] MEDS: MULTIVITAMIN TAB PO SCH (08:37)
[2019-08-15] MEDS: DOCUSATE SODIUM/SENNA 50/8.6MG TAB PO SCH (08:38)
[2019-08-15] MEDS: AMOXICILLIN/CLAVULANATE 500 MG TAB PO SCH ×2 (08:38→17:48)
[2019-08-15] MEDS: METOPROLOL TARTRATE 25 MG TAB PO SCH ×2 (08:38→20:35)
[2019-08-15] MEDS: glyBURIDE 2.5 MG TAB PO SCH ×2 (08:48→17:48)
[2019-08-15] MEDS: ENOXAPARIN INJ 30 MG/0.3 ML SYR SQ SCH (08:48)
--- NOTE | 2019-08-15 11:50 | Hospitalist Progress Note ---
Date of Service August 15, 2019 Assessment & Plan (1) Abdominal pain: Acute Cholecystitis Present on admission with non radiating mid abdominal pain CT abd pelvis showed the gallbladder is distended and there is pericholecystic stranding and fluid. Findings are highly concerning for acute cholecystitis. Gallbladder U/S showed cholelithiasis with sonographic findings highly concerning for acute cholecystitis. Continue pain controlled Pt does not want and surgical intervention and no surgical consult Continue conservative management with Abx and pain med Tolerated clear liquid diet, will advance to full liquid diet Continue refusing surgical consult Continue IV Zosyn Clinically better without any evidence of acute cholecystitis at this time Discussed in detail with the patient for possible recurrence and complication Remains stable-we will change antibiotic to oral Augmentin Denies any more abdominal pain, nausea and/or vomiting No more fever no chills and no more signs of infection Tolerating diet as per his choice without any symptoms Sepsis Possible related to acute cholecystitis Elevated WBC, lactic acid and tachycardia on admission Blood cx and urine cx no growth Continue IV zosyn Clinically better-we will change to oral Augmentin Has been tolerating Augmentin without any significant problem No signs and no symptoms of infection Afib Received IV digoxin and lopressor IV on admission rate control with metoprolol Continue metoprolol 25mg BID refused any IV heparin drip due to previous history of GI bleeding ECHO showed moderate concentric LVH with EF 45-50% Rate remains at around 100s Heart rate remains stable Acute hypoxemic respiratory failure Possible related to diastolic CHF CXR showed cardiomegaly with mild pulmonary vascular congestion. Continue oxygen supplement We will try small dose of oral Lasix if blood pressure remains more than 100 Has not been requiring any oxygen at rest Colon Mass Pt does not want any work up/evaluation He said that he witnessed his brother went through alot for his cancer Does not want any diagnostic work up and treatment such as chemo/radiation he said that if he is abdominal pain is related to the mass, all he wants is to manage the pain Pt continues refusing any work up for the mass Palliative care on board, plan to transition to hospice after pt talks to his brother Wants to go home and does not like to have home hospice Change his mind and wants to go to a facility Awaiting placement 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 Does not want to start on any anticoagulant due to previous history of bleeding CHF CXR showed cardiomegaly with mild pulmonary vascular congestion. Small right pleural effusion. ProBNP 86139 on admission Lasix 40mg IV given in the ER Can restart his bumetanide Diabetes on insulin Blood sugar has been running high at 300s Does not want to take any insulin Will restart glyburide DVT px on Lovenox Code Status DNR/DNI Discussed with the patient in detail He does not want any intervention for his overall medical condition especially cecal mass and cholecystitis We will ask for PT and OT evaluation Appreciate palliative care input and recommendation He knows that his condition may recur and it can be worse Discharge when a bed is available in a facility Prognosis remains poor Stable but critical Awaiting placement Subjective 08/11/2019 The patient was seen and examined in medical floor He has been feeling a little bit better today His abdominal distention and pain has been better Does not have any significant shortness of breath at rest Remains generally weak and lethargic 08/12/2019 Patient was seen and examined in medical floor He has been feeling better today following big bowel movement Sitting on a chair without any acute symptoms Wants to go home Refusing current medications 06/12/2020 The patient was seen and examined in medical floor He remains stable today and denies any significant abdominal pain nausea and/or vomiting He does not want to take any insulin and will not take any intravenous potassium if needed 08/14/2019 Patient is seen and examined in medical floor He is lying in bed without any acute distress Denies any abdominal distention more than usual, any pain or any shortness of breath Has been eating reasonably but refusing insulin injection 08/15/2019 The patient was seen and examined in medical floor He has had some confusion last night but resolved as of this morning He has been feeling better and denies any significant symptoms Tolerating diet well Review of Systems Review of Systems: All systems reviewed and are unremarkable except as noted below Constitutional: + fatigue, + weakness and + weight loss Gastrointestinal: + abdominal pain (Much decreased), + bloating and + nausea Musculoskeletal: No acute arthritis in any joints Neurologic: + generalized weakness Physical Exam Physical Exam: Lying in bed comfortably Constitutional: + thin; no acute distress Eyes: PERRL, conjunctivae normal, anicteric sclerae ENMT: external ear and nose normal, oropharynx normal Neck: trachea midline, no thyromegaly Respiratory: normal respiratory effort Auscultation: + diminished lung sounds and + crackles (Minimal crackles at the bases) Cardiovascular: Rate/Rhythm: regular rate and regular rhythm Heart Sounds: no murmur Gastrointestinal (Abdomen): Inspection/Auscultation: + abdomen distended and normal bowel sounds Percussion/Palpation: + abdomen tender (Mildly tender right lower quadrant), abdomen soft and + abdominal mass (Right lower quadrant near to the umbilicus, mobile); no guarding and abdomen not rigid Musculoskeletal: No acute arthritis in any joint Neurologic: moves all extremities; no focal motor deficits Genitourinary: no testicular masses, no penis abnormality Lymphatic: no cervical or axillary lymphadenopathy Results & Data ([facility]) Vital Signs (Past 12 Hours) Vital Signs Temp Pulse Resp BP Pulse Ox 08/15/19 10:54 36.3 C L 70 20 145/78 H 94 08/15/19 07:24 36.8 C 79 20 151/77 H 94 (1) Abdominal pain Abdominal location: periumbilical Qualified Code(s): R10.33 - Periumbilical pain
[2019-08-15] MEDS: ATORVASTATIN 40 MG TAB PO SCH (20:35)
[2019-08-16 06:32] LABS: Hematocrit (blood only) 28.4 % (42-52); Hemoglobin 8.9 g/dL (14.0-18.0); Mean Corpuscular Hgb Conc 31.3 g/dL (32-36); Platelet Count 288 K/uL (130-400); RDW Coefficient of Variation 17.1 % (11.5-14.5); Red Blood Count 3.42 M/uL (4.7-6.1); White Blood Count 12.66 K/uL (4.8-10.8)
[2019-08-16 07:05] LABS: Acanthocytes 1+; Albumin Level 2.1 gm/dl (3.4-5.0); Basophils # (auto) 0.07 K/uL (0-0.2); Basophils % (auto) 0.6 %; Calcium 8.6 mg/dl (8.5-10.1); Creatinine Clr Calc Pharmacy 18.3 ml/min; Eosinophils % (auto) 1.6 %; Est GFR (Non-African American) 18.1; Giant Platelets 1+; Immature Granulocytes # (auto) 0.17 K/uL (0.00-0.02); Immature Granulocytes % (auto) 1.3 %; Lymphocytes # (auto) 1.47 K/uL (1.2-3.4); Lymphocytes % (auto) 11.6 %; Magnesium 2.2 mg/dl (1.8-2.4); Monocytes % (auto) 7.9 %; Neutrophils # (auto) 9.75 K/uL (1.4-6.5); Potassium 3.9 mmol/L (3.5-5.1); Toxic Granulation 1+
[2019-08-16 07:08] LABS: Albumin Globulin Ratio 0.5 (0.9-2); Bilirubin,Total 0.7 mg/dl (0.2-1); Globulin 4.2 gm/dl (2.5-4.0); Phosphorus 2.7 mg/dl (2.5-4.9); Total Protein 6.3 gm/dl (6.4-8.2)
[2019-08-16] MEDS: AMOXICILLIN/CLAVULANATE 500 MG TAB PO SCH (08:01)
[2019-08-16] MEDS: METOPROLOL TARTRATE 25 MG TAB PO SCH (08:01)
[2019-08-16] MEDS: glyBURIDE 2.5 MG TAB PO SCH (08:02)
[2019-08-16] MEDS: DOCUSATE SODIUM/SENNA 50/8.6MG TAB PO SCH (08:02)
[2019-08-16] MEDS: THIAMINE HCL 50 MG TABLET PO SCH (08:02)
[2019-08-16] MEDS: ENOXAPARIN INJ 30 MG/0.3 ML SYR SQ SCH (08:02)
[2019-08-16] MEDS: MULTIVITAMIN TAB PO SCH (08:02)
[2019-08-16] MEDS: INSULIN ASPART 100 UNITS/ML 3 ML PEN SC SCH ×2 (08:03→13:07)
[2019-08-16] MEDS ORDERED: SODIUM CHLORIDE 0.9% 1000ML 1,000 ML IV SCH (08:15)
--- NOTE | 2019-08-16 11:50 | Hospitalist Progress Note ---
Date of Service August 16, 2019 Assessment & Plan (1) Abdominal pain: Acute Cholecystitis Present on admission with non radiating mid abdominal pain CT abd pelvis showed the gallbladder is distended and there is pericholecystic stranding and fluid. Findings are highly concerning for acute cholecystitis. Gallbladder U/S showed cholelithiasis with sonographic findings highly concerning for acute cholecystitis. Continue pain controlled Pt does not want and surgical intervention and no surgical consult Continue conservative management with Abx and pain med Tolerated clear liquid diet, will advance to full liquid diet Continue refusing surgical consult Continue IV Zosyn Clinically better without any evidence of acute cholecystitis at this time Discussed in detail with the patient for possible recurrence and complication Remains stable-we will change antibiotic to oral Augmentin Denies any more abdominal pain, nausea and/or vomiting No more fever no chills and no more signs of infection Tolerating diet as per his choice without any symptoms Will be transferred to [facility] this afternoon He is well aware that his cholecystitis may come back and the condition could be worse TONIA His kidney function has been worsening Advised to drink more fluid Overall prognosis is poor Sepsis Possible related to acute cholecystitis Elevated WBC, lactic acid and tachycardia on admission Blood cx and urine cx no growth Continue IV zosyn Clinically better-we will change to oral Augmentin Has been tolerating Augmentin without any significant problem No signs and no symptoms of infection Afib Received IV digoxin and lopressor IV on admission rate control with metoprolol Continue metoprolol 25mg BID refused any IV heparin drip due to previous history of GI bleeding ECHO showed moderate concentric LVH with EF 45-50% Rate remains at around 100s Heart rate remains stable Acute hypoxemic respiratory failure Possible related to diastolic CHF CXR showed cardiomegaly with mild pulmonary vascular congestion. Continue oxygen supplement We will try small dose of oral Lasix if blood pressure remains more than 100 Has not been requiring any oxygen at rest We will get to a step O2 saturation before discharge Colon Mass Pt does not want any work up/evaluation He said that he witnessed his brother went through alot for his cancer Does not want any diagnostic work up and treatment such as chemo/radiation he said that if he is abdominal pain is related to the mass, all he wants is to manage the pain Pt continues refusing any work up for the mass Palliative care on board, plan to transition to hospice after pt talks to his brother Wants to go home and does not like to have home hospice Change his mind and wants to go to a facility Awaiting placement He is aware about the colonic mass and is aware about bleeding that has been going on with bowel movement Prognosis remains poor-he is aware about this 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 Does not want to start on any anticoagulant due to previous history of bleeding CHF CXR showed cardiomegaly with mild pulmonary vascular congestion. Small right pleural effusion. ProBNP 34642 on admission Lasix 40mg IV given in the ER Can restart his bumetanide Diabetes on insulin Blood sugar has been running high at 300s Does not want to take any insulin Will restart glyburide DVT px on Lovenox Code Status DNR/DNI Discussed with the patient in detail He does not want any intervention for his overall medical condition especially cecal mass and cholecystitis We will ask for PT and OT evaluation Appreciate palliative care input and recommendation He knows that his condition may recur and it can be worse Discharge when a bed is available in a facility Prognosis remains poor Stable but critical Awaiting placement-will be transferred to [facility] this afternoon Admission and Anticipated Discharge Date Admission Date: August 08, 2019 Subjective 08/11/2019 The patient was seen and examined in medical floor He has been feeling a little bit better today His abdominal distention and pain has been better Does not have any significant shortness of breath at rest Remains generally weak and lethargic 08/12/2019 Patient was seen and examined in medical floor He has been feeling better today following big bowel movement Sitting on a chair without any acute symptoms Wants to go home Refusing current medications 06/12/2020 The patient was seen and examined in medical floor He remains stable today and denies any significant abdominal pain nausea and/or vomiting He does not want to take any insulin and will not take any intravenous potassium if needed 08/14/2019 Patient is seen and examined in medical floor He is lying in bed without any acute distress Denies any abdominal distention more than usual, any pain or any shortness of breath Has been eating reasonably but refusing insulin injection 08/15/2019 The patient was seen and examined in medical floor He has had some confusion last night but resolved as of this morning He has been feeling better and denies any significant symptoms Tolerating diet well 08/16/2019 Patient was seen and examined in medical floor He denies any significant complaints except very small amount of blood with each loose stool Has been tolerating diet and ambulating reasonably Like to be transferred to [facility] this afternoon Review of Systems Review of Systems: All systems reviewed and are unremarkable except as noted below Constitutional: + fatigue, + weakness and + weight loss Gastrointestinal: + abdominal pain (Much decreased), + bloating and + nausea Musculoskeletal: No acute arthritis in any joints Neurologic: + generalized weakness Physical Exam Physical Exam: Lying in bed comfortably Constitutional: + thin; no acute distress and not ill appearing Eyes: PERRL, conjunctivae normal, anicteric sclerae ENMT: external ear and nose normal, oropharynx normal Neck: trachea midline, no thyromegaly Respiratory: normal respiratory effort Auscultation: + diminished lung sounds and + crackles (Minimal crackles at the bases) Cardiovascular: Rate/Rhythm: regular rate and regular rhythm Heart Sounds: no murmur Extremities: no edema Gastrointestinal (Abdomen): Inspection/Auscultation: + abdomen distended and normal bowel sounds Percussion/Palpation: + abdomen tender (Mildly tender right lower quadrant), abdomen soft and + abdominal mass (Right lower quadrant near to the umbilicus, mobile); no guarding and abdomen not rigid Musculoskeletal: No acute arthritis in any joint Neurologic: moves all extremities; no focal motor deficits Alert, awake and oriented x3 Genitourinary: no testicular masses, no penis abnormality Lymphatic: no cervical or axillary lymphadenopathy Results & Data ([facility]) Vital Signs (Past 12 Hours) Vital Signs Temp Pulse Resp BP Pulse Ox 08/16/19 06:00 36.5 C 81 20 159/76 H 94 Laboratory Results Short CBC 08/16/19 Range/Units 06:10 WBC 12.66 H (4.8-10.8) K/uL Hgb 8.9 L (14.0-18.0) g/dL Hct 28.4 L (42-52) % Plt Count 288 (130-400) K/uL BMP 08/16/19 06:10 Sodium 143 Potassium 3.9 Chloride 110 H Carbon Dioxide 27 BUN 48 H Creatinine 3.00 H D Glucose 119 H Calcium 8.6 Liver Function 08/16/19 Range/Units 06:10 Total Bilirubin 0.7 (0.2-1) mg/dl AST 43 H (15-37) U/L ALT 52 (12-78) U/L Alkaline Phosphatase 227 H (45-117) U/L Albumin 2.1 L (3.4-5.0) gm/dl Medications Administered Current Inpatient Medications Acetaminophen (Tylenol) 650 mg PO Q4H PRN PRN Reason: Pain or Fever Stop: 09/07/19 06:46 Amoxicillin/Clavulanate Potassium (Augmentin 500mg) 1 tab PO BIDM [facility]; Protocol Stop: 08/23/19 16:59 Last Admin: 08/16/19 08:01 Dose: 1 tab Documented by: Atorvastatin Calcium (Lipitor) 40 mg PO HS [facility] Stop: 09/07/19 20:59 Last Admin: 08/15/19 20:35 Dose: 40 mg Documented by: Dextrose (Dextrose 50%) 25 - 50 ml IV UD PRN; Protocol PRN Reason: Hypoglycemia Protocol Stop: 09/07/19 06:46 Enoxaparin Sodium (Lovenox) 30 mg SQ QAM [facility] Stop: 09/07/19 08:59 Last Admin: 08/16/19 08:02 Dose: 30 mg Documented by: Glucagon (Glucagen) 1 mg SQ UD PRN; Protocol PRN Reason: Hypoglycemia Protocol Stop: 09/07/19 06:46 Glucose (Dex4 Glucose) 4 - 8 tabs PO UD PRN; Protocol PRN Reason: Hypoglycemia Protocol Stop: 09/07/19 06:46 Glucose (Glucose 40%) 15 - 30 gm PO UD PRN; Protocol PRN Reason: Hypoglycemia Protocol Stop: 09/07/19 06:46 Last Admin: 08/09/19 08:32 Dose: 15 gm Documented by: Glyburide (Micronase) 2.5 mg PO BIDM [facility] Stop: 09/12/19 16:59 Last Admin: 08/16/19 08:02 Dose: Not Given Documented by: Promethazine HCl 12.5 mg/ (Sodium Chloride) 50.5 mls @ 202 mls/hr IV Q6H PRN PRN Reason: Nausea And Vomiting Stop: 09/07/19 06:46 Insulin Aspart (Novolog Flexpen) 0 units SC [facility] Stop: 09/07/19 06:59 Last Admin: 08/16/19 08:03 Dose: Not Given Documented by: Ipratropium Slater (Atrovent 0.02% 0.5mg/2.5ml) 0.5 mg INH Q4H PRN PRN Reason: Shortness Of Breath Or Wheezing Stop: 09/07/19 06:46 Levalbuterol HCl (Xopenex 1.25mg/0.5ml Neb) 1.25 mg INH Q4H PRN PRN Reason: Shortness Of Breath Or Wheezing Stop: 09/07/19 06:46 Metoprolol Tartrate (Lopressor) 25 mg PO BID [facility] Stop: 09/07/19 05:05 Last Admin: 08/16/19 08:01 Dose: 25 mg Documented by: Miscellaneous (Carbohydrates For Hypoglycemia) 15 - 30 gm PO UD PRN PRN Reason: Hypoglycemia Protocol Stop: 09/07/19 06:46 Morphine Sulfate (Roxanol) 5 mg PO Q3H PRN PRN Reason: Pain or SOB Stop: 08/24/19 11:17 Multivitamins (Multivitamin Tab) 1 tab PO DAILY [facility] Stop: 09/07/19 08:59 Last Admin: 08/16/19 08:02 Dose: 1 tab Documented by: Nitroglycerin (Nitrostat) 0.4 mg SL UD PRN PRN Reason: Chest Pain Stop: 09/07/19 06:46 Senna/Docusate Sodium (Senokot S) 1 tab PO QAM [facility] Stop: 09/07/19 08:59 Last Admin: 08/16/19 08:02 Dose: 1 tab Documented by: Thiamine HCl (Vitamin B-1) 50 mg PO DAILY [facility] Stop: 09/07/19 08:59 Last Admin: 08/16/19 08:02 Dose: 50 mg Documented by: Tramadol HCl (Ultram) 25 - 50 mg PO Q4H PRN PRN Reason: Pain Stop: 09/07/19 06:46 Last Admin: 08/11/19 00:01 Dose: 25 mg Documented by: (1) Abdominal pain Abdominal location: periumbilical Qualified Code(s): R10.33 - Periumbilical pain
--- NOTE | 2019-08-23 09:53 | Discharge Summary ---
Date of Service August 23, 2019 Admission HPI Per Admitting Provider History obtained from patient and records. Medical history significant for chronic diastolic heart failure (EF 55%, TTE 2018), CAD status post CABG, COPD as per records, hypertension, chronic anemia (baseline hemoglobin of 9), recurrent L GIB as per patient, past tobacco abuse. Recent confinement October 2017 for complicated bronchitis. Last night patient noted sudden onset mid abdominal pain with nausea, no emesis. Feeling bloated. No chest pain, no S OB. Some constipation yesterday. IVF given upon arrival at the ER. Subsequent respiratory distress, tachycardia noted. Rapid A. fib noted on the monitor. BiPAP initiated in the ER. 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 Admission Exam Per Admitting Provider Physical Exam: GENERAL: Pleasant, slightly uncomfortable, mild hearing impairment, minimal respiratory distress SKIN: Pallor , warm HEENT: Alopecia, pale palpebral conjunctivae, no ptosis, dry buccal mucosa, BiPAP in place NECK : Supple, no tenderness CHEST : Decreased breath sounds, expiratory wheezes, no tenderness HEART : Tachycardic, irregular, systolic murmur ABDOMEN: distention, right upper quadrant tenderness EXTREMITIES : Minimal LE swelling, no LE tenderness, no other conspicuous deformities noted NEUROLOGIC : Coherent, mild hearing impairment, no facial asymmetry, no other gross focality Principal Diagnosis 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, atrial fibrillation not on any anticoagulation, acute cholecystitis no surgical management, diabetes type 2 Discharge Exam Constitutional + thin; no acute distress and not ill appearing Eyes PERRL, conjunctivae normal, anicteric sclerae ENMT external ear and nose normal, oropharynx normal Neck trachea midline, no thyromegaly Respiratory normal respiratory effort Auscultation: + diminished lung sounds and + crackles (Minimal crackles at the bases) Cardiovascular Rate/Rhythm: regular rate and regular rhythm Heart Sounds: no murmur Extremities: no edema Gastrointestinal (Abdomen) Inspection/Auscultation: + abdomen distended and normal bowel sounds Percussion/Palpation: + abdomen tender (Mildly tender right lower quadrant), abdomen soft and + abdominal mass (Right lower quadrant near to the umbilicus, mobile); no guarding and abdomen not rigid Neurologic moves all extremities; no focal motor deficits Genitourinary no testicular masses, no penis abnormality Lymphatic no cervical or axillary lymphadenopathy Discharge Data Allergies Allergy/AdvReac Type Severity Reaction Status Date / Time ibuprofen AdvReac Severe RAPID Unverified 10/13/17 15:29 HEART RATE Consultations 08/08/19 03:56 ED Decision to Admit Stat 08/08/19 06:47 Consult Case Management - Discharge Planning Routine 08/09/19 07:39 Consult Palliative Care Routine Ordered Studies 08/07/19 23:16 CT Abd and Pelvis [CT abd pelvis oral and IV con] Stat 08/08/19 02:16 US gallbladder Urgent Hospital Course (1) Abdominal pain: Acute Cholecystitis Present on admission with non radiating mid abdominal pain CT abd pelvis showed the gallbladder is distended and there is pericholecystic stranding and fluid. Findings are highly concerning for acute cholecystitis. Gallbladder U/S showed cholelithiasis with sonographic findings highly concerning for acute cholecystitis. Continue pain controlled Pt does not want and surgical intervention and no surgical consult Continue conservative management with Abx and pain med Tolerated clear liquid diet, will advance to full liquid diet Continue refusing surgical consult Continue IV Zosyn Clinically better without any evidence of acute cholecystitis at this time Discussed in detail with the patient for possible recurrence and complication Remains stable-we will change antibiotic to oral Augmentin Denies any more abdominal pain, nausea and/or vomiting No more fever no chills and no more signs of infection Tolerating diet as per his choice without any symptoms Will be transferred to [facility] this afternoon He is well aware that his cholecystitis may come back and the condition could be worse TONIA His kidney function has been worsening Advised to drink more fluid Overall prognosis is poor Sepsis Possible related to acute cholecystitis Elevated WBC, lactic acid and tachycardia on admission Blood cx and urine cx no growth Continue IV zosyn Clinically better-we will change to oral Augmentin Has been tolerating Augmentin without any significant problem No signs and no symptoms of infection Afib Received IV digoxin and lopressor IV on admission rate control with metoprolol Continue metoprolol 25mg BID refused any IV heparin drip due to previous history of GI bleeding ECHO showed moderate concentric LVH with EF 45-50% Rate remains at around 100s Heart rate remains stable Acute hypoxemic respiratory failure Possible related to diastolic CHF CXR showed cardiomegaly with mild pulmonary vascular congestion. Continue oxygen supplement We will try small dose of oral Lasix if blood pressure remains more than 100 Has not been requiring any oxygen at rest We will get to a step O2 saturation before discharge Colon Mass Pt does not want any work up/evaluation He said that he witnessed his brother went through alot for his cancer Does not want any diagnostic work up and treatment such as chemo/radiation he said that if he is abdominal pain is related to the mass, all he wants is to manage the pain Pt continues refusing any work up for the mass Palliative care on board, plan to transition to hospice after pt talks to his brother Wants to go home and does not like to have home hospice Change his mind and wants to go to a facility Awaiting placement He is aware about the colonic mass and is aware about bleeding that has been going on with bowel movement Prognosis remains poor-he is aware about this 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 Does not want to start on any anticoagulant due to previous history of bleeding CHF CXR showed cardiomegaly with mild pulmonary vascular congestion. Small right pleural effusion. ProBNP 80759 on admission Lasix 40mg IV given in the ER Can restart his bumetanide Diabetes on insulin Blood sugar has been running high at 300s Does not want to take any insulin Will restart glyburide DVT px on Lovenox Code Status DNR/DNI Discussed with the patient in detail He does not want any intervention for his overall medical condition especially cecal mass and cholecystitis We will ask for PT and OT evaluation Appreciate palliative care input and recommendation He knows that his condition may recur and it can be worse Discharge when a bed is available in a facility Prognosis remains poor Stable but critical Awaiting placement-will be transferred to [facility] this afternoon Total Time Total Time Spent Total Time Spent (In Minutes): 35 minutes Total Time Includes: Examination of the Patient, Discharge Planning, Medication Reconciliation and Communication With Other Providers Discharge Plan Discharge Items Patient Disposition: Personal Senior Living Reason For Visit: AF Discharge Diagnosis: 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 Small frequent meals advised Addtl Attending Provider Instructions: Please take precaution to avoid falls Pending Studies at Discharge: No Stand-Alone Forms: My [employer], Smoking Cessation Skilled Items Patient informed of condition?: Yes DNR: Yes Discharge Level of Care: Other Communicable Disease: No Discharge Prognosis: Stable Lines: None Urinary Catheter: No Medications and DC Order Prescriptions: New glyburide 2.5 mg Tablet 2.5 mg PO BIDM 30 Days Qty: 60 RF: 0 metoprolol tartrate 25 mg Tablet 25 mg PO BID 30 Days Qty: 60 RF: 0 Lactinex 1 million cell tablet,chewable 1 tab PO BID Qty: 20 RF: 0 Continued multivitamin Tablet 1 tab PO DAILY 30 Days Qty: 30 RF: 0 atorvastatin 40 mg Tablet 40 mg PO HS 30 Days Qty: 30 RF: 0 thiamine HCl (vitamin B1) 50 mg Tablet 50 mg PO DAILY 30 Days Qty: 30 RF: 0 Discontinued atenolol 50 mg Tablet 50 mg PO DAILY RF: 0 bumetanide 1 mg Tablet 1 mg PO DAILY RF: 0 potassium chloride [Klor-Con 10] 10 mEq Tablet Extended Release 10 meq PO DIRECTED RF: 0 Discharge Orders: Discharge Order (Routine); Ordered 08/16/19 Ordered By: Miky Garcia/Other Patient Handouts: A1C Admission Data Admit Date/Time: 08/08/19 05:06 Attending Provider: Miky Lugo Admit Provider: Fredi Lane Primary Care Provider: Val Akhtar Other Providers: Fredi Lane ; Mali Low ; Hannah Em ; Stefania Russell Other DC Date/Time DO NOT enter until pt leaves facility: 08/16/19 17:00
== END 2019-08-16 17:00 | disposition home or self-care (01) | DRG 871 ==
LOC: ED 22:17 → SUATTDRO 08-08 05:06 → 1E 08-08 05:06 → 2E 08-08 15:53 → 2W 08-10 11:59 → 4W 08-15 10:49

== ENCOUNTER 2019-09-12 11:09 | Inpatient (IN) ==
--- NOTE | 2019-09-12 11:48 | XRay Report ---
XR chest 1V portable HISTORY: SEPSIS COMPARISON: Chest 08/08/2019. FINDINGS: Small left pneumothorax with a maximal pleural gap of 2 cm. No right-sided pneumothorax. Th ere is mild interstitial pulmonary edema, small bilateral pleural effusions, and bibasilar densities. The heart remains mildly enlarged. There are poststernotomy changes. IMPRESSION: 1. Small left pneumothorax. 2. Mild interstitial pulmonary edema, small bilateral pleural effusions, and bibasilar densities. ACT 112: Negative or not required by law. Electronically signed by: Santos Chandler M.D. 09/12/2019 11:47 AM
[2019-09-12 11:52] LABS: Basophils # (auto) 0.07 K/uL (0-0.2); Basophils % (auto) 0.4 %; Eosinophils # (auto) 0.13 K/uL (0-0.5); Eosinophils % (auto) 0.7 %; Hematocrit (blood only) 33.5 % (42-52); Hemoglobin 9.9 g/dL (14.0-18.0); Immature Granulocytes # (auto) 0.08 K/uL (0.00-0.02); Immature Granulocytes % (auto) 0.5 %; Lymphocytes # (auto) 1.15 K/uL (1.2-3.4); Lymphocytes % (auto) 6.6 %; Mean Corpuscular Hemoglobin 26.1 pg (25-34); Mean Corpuscular Hgb Conc 29.6 g/dL (32-36); Mean Corpuscular Volume 88.4 fL (80-100); Mean Platelet Volume 10.5 fL (7.4-10.4); Monocytes # (auto) 1.94 K/uL (0.11-0.59); Monocytes % (auto) 11.1 %; Neutrophils # (auto) 14.15 K/uL (1.4-6.5); Neutrophils % (auto) 80.7 %; Platelet Count 349 K/uL (130-400); RDW Coefficient of Variation 17.9 % (11.5-14.5); RDW Standard Deviation 58.2 fL (36.4-46.3); Red Blood Count 3.79 M/uL (4.7-6.1); White Blood Count 17.52 K/uL (4.8-10.8)
[2019-09-12 12:06] LABS: INR 1.1 (0.9-1.1); Partial Thromboplastin Time 28.2 Seconds (21.0-31.0); Prothrombin Time 11.8 Seconds (9.0-12.0)
[2019-09-12 12:09] LABS: Albumin Level 2.8 gm/dl (3.4-5.0); BUN Creatinine Ratio 18.8 (10-20); Calcium 8.6 mg/dl (8.5-10.1); Creatinine Clr Calc Pharmacy 40.4 ml/min; Est GFR (African American) 53.6; Est GFR (Non-African American) 46.3; Magnesium 1.8 mg/dl (1.8-2.4)
[2019-09-12 12:14] LABS: Albumin Globulin Ratio 0.5 (0.9-2); Bilirubin,Total 0.6 mg/dl (0.2-1); Globulin 5.1 gm/dl (2.5-4.0); Total Protein 7.9 gm/dl (6.4-8.2); Troponin I 0.026 ng/ml (0-0.045)
[2019-09-12 12:28] LABS: Influenza A virus by PCR Neg for Influ A (Neg); Influenza B virus by PCR Neg for Influ B (Neg)
[2019-09-12] MEDS ORDERED: FUROSEMIDE 40 MG/4 ML VIAL IV STA (12:30)
[2019-09-12] MEDS ORDERED: AZITHROMYCIN 500 MG in DEXTROSE 5% 250 ML IV ONE (13:32)
--- NOTE | 2019-09-12 13:34 | Emergency Department Note ---
Entered by Dez Kidd acting as a scribe for Tariq Botello MD History of Present Illness General Chief complaint: Shortness of Breath/Dyspnea Stated complaint: SHORTNESS OF BREATH Time Seen by Provider: 09/12/19 11:21 Source: patient Limitations: no limitations History of Present Illness Onset (ago): day(s) (couple days ago) Location: chest Pain Consistency: + constant Maximum Pain Intensity: 4 Quality: + constant Exacerbated By: + other (laying flat) Associated symptoms: + denies other symptoms (flu-like symptoms), + chest pain and + other (weight gain); no fever/chills (fevers) The patient is a 84 year old male who presents to the Emergency Room with complaints of constant SOB starting a couple days ago. The patient states he was sick a couple weeks ago, but notes this is a different illness. He states he has been coughing frequently. He states his SOB is worse when he lays flat. He notes he has a little bit of chest pain. He states he had his medications changed recently. He states his legs are more swollen than usual, and states he gained 6 pounds in 6 days. The patient denies having fevers, sputum, flu-like symptoms, and using inhalers. He states he has a history of heart disease. Home Medications Home Medications Medication Instructions Recorded Confirmed Type Lactobacillus acidoph-L.bulgar 1 tab PO BID #20 tab 08/16/19 09/12/19 Rx [Lactinex] atorvastatin 40 mg PO HS 30 Days #30 tab 08/16/19 09/12/19 Rx metoprolol tartrate 25 mg PO BID 30 Days #60 tab 08/16/19 09/12/19 Rx multivitamin 1 tab PO DAILY 30 Days #30 tab 08/16/19 09/12/19 Rx dextromethorphan-guaifenesin 1 tab PO Q12H 09/12/19 09/12/19 History [Mucinex DM] melatonin 10 mg PO HS 09/12/19 09/12/19 History Allergies Allergy/AdvReac Type Severity Reaction Status Date / Time ibuprofen AdvReac Severe RAPID Unverified 09/12/19 12:43 HEART RATE Past Med/Surg History Family History Other No significant family history Social History (Reviewed 09/12/19 @ 11:46 by Dez Posadas Preferred Language: Bahraini Communication Ability: Effective Food Aide Required: No Beliefs That Will Affect Care: None Current Living Situation: Personal Care Facility Other Information That Helps Us Care for You: No Feels Safe at Home: Yes Safety Concerns: Feels Safe At This Time Smoking Status: Never smoker Do You Dip or Chew Tobacco: No ; Second Hand Exposure: No ; Tobacco Cessation Education Requested by Patient: No Hx Alcohol Use: No Hx Substance Use: No Review of Systems See HPI for pertinent positives & negatives. and A total of 10 systems reviewed and were otherwise negative Physical Exam Vital Signs Vital Signs - 24 hr 09/12/19 11:14 09/12/19 11:27 09/12/19 11:30 Pulse Rate 70 79 72 Pulse Rate from SpO2 Sensor 75 76 Respiratory Rate 22 23 22 Respiratory Effort / Characteristics Spontaneous Blood Pressure 144/79 H Blood Pressure Mean 100 Pulse Oximetry 99 93 98 Oxygen Delivery Method Room Air Nasal Cannula Nasal Cannula Oxygen Flow Rate 2 2 Sepsis Recent Fever Within 48 Hours No Sepsis New/Unexplained Change in Mental Status No Sepsis Action Taken by Nursing No Action Required 09/12/19 11:53 09/12/19 12:00 09/12/19 12:30 Pulse Rate 74 73 Pulse Rate from SpO2 Sensor 72 70 Respiratory Rate 25 H 15 Respiratory Effort / Characteristics Non-Labored Spontaneous Blood Pressure Blood Pressure Mean Pulse Oximetry 100 99 Oxygen Delivery Method Nasal Cannula Nasal Cannula Nasal Cannula Oxygen Flow Rate 2 2 2 Sepsis Recent Fever Within 48 Hours Sepsis New/Unexplained Change in Mental Status Sepsis Action Taken by Nursing 09/12/19 13:00 09/12/19 13:04 Pulse Rate 70 72 Pulse Rate from SpO2 Sensor 70 73 Respiratory Rate 24 24 Respiratory Effort / Characteristics Blood Pressure 117/65 Blood Pressure Mean 75 Pulse Oximetry 100 99 Oxygen Delivery Method Nasal Cannula Nasal Cannula Oxygen Flow Rate 2 2 Sepsis Recent Fever Within 48 Hours Sepsis New/Unexplained Change in Mental Status Sepsis Action Taken by Nursing General: Chronically-ill appearing older male in no acute distress. Mildly tachypneic. Coughing intermittently. O2 drops to mid-to-high 80s on room air. HEENT: Normal cephalic atraumatic. Pupils are equal round and reactive to light. Extraocular movements are intact. Oropharynx is pink with moist mucous membranes. No swelling of the mouth lips or tongue. Neck: Supple with a midline trachea. No meningeal signs or stiffness, no JVD or bruits. No Stridor. Chest: Clear to auscultation bilaterally. No wheezes or rhonchi. No increased work of breathing. Coarse breath sounds bilaterally. Heart: regular rate and rhythm. Abdomen: Soft nontender, nondistended without rebound guarding or rigidity. Extremities: No cyanosis clubbing. No calf tenderness or asymmetry. Bilateral lower extremity edema. Spine/Back. Non tender to palpation. No CVA tenderness Skin: Good turgor without rashes. Neurologic exam: Cranial nerves two through 12 are intact. Motor and sensation are intact and symmetrical throughout. Course Course 1122: The patient was evaluated in room C3, and a complete history and physical examination were performed. 1224: I reevaluated the patient. He appears comfortable. He states his last hospital stay he had a long discussion about end of life care with Dr. Lugo. He states he is DNR and mostly wants comfort measures. 1249: I updated the patient on his labs and imaging results. He will get Lasix. 1252: I discussed the patient's case with Dr. Jason Sims Hospitalist. He will evaluate the patient for further management. Administered Medications Azithromycin 500 mg/ Dextrose 255 mls @ 125 mls/hr IV ONE ONE Stop: 09/12/19 15:34 Last Admin: 09/12/19 13:59 Dose: 125 mls/hr Documented by: [id number] Discontinued Medications Furosemide (Lasix) 20 mg IV NOW STA Stop: 09/12/19 12:31 Last Admin: 09/12/19 13:02 Dose: 20 mg Documented by: [id number] Medical Decision Making Differential Diagnosis Differential Diagnosis includes but is not limited to CHF, influenza, pneumonia, sepsis, cardiac disease, and electrolyte or metabolic abnormality. Medical Records Attestation: I reviewed the patient's medical records. Home Medications Current Medication List: was personally reviewed by me Laboratory Data Attestation: I reviewed the patient's lab results. Result diagrams: 09/12/19 11:40 09/12/19 11:40 Lab Results 09/12/19 09/12/19 09/12/19 Range/Units 11:40 11:40 11:40 WBC 17.52 H (4.8-10.8) K/uL RBC 3.79 L (4.7-6.1) M/uL Hgb 9.9 L (14.0-18.0) g/dL Hct 33.5 L (42-52) % MCV 88.4 (80-100) fL MCH 26.1 (25-34) pg MCHC 29.6 L (32-36) g/dL RDW Std Deviation 58.2 H (36.4-46.3) fL RDW Coeff of Alice 17.9 H (11.5-14.5) % Plt Count 349 (130-400) K/uL MPV 10.5 H (7.4-10.4) fL Immature Gran % (Auto) 0.5 % Neut % (Auto) 80.7 % Lymph % (Auto) 6.6 % Greenlee % (Auto) 11.1 % Eos % (Auto) 0.7 % Baso % (Auto) 0.4 % Immature Gran # (Auto) 0.08 H (0.00-0.02) K/uL Neut # (Auto) 14.15 H (1.4-6.5) K/uL Lymph # (Auto) 1.15 L (1.2-3.4) K/uL Greenlee # (Auto) 1.94 H (0.11-0.59) K/uL Eos # (Auto) 0.13 (0-0.5) K/uL Baso # (Auto) 0.07 (0-0.2) K/uL PT 11.8 (9.0-12.0) Seconds INR 1.1 (0.9-1.1) APTT 28.2 (21.0-31.0) Seconds PTT Ratio 1.0 Sodium 139 (136-145) mmol/L Potassium 4.0 (3.5-5.1) mmol/L Chloride 106 (98-107) mmol/L Carbon Dioxide 29 (21-32) mmol/L Anion Gap 5.0 (3-11) BUN 26 H (7-18) mg/dl Creatinine 1.38 (0.6-1.4) mg/dl Est Cr Clr Drug Dosing 40.4 ml/min Est GFR ( Amer) 53.6 Est GFR (Non-Af Amer) 46.3 BUN/Creatinine Ratio 18.8 (10-20) Glucose 127 H (70-99) mg/dl Lactate (0.4-2.0) mmol/L Calcium 8.6 (8.5-10.1) mg/dl Magnesium 1.8 (1.8-2.4) mg/dl Total Bilirubin 0.6 (0.2-1) mg/dl AST 23 (15-37) U/L ALT 21 (12-78) U/L Alkaline Phosphatase 182 H (45-117) U/L Troponin I 0.026 (0-0.045) ng/ml NT-Pro-B Natriuret Pep 51713 H (0-1800) pg/ml Total Protein 7.9 (6.4-8.2) gm/dl Albumin 2.8 L (3.4-5.0) gm/dl Globulin 5.1 H (2.5-4.0) gm/dl Albumin/Globulin Ratio 0.5 L (0.9-2) Influenza Type A (PCR) (Neg) Influenza Type B (PCR) (Neg) 09/12/19 09/12/19 09/12/19 Range/Units 11:40 11:54 13:25 WBC (4.8-10.8) K/uL RBC (4.7-6.1) M/uL Hgb (14.0-18.0) g/dL Hct (42-52) % MCV (80-100) fL MCH (25-34) pg MCHC (32-36) g/dL RDW Std Deviation (36.4-46.3) fL RDW Coeff of Alice (11.5-14.5) % Plt Count (130-400) K/uL MPV (7.4-10.4) fL Immature Gran % (Auto) % Neut % (Auto) % Lymph % (Auto) % Greenlee % (Auto) % Eos % (Auto) % Baso % (Auto) % Immature Gran # (Auto) (0.00-0.02) K/uL Neut # (Auto) (1.4-6.5) K/uL Lymph # (Auto) (1.2-3.4) K/uL Greenlee # (Auto) (0.11-0.59) K/uL Eos # (Auto) (0-0.5) K/uL Baso # (Auto) (0-0.2) K/uL PT (9.0-12.0) Seconds INR (0.9-1.1) APTT (21.0-31.0) Seconds PTT Ratio Sodium (136-145) mmol/L Potassium (3.5-5.1) mmol/L Chloride (98-107) mmol/L Carbon Dioxide (21-32) mmol/L Anion Gap (3-11) BUN (7-18) mg/dl Creatinine (0.6-1.4) mg/dl Est Cr Clr Drug Dosing ml/min Est GFR ( Amer) Est GFR (Non-Af Amer) BUN/Creatinine Ratio (10-20) Glucose (70-99) mg/dl Lactate 2.2 H* 1.0 (0.4-2.0) mmol/L Calcium (8.5-10.1) mg/dl Magnesium (1.8-2.4) mg/dl Total Bilirubin (0.2-1) mg/dl AST (15-37) U/L ALT (12-78) U/L Alkaline Phosphatase (45-117) U/L Troponin I (0-0.045) ng/ml NT-Pro-B Natriuret Pep (0-1800) pg/ml Total Protein (6.4-8.2) gm/dl Albumin (3.4-5.0) gm/dl Globulin (2.5-4.0) gm/dl Albumin/Globulin Ratio (0.9-2) Influenza Type A (PCR) Neg for Influ A (Neg) Influenza Type B (PCR) Neg for Influ B (Neg) Imaging Data Radiologist's Impression: Radiology results as stated below per my review and the radiologist's interpretation: XR chest 1V portable HISTORY: SEPSIS COMPARISON: Chest 08/08/2019. FINDINGS: Small left pneumothorax with a maximal pleural gap of 2 cm. No right- sided pneumothorax. There is mild interstitial pulmonary edema, small bilateral pleural effusions, and bibasilar densities. The heart remains mildly enlarged. There are poststernotomy changes. IMPRESSION: 1. Small left pneumothorax. 2. Mild interstitial pulmonary edema, small bilateral pleural effusions, and bibasilar densities. ACT 112: Negative or not required by law. Electronically signed by: Santos Chandler M.D. 09/12/2019 11:47 AM ECG Data Attestation: I personally reviewed and interpreted this ECG as follows: Blood Pressure Blood Pressure Findings: Elevated blood pressure Blood Pressure Disposition: further management by hospitalist JEFRY Narrative This patient comes in as described above. He was placed in room C3. He is here for treatment and evaluation of weight gain and shortness of breath. He was in the hospital about a month ago and had CHF among other issues. They ultimately stopped his Lasix because his creatinine was high. Since he is been at [facility] he has gained weight 5 to 10 pounds and had increasing shortness of ge ath and cough. He denies any fever or chest pain. He denies abdominal pain at present. IV access established multiple blood testing was obtained. Chest x- ray shows some mild congestive changes. He does have peripheral edema as well. No focal infiltrates seen on x-ray. He does have a small pneumothorax, I discussed this with the radiologist. I do not feel he needs a chest tube at this point as it small and he seems to be doing well. It is likely from coughing. His kidney function has normalized and has normal electrolytes. His white count is elevated but he has no signs of pneumonia. Reviewing his previous CAT scan from August at that time he was diagnosed with what appears to be metastatic colon cancer. He also had findings consistent with acute cholecystitis which was treated with antibiotics after discussing his wishes and goals. Today he was given Lasix 20 mg IV to help with the CHF/fluid overload. I did consult the [facility] hospitalist. Continuous Cardiac Monitoring: An order was placed for continuous cardiac monitoring. The monitor shows a rate of 70 with a normal sinus rhythm. Impression & Plan CHF (congestive heart failure), SOB (shortness of breath), Pneumothorax, Elevated WBC count Discharge Plan Visit Data Chief Complaint: Shortness of Breath/Dyspnea Stated Complaint: SHORTNESS OF BREATH ED Provider: Tariq Botello Discharge Problem: CHF (congestive heart failure), SOB (shortness of breath), Pneumothorax, Elevated WBC count Patient Disposition: Being Evaluated by Hospitalist Forms Stand Alone Forms: [facility] Prescriptions Prescriptions: No Action metoprolol tartrate 25 mg Tablet 25 mg PO BID 30 Days Qty: 60 RF: 0 Lactinex 1 million cell tablet,chewable 1 tab PO BID Qty: 20 RF: 0 multivitamin Tablet 1 tab PO DAILY 30 Days Qty: 30 RF: 0 atorvastatin 40 mg Tablet 40 mg PO HS 30 Days Qty: 30 RF: 0 dextromethorphan-guaifenesin [Mucinex DM] 60-1,200 mg Tablet Extended Release 12 Hr 1 tab PO Q12H RF: 0 melatonin 5 mg Tablet 10 mg PO HS RF: 0 Referrals Referrals: Val Akhtar PA-C [Primary Care Provider] - Discharge Problem: CHF (congestive heart failure) Qualifiers: Heart failure type: unspecified Heart failure chronicity: unspecified Qualified Code(s): I50.9 - Heart failure, unspecified Pneumothorax Qualifiers: Pneumothorax type: unspecified pneumothorax Qualified Code(s): J93.9 - Pneumothorax, unspecified Elevated WBC count Qualifiers: Leukocytosis type: unspecified Qualified Code(s): D72.829 - Elevated white blood cell count, unspecified The scribe's documentation has been prepared under my direction and personally reviewed by me in its entirety. I confirm that the note above accurately reflects all work, treatment, procedures, and medical decision making performed by me.
--- NOTE | 2019-09-12 13:57 | History & Physical Report ---
Date of Service September 12, 2019 Assessment & Plan (1) CHF (congestive heart failure): Has been complaining of increasing legs swelling and shortness of breath with cough History of diastolic heart failure and last echo on 08/08/2019 showed EF of 45 to 50% Has combined systolic and diastolic heart failure BNP was more than 29,000 Received a dose of Lasix in the emergency room and will continue 40 mg IV Lasix daily Monitor PRP (2) Pneumonia: Has cough with productive of whitish-yellow phlegm Chest x-ray did show bibasilar infiltrate with small effusion White count is elevated to 17,000 Azithromycin has been started for possible pneumonia (3) SOB (shortness of breath): History of COPD Does not seems to be in exacerbation (4) Pneumothorax: Has had cough Chest x-ray showed small left apical pneumothorax We will repeat chest x-ray PA and lateral view tomorrow (5) Mass of colon: Has significant cecal mass during his last admission he came in with obstructive symptoms Denies any nausea vomiting or abdominal distention No further investigation for the cecal mass (6) Diabetes: Has type 2 diabetes Does not want to have blood sugar checked or any insulin given (7) Atrial fibrillation: History atrial fibrillation and the rate is controlled with beta-manuel He does not want to have any anticoagulation (8) CAD (coronary artery disease) of artery bypass graft: No acute symptoms Has COPD on home oxygen DVT prophylaxis Subcu Lovenox-he may refuse it CODE STATUS DNR/DNI-discussed with the patient History of Present Illness Chief Complaint: Bilateral leg swelling, cough with phlegm and shortness of breath for the last few days Primary Care Provider: Val Akhtar PA-C He is an 84-year-old male with significant past medical history including 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 The leg swelling associated with shortness of breath and he has been coughing for the last few days productive of whitish- yellow phlegm. He denies any significant chest pain and he does not have any fever and no chills with it. Denies any abdominal pain, nausea and or vomiting, no problem with his urine and her bowel habit. Denies any numbness and or tingling involving any of the extremities or any weakness in any side of the body. He was noted to have a high white count, bibasilar opacity with bilateral small pleural effusion with congestive changes and a small pneumothorax on the right and left apex. He was started with intravenous azithromycin, given Lasix and was admitted to medical floor for continuation of care. Allergies Allergy/AdvReac Type Severity Reaction Status Date / Time ibuprofen AdvReac Severe RAPID Unverified 09/12/19 12:43 HEART RATE Home Medications Home Medications Medication Instructions Recorded Confirmed Type Lactobacillus acidoph-L.bulgar 1 tab PO BID #20 tab 08/16/19 09/12/19 Rx [Lactinex] atorvastatin 40 mg PO HS 30 Days #30 tab 08/16/19 09/12/19 Rx metoprolol tartrate 25 mg PO BID 30 Days #60 tab 08/16/19 09/12/19 Rx multivitamin 1 tab PO DAILY 30 Days #30 tab 08/16/19 09/12/19 Rx dextromethorphan-guaifenesin 1 tab PO Q12H 09/12/19 09/12/19 History [Mucinex DM] melatonin 10 mg PO HS 09/12/19 09/12/19 History Past Med/Surg History Family History Other No significant family history Social History Preferred Language: Emirati Communication Ability: Effective 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 Beliefs That Will Affect Care: None Current Living Situation: Personal Care Facility Other Information That Helps Us Care for You: No Feels Safe at Home: Yes Safety Concerns: Feels Safe At This Time Smoking Status: Never smoker Do You Dip or Chew Tobacco: No ; Second Hand Exposure: No ; Tobacco Cessation Education Requested by Patient: No Hx Alcohol Use: No Hx Substance Use: No Review of Systems Review of Systems: All systems reviewed & are unremarkable except as noted in HPI & below Physical Exam Physical Exam: Lying in bed comfortably with occasional coughs but no shortness of breath Constitutional: well developed and well nourished; no acute distress and not ill appearing Eyes: PERRL, conjunctivae normal, anicteric sclerae ENMT: external ear and nose normal, oropharynx normal Neck: trachea midline, no thyromegaly Respiratory: normal respiratory effort; no respiratory distress Auscultation: + diminished lung sounds and + crackles (Bibasilar) Cardiovascular: Rate/Rhythm: + abnormal rate and + abnormal rhythm Heart Sounds: no murmur Extremities: + edema (2+ edema bilaterally up to lower abdomen) Gastrointestinal (Abdomen): Inspection/Auscultation: abdomen normal to inspection and normal bowel sounds; abdomen not distended Percussion/Palpation: abdomen soft; abdomen nontender Musculoskeletal: No acute arthritis in any joints Lymphatic: no cervical or axillary lymphadenopathy Results & Data Vital Signs (Past 12 Hours) Vital Signs Pulse Resp BP Pulse Ox 09/12/19 13:04 72 24 117/65 99 09/12/19 13:00 70 24 100 09/12/19 12:30 73 15 99 09/12/19 12:00 74 25 H 100 09/12/19 11:30 72 22 98 09/12/19 11:27 79 23 93 09/12/19 11:14 70 22 144/79 H 99 Laboratory Results Short CBC 09/12/19 Range/Units 11:40 WBC 17.52 H (4.8-10.8) K/uL Hgb 9.9 L (14.0-18.0) g/dL Hct 33.5 L (42-52) % Plt Count 349 (130-400) K/uL BMP 09/12/19 11:40 Sodium 139 Potassium 4.0 Chloride 106 Carbon Dioxide 29 BUN 26 H Creatinine 1.38 Glucose 127 H Calcium 8.6 Cardiac Enzymes 09/12/19 Range/Units 11:40 Troponin I 0.026 (0-0.045) ng/ml Liver Function 09/12/19 Range/Units 11:40 Total Bilirubin 0.6 (0.2-1) mg/dl AST 23 (15-37) U/L ALT 21 (12-78) U/L Alkaline Phosphatase 182 H (45-117) U/L Albumin 2.8 L (3.4-5.0) gm/dl Medications Administered Current Inpatient Medications Azithromycin (Zithromax) 250 mg PO QAM PAWEL Stop: 09/20/19 08:59 Enoxaparin Sodium (Lovenox) 40 mg SQ Q24H PAWEL Stop: 10/12/19 15:59 Furosemide (Lasix) 40 mg IV DAILY PAWEL Stop: 10/13/19 08:59 Azithromycin 500 mg/ Dextrose 255 mls @ 125 mls/hr IV ONE ONE Stop: 09/12/19 15:34 Code Status & VTE Plan VTE Prophylaxis Plan VTE Prophylaxis will be ordered: Yes (1) Pneumothorax Pneumothorax type: unspecified pneumothorax Qualified Code(s): J93.9 - Pneumothorax, unspecified (2) CHF (congestive heart failure) Heart failure chronicity: unspecified Heart failure type: unspecified Qualified Code(s): I50.9 - Heart failure, unspecified (3) Atrial fibrillation Atrial fibrillation type: unspecified Qualified Code(s): I48.91 - Unspecified atrial fibrillation
[2019-09-12] MEDS: ENOXAPARIN INJ 40 MG/0.4 ML SYR SQ SCH (16:41)
[2019-09-12] MEDS: ACETAMINOPHEN 500 MG TAB PO PRN (18:31)
[2019-09-12] MEDS: ATORVASTATIN 40 MG TAB PO SCH (21:36)
[2019-09-12] MEDS: LACTOBACILLUS ACIDOPHILUS (FLORANEX) TAB PO SCH (21:36)
[2019-09-12] MEDS: METOPROLOL TARTRATE 25 MG TAB PO SCH (21:36)
[2019-09-12] MEDS: AMITRIPTYLINE HCL 10 MG TAB PO SCH (21:37)
[2019-09-13] MEDS: ACETAMINOPHEN 500 MG TAB PO PRN (04:58)
[2019-09-13 06:27] LABS: Basophils # (auto) 0.07 K/uL (0-0.2); Basophils % (auto) 0.5 %; Eosinophils # (auto) 0.08 K/uL (0-0.5); Eosinophils % (auto) 0.6 %; Hemoglobin 9.3 g/dL (14.0-18.0); Immature Granulocytes # (auto) 0.19 K/uL (0.00-0.02); Immature Granulocytes % (auto) 1.3 %; Lymphocytes # (auto) 1.18 K/uL (1.2-3.4); Lymphocytes % (auto) 8.3 %; Mean Corpuscular Hemoglobin 26.2 pg (25-34); Mean Corpuscular Hgb Conc 29.1 g/dL (32-36); Mean Corpuscular Volume 90.1 fL (80-100); Mean Platelet Volume 10.6 fL (7.4-10.4); Monocytes # (auto) 1.27 K/uL (0.11-0.59); Neutrophils # (auto) 11.38 K/uL (1.4-6.5); Neutrophils % (auto) 80.3 %; Platelet Count 248 K/uL (130-400); RDW Coefficient of Variation 17.5 % (11.5-14.5); RDW Standard Deviation 57.9 fL (36.4-46.3); Red Blood Count 3.55 M/uL (4.7-6.1); White Blood Count 14.17 K/uL (4.8-10.8)
[2019-09-13 06:56] LABS: BUN Creatinine Ratio 19.1 (10-20); Creatinine Clr Calc Pharmacy 35.5 ml/min; Est GFR (African American) 45.9; Est GFR (Non-African American) 39.6; Magnesium 1.8 mg/dl (1.8-2.4); Potassium 4.3 mmol/L (3.5-5.1)
[2019-09-13 06:57] LABS: Phosphorus 4.3 mg/dl (2.5-4.9)
--- NOTE | 2019-09-13 07:31 | Hospitalist Progress Note ---
Date of Service September 13, 2019 Assessment & Plan (1) CHF (congestive heart failure): Has been complaining of increasing leg swelling and shortness of breath with cough History of diastolic heart failure and last echo on 08/08/2019 showed EF of 45 to 50% Has combined systolic and diastolic heart failure BNP was more than 29,000 Received a dose of Lasix in the emergency room, continue 40 mg IV Lasix daily (2) Pneumonia: Has cough with productive of whitish-yellow phlegm Chest x-ray did show bibasilar infiltrate with small effusion White count is elevated to 17,000 Azithromycin started for possible pneumonia (3) SOB (shortness of breath): History of COPD Does not seems to be in exacerbation (4) Pneumothorax: Has had cough Chest x-ray showed small left apical pneumothorax Repeat chest x-ray PA and lateral today (5) Mass of colon: Has significant cecal mass during his last admission he came in with obstructive symptoms Denies any nausea vomiting or abdominal distention No further investigation for the cecal mass (6) Diabetes: Has type 2 diabetes Does not want to have blood sugar checked or any insulin given (7) Atrial fibrillation: History atrial fibrillation and the rate is controlled with beta-manuel He does not want to have any anticoagulation (8) CAD (coronary artery disease) of artery bypass graft: No acute symptoms Has COPD on home oxygen DVT prophylaxis Subcu Lovenox-he may refuse it CODE STATUS DNR/DNI-discussed with the patient ROS-No Headache, No Visual Changes, No Nausea, No Vomiting, No Fever, No Chills, No Neck Pain or Stiffness, No Chest Pain, No Palpitations, No SOB, No PUGH, No Cough, No Sputum, No Wheezing, No Abdominal Pain, No Diarrhea, No Hematemesis, No Hemoptysis, No Unexpected Weight Loss, No Flank pain, No Melena, No Hematochezia, No Frequency, No Urgency, No Burning, No Hematuria, No Rashes, No Diaphoresis. Appetite is Normal Physical Exam Gen-AAO x 3, NAD, Afebrile Head-NCAT, EOMI, PERRLA, Anicteric Sclera, No Posterior Pharyngeal Erythema Neck-Supple, No JVD, No Thyromegaly, No Masses, No LAD, No Bruits Lungs-R Rhonchi and Wheezing, No Crepitus Chest-No S4, +S1, +S2, No S3, No Murmurs, No Rubs, No Gallops, No Ectopy Abdomen-Soft, Bowel Sounds Present, Non Tender, Non Distended, No Hepatomegaly, No Splenomegaly, No Palpable Masses, No Rebound, No Rigidity, No Guarding Musculoskeletal-Full Range of Motion Bilaterally, No CVAT Extremities-No Cyanosis, No Clubbing, No Edema Nuero-Cranial Nerves II-XII grossly intact, Motor WNL, DTRs WNL, Strength WNL, Non Focal Psych-Normal Mood Admission and Anticipated Discharge Date Admission Date: September 12, 2019 Anticipated date of discharge: 09/15/19 Results & Data ([facility]) Vital Signs (Past 12 Hours) Vital Signs Temp Pulse Pulse Pulse Resp BP Pulse Ox 09/13/19 07:11 36.3 C L 92 H 18 106/56 L 95 09/13/19 02:57 36.4 C L 104 H 18 111/66 99 09/13/19 00:44 70 09/12/19 23:03 36.3 C L 60 16 113/71 93 (1) CHF (congestive heart failure) Heart failure chronicity: unspecified Heart failure type: unspecified Qualified Code(s): I50.9 - Heart failure, unspecified (2) Pneumothorax Pneumothorax type: unspecified pneumothorax Qualified Code(s): J93.9 - Pneumothorax, unspecified (3) Atrial fibrillation Atrial fibrillation type: unspecified Qualified Code(s): I48.91 - Unspecified atrial fibrillation
[2019-09-13] MEDS: FUROSEMIDE 40 MG in SYRINGE 0 ML IV SCH (08:22)
[2019-09-13] MEDS: LACTOBACILLUS ACIDOPHILUS (FLORANEX) TAB PO SCH ×2 (08:23→20:43)
[2019-09-13] MEDS: AZITHROMYCIN 250 MG TAB PO SCH (08:23)
[2019-09-13] MEDS: MULTIVITAMIN TAB PO SCH (08:23)
[2019-09-13] MEDS: METOPROLOL TARTRATE 25 MG TAB PO SCH ×2 (08:23→20:43)
[2019-09-13] MEDS ORDERED: FUROSEMIDE 40 MG/4 ML VIAL IV SCH (09:00)
[2019-09-13 09:37] LABS: Appearance Urine Clear (Clear); Bilirubin Urine Negative (Negative); Blood Urine Negative (Negative); Color Urine Yellow; Glucose Urine UA Negative (Negative); Ketones Urine Negative (Negative); Leukocyte Esterase Urine Negative (Negative); Nitrite Urine Negative (Negative); Protein Urine Negative (Negative); Specific Gravity Urine 1.015 (1.000-1.030); Urobilinogen Urine Negative (Negative)
--- NOTE | 2019-09-13 09:44 | XRay Report ---
XR chest 2V PA/lateral CLINICAL HISTORY: 84 years-old Male presenting with Pneumothorax. TECHNIQUE: PA and lateral views of the chest were obtained. COMPARISON: 09/12/2019. FINDINGS: Median sternotomy wires and mediastinal surgical clips. Atherosclerosis of the aortic arch. Cardiac s ilhouette mildly enlarged. Small bilateral pleural effusions with bibasilar opacities and limited aer ation of the lung bases. Redemonstration of the small left apical pneumothorax. Degenerative changes of the thoracic spine. Numerous overlying external leads to grating image quality. Upper abdomen norm al. IMPRESSION: 1. Stable small left pneumothorax. 2. Mild cardiomegaly. No advanced congestive change or erlinda pulmonary edema. 3. Small bilateral pleural effusions with bibasilar atelectasis. ACT 112: Negative or not required by law. Electronically signed by: Tomás Rivera M.D. 09/13/2019 9:42 AM
[2019-09-13] MEDS ORDERED: guaiFENesin 600 MG TABCR PO PRN (10:14)
[2019-09-13] MEDS ORDERED: DEXTROMETHORPHAN POLYMR COMPLX 60 MG/10 ML UDP PO PRN (10:15)
--- NOTE | 2019-09-13 14:22 | Electrocardiogram Report ---
Test Reason : Blood Pressure : / mmHG Vent. Rate : 075 BPM Atrial Rate : 075 BPM P-R Int : 232 ms QRS Dur : 098 ms QT Int : 396 ms P-R-T Axes : 012 -16 239 degrees QTc Int : 442 ms Sinus rhythm with 1st degree A-V block with frequent , and consecutive Premature ventricular complexe s and Premature atrial complexes Nonspecific ST and T wave abnormality Abnormal ECG When compared with ECG of 08-AUG-2019 03:28, Vent. rate has decreased BY 61 BPM Nonspecific T wave abnormality now evident in Inferior leads T wave inversion more evident in Lateral leads Confirmed by Jose Solo ([id number]) on 09/13/2019 2:21:40 PM Referred By: REFERRED SELF Confirmed By:Jose Solo
[2019-09-13] MEDS: ENOXAPARIN INJ 40 MG/0.4 ML SYR SQ SCH (17:13)
[2019-09-13] MEDS: AMITRIPTYLINE HCL 10 MG TAB PO SCH (20:42)
[2019-09-13] MEDS: ATORVASTATIN 40 MG TAB PO SCH (20:43)
--- NOTE | 2019-09-14 07:33 | Hospitalist Progress Note ---
Date of Service September 14, 2019 Assessment & Plan (1) CHF (congestive heart failure): Was complaining of increasing leg swelling and shortness of breath with cough History of diastolic heart failure and last echo on 08/08/2019 showed EF of 45 to 50% Has combined Acute systolic and diastolic heart failure BNP was more than 29,000 Received a dose of Lasix in the emergency room, continue 40 mg IV Lasix daily (2) Pneumonia: Has cough with productive of whitish-yellow phlegm Chest x-ray did show bibasilar infiltrate with small effusion White count is elevated to 17,000 Azithromycin started for possible pneumonia (3) SOB (shortness of breath): History of COPD Does not seems to be in exacerbation (4) Pneumothorax: Has had cough Chest x-ray showed small left apical pneumothorax Repeat chest x-ray PA and lateral D/W Pulmonary-Said High Flow O2 check CXR in am (5) Mass of colon: Has significant cecal mass during his last admission he came in with obstructive symptoms Denies any nausea vomiting or abdominal distention No further investigation for the cecal mass (6) Diabetes: Has type 2 diabetes Does not want to have blood sugar checked or any insulin given (7) Atrial fibrillation: History atrial fibrillation and the rate is controlled with beta-manuel He does not want to have any anticoagulation (8) CAD (coronary artery disease) of artery bypass graft: No acute symptoms Has COPD on home oxygen DVT prophylaxis Subcu Lovenox-he may refuse it CODE STATUS DNR/DNI-discussed with the patient ROS-No Headache, No Visual Changes, No Nausea, No Vomiting, No Fever, No Chills, No Neck Pain or Stiffness, No Chest Pain, No Palpitations, No SOB, No PUGH, + Cough, No Sputum, No Wheezing, No Abdominal Pain, No Diarrhea, No Hematemesis, No Hemoptysis, No Unexpected Weight Loss, No Flank pain, No Melena, No Hematochezia, No Frequency, No Urgency, No Burning, No Hematuria, No Rashes, No Diaphoresis. Appetite is Normal Physical Exam Gen-AAO x 3, NAD, Afebrile Head-NCAT, EOMI, PERRLA, Anicteric Sclera, No Posterior Pharyngeal Erythema Neck-Supple, No JVD, No Thyromegaly, No Masses, No LAD, No Bruits Lungs-R Rhonchi and Wheezing, No Crepitus Chest-No S4, +S1, +S2, No S3, No Murmurs, No Rubs, No Gallops, No Ectopy Abdomen-Soft, Bowel Sounds Present, Non Tender, Non Distended, No Hepatomegaly, No Splenomegaly, No Palpable Masses, No Rebound, No Rigidity, No Guarding Musculoskeletal-Full Range of Motion Bilaterally, No CVAT Extremities-No Cyanosis, No Clubbing, + Edema Nuero-Cranial Nerves II-XII grossly intact, Motor WNL, DTRs WNL, Strength WNL, Non Focal Psych-Normal Mood Admission and Anticipated Discharge Date Admission Date: September 12, 2019 Anticipated date of discharge: 09/15/19 Results & Data ([facility]) Vital Signs (Past 12 Hours) Vital Signs Temp Pulse Pulse Pulse Resp BP Pulse Ox 09/14/19 07:14 36.9 C 102 H 20 105/58 L 93 09/14/19 06:02 83 09/14/19 04:39 99 09/14/19 04:00 36.4 C L 98 H 22 136/75 99 09/13/19 23:00 36.3 C L 90 23 128/73 93 09/13/19 19:45 36.7 C 85 20 135/64 99 (1) CHF (congestive heart failure) Heart failure chronicity: unspecified Heart failure type: unspecified Qualified Code(s): I50.9 - Heart failure, unspecified (2) Pneumothorax Pneumothorax type: unspecified pneumothorax Qualified Code(s): J93.9 - Pneumothorax, unspecified (3) Atrial fibrillation Atrial fibrillation type: unspecified Qualified Code(s): I48.91 - Unspecified atrial fibrillation
[2019-09-14] MEDS: FUROSEMIDE 40 MG in SYRINGE 0 ML IV SCH (07:46)
[2019-09-14] MEDS: MULTIVITAMIN TAB PO SCH (07:47)
[2019-09-14] MEDS: LACTOBACILLUS ACIDOPHILUS (FLORANEX) TAB PO SCH ×2 (07:47→20:16)
[2019-09-14] MEDS: METOPROLOL TARTRATE 25 MG TAB PO SCH ×2 (07:47→20:16)
[2019-09-14] MEDS: AZITHROMYCIN 250 MG TAB PO SCH (07:47)
[2019-09-14 07:59] LABS: Hematocrit (blood only) 34.7 % (42-52); Mean Corpuscular Hemoglobin 26.6 pg (25-34); Mean Corpuscular Hgb Conc 28.8 g/dL (32-36); Mean Corpuscular Volume 92.3 fL (80-100); Mean Platelet Volume 11.1 fL (7.4-10.4); Platelet Count 295 K/uL (130-400); RDW Coefficient of Variation 17.8 % (11.5-14.5); RDW Standard Deviation 60.1 fL (36.4-46.3); Red Blood Count 3.76 M/uL (4.7-6.1); White Blood Count 19.16 K/uL (4.8-10.8)
[2019-09-14 08:14] LABS: BUN Creatinine Ratio 22.4 (10-20); Calcium 9.1 mg/dl (8.5-10.1); Creatinine Clr Calc Pharmacy 32.2 ml/min; Est GFR (African American) 41.4; Est GFR (Non-African American) 35.7; Potassium 4.4 mmol/L (3.5-5.1)
[2019-09-14] MEDS: cefTRIAXone SODIUM 1,000 MG in DEXTROSE 5% 50 ML IV SCH (08:49)
--- NOTE | 2019-09-14 15:43 | Pulmonary Consultation ---
Date of Consultation September 14, 2019 Assessment & Plan (1) Pneumothorax, left: Very small apical pneumothorax on the left. Previous x-ray reviewed Pneumothorax has improved over the last 24 hours. At this point no invasive intervention Unless patient becomes hemodynamically stable or has a mediastinal or tracheal shift, no intervention Patient specifically states that he does not want any significant intervention but would like to focus on palliative care. (2) Bilateral pleural effusion: Patient has very small bilateral pleural effusions He specifically states that we do not do any invasive intervention We will just follow clinically and continue to titrate O2 to maintain an SaO2 of 90% or greater. Thank you very much for including us in the care of this patient. We will sign off at this time. Please refer to Dr. Blevins's addendum for further recommendations History of Present Illness Attending Physician: Blake Grajeda DO History of Present Illness Attending: Dr. Blevins Patient seen and examined at bedside. He is an 84-year-old male. We are asked to evaluate him for a small left-sided pneumothorax. Patient denies any recent procedures. He has had no trauma to the chest. He quit smoking in 1982. He has no history of spontaneous pneumothorax in the past. The patient is 5 foot 10 with a BMI of 22.8 kg/m. Patient has no prior history of pulmonary disease including emphysema or bullous lung. He denies any fever or chills. He has no new shortness of breath. He reports he is not on oxygen at home but was placed on oxygen due to shortness of breath. 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 He stated that he had brothers that had cancer of the colon and that he is refusing treatment. When asked if the patient would want intervention with a chest tube he is adamant that he would want no intervention if he was comfortable. The patient is very realistic with his care and wishes to primarily have comfort. He emphasizes that he is a level 5 DNR/DNI and would not want any significant invasive intervention. Allergies Allergy/AdvReac Type Severity Reaction Status Date / Time ibuprofen AdvReac Severe RAPID Unverified 09/12/19 12:43 HEART RATE Home Medications Home Medications Medication Instructions Recorded Confirmed Type Lactobacillus acidoph-L.bulgar 1 tab PO BID #20 tab 08/16/19 09/12/19 Rx [Lactinex] atorvastatin 40 mg PO HS 30 Days #30 tab 08/16/19 09/12/19 Rx metoprolol tartrate 25 mg PO BID 30 Days #60 tab 08/16/19 09/12/19 Rx multivitamin 1 tab PO DAILY 30 Days #30 tab 08/16/19 09/12/19 Rx dextromethorphan-guaifenesin 1 tab PO Q12H 09/12/19 09/12/19 History [Mucinex DM] melatonin 10 mg PO HS 09/12/19 09/12/19 History Patient History Medical History Bronchitis CAD (coronary artery disease) of artery bypass graft CHF (congestive heart failure) Goals of care, counseling/discussion Umbilical hernia Family History Other No significant family history Social History Preferred Language: Bangladeshi Communication Ability: Effective 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 Sitting in bedside chair. Pleasant. Talkative. Talks in full sentences without any shortness of breath. EYES: No icterus, gaze conjugate. Pupils equal round and reactive to light. NOSE: No evidence of epistaxis. Nasal cannula in place and secure. MOUTH: No lesions or candidiasis. Mucosa is moist. NECK: Supple. No JVD. LUNGS: Patient has bibasilar rales. Positive rhonchi. No appreciation of significant bronchospasm. There are lung sounds throughout all lung zambrano. HEART: Regular, rate controlled ABDOMEN: Soft, NT, ND, BS Present EXTREMITIES: No LE edema, pedal pulses intact NEURO: A&OX3 Results & Data ([facility]) Vital Signs (Past 12 Hours) Vital Signs Temp Pulse Pulse Pulse Resp BP Pulse Ox 09/14/19 15:16 36.7 C 79 20 132/79 100 09/14/19 10:57 36.4 C L 82 20 106/63 90 09/14/19 07:14 36.9 C 102 H 20 105/58 L 93 09/14/19 06:02 83 09/14/19 04:39 99 09/14/19 04:00 36.4 C L 98 H 22 136/75 99 Laboratory Results 09/14/19 07:15 09/14/19 07:15 Diagnostic Findings XR chest 2V PA/lateral CLINICAL HISTORY: 84 years-old Male presenting with Pneumothorax. TECHNIQUE: PA and lateral views of the chest were obtained. COMPARISON: 09/12/2019. FINDINGS: Median sternotomy wires and mediastinal surgical clips. Atherosclerosis of the aortic arch. Cardiac silhouette mildly enlarged. Small bilateral pleural effusions with bibasilar opacities and limited aeration of the lung bases. Redemonstration of the small left apical pneumothorax. Degenerative changes of the thoracic spine. Numerous overlying external leads to grating image quality. Upper abdomen normal. IMPRESSION: 1. Stable small left pneumothorax. 2. Mild cardiomegaly. No advanced congestive change or erlinda pulmonary edema. 3. Small bilateral pleural effusions with bibasilar atelectasis. ACT 112: Negative or not required by law. Electronically signed by: Tomás Rivera M.D. 09/13/2019 9:42 AM PG Care Time/CCT Total # of Minutes Spent Total Time Spent with Patient: Total time spent is greater than 50% in coordination of care (as documented) at patient's floor/unit and/or counseling patient: 30 minutes Coding Level of Care Code 21569 Inpt Consult Level 3 Diagnoses Pneumothorax, left J93.9 Bilateral pleural effusion J90
[2019-09-14] MEDS: ENOXAPARIN INJ 40 MG/0.4 ML SYR SQ SCH (16:18)
[2019-09-14] MEDS: ATORVASTATIN 40 MG TAB PO SCH (20:16)
[2019-09-14] MEDS: AMITRIPTYLINE HCL 10 MG TAB PO SCH (20:16)
[2019-09-14] MEDS: ACETAMINOPHEN 500 MG TAB PO PRN (22:30)
[2019-09-15 04:04] LABS: BUN Creatinine Ratio 24.9 (10-20); Calcium 8.7 mg/dl (8.5-10.1); Creatinine Clr Calc Pharmacy 31.8 ml/min; Est GFR (African American) 40.8; Est GFR (Non-African American) 35.2; Potassium 4.7 mmol/L (3.5-5.1)
[2019-09-15 08:14] LABS: Hematocrit (blood only) 31.9 % (42-52); Hemoglobin 9.1 g/dL (14.0-18.0); Mean Corpuscular Hemoglobin 26.3 pg (25-34); Mean Corpuscular Hgb Conc 28.5 g/dL (32-36); Mean Corpuscular Volume 92.2 fL (80-100); Mean Platelet Volume 10.9 fL (7.4-10.4); Nucleated RBC # (auto) 0.02 K/uL (0-0); Nucleated RBC % (auto) 0.2 %; Platelet Count 227 K/uL (130-400); RDW Coefficient of Variation 17.5 % (11.5-14.5); RDW Standard Deviation 58.8 fL (36.4-46.3); Red Blood Count 3.46 M/uL (4.7-6.1); White Blood Count 12.73 K/uL (4.8-10.8)
--- NOTE | 2019-09-15 08:33 | XRay Report ---
TWO VIEW CHEST CLINICAL HISTORY: Pneumothorax.. FINDINGS: AP and lateral chest radiographs are compared to study dated 09/13/2019. The patient is statu s post midline sternotomy. The heart is enlarged noting atherosclerotic calcification of the thoracic aorta there are small to moderate pleural effusions with bibasilar atelectasis. There is a small res idual left apical pneumothorax. This has modestly decreased in size from 09/13/2019. There is approxima tely 1 cm of apical pleural separation. The skeletal structures are osteopenic. The bony thorax appea rs intact. IMPRESSION: 1. Cardiomegaly without radiographic evidence of congestive failure. 2. Small to moderate pleural effusions with bibasilar atelectasis. 3. There is a small residual left apical pneumothorax. This has modestly decreased in size from 020. ACT 112: Negative or not required by law. Electronically signed by: Jeffery Freeman M.D. 09/15/2019 8:32 AM
[2019-09-15] MEDS: METOPROLOL TARTRATE 25 MG TAB PO SCH ×2 (08:58→20:09)
[2019-09-15] MEDS: AZITHROMYCIN 250 MG TAB PO SCH (08:59)
[2019-09-15] MEDS: LACTOBACILLUS ACIDOPHILUS (FLORANEX) TAB PO SCH ×2 (08:59→20:08)
[2019-09-15] MEDS: MULTIVITAMIN TAB PO SCH (08:59)
[2019-09-15] MEDS: FUROSEMIDE 40 MG in SYRINGE 0 ML IV SCH (08:59)
[2019-09-15] MEDS: cefTRIAXone SODIUM 1,000 MG in DEXTROSE 5% 50 ML IV SCH (09:00)
[2019-09-15] MEDS: ENOXAPARIN INJ 40 MG/0.4 ML SYR SQ SCH (16:25)
--- NOTE | 2019-09-15 19:37 | Hospitalist Progress Note ---
Date of Service September 15, 2019 Assessment & Plan (1) Metabolic encephalopathy: Appears confused today, but nonfocal. Possibly related to hospital delirium in addition to underlying known infection and CHF. Also has a cecal mass which is not currently being treated. Will continue to reorient and cont treatment of infection. (2) CHF (congestive heart failure): Acute combined diastolic and systolic heart failure admitted with lower extremity swelling, shortness of breath and BNP greater than 29,000. Continue Lasix IV daily and monitor urine output. (3) Pneumonia: Continue Rocephin and azithromycin for pneumonia. White blood cell count is improved to 12,000 today. The patient is currently requiring oxygen; recent notes reflect that he requires oxygen supplementation at home. (4) Pneumothorax: Recent small left pneumothorax not requiring intervention. Appreciate pulmonology seeing him. Etiology was presumed excessive coughing secondary to pneumonia and CHF. Continue oxygen supplementation at this time (5) Mass of colon: Has significant cecal mass during his last admission he came in with obstructive symptoms Denies any nausea vomiting or abdominal distention No further investigation for the cecal mass per patient wishes (6) Diabetes: Has type 2 diabetes Does not want to have blood sugar checked or any insulin given AM labwork reveals he is around goal (7) Atrial fibrillation: History atrial fibrillation and the rate is controlled with beta-manuel He does not want to have any anticoagulation (8) CAD (coronary artery disease) of artery bypass graft: No acute pain, cont telemetry monitoring. Cont medical management. 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 He has also been coughing and was admitted and placed on treatment for pneumonia. He was also thought to be in acute combined systolic and diastolic heart failure with an elevated BNP greater than 29,000. He received a dose of Lasix in the emergency room and continued Lasix IV 40 mg daily. Based on the urine output log he has not had significant output. He has known CKD stage III with a baseline creatinine of 1.3. Revealed a pneumothorax that was nontraumatic and presumably from coughing. Pulmonology was consulted and recommended continuing supportive care with no intervention. Follow-up x-ray this morning revealed the pneumothorax is improving. Today, the patient is appearing confused and does not know where he is or why he is here. He reports some pain in his nose and his oxygen cannula was found on the ground by his feet. A pulse ox checked by the undersigned revealed an oxygen saturation of 88%. The oxygen was replaced on him and nursing staff was notified. Review of systems is on obtainable secondary to confusion. Review of Systems Review of Systems: All systems reviewed & are unremarkable except as noted in Subjective Physical Exam Physical Exam: CONSTITUTIONAL: WNWD, vitals as above, appears confused EYES: normal conjunctivae, no scleral icterus ENT: external ear and nose normal RESPIRATORY: clear to auscultation bilaterally, no crackles, rales or wheezes, normal respiratory effort CARDIOVASCULAR: regular rate and rhythm, S1 and 2 heard, 2+ peripheral edema GASTROINTESTINAL: soft, nontender, nondistended, but limitd exam as patient sitting up on side of bed and is confused. MUSCULOSKELETAL: head is normocephalic and atraumatic,moving all extremities equally. SKIN: warm and dry NEUROLOGIC: No facial palsy, no dysarthria. CN 2-12 grossly intact, confused. PSYCHIATRIC: alert and speaking to me but confused and not able to follow instructions well. Results & Data ([facility]) Vital Signs (Past 12 Hours) Vital Signs Temp Pulse Pulse Resp BP Pulse Ox 09/15/19 19:14 36.4 C L 83 18 116/67 96 09/15/19 15:16 36.3 C L 61 16 108/60 97 09/15/19 15:00 86 09/15/19 12:00 65 18 100/55 L 98 09/15/19 08:45 80 09/15/19 07:58 36.5 C 63 19 103/63 99 Laboratory Results Short CBC 09/15/19 09/15/19 Range/Units 03:31 07:03 WBC Cancelled 12.73 H Hgb Cancelled 9.1 L Hct Cancelled 31.9 L Plt Count Cancelled 227 BMP 09/15/19 03:31 Sodium 140 Potassium 4.7 Chloride 104 Carbon Dioxide 32 BUN 43 H Creatinine 1.73 H Glucose 133 H Calcium 8.7 Medications Administered Current Inpatient Medications Acetaminophen (Tylenol) 1,000 mg PO Q8H PRN PRN Reason: Pain Stop: 10/12/19 16:49 Last Admin: 09/14/19 22:30 Dose: 1,000 mg Documented by: Amitriptyline HCl (Elavil) 10 mg PO HS PAWEL Stop: 10/12/19 20:59 Last Admin: 09/14/19 20:16 Dose: 10 mg Documented by: Atorvastatin Calcium (Lipitor) 40 mg PO HS [facility] Stop: 10/12/19 20:59 Last Admin: 09/14/19 20:16 Dose: 40 mg Documented by: Azithromycin (Zithromax) 250 mg PO QAM PAWEL Stop: 09/18/19 09:01 Last Admin: 09/15/19 08:59 Dose: 250 mg Documented by: Dextromethorphan Polymer Complex (Delsym) 60 mg PO Q12H PRN PRN Reason: Cough Stop: 10/13/19 10:14 Enoxaparin Sodium (Lovenox) 40 mg SQ Q24H PAWEL Stop: 10/12/19 15:59 Last Admin: 09/15/19 16:25 Dose: 40 mg Documented by: Guaifenesin (Mucinex) 1,200 mg PO Q12H PRN PRN Reason: Cough Stop: 10/13/19 10:13 Furosemide 40 mg/ Syringe 4 mls @ 4 mls/min IV DAILY PAWEL Stop: 10/13/19 08:59 Last Admin: 09/15/19 08:59 Dose: 4 mls/min Documented by: Ceftriaxone Sodium 1,000 mg/ (Dextrose) 60 mls @ 100 mls/hr IV DAILY@0800 PAWEL Stop: 09/21/19 07:59 Last Infusion: 09/15/19 09:53 Dose: Infused Documented by: Lactobacillus Acidophilus (Floranex) 4 tab PO BID PAWEL Stop: 10/12/19 20:59 Last Admin: 09/15/19 08:59 Dose: 4 tab Documented by: Metoprolol Tartrate (Lopressor) 25 mg PO BID PAWEL Stop: 10/12/19 20:59 Last Admin: 09/15/19 08:58 Dose: 25 mg Documented by: Multivitamins (Multivitamin Tab) 1 tab PO DAILY PAWEL Stop: 10/13/19 08:59 Last Admin: 09/15/19 08:59 Dose: 1 tab Documented by: (1) Pneumothorax Pneumothorax type: unspecified pneumothorax Qualified Code(s): J93.9 - Pneumothorax, unspecified (2) CHF (congestive heart failure) Heart failure chronicity: unspecified Heart failure type: unspecified Qualified Code(s): I50.9 - Heart failure, unspecified (3) Atrial fibrillation Atrial fibrillation type: unspecified Qualified Code(s): I48.91 - Unspecified atrial fibrillation
[2019-09-15] MEDS: AMITRIPTYLINE HCL 10 MG TAB PO SCH (20:08)
[2019-09-15] MEDS: ATORVASTATIN 40 MG TAB PO SCH (20:09)
[2019-09-15] MEDS ORDERED: LORazepam 0.25 MG/0.5 ML VIAL IV SCH (22:00)
[2019-09-16] MEDS: cefTRIAXone SODIUM 1,000 MG in DEXTROSE 5% 50 ML IV SCH (08:19)
[2019-09-16 09:32] LABS: Basophils # (auto) 0.06 K/uL (0-0.2); Basophils % (auto) 0.4 %; Eosinophils # (auto) 0.01 K/uL (0-0.5); Eosinophils % (auto) 0.1 %; Hematocrit (blood only) 31.8 % (42-52); Hemoglobin 9.1 g/dL (14.0-18.0); Immature Granulocytes # (auto) 0.08 K/uL (0.00-0.02); Immature Granulocytes % (auto) 0.6 %; Lymphocytes % (auto) 9.7 %; Mean Corpuscular Hgb Conc 28.6 g/dL (32-36); Mean Corpuscular Volume 90.9 fL (80-100); Mean Platelet Volume 10.4 fL (7.4-10.4); Monocytes # (auto) 0.83 K/uL (0.11-0.59); Monocytes % (auto) 5.7 %; Neutrophils # (auto) 12.09 K/uL (1.4-6.5); Neutrophils % (auto) 83.5 %; Platelet Count 264 K/uL (130-400); RDW Coefficient of Variation 17.5 % (11.5-14.5); RDW Standard Deviation 56.9 fL (36.4-46.3); White Blood Count 14.47 K/uL (4.8-10.8)
[2019-09-16 09:48] LABS: Albumin Level 2.8 gm/dl (3.4-5.0); BUN Creatinine Ratio 27.2 (10-20); Creatinine Clr Calc Pharmacy 31.9 ml/min; Est GFR (African American) 40.3; Est GFR (Non-African American) 34.7; Magnesium 2.2 mg/dl (1.8-2.4); Potassium 4.8 mmol/L (3.5-5.1)
[2019-09-16 09:56] LABS: Base Excess ABG 3.7 mEq/L (-9-1.8); HCO3 ABG 32 mmol/L (19-24); Oxygen Saturation ABG 89.6 % (90-95); PCO2 ABG 69 mmHg (35-46); PO2 ABG 65 mmHg (80-95); pH ABG 7.28 (7.35-7.45)
[2019-09-16 09:57] LABS: Allen Test Pos (Pos)
--- NOTE | 2019-09-16 09:57 | Hospitalist Progress Note ---
Date of Service September 16, 2019 Assessment & Plan (1) Metabolic encephalopathy: More confused today with multiple contributing factors including ongoing cecal mass, active pneumonia infection (now read as atelectasis?) and CHF exacerbation, elevated trop with new strain pattern on EKG, use of amitryptiline which was started on admission for uncertain reason?, use of Ativan overnight to help with agitation. Also, noted not much UOP despite lasix which may be related to missed voids or decreased urine output. Arzate requested. Based on formal CXR reading of worsening pleural effusions and worsened pulmonary edema, he will receive another dose of Lasix 40mg IV. Renal function appears the same as the last 3 days. BIPAP contraindicated in setting of PTX, so moving forward with Vapotherm per pulm recs to offer some PEEP. I notified his brother of his change in status. Moving him to PCU to continue close monitoring and workup. Arzate placed and 400cc out. Lasix not given yet. AUR may be contributing. Will ensure no UTI present. Avoid anticholinergics as able. (2) CHF (congestive heart failure): worsened. Arzate placed with 400cc urine out, gave additional Lasix 40mg IV now and consulted cardiology. (3) NSTEMI (non-ST elevated myocardial infarction): Elevated troponin and EKG changes consistent with LVH with strain pattern. Encephalopathic so history is limited. Trend trops, consult cardiology and defer repeat echo to them as needed. (4) Pneumonia: Continue Rocephin and azithromycin for pneumonia, although uncertain if this was actually atelectasis. Cont abx for now while he is having some increased respiratory distress. WBC count slightly increased to 14K today. Remains afebrile. (5) Acute urinary retention: Place Arzate catheter. 400cc out prior to Lasix administration. Keep in place for accurate I/Os while diuresing. (6) Pneumothorax: Appears resolved on formal CXR today. (7) Mass of colon: Has significant cecal mass during his last admission he came in with obstructive symptoms Denies any nausea vomiting or abdominal distention No further investigation for the cecal mass per patient wishes (8) Acute renal failure: Noted decline in creat, however, this is not by much and has been stable for the last few days despite continued Lasix administration. BMP in am. (9) Diabetes: Has type 2 diabetes Does not want to have blood sugar checked or any insulin given AM labwork reveals he is around goal (10) Atrial fibrillation: History atrial fibrillation and the rate is controlled with beta-manuel He does not want to have any anticoagulation Appreciate cardiology thoughts. Will reassess tachycardia after Lasix starts to work, and after Arzate placed. 400cc out which may have been contributing things. (11) CAD (coronary artery disease) of artery bypass graft: see management for NSTEMI (12) DVT prophylaxis: Lovenox DNR Dispo-cont telemetry monitoring DO Bethany Fuentes Hospitalist Admission and Anticipated Discharge Date Admission Date: September 12, 2019 Anticipated date of discharge: 09/19/19 Subjective worsened mental status increased work of breathing assessed patient at bedside who is confused and not following commands, RR is increased, agitated he is mouth-breathing, and nasal canula continues to slip out of place. intermittent sat checks reveal the patient is hypoxic EKG ordered with some new anterior ST elevations and ST depressions in lateral leads consistent with an LVH strain pattern Changes possibly 2/2 underlying metabolic encephalopathy in setting of pna, CHF exacerbation, recent PTX, and amitriptyline/Ativan use? labs ordered with respiratory acidosis, normal lactate, elevated troponin, no worsening of TONIA CXR ordered with wet read persistent but no worse PTX, increased vascular congestion-->pending final radiology reading Contacted Pulm and discussed the contraindication of BIPAP in this tachypenic patient with a PTX. Decided on vapotherm to achieve some peep. Pt not requiring much to resolve his hypoxia (2LPM) I contacted the family and let his brother know that his status has changed and I will contact him back with any further changes. Review of Systems Review of Systems: All systems reviewed & are unremarkable except as noted in Subjective Physical Exam Physical Exam: CONSTITUTIONAL: WNWD, vitals as above, appears confused, delirious. Not following commands. Trying to get out of bed. EYES: normal conjunctivae, no scleral icterus ENT: external ear and nose normal, mucous membranes are dry. RESPIRATORY: clear to auscultation bilaterally, no crackles, rales or wheezes, tachypnea, normal respiratory effort, mouth breathing that is shallow and more rapid. Limited exam as patient is not following commands to take deep breaths. CARDIOVASCULAR: regular rate and rhythm, S1 and 2 heard, 2+ peripheral edema GASTROINTESTINAL: soft, nontender, nondistended, but limited exam as patient is trying to get out of bed and, therefore, guarding. MUSCULOSKELETAL: head is normocephalic and atraumatic, moving all extremities equally. SKIN: warm and dry NEUROLOGIC: No facial palsy, no dysarthria. CN 2-12 grossly intact, confused. PSYCHIATRIC: alert and speaking to me but confused and not able to follow instructions well. Results & Data ([facility]) Vital Signs (Past 12 Hours) Vital Signs Temp Pulse Pulse Resp BP Pulse Ox 09/16/19 08:38 92 09/16/19 07:24 36.5 C 111 H 20 127/80 99 09/16/19 03: 36.1 C L 121 H 20 126/76 92 09/16/19 00:00 89 09/15/19 23:28 36.1 C L 105 H 22 147/79 H 100 Laboratory Results Short CBC 09/16/19 Range/Units 09:09 WBC 14.47 H (4.8-10.8) K/uL Hgb 9.1 L (14.0-18.0) g/dL Hct 31.8 L (42-52) % Plt Count 264 (130-400) K/uL BMP 09/16/19 09:09 Sodium 140 Potassium 4.8 Chloride 102 Carbon Dioxide 34 H BUN 48 H Creatinine 1.75 H Glucose 143 H Calcium 9.0 Cardiac Enzymes 09/16/19 Range/Units 09:09 Troponin I 1.360 H* (0-0.045) ng/ml Liver Function 09/16/19 Range/Units 09:09 Total Bilirubin 0.4 (0.2-1) mg/dl AST 31 (15-37) U/L ALT 20 (12-78) U/L Alkaline Phosphatase 153 H (45-117) U/L Albumin 2.8 L (3.4-5.0) gm/dl Medications Administered Current Inpatient Medications Acetaminophen (Tylenol) 1,000 mg PO Q8H PRN PRN Reason: Pain Stop: 10/12/19 16:49 Last Admin: 09/14/19 22:30 Dose: 1,000 mg Documented by: Amitriptyline HCl (Elavil) 10 mg PO HS [facility] Stop: 10/12/19 20:59 Last Admin: 09/15/19 20:08 Dose: 10 mg Documented by: Atorvastatin Calcium (Lipitor) 40 mg PO HS [facility] Stop: 10/12/19 20:59 Last Admin: 09/15/19 20:09 Dose: 40 mg Documented by: Azithromycin (Zithromax) 250 mg PO QAM [facility] Last Admin: 09/15/19 08:59 Dose: 250 mg Documented by: Dextromethorphan Polymer Complex (Delsym) 60 mg PO Q12H PRN PRN Reason: Cough Stop: 10/13/19 10:14 Enoxaparin Sodium (Lovenox) 40 mg SQ Q24H [facility] Stop: 10/12/19 15:59 Last Admin: 09/15/19 16:25 Dose: 40 mg Documented by: Guaifenesin (Mucinex) 1,200 mg PO Q12H PRN PRN Reason: Cough Stop: 10/13/19 10:13 Furosemide 40 mg/ Syringe 4 mls @ 4 mls/min IV DAILY [facility] Stop: 10/13/19 08:59 Last Admin: 09/15/19 08:59 Dose: 4 mls/min Documented by: Ceftriaxone Sodium 1,000 mg/ (Dextrose) 60 mls @ 100 mls/hr IV DAILY@0800 [facility] Stop: 09/21/19 07:59 Last Infusion: 09/16/19 08:58 Dose: Infused Documented by: Furosemide 40 mg/ Syringe 4 mls @ 4 mls/min IV 1045 ONE Stop: 09/16/19 10:46 Lactobacillus Acidophilus (Floranex) 4 tab PO BID [facility] Stop: 10/12/19 20:59 Last Admin: 09/15/19 20:08 Dose: 4 tab Documented by: Metoprolol Tartrate (Lopressor) 25 mg PO BID [facility] Stop: 10/12/19 20:59 Last Admin: 09/15/19 20:09 Dose: Not Given Documented by: Multivitamins (Multivitamin Tab) 1 tab PO DAILY [facility] Stop: 10/13/19 08:59 Last Admin: 09/15/19 08:59 Dose: 1 tab Documented by: (1) CHF (congestive heart failure) Heart failure chronicity: unspecified Heart failure type: unspecified Qualified Code(s): I50.9 - Heart failure, unspecified (2) Pneumothorax Pneumothorax type: unspecified pneumothorax Qualified Code(s): J93.9 - Pneumothorax, unspecified (3) Atrial fibrillation Atrial fibrillation type: unspecified Qualified Code(s): I48.91 - Unspecified atrial fibrillation
[2019-09-16 10:01] LABS: Albumin Globulin Ratio 0.6 (0.9-2); Bilirubin,Total 0.4 mg/dl (0.2-1); Globulin 4.8 gm/dl (2.5-4.0); Phosphorus 4.3 mg/dl (2.5-4.9); Thyroid Stimulating Hormone 2.01 uIu/ml (0.300-4.500); Total Protein 7.6 gm/dl (6.4-8.2); Troponin I 1.36 ng/ml (0-0.045)
--- NOTE | 2019-09-16 10:16 | XRay Report ---
XR chest 1V portable CLINICAL HISTORY: 84 years-old Male presenting with altered mental status, h/o pna. TECHNIQUE: Portable upright AP view of the chest was obtained. COMPARISON: 09/15/2019. FINDINGS: Median sternotomy wires and mediastinal surgical clips. Atherosclerosis of the aortic arch. Cardiac s ilhouette moderately enlarged. Pulmonary vascular prominence. Moderate bilateral layering pleural eff usions suggested by gradient of density at the lung bases with poor aeration of the lung bases. Skin folds noted over the periphery of the left upper lung. No convincing evidence of residual pneumothora x. Degenerative changes of the thoracic spine. External leads overlie the right upper quadrant. IMPRESSION: 1. Cardiomegaly with volume overload. 2. Layering bilateral moderate pleural effusions with extensive bibasilar atelectasis. These may hav e increased from prior. The appearance limits evaluation for pulmonary edema. 3. No convincing evidence of a residual pneumothorax. ACT 112: Negative or not required by law. Electronically signed by: Tomás Rivera M.D. 09/16/2019 10:15 AM
[2019-09-16] MEDS ORDERED: FUROSEMIDE 40 MG in SYRINGE 0 ML IV ONE (10:45)
[2019-09-16 12:44] LABS: Appearance Urine Clear (Clear); Bacteria Urine Automated Negative (Negative); Bilirubin Urine Negative (Negative); Blood Urine Negative (Negative); Color Urine Dark Yellow; Glucose Urine UA Negative (Negative); Ketones Urine Negative (Negative); Leukocyte Esterase Urine Negative (Negative); Nitrite Urine Negative (Negative); Protein Urine Trace (Negative); RBC Urine Automated 0-4 /hpf (0-4); Urobilinogen Urine Negative (Negative)
--- NOTE | 2019-09-16 13:26 | Cardiology Consultation ---
Date of Consultation September 16, 2019 Assessment & Plan (1) Metabolic encephalopathy: (2) Cecum mass: (3) Acute urinary retention: (4) Elevated troponin: (5) CHF (congestive heart failure): I currently do not believe the patient is in congestive heart failure. Fact, I think he is a little on the dry side. He may have presented with congestive heart failure. His pro natruretic peptide was 29,000 but now it would appear that he is actually a little bit on the dry side. He may benefit from some gentle IV hydration. I would not repeat his echocardiogram. I think he is obtunded because of overmedication and the Ativan has been held. I would try to wait this out and see how he does. History of Present Illness Attending Physician: Arabella Mendoza, History of Present Illness This is an elderly 84-year-old male patient who is currently only responsive to painful stimuli. 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 He also had some lower extremity edema and it is felt that he had congestive heart failure. At the end of August he had an echocardiogram that revealed his left ventricular ejection fraction to be around 45% and no significant valvular pathology. The patient was given IV diuretics and admitted to the floor. He was given some sedation last night and then became obtunded and transferred to the telemetry floor. Information is taken from the medical record. In reviewing the record from [facility] he was last seen in the cardiology clinic 10-12 years ago for some PAF. There is actually no other additional information in the [facility] chart. According to nursing, the patient has decided that he does not want to pursue any additional diagnostic work-up or treatment of his cecal mass. He is currently a DO NOT RESUSCITATE. Allergies Allergy/AdvReac Type Severity Reaction Status Date / Time ibuprofen AdvReac Severe RAPID Unverified 09/12/19 12:43 HEART RATE Home Medications Home Medications Medication Instructions Recorded Confirmed Type Lactobacillus acidoph-L.bulgar 1 tab PO BID #20 tab 08/16/19 09/12/19 Rx [Lactinex] atorvastatin 40 mg PO HS 30 Days #30 tab 08/16/19 09/12/19 Rx metoprolol tartrate 25 mg PO BID 30 Days #60 tab 08/16/19 09/12/19 Rx multivitamin 1 tab PO DAILY 30 Days #30 tab 08/16/19 09/12/19 Rx dextromethorphan-guaifenesin 1 tab PO Q12H 09/12/19 09/12/19 History [Mucinex DM] melatonin 10 mg PO HS 09/12/19 09/12/19 History Patient History Medical History Bronchitis CAD (coronary artery disease) of artery bypass graft CHF (congestive heart failure) Goals of care, counseling/discussion Umbilical hernia Family History Other No significant family history Social History Preferred Language: Citizen Of [place] Communication Ability: Effective Pallet Repairer Required: No Beliefs That Will Affect Care: None marital status: Single Current Living Situation: Personal Care Facility Other Information That Helps Us Care for You: No Feels Safe at Home: Yes Safety Concerns: Feels Safe At This Time Smoking Status: Never smoker Do You Dip or Chew Tobacco: No ; Second Hand Exposure: No ; Tobacco Cessation Education Requested by Patient: No Hx Alcohol Use: No Hx Substance Use: No Review of Systems Review of Systems: Unobtainable due to reduced consciousness Physical Exam Physical Exam: General: The patient is arousable to pain. Head: normocephalic, no masses, lesions, tenderness or abnormalities Eyes: conjunctiva are pink and non-injected, sclera clear Neck: supple, no adenopathy, no bruits, normal jugular venous pulse, no hepatojugular reflux Chest: normal shape and normal respiratory effort Lungs: clear to auscultation and percussion Cardiac Exam: - regular rate & rhythm, no murmurs gallops or rubs - normal S1, normal S2 Pulses: 2(+) throughout Abdomen: abdomen soft, non-tender, no abnormal masses and no hepatosplenomegaly Musculoskeletal: no gait disturbance, no joint inflammation, no deforming arthritis Extremities: no edema and no cyanosis Neuro: grossly normal exam Results & Data ([facility]) Vital Signs (Past 12 Hours) Vital Signs Temp Pulse Resp BP BP Pulse Ox 09/16/19 11:57 113 H 22 92 09/16/19 11:46 36.6 C 82 18 151/74 H 91 09/16/19 11:21 36.3 C L 99 H 18 132/82 100 09/16/19 08:38 92 09/16/19 07:24 36.5 C 111 H 20 127/80 99 09/16/19 03:20 36.1 C L 121 H 20 126/76 92 Laboratory Results Laboratory Results - last 24 hr 09/16/19 09/16/19 09/16/19 08:56 09:01 09:09 WBC 14.47 H RBC 3.50 L Hgb 9.1 L Hct 31.8 L MCV 90.9 MCH 26.0 MCHC 28.6 L RDW Std Deviation 56.9 H RDW Coeff of Alcie 17.5 H Plt Count 264 MPV 10.4 Immature Gran % (Auto) 0.6 Neut % (Auto) 83.5 Lymph % (Auto) 9.7 [place] % (Auto) 5.7 Eos % (Auto) 0.1 Baso % (Auto) 0.4 Immature Gran # (Auto) 0.08 H Neut # (Auto) 12.09 H Lymph # (Auto) 1.40 [place] # (Auto) 0.83 H Eos # (Auto) 0.01 Baso # (Auto) 0.06 ABG pH Cancelled ABG pCO2 Cancelled ABG pO2 Cancelled ABG HCO3 Cancelled ABG O2 Saturation Cancelled ABG Base Excess Cancelled Howie Test Cancelled Barometric Pressure Cancelled Oxygen Given Cancelled Sodium Potassium Chloride Carbon Dioxide Anion Gap BUN Creatinine Est Cr Clr Drug Dosing Est GFR ( Amer) Est GFR (Non-Af Amer) BUN/Creatinine Ratio Glucose Lactate 1.8 Calcium Phosphorus Magnesium Total Bilirubin AST ALT Alkaline Phosphatase Troponin I Total Protein Albumin Globulin Albumin/Globulin Ratio TSH Urine Color Urine Appearance Urine pH Ur Specific Wilson Urine Protein Urine Glucose (UA) Urine Ketones Urine Blood Urine Nitrite Urine Bilirubin Urine Urobilinogen Ur Leukocyte Esterase Urine WBC (Auto) Urine RBC (Auto) U Hyaline Cast (Auto) U Epithel Cells (Auto) Urine Bacteria (Auto) 09/16/19 09/16/19 09/16/19 09:09 09:44 11:40 WBC RBC Hgb Hct MCV MCH MCHC RDW Std Deviation RDW Coeff of Alice Plt Count MPV Immature Gran % (Auto) Neut % (Auto) Lymph % (Auto) [place] % (Auto) Eos % (Auto) Baso % (Auto) Immature Gran # (Auto) Neut # (Auto) Lymph # (Auto) [place] # (Auto) Eos # (Auto) Baso # (Auto) ABG pH 7.28 L ABG pCO2 69 H ABG pO2 65 L ABG HCO3 32 H ABG O2 Saturation 89.6 L ABG Base Excess 3.7 H Howie Test Pos Barometric Pressure 733.4 Oxygen Given 3L Sodium 140 Potassium 4.8 Chloride 102 Carbon Dioxide 34 H Anion Gap 4.0 BUN 48 H Creatinine 1.75 H Est Cr Clr Drug Dosing 31.9 Est GFR ( Amer) 40.3 Est GFR (Non-Af Amer) 34.7 BUN/Creatinine Ratio 27.2 H Glucose 143 H Lactate Calcium 9.0 Phosphorus 4.3 Magnesium 2.2 Total Bilirubin 0.4 AST 31 ALT 20 Alkaline Phosphatase 153 H Troponin I 1.360 H* Total Protein 7.6 Albumin 2.8 L Globulin 4.8 H Albumin/Globulin Ratio 0.6 L TSH 2.010 Urine Color Dark Yellow Urine Appearance Clear Urine pH 5.0 Ur Specific Wilson 1.020 Urine Protein Trace H Urine Glucose (UA) Negative Urine Ketones Negative Urine Blood Negative Urine Nitrite Negative Urine Bilirubin Negative Urine Urobilinogen Negative Ur Leukocyte Esterase Negative Urine WBC (Auto) 1-5 Urine RBC (Auto) 0-4 U Hyaline Cast (Auto) 5-10 H U Epithel Cells (Auto) 5-10 H Urine Bacteria (Auto) Negative Medications Administered Current Inpatient Medications Acetaminophen (Tylenol) 1,000 mg PO Q8H PRN PRN Reason: Pain Stop: 10/12/19 16:49 Last Admin: 09/14/19 22:30 Dose: 1,000 mg Documented by: Amitriptyline HCl (Elavil) 10 mg PO [facility] Stop: 10/12/19 20:59 Last Admin: 09/15/19 20:08 Dose: 10 mg Documented by: Atorvastatin Calcium (Lipitor) 40 mg PO [facility] Stop: 10/12/19 20:59 Last Admin: 09/15/19 20:09 Dose: 40 mg Documented by: Azithromycin (Zithromax) 250 mg PO [facility] Last Admin: 09/15/19 08:59 Dose: 250 mg Documented by: Dextromethorphan Polymer Complex (Delsym) 60 mg PO Q12H PRN PRN Reason: Cough Stop: 10/13/19 10:14 Enoxaparin Sodium (Lovenox) 40 mg SQ Q24H [facility] Stop: 10/12/19 15:59 Last Admin: 09/15/19 16:25 Dose: 40 mg Documented by: Guaifenesin (Mucinex) 1,200 mg PO Q12H PRN PRN Reason: Cough Stop: 10/13/19 10:13 Furosemide 40 mg/ Syringe 4 mls @ 4 mls/min IV DAILY [facility] Stop: 10/13/19 08:59 Last Admin: 09/15/19 08:59 Dose: 4 mls/min Documented by: Ceftriaxone Sodium 1,000 mg/ (Dextrose) 60 mls @ 100 mls/hr IV DAILY@0800 [facility] Stop: 09/21/19 07:59 Last Infusion: 09/16/19 08:58 Dose: Infused Documented by: Lactobacillus Acidophilus (Floranex) 4 tab PO BID [facility] Stop: 10/12/19 20:59 Last Admin: 09/15/19 20:08 Dose: 4 tab Documented by: Metoprolol Tartrate (Lopressor) 25 mg PO BID [facility] Stop: 10/12/19 20:59 Last Admin: 09/15/19 20:09 Dose: Not Given Documented by: Multivitamins (Multivitamin Tab) 1 tab PO DAILY [facility] Stop: 10/13/19 08:59 Last Admin: 09/15/19 08:59 Dose: 1 tab Documented by: (1) CHF (congestive heart failure) Heart failure chronicity: unspecified Heart failure type: unspecified Qualified Code(s): I50.9 - Heart failure, unspecified
--- NOTE | 2019-09-16 14:59 | Electrocardiogram Report ---
Test Reason : Blood Pressure : / mmHG Vent. Rate : 111 BPM Atrial Rate : 111 BPM P-R Int : 216 ms QRS Dur : 114 ms QT Int : 326 ms P-R-T Axes : -74 -21 124 degrees QTc Int : 443 ms Unusual P axis, possible ectopic atrial tachycardia with occasional Premature ventricular complexes Left ventricular hypertrophy with repolarization abnormality Chronic ST depression in Anterolateral leads Abnormal ECG When compared with ECG of 12-SEP-2019 11:49, Ectopic atrial rhythm has replaced Sinus rhythm Otherwise no significant change Confirmed by Red Bansal ([id number] on 09/16/2019 2:58:33 PM Referred By: REFERRED SELF Confirmed By:Red Bansal
[2019-09-16] MEDS ORDERED: MoRPHine SULFATE 2 MG/ML CARP ONE (17:13)
[2019-09-16] MEDS ORDERED: MoRPHine SULFATE 2 MG/ML CARP IV PRN (17:20)
--- NOTE | 2019-09-16 18:32 | Pulmonology Progress Note ---
Date of Service September 16, 2019 Assessment & Plan (1) Pneumothorax, left: Apical pneumothorax has resolved. (2) Bilateral pleural effusion: Related to heart failure. Continue diuresis. Patient appears to be actively dying. Recommend palliative care and possible hospice. No indication for thoracentesis as I do not think this would change his outcome at this point. He has hypercapnic respiratory failure and may benefit from BiPAP if aggressive measures are still favored. (3) Hypercapnic respiratory failure: Subjective Patient is lying in bed and is completely obtunded. He is very tachypneic. He is not responsive. He does moan and groan occasionally. Physical Exam Constitutional: Cachectic appearing. Tachypneic. Wearing a high flow nasal cannula. Moaning occasionally. Eyes: Small pupils equal to light ENMT: external ear and nose normal, oropharynx normal Neck: trachea midline, no thyromegaly Respiratory: Tachypneic. Mild crackles Cardiovascular: Tachycardic. 3+ pitting edema in the lower extremities. Mild systolic flow murmur loudest in the right upper sternal border. Gastrointestinal (Abdomen): normal bowel sounds, soft, nontender, no hepatosplenomegaly Musculoskeletal: Acrocyanosis noted. Neurologic: PERRL, EOMI, accommodation nl, no face palsy, no dysarthria Psychiatric: A+Ox3, euthymic affect Lymphatic: no lymphedema Results & Data ([facility]) Vital Signs (Past 12 Hours) Vital Signs Temp Pulse Resp BP BP Pulse Ox 09/16/19 15:45 97.5 F L 115 H 18 129/63 98 09/16/19 15:42 76 18 94 09/16/19 11:57 113 H 22 92 09/16/19 11:46 97.9 F 82 18 151/74 H 91 09/16/19 11:21 97.3 F L 99 H 18 132/82 100 09/16/19 08:38 92 09/16/19 07:24 97.7 F 111 H 20 127/80 99 PG Care Time/CCT Total # of Minutes Spent Total Time Spent with Patient: Total time spent is greater than 50% in coordination of care (as documented) at patient's floor/unit and/or counseling patient: Coding Level of Care Code 22399 Subseq Hosp Care Lvl 2 Diagnoses Pneumothorax, left J93.9 Bilateral pleural effusion J90 Hypercapnic respiratory failure J96.92
--- NOTE | 2019-09-16 22:58 | Communication Note ---
Date of Service: September 16, 2019 The patient continued to decline and remained confused. He was transitioned to comfort care measures after discussion with his brother and [id number]. Morphine as needed is now being given. A palliative care consult was requested. Moved off telemetry and de-escalating care. Continue oxygen for comfort. DO Reji
--- NOTE | 2019-09-17 07:35 | Death Summary ---
Date of Service September 17, 2019 Pronouncement Note Date and Time of Date of : 09/16/19 Time of : 20:20 Contributing Factors (1) Pneumothorax, left: (2) Bilateral pleural effusion: (3) Hypercapnic respiratory failure: Additional Data Confirmation of : no pulse, no respirations, no heart sounds and pupils fixed and dilated Family: at bedside Attending physician: Arabella Mendoza DO Coding Level of Care Code None Diagnoses Pneumothorax, left J93.9 Bilateral pleural effusion J90 Hypercapnic respiratory failure J96.92
--- NOTE | 2019-09-17 08:48 | Discharge Summary ---
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 The leg swelling associated with shortness of breath and he has been coughing for the last few days productive of whitish- yellow phlegm. He denies any significant chest pain and he does not have any fever and no chills with it. Denies any abdominal pain, nausea and or vomiting, no problem with his urine and her bowel habit. Denies any numbness and or tingling involving any of the extremities or any weakness in any side of the body. He was noted to have a high white count, bibasilar opacity with bilateral small pleural effusion with congestive changes and a small pneumothorax on the right and left apex. He was started with intravenous azithromycin, given Lasix and was admitted to medical floor for continuation of care. Admission Exam Per Admitting Provider Physical Exam: Lying in bed comfortably with occasional coughs but no shortness of breath Constitutional: well developed and well nourished; no acute distress and not ill appearing Eyes: PERRL, conjunctivae normal, anicteric sclerae ENMT: external ear and nose normal, oropharynx normal Neck: trachea midline, no thyromegaly Respiratory: normal respiratory effort; no respiratory distress Auscultation: + diminished lung sounds and + crackles (Bibasilar) Cardiovascular: Rate/Rhythm: + abnormal rate and + abnormal rhythm Heart Sounds: no murmur Extremities: + edema (2+ edema bilaterally up to lower abdomen) Gastrointestinal (Abdomen): Inspection/Auscultation: abdomen normal to inspection and normal bowel sounds; abdomen not distended Percussion/Palpation: abdomen soft; abdomen nontender Musculoskeletal: No acute arthritis in any joints Lymphatic: no cervical or axillary lymphadenopathy Principal Diagnosis Acute respiratory failure Discharge Exam see note Discharge Data Allergies Allergy/AdvReac Type Severity Reaction Status Date / Time ibuprofen AdvReac Severe RAPID Unverified 09/12/19 12:43 HEART RATE Consultations 09/12/19 12:58 ED Decision to Admit Stat 09/16/19 10:17 Consult Palliative Care Routine 09/16/19 11:35 Consult Cardiology Routine Hospital Course (1) Hypercapnic respiratory failure: (2) Elevated troponin: (3) Cecum mass: (4) Acute urinary retention: (5) Metabolic encephalopathy: (6) Bilateral pleural effusion: (7) Pneumothorax, left: (8) Pneumonia: 84-year-old man presented to the hospital with increased leg swelling and shortness of breath with cough. He was admitted to the hospitalist service and started on treatment with diuretics for acute congestive heart failure. He was also placed on antibiotics for pneumonia as his white count was elevated to 17,000 and there was a bibasilar infiltrate with small effusion on the chest x- ray. He was noted to have a pneumothorax and pulmonary was consulted. Ultimately conservative management was chosen and this resolved. He has an known colon mass with clear instructions for no further investigation and no escalation of care. He became confused during his hospitalization likely a result of metabolic encephalopathy from multiple insults. He ultimately became tachypneic and developed acute hypercapnic respiratory failure. Per his wishes no escalation of care was instituted and he was made comfort care measures. He was transitioned to as needed morphine and on 09/16/2019 at 20:20. Total Time Total Time Spent Total Time Spent (In Minutes): 60 Total Time Includes: Examination of the Patient, Discharge Planning, Medication Reconciliation and Communication With Other Providers Discharge Plan Discharge Items Patient Disposition: Reason For Visit: chf,pneumonia Follow-up/Referrals: Val Akhtar PA-C [Primary Care Provider] - Admission Data Admit Date/Time: 09/12/19 13:37 Other DC Date/Time DO NOT enter until pt leaves facility: 09/16/19 23:06
--- NOTE | 2019-09-17 09:52 | Palliative Care Progress Note ---
Date of Service September 17, 2019 Subjective Patient prior to palliative care consultation being completed. PG Care Time/CCT Total # of Minutes Spent Total Time Spent with Patient: Total time spent is greater than 50% in coordination of care (as documented) at patient's floor/unit and/or counseling patient: Coding Level of Care Code None
== END 2019-09-16 23:06 | disposition expired | DRG 291 ==
LOC: ED 11:09 → SUATTDRO 13:37 → 2W 13:37 → 2S 09-16 10:04 → 4W 09-16 17:30